=== PATIENT | male | born 1985 | race American Indian/Alaskan Native ===

== ENCOUNTER 2021-11-13 18:00 | Outpatient (RCR) | payer OTHER, SELFPAY ==
--- NOTE | 2021-09-26 08:31 | HP.PTEVAL ---
Patient's Visit Information JOSE ALEJANDRO RAO is a 36 year old M referred to Physical Therapy by Dr. 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 Date of Evaluation: 09/26/21 Physical Therapist: Brennan Crook PT, Cert MDT, OCS - Visit Plan Frequency: 2x /Week Duration: 4 Weeks Plan: PT INTERVETIONS DAJUAN EX'S DLS ,POSTURAL EX'S,,MANUAL THERAPY AND MMODLTIES - Subjective This 36 y/o female presents to physical therapy low back pain with radicular symptoms left leg. Patient has had Lumbar pain with radicular symptoms ~ 5 months with insidious onset of pain. Patient seen DR chuyita PT . Patient was provided naproxen. Patient pain pain low back right thigh to knee. Aggravating sitting extended ,bending ,AM ,standing extended . Alleviating factors walking, as day goes on. Denies paresthesia/tingling. Bowel/bladder -. Coughing/sneezing -.Patient pain affects sleeping. No abnormal hip pain. Symptoms affects QOL and function. No prior back pain although right hip OA ,infection. SOCIAL: single. 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 GAIT: reciprocal pattern. SYMMTRIES: align. NEURO: denies paresthesia/tingling ,reflexes L3-4,L4-5,L5-S1. + ANR. LUMBAR ROM: flexion mod loss pain ,extension min loss, side glides min loss,. FLEXABLITY: hamstrings mod/severe loss with + ANR - Special Tests L/S Slump test left side: Positive L/S Slump test right side: Negative L/S Left Straight Leg Raise: Positive L/S Right Straight Leg Raise: Negative Lumbar Standing: Flexion - Mechanical Response: No effect Lumbar Standing: Flexion - Symptoms During Testing: Increases Lumbar Standing: Flexion - Symptoms After Testing: Worse Lumbar Standing: Extension - Mechanical Response: No effect Lumbar Standing: Extension - Symptoms During Testing: Decreases Lumbar Standing: Extension - Symptoms After Testing: Better Lumbar Standing: Right Side Glides - Mechanical Response: No effect Lumbar Standing: Right Side [employer] - Symptoms During Testing: No effect Lumbar Standing: Left Side [employer] - Mechanical Response: No effect Lumbar Standing: Left Side [employer] - Symptoms During Testing: No effect Lumbar Standing: Left Side [employer] - Symptoms After Testing: No effect Lumbar Lying: Flexion - Mechanical Response: No effect Lumbar Lying: Flexion - Symptoms During Testing: Increases Lumbar Lying: Flexion - Symptoms After Testing: Worse Lumbar Lying: Extension - Mechanical Response: No effect Lumbar Lying: Extension - Symptoms During Testing: Centralizing Lumbar Lying: Extension - Symptoms After Testing: Better - Balance/Special Test Scores Oswestry Low Back Score: 23 - Goals Goal 1:: I with HEP for back pain Goal Time Frame: 4-6 Weeks Goal 2:: Patient to improve sitting posture and body mechanics Goal Time Frame: 4-6 Weeks Goal 3:: Patient to demonstrate 50% improvement with decrease back pain and radicular symptoms Goal Time Frame: 4-6 Weeks Goal 4:: Patient improve lumbar ROM for function of recovery Goal Time Frame: 4-6 Weeks Goal 5:: Patient to improve back owestry score by 5 points to improve function Goal Time Frame: 4-6 Weeks - Rehabilitation Potential Physical Therapy Diagnosis: This patient possible displays with derangement above knee with pain with test movements ,position ,+ ANR,SLR ,better with extension and correction of posture thus benefit from skilled PT Rehabilitation Potential: Good - Anticipated Interventions Patient/Client Instruction: Educate patient on: Condition, Plan of Care For the Purpose of:: To decrease pain, To increase ROM, To increase oxygenation perfusion, To improve ability to perform ADL's, To increase tolerance to activity/condition/position, To improve ability of physical actions for home/community/work/leisure, To improve health of tissue, To decrease soft tissue restriction, To increase flexibility/ROM Therapeutic Exercise to Include: Strength training, Body mechanics, Postural training, Flexibilty training, Active ROM, Dynamic Lumbar Stabilization, Dajuan Exercises For the Purpose of:: To decrease pain, To increase ROM, To improve muscle performance and motor function, To improve ability to perform ADL's, To increase tolerance to activity/condition/position, To improve ability of physical actions for home/community/work/leisure, To improve health of tissue, To decrease soft tissue restriction, To increase flexibility/ROM, To prevent re-injury Manual Therapy Techniques to Include: Mobilization Comment: LUMBAR For the Purpose of:: To decrease pain, To improve muscle performance and motor function, To improve ability to perform ADL's, To increase tolerance to activity/condition/position, To improve ability of physical actions for home/community/work/leisure, To improve health of tissue, To decrease soft tissue restriction, To increase flexibility/ROM TENS: Yes IF ES: Yes Cryotherapy (ice pack, ice massage): Yes Thermo therapy (hot pack): Yes Ultrasound (thermal/non thermal): Yes For the Purpose of:: To decrease pain, To increase ROM, To improve nutrient delivery to tissue, To increase oxygenation perfusion, To improve health of tissue, To decrease soft tissue restriction Thank you for the opportunity to evaluate your patient. For Medicare and Medicare HMO plans, please review the plan of care and approve it. It will need to be FAXED BACK to us at [phone] for Medicare purposes. For Medicare only, by signing this I certify the plan of care. Please let me know if there are questions or concerns regarding this plan of care. Physician Signature: Date:
--- NOTE | 2022-01-23 10:16 | HP.PT.NRP ---
JOSE ALEJANDRO RAO was seen in my office for initial evaluation on 09/26/21. The following Plan of Care was established for this patient: Initial Frequency: 2x /Week Initial Duration: 4 Weeks Patient/Client Instruction: Educate patient on: Condition, Plan of Care For the Purpose of:: To decrease pain, To increase ROM, To increase oxygenation perfusion, To improve ability to perform ADL's, To increase tolerance to activity/condition/position, To improve ability of physical actions for home/community/work/leisure, To improve health of tissue, To decrease soft tissue restriction, To increase flexibility/ROM Therapeutic Exercise to Include: Strength training, Body mechanics, Postural training, Flexibilty training, Active ROM, Dynamic Lumbar Stabilization, Vic Exercises For the Purpose of:: To decrease pain, To increase ROM, To improve muscle performance and motor function, To improve ability to perform ADL's, To increase tolerance to activity/condition/position, To improve ability of physical actions for home/community/work/leisure, To improve health of tissue, To decrease soft tissue restriction, To increase flexibility/ROM, To prevent re-injury Manual Therapy Techniques to Include: Mobilization Comment: LUMBAR For the Purpose of:: To decrease pain, To improve muscle performance and motor function, To improve ability to perform ADL's, To increase tolerance to activity/condition/position, To improve ability of physical actions for home/community/work/leisure, To improve health of tissue, To decrease soft tissue restriction, To increase flexibility/ROM TENS: Yes IF ES: Yes Cryotherapy (ice pack, ice massage): Yes Thermo therapy (hot pack): Yes Ultrasound (thermal/non thermal): Yes For the Purpose of:: To decrease pain, To increase ROM, To improve nutrient delivery to tissue, To increase oxygenation perfusion, To improve health of tissue, To decrease soft tissue restriction This patient was last seen in our office . Pertinent comments regarding their Physical therapy will appear below: This patient was seen for PT FOR CHRONIC BACK PAIN for 10 visits for Vic ex's ,DLS ,postural ex's flexibility and recommended heel lift with chronic hip pain ,progressing to I gym program At this point I will be discontinuing this patient from physical therapy. I would be happy to see this patient again in the future if found appropriate by the physician. Thank you! Brennan Crook, PT, Cert MDT, OCS Balance/Gait/Functional tests - Balance/Special Test Scores Oswestry Low Back Score: 5
== END 2021-11-13 19:00 | disposition home or self-care (01) ==
LOC: PT 18:00
PROVIDERS: PCP Family Medicine; Referring Provider Family Medicine; Visit Provider Family Medicine
DX: M54.41 Lumbago with sciatica, right side (principal); M54.42 Lumbago with sciatica, left side; G89.29 Other chronic pain
CPT/HCPCS: 97014; 97035; 97110; 97162; G0283

== ENCOUNTER 2023-03-21 07:29 | Outpatient (RCR) | payer OTHER, SELFPAY | END 2023-04-19 23:59 | LOC: NS 07:29 | PROVIDERS: PCP Family Medicine; Referring Provider Family Medicine; Visit Provider Family Medicine | DX: Z71.3 Dietary counseling and surveillance (principal); E66.01 Morbid (severe) obesity due to excess calories; Z68.41 Body mass index [BMI] 40.0-44.9, adult | CPT/HCPCS: 97802 ==

== ENCOUNTER 2024-12-08 22:26 | Emergency (ER) | payer OTHER, SELFPAY ==
[2024-12-08 22:27] VITALS: BP 137/103; PULSE 78; RESP 17; TEMP 36.6; O2SAT 100; BMI 42.6
== END 2024-12-08 22:40 | disposition left against medical advice (07) ==
LOC: ED 22:44
PROVIDERS: PCP Family Medicine
DX: Z53.21 Procedure and treatment not carried out due to patient leaving prior to being seen by health care provider (principal)

== ENCOUNTER 2025-05-25 15:54 | Emergency (ER) | payer OTHER, SELFPAY ==
[2025-05-25 15:56] VITALS: BP 153/93; PULSE 70; RESP 17; TEMP 36.7; O2SAT 100; BMI 40.7
--- NOTE | 2025-05-25 16:38 | CT_ITS ---
PROCEDURE: ABDOMEN/PELVIS W IV CONT ONLY 05/25/2025 REASON FOR EXAM: LEFT LOWER QUADRANT PAIN TECHNIQUE: ABDOMEN/PELVIS W IV CONT ONLY Coronal and Sagittal reconstruction series were provided. CONTRAST: Isovue-300 VOLUME: 100 mL One or more dose reduction techniques were used (e.g., Automated exposure control, adjustment of the mA and/or kV according to patient size, use of iterative reconstruction technique. RADIATION DOSE SUMMARY: CTDlvol: 6.65, 24.14 mGy DLP: 1438.7 mGycm COMPARISON: None. FINDINGS: LUNG BASES: No basilar airspace consolidation or pleural effusion. LIVER: Unremarkable. GALLBLADDER: Unremarkable. No calcified stone. BILE DUCTS: No ductal dilation. PANCREAS: Unremarkable. SPLEEN: Unremarkable. ADRENAL GLANDS: Unremarkable. KIDNEYS: The kidneys enhance symmetrically. Hypodense 1.3 mm superior left renal lesion, likely a cyst. No hydronephrosis or hydroureter. STOMACH AND BOWEL: No obstruction or perforation. No wall thickening. No CT evidence of colitis or acute diverticulitis. APPENDIX: Normal-appearing appendix. No CT evidence for appendicitis. RETRO/PERITONEUM: No free fluid. No free air. LYMPH NODES: No lymphadenopathy. PELVIC ORGANS: Unremarkable as visualized. VASCULATURE: No aortic aneurysm. ABDOMINAL WALL AND SOFT TISSUES: Tiny fat containing umbilical hernia. BONES: No fracture or suspicious osseous abnormality. Mild arthritic changes of both hips, greater on the right. CT/Abdomen/Pelvis W IV Cont ONLY IMPRESSION: NO ACUTE FINDINGS IN THE ABDOMEN OR PELVIS. Reading Location: [id number]
[2025-05-25] MEDS: Ketorolac 30 MG/ML Syringe IV (16:44)
[2025-05-25] MEDS: 0.9% Normal Saline (1000mL) 1,000 ML 999 ML IV (16:44)
[2025-05-25 16:55] VITALS: BP 151/77; PULSE 74; RESP 18; O2SAT 96
--- NOTE | 2025-05-25 16:58 | EX.ED.GUMALE ---
HPI History of Present Illness Chief Complaint: Flank Pain Narrative Narrative: Chief complaint and HPI: Abdominal pain. 40-year-old male with no significant past medical history presents for evaluation of left lower quadrant/flank pain. Onset of symptoms this morning. Pain is not improved which is why presents. Associated symptom is some mild nausea. He denies any fever, chills, shortness of breath, chest pain, vomiting, dysuria, hematuria, diarrhea, constipation. States it radiates into the left groin but not into the testicles. Denies any penile or testicular swelling, pain, discharge. No history of urolithiasis or diverticulitis. Review of systems: See HPI Medications: As listed on the chart Allergies: As listed on the chart PFSH: Per chart Vital signs: As listed on the chart. Reviewed. Physical exam: Gen: A&O x3, NAD Head: Normocephalic, atraumatic Eyes: No sclera icterus, conjunctiva clear ENT: Moist mucous membranes Neck: Trachea midline, No JVD CV: RRR, no murmurs, no peripheral edema Resp: Lungs CTA BL, no w/r/c GI: Abd soft, non-distended, mildly tender to palpation left lower quadrant/flank, no r/r/g : No CVA tenderness : Uncircumcised penis. No penile tenderness or discharge. No penile or testicular swelling. Normal lie and position of the testicles. No testicular tenderness, masses, or skin changes. Cremasteric reflexes intact and equal bilaterally. No rashes. No palpable hernias. Musc: Full ROM, no deformity Skin: Warm, dry Neuro: Alert, oriented, grossly intact, sensation intact Psych: Cooperative, appropriate mood and affect [facility] Medical History (Updated 05/25/25 @ 19:[address] Lloyd Gao, DO) GERD (gastroesophageal reflux disease) Home Medications ?Medication ?Instructions ?Recorded ?Last Taken ?Type omeprazole 40 mg capsule,delayed 40 mg PO DAILY 05/25/25 Unknown History release Allergy/AdvReac Type Severity Reaction Status Date / Time Sulfa (Sulfonamide Allergy Mild Hives Verified 05/25/25 16:00 Antibiotics) Social History Smoking Status: Never smoker EXAM Physical Exam Const Vital Signs: 05/25/25 15:56 05/25/25 16:55 05/25/25 17:14 Temperature 98.1 F Temperature Source Oral Pulse Rate 70 74 Respiratory Rate 17 18 Blood Pressure 153/93 H 151/77 H Blood Pressure Mean 113 101 Pulse Ox 100 96 100 Oxygen Delivery Method Room Air Room Air 05/25/25 18:00 05/25/25 19:00 Temperature Temperature Source Pulse Rate 71 Respiratory Rate Blood Pressure 142/63 H 146/81 H Blood Pressure Mean 85 102 Pulse Ox 99 100 Oxygen Delivery Method MDM MDM MDM Narrative Medical decision making narrative: 40-year-old male with no significant past medical history presents for evaluation of left lower quadrant/flank pain. Differential diagnosis includes but is not limited to diverticulitis, urolithiasis, UTI, electrolyte abnormality, suspect less likely pancreatitis or biliary pathology. NS bolus, Zofran, Toradol ordered. Abdominal pain workup with CT abdomen and pelvis. CBC with mild leukocytosis of 12.2. No anemia. CMP unremarkable. Lipase unremarkable. UA negative for UTI. CT abdomen pelvis shows no acute intra-abdominal pathology. At this point in time, no clear etiology to explain patient's left lower quadrant/flank pain. On reevaluation, patient has improved. Patient and family updated of all the results and the plan for discharge home. Follow-up with primary care physician. Return precautions explained. They confirmed understand of the plan. Patient stable to discharge home. Impression: 1. Left lower abdominal/flank pain Lab Data Labs: Laboratory Results - last 24 hr 05/25/25 05/25/25 16:14 17:15 WBC 12.2 H RBC 5.50 Hgb 15.4 Hct 45.8 MCV 83.3 MCH 28.0 MCHC 33.6 RDW Std Deviation 38.7 RDW Coeff of Ajay 12.9 Plt Count 280 MPV 9.6 Immature Gran % (Auto) 0.300 Neut % (Auto) 80.7 H Lymph % (Auto) 14.7 L [place] % (Auto) 3.9 Eos % (Auto) 0.1 Baso % (Auto) 0.3 Absolute Neuts (auto) 9.8 H Absolute Lymphs (auto) 1.79 Nucleated RBC % 0 Sodium 137 Potassium 3.9 Chloride 102 Carbon Dioxide 21.3 Anion Gap 13 BUN 10 Creatinine 0.85 Estim Creat Clear Calc 158.79 Est GFR (MDRD) Non-Af 112 BUN/Creatinine Ratio 11.6 Glucose 95 Calcium 9.2 Total Bilirubin 0.48 AST 26 ALT 23 Alkaline Phosphatase 88 Total Protein 7.6 Albumin 4.3 Globulin 3.4 Albumin/Globulin Ratio 1.3 Lipase 32 Urine Color Yellow Urine Clarity Clear Urine pH 7.0 Ur Specific Welch 1.005 Urine Protein Negative Urine Glucose (UA) Normal Urine Ketones Negative Urine Occult Blood Negative Urine Nitrite Negative Urine Bilirubin Negative Urine Urobilinogen Normal Ur Leukocyte Esterase Negative Radiography Diagnostic Testing: Clinical Impression(s) from Imaging Studies Abdomen/Pelvis CT 05/25/25 16:38 IMPRESSION: NO ACUTE FINDINGS IN THE ABDOMEN OR PELVIS. Reading Location: [facility] Discharge Plan Triage Chief Complaint: Flank Pain ED Provider: Lloyd Gao Dx/Rx/DC Orders Clinical Impression: Abdominal pain Instructions: Abdominal Pain Prescriptions: No Action omeprazole 40 mg capsule,delayed release(DR/EC) 40 mg PO DAILY Primary Care Provider: Jose Alejandro Bean Referrals: Jose Alejandro Bean MD [Primary Care Provider] - 3-5 Days Activity Restrictions/Additional Instructions: Follow-up with primary care physician return back to ED if symptoms change or worsen Print Language: [place] Disposition Disposition: Home, Self Care
[2025-05-25 17:06] LABS: Hematocrit 45.8 % (40-54); Hemoglobin 15.4 g/dL (13.0-16.5); Immature Granulocytes Count 0.040 X10^3/uL (0.0-0.0); Mean Corp Hgb Conc 33.6 g/dL (32-36); Mean Corpuscular Volume 83.3 fL (80-94); Mean Platelet Vol. 9.6 fl (6.2-12.0); NRBC Flagged by Analyzer 0 % (0-5); Platelet Count 280 K/mm3 (150-450); RBC Distribution Width CV 12.9 % (11.6-14.6); RBC Distribution Width SD 38.7 fl (35.1-43.9); Red Blood Count 5.50 M/mm3 (4.6-6.2); White Blood Count 12.2 K/mm3 (4.4-11.0)
[2025-05-25 17:14] VITALS: O2SAT 100
[2025-05-25 17:19] LABS: Mucous, Urine 0 SEEN /hpf (<or=2+)
[2025-05-25 17:22] LABS: AST(SGOT) 26 U/L (<=37); Alanine Aminotransfer ALT/SGPT 23 U/L (<=46); Albumin, Serum 4.3 g/dL (3.5-5.0); Alkaline Phosphatase 88 U/L (40-129); Anion Gap 13 (5-15); BUN 10 mg/dL (4-19); BUN/Creat Ratio 11.6 RATIO (10-20); Calcium,Total 9.2 mg/dL (7.6-11.0); Carbon Dioxide 21.3 mmol/L (21.0-32.0); Chloride 102 mmol/L (98-108); Estimated Creatinine Clearance 158.79 ml/min (50-250); Globulin 3.4 g/dL (2.2-4.2); Glucose 95 mg/dL (70-99); Lipase 32 U/L (13-75); Potassium 3.9 mmol/L (3.3-5.1)
[2025-05-25 17:33] LABS: Glucose, Dipstick Normal (Normal); Ketone-Dipstick Negative (Negative); Leukocyte Esterase-Dipstick Negative /ul (Negative); Nitrite-Dipstick Negative (Negative); Occult Blood-Urine Negative /ul (Negative); Protein-Dipstick Negative (Negative); Specific Gravity, Urine 1.005 (1.002-1.030); Urine Bilirubin Dipstick Negative (Negative)
[2025-05-25 17:42] LABS: Color, Urine Yellow (Yellow)
[2025-05-25 18:00] VITALS: BP 142/63; O2SAT 99
[2025-05-25 19:00] VITALS: BP 146/81; PULSE 71; O2SAT 100
[2025-05-25 19:20] VITALS: BP 146/81; PULSE 71; RESP 80; TEMP 37; O2SAT 100
[2025-05-25 19:38] LABS: Red Blood Cells-Urine 0-5 SEEN /hpf (0-5); Squamous Epithelial Cells - UA 0-5 SEEN /hpf (0-5)
--- OUTSIDE RECORDS SUMMARY | 2025-05-25 19:41 | XMS RPT_ITS | CCD ---
Author Organization [facility] Care Team Providers Care Direct Marketing Executive Name Role Phone Rubina Love Attending Unavailable Rubina Love Admitting Unavailable [facility] Primary Care Unavailable [facility] Consulting Unavailable Manny Bean MD Primary Care Provider Manny Bean MD Primary Care Provider Podlogar SALES DEVELOPMENT MANAGER.Ary LUDWIG Unavailable Jose Alejandro Bean Primary Care Unavailable Provider, Ed Physician Attending Unavailab trudy Jeff SALES DEVELOPMENT MANAGER.Mary LUDWIG Unavailable MANNY BEAN Primary Care Unavailab MANNY Jean Referring Unavailab MANNY Jean Primary Care Unavailab MANNY Jean Referring Unavailab MANNY Jean Primary Care Unavailab MANNY Jean Primary Care Unavailab MANNY Jean Attending Unavailab DONNA Bonner Attending Unavailable MANNY BEAN Primary Care Unavailab MANNY Jean Referring Unavailab KARIME Flores Attending Unavailable MANNY BEAN Primary Care Unavailab MANNY Jean Attending Unavailab MANNY Jean Primary Care Unavailab MANNY Jean Primary Care Unavailab MANNY Jean Referring Unavailab MANNY Jean Primary Care Unavailab MANNY Jean Referring Unavailab DONNA Bonner Attending Unavailable MANNY BEAN Primary Care Unavailab le SELF Referring Unavailable MANNY BEAN Primary Care Unavailab MANNY Jean Attending Unavailab Dr. Jose Alejandro Jean MD Primary Care Provider Dr. Lloyd Gao DO Emergency Provider Allergies Allergy Classification Reported Allergen(s) Allergy Type Date of Onset Reaction(s) Facility (16 sources) Sulfonamides (Antibiotic); Translations: [SULFA (SULFONAMIDE ANTIBIOTICS)] Propensity to adverse reactions to drug 0 Rash [facility] (8 sources) Amoxicillin; Translations: [AMOXICILLIN] Drug Allergy 5 [facility] (6 sources) Clindamycin; Translations: [CLINDAMYCIN] Drug Allergy 5 [facility] (1 source) Sulfonamides (Antibiotic) Drug allergy (disorder) 5 [facility] (6 sources) Ibuprofen; Translations: [IBUPROFEN] Drug Allergy 5 [facility] (1 source) Sulfonamides (Antibiotic) Allergy to substance [address] [facility] Medications Current Medications Medication Drug Class(es) Dates Sig (Normalized) Sig (Original) amoxicillin 50 mg/ml oral suspension (1 source) Penicillin-class Antibacterial Start: 03-25-2025 End: 04-24-2025 amoxicillin 250 mg oral liquid (AMOXIL) celecoxib 200 mg oral capsule (13 sources) Nonsteroidal Anti-inflammatory Drug Start: 09-08-2021 End: 03-05-2025 take 1 capsule by mouth once daily as needed for pain celecoxib (CELEBREX) 200 mg capsule Indications: Chronic right hip pain Take 1 capsule by mouth once daily as needed for pain. 30 capsule 08/07/2023 03/05/2025 Discontinued (Course of therapy completed) Comment on above: Take 1 capsule by [facility] once daily as needed for pain. cholecalciferol 1.25 mg oral capsule (10 sources) Vitamin D Start: 09-30-2023 End: 03-05-2025 take 1 capsule by mouth every week cholecalciferol, Vitamin D3, (VITAMIN D3) 1,250 mcg (50,000 unit) cap capsule Indications: Vitamin D deficiency Take 1 capsule by mouth one time a week. 12 capsule 09/30/2023 03/05/2025 Discontinued (Course of therapy completed) Start: 09-12-2021 End: 02-05-2023 take 1 capsule by mouth every week cholecalciferol, Vitamin D3, (VITAMIN D3) 1,250 mcg (50,000 unit) cap capsule Indications: Vitamin D deficiency Take 1 capsule by mouth one time a week. 12 capsule 0 09/12/2021 02/05/2023 Discontinued Comment on above: Take 1 capsule by mo [facility] one time a week. clindamycin 150 mg oral capsule (3 sources) Lincosamide Antibacterial Start: 12-08-19 25 End: 12-13-19 25 take 3 capsules by mouth three times daily clindamycin (CLEOCIN) 150 mg capsule Indications: Dental infection Take 3 capsules by mouth three times a day for 5 days. 45 capsule 12/08/2024 12/09/2024 Discontinued (Allergic response) CPAP (15 sources) Start: 07-26-20 CPAP Initiate Auto PAP @ 9-18 cm of water with humidification. Mask (per patient preference) optional chin strap (if indicated) , filters, tubing, humidifier and lifetime supplies. 1 Each 07/26/2022 Active Start: 07-26-2022 CPAP Initiate Auto PAP @ 9-18 cm of water with humidification. Mask (per patient preference) optional chin strap (if indicated) , filters, tubing, humidifier and lifetime supplies. 1 Each 0 07/26/2022 Active Comment on above: Initiate Auto PAP @ 9-18 cm of water with humidification. Mask (per patient preference) optional chin strap (if indicated) , filters, tubing, humidifier and lifetime supplies. docusate sodium 100 mg oral capsule (9 sources) Start: 024 End: take 1 capsule by mouth every twelve hours as needed docusate sodium (COLACE) 100 mg capsule Take 1 capsule by mouth two times a day as needed for constipation. 60 capsule 05/26/2024 03/05/2025 Discontinued (Course of therapy completed) doxycycline hyclate 100 mg oral capsule (1 source) Tetracycline-class Drug Start: 025 End: take 1 capsule by mouth twice daily doxycycline hyclate (VIBRAMYCIN) 100 mg capsule Indications: Hives Take 1 capsule by mouth two times a day for 7 days. 14 capsule 12/09/2024 12/16/2024 Active [id number] 0.3 ml EPINEPHrine 1 mg/ml auto-injector (6 sources) alpha-Adrenergic Agonist, beta-Adrenergic Agonist, Catecholamine Start: EPINEPHrine (EPIPEN 2-PATTIE) 0.3 mg/0.3 mL auto-injector Indications: Allergy to penicillin , Allergic reaction, subsequent encounter Inject 0.3 mL intramuscularly as needed. 2 Each 1 12/09/2024 Active ofloxacin 3 mg/ml otic solution (1 source) Quinolone Antimicrobial Start: End: ofloxacin (FLOXIN) 0.3 % otic solution Indications: Acute otitis externa of left ear, unspecified type , Abrasion of left ear canal, initial encounter Use 10 drops in the right ear once daily for 7 days. 5 mL 02/07/2025 02/14/2025 Active omeprazole 40 mg delayed release oral capsule (17 sources) Proton Pump Inhibitor Start: 024 End: take 1 capsule by mouth once daily Omeprazole 40 mg capsule,delayed release(DR/EC) Active 40 mg PO DAILY May 25, 2025 12:00am Start: 01-10-2021 End: 05-26-2024 take 1 capsule by mouth once daily before breakfast omeprazole (PRILOSEC) 20 mg capsule Indications: Gastroesophageal reflux disease without esophagitis Take 1 capsule by mouth daily before breakfast. 1/2 hr before meal. 30 capsule 2 01/10/2021 05/26/2024 Discontinued Comment on above: Take 1 capsule by [facility] daily before breakfast. 1/2 hr before meal. predniSONE 20 mg oral tablet (3 sources) Start: 5 End: 5 take 2 tablets by mouth once daily predniSONE (DELTASONE) 20 mg tablet Indications: Rash , Facial swelling Take 2 tablets by mouth once daily for 5 days. 10 tablet 12/08/2024 12/13/2024 Active tiZANidine 4 mg oral tablet (13 sources) Central alpha-2 Adrenergic Agonist Start: End: 5 take 1 tablet by mouth every eight hours as needed tiZANidine (ZANAFLEX) 4 mg tablet Indications: Chronic right hip pain Take 1 tablet by mouth every 8 hours as needed. 30 tablet 08/07/2023 03/05/2025 Discontinued (Course of therapy completed) Comment on above: Take 1 tablet by princess [facility] every 8 hours as needed. Completed/Discontinued Medications Medication Drug Class(es) Dates Sig (Normalized) Sig (Original) penicillin G potassium 2,000 Units injection in NaCl 0.9% 0.2 mL (PFIZERPEN-G) (1 source) Start: 12-22-2024 End: 12-22-2024 penicillin G potassium 2,000 Units injection in NaCl 0.9% 0.2 mL (PFIZERPEN-G) Problems Active Problems Problem Classification Problem Date Documented Date Episodic/Chronic Abdominal pain (4 sources) Left upper quadrant pain; Translations: [Left upper quadrant pain] Onset: 05-26-2024 05-26-2024 Episodic Complications of surgical procedures or medical care (2 sources) Non dose-related adverse reaction to medication; Translations: [Unspecified adverse effect of drug or medicament, initial encounter] 12-22-2024 Episodic Contraceptive and procreative management (1 source) Patient encounter status; Translations: [Encounter for other general counseling and advice on procreation] 08-07-2023 Episodic Disorders of teeth and jaw (1 source) Infection of tooth; Translations: [Periapical abscess without sinus] 12-08-2024 Episodic E Codes: Adverse effects of medical drugs (2 sources) Allergic reaction caused by penicillin; Translations: [Adverse effect of penicillins, subsequent encounter] Onset: 03-05-2025 03-05-2025 Episodic Esophageal disorders (20 sources) Gastroesophageal reflux disease without esophagitis; Translations: [Gastro-esophageal reflux disease without esophagitis] Onset: 01-10-2021 01-10-2021 Chronic Nutritional deficiencies (6 sources) Vitamin D deficiency; Translations: [Vitamin D deficiency, unspecified] Onset: 03-05-2025 08-07-2023 Chronic Other ear and sense organ disorders (1 source) Acute otitis externa of left ear; Translations: [Unspecified acute noninfective otitis externa, left ear] 02-07-2025 Episodic Other ear and sense organ disorders (1 source) Unspecified acute noninfective otitis externa, left ear; Translations: [Acute otitis externa of left ear, unspecified type] Onset: 02-07-2025 Episodic Other injuries and conditions due to external causes (3 sources) Allergic reaction; Translations: [Allergy, unspecified, subsequent encounter] 12-09-2024 Episodic Other injuries and conditions due to external causes (1 source) Angioedema; Translations: [Angioneurotic edema, initial encounter] 12-22-2024 Episodic Other nervous system disorders (1 source) Numbness of toe; Translations: [Anesthesia of skin] 03-05-2025 Episodic Other nervous system disorders (1 source) Anesthesia of skin; Translations: [Numbness of toes] Onset: 03-05-2025 Episodic Other non-traumatic joint disorders (1 source) Pain in right knee; Translations: [Pain in joint, lower leg] 08-08-2022 Episodic Other nutritional; endocrine; and metabolic disorders (17 sources) Morbid obesity; Translations: [Morbid (severe) obesity due to excess calories] 01-10-2021 Chronic Other nutritional; endocrine; and metabolic disorders (13 sources) Body mass index 40+ - severely obese; Translations: [Morbid (severe) obesity due to excess calories] Onset: 08-07-2023 08-07-2023 Chronic Other nutritional; endocrine; and metabolic disorders (1 source) Morbid (severe) obesity due to excess calories; Translations: [Morbid obesity (HCC)] Onset: 01-10-2021 Chronic Other screening for suspected conditions (not mental disorders or infectious disease) (2 sources) Raised TSH level; Translations: [Other specified abnormal findings of blood chemistry] Onset: 03-08-2025 03-08-2025 Episodic Other skin disorders (1 source) Eruption; Translations: [Rash and other nonspecific skin eruption] 12-08-2024 Episodic Other skin disorders (2 sources) Facial swelling ; Translations: [Localized swelling, mass and lump, head] 12-08-2024 Episodic Other upper respiratory disease (18 sources) Seasonal allergy; Translations: [Other seasonal allergic rhinitis] 01-10-2021 Chronic Other upper respiratory disease (1 source) Allergic rhinitis; Translations: [Allergic rhinitis, unspecified] 03-05-2025 Chronic Other upper respiratory disease (1 source) Other seasonal allergic rhinitis; Translations: [Seasonal allergies] Onset: 01-10-2021 Chronic Other upper respiratory disease (1 source) Allergic rhinitis, unspecified; Translations: [Allergic rhinitis, unspecified seasonality, unspecified trigger] Onset: 03-05-2025 Chronic Residual codes; unclassified (18 sources) Obstructive sleep apnea syndrome; Translations: [Obstructive sleep apnea (adult) (pediatric)] 01-10-2021 Chronic Residual codes; unclassified (1 source) Obstructive sleep apnea (adult) (pediatric); Translations: [BLAIR on CPAP] Onset: 01-10-2021 Chronic Residual codes; unclassified (1 source) Procedure and treatment not carried out due to patient leaving prior to being seen by health care provider; Translations: [Procedure and treatment not carried out due to patient leaving prior to being seen by health care provider] Onset: 12-18-2024 Episodic Superficial injury; contusion (2 sources) Abrasion of ear region; Translations: [Abrasion of left ear, initial encounter] Onset: 02-07-2025 02-07-2025 Episodic Past or Other Problems Problem Classification Problem Date Documented Da te Episodic/Chronic Allergic reactions (9 sources) Allergy to penicillin; Translations: [Urticaria] Onset: 12-22-2024 12-09-2024 Episodic Other injuries and conditions due to external causes (1 source) Allergy, unspecified, subsequent encounter; Translations: [Allergic reaction, subsequent encounter] Onset: 12-22-2024 Episodic Other non-traumatic joint disorders (20 sources) Hip pain; Translations: [Pain in right hip] Onset: 02-26-2020 Resolved: 05-19-2021 07-18-2020 Episodic Other nutritional; endocrine; and metabolic disorders (12 sources) Body mass index 30+ - obesity; Translations: [Obesity, unspecified] Resolved: 01-10-2021 01-10-2021 Chronic Spondylosis; intervertebral disc disorders; other back problems (12 sources) Chronic low back pain; Translations: [Chronic midline low back pain without sciatica] Onset: 02-03-2021 Resolved: 05-19-2021 05-19-2021 Episodic Results Test Name Value Interpretation Reference Range Facility Absolute lymphocyte countOrd ered By: Lloyd Gao on 05-25-2025 Lymphocytes Auto (Unsp spec) [#/Vol] 1.79 10*3/uL 0.83-4.51 [facility] Absolute neutrophil countOrd ered By: Lloyd Gao on 05-25-2025 Neutrophils (Bld) [#/Vol] 9.8 10*3/uL High 2.0-7.7 [facility] Anion gap in Serum or Plasma Ordered By: Lloyd Gao on 05-25-2025 Anion gap [Moles/Vol] 13 mmol/L 5-15 [facility] Automated lymphocyte count a s percentage of total leukocytesOrdered By: Lloyd Gao on 05-25-2025 Lymphocytes/100 WBC Auto (Unsp spec) 14.7 % Low 19-41 [facility] BUN/creatinine ratioOrdered By: Lloyd Gao on 05-25-2025 Urea nitrogen/Creatinine [Mass ratio] 11.6 mg/mg 10-20 [facility] Basophil percentageOrdered B y: Lloyd Gao on 05-25-2025 Basophils/100 WBC (Bld) 0.3 % 0-1 [facility] Bilirubin Test strip Ql (U)O rdered By: Lloyd Gao on 05-25-2025 Bilirubin Ql (U) Negative Negative [facility] Bilirubin, totalOrdered By: Lloyd Gao on 05-25-2025 Bilirubin [Mass/Vol] 0.48 mg/dL 0.00-1.30 [facility] Carbon dioxide, total [Moles /volume] in Central venous bloodOrdered By: Lloyd Gao on 05-25-2025 CO2 [Moles/Vol] 21.3 mmol/L 21.0-32.0 [facility] Chloride assayOrdered By: Vivek Gao on 05-25-2025 Chloride [Moles/Vol] 102 mmol/L 98-108 [facility] Eosinophil percentageOrdered By: Lloyd Gao on 05-25-2025 Eosinophils/100 WBC (Bld) 0.1 % 0-5 [facility] Erythrocyte distribution wid th ratioOrdered By: Lloyd Gao on 05-25-2025 Erythrocyte distribution width (RBC) [Ratio] 12.9 % 11.6-14.6 [facility] Erythrocyte distribution wid th standard deviationOrdered By: Lloyd Guillory on 05-25-2025 Erythrocyte distribution width (RBC) [Ratio] 38.7 fl 35.1-43.9 [facility] Glomerular filtration rate ( GFR) estimation/1.73 sq m using serum, plasma, or whole bOrdered By: Lloyd Gao on 05-25-2025 GFR/1.73 sq M.predicted among non-blacks MDRD (S/P/Bld) [Vol rate/Area] 112 mL/min/{1.73_m2} >60 [facility] Comment on above: mL/min/1.73m2 CKD-EP I Creatinine Equation (2020) Hematocrit Auto (Bld) [Volum e fraction]Ordered By: Lloyd Gao on 05-25-2025 Hematocrit (Bld) [Volume fraction] 45.8 % 40-54 [facility] Hemoglobin measurementOrdere d By: Lloyd LagosKahlil on 05-25-2025 Hemoglobin (Bld) [Mass/Vol] 15.4 g/dL 13.0-16.5 [facility] Immature granulocytes/100 WB C Auto (Bld)Ordered By: Lloydmarie Gao on 05-25-2025 Immature granulocytes/100 WBC (Bld) 0.300 % 0.0-0.9 [facility] Comment on above: IG% - Immature Granu locytes (promyelocytes, myelocytes and metamyelocytes) > 1% indicates that a LEFT SHIFT is Present. Ketones Test strip Ql (U)Ord ered By: Lloyd Gao on 05-25-2025 Ketones Ql (U) Negative Negative [facility] Laboratory - Chemistry and C hemistry - challengeOrdered By: Lloydmarie Gao on 05-25-2025 AST [Catalytic activity/Vol] 26 U/L <38 [facility] Lipase measurementOrdered By : [facility] on 05-25-2025 Lipase [Catalytic activity/Vol] 32 U/L 13-75 [facility] Comment on above: Please note:LIPASE r evised reference range effective 23. New Lipase methodology. Expected to produce lower values than the previous assay method. NEW Reference Range: 13 - 75 U/L MCV (mean corpuscular volume ) determinationOrdered By: Lloyd Gao on 05-25-2025 MCV (RBC) [Entitic vol] 83.3 fL 80-94 [facility] Mean corpuscular hemoglobin (MCH) determinationOrdered By: Lloyd Gao on 05-25-2025 MCH (RBC) [Entitic mass] 28.0 pg 27.0-32.0 [facility] Mean corpuscular hemoglobin concentration (MCHC) determinationOrdered By: Lloyd Gao on 05-25-2025 MCHC (RBC) [Mass/Vol] 33.6 g/dL 32-36 [facility] Mean platelet volume determi nationOrdered By: Lloyd Gao on 05-25-2025 Platelet mean volume (Bld) [Entitic vol] 9.6 fL 6.2-12.0 [facility] Monocyte percentageOrdered B y: Lloyd Gao on 05-25-2025 Monocytes/100 WBC (Bld) 3.9 % 0-10 [facility] Neutrophil percentageOrdered By: Llody Gao on 05-25-2025 Neutrophils/100 WBC (Bld) 80.7 % High 47-70 [facility] Nitrite Test strip Ql (U)Ord ered By: Lloyd Gao on 05-25-2025 Nitrite Ql (U) Negative Negative [facility] Nucleated red blood cell per centageOrdered By: Lloyd Gao on 05-25-2025 Nucleated RBC/100 WBC (Bld) [Ratio] 0 % 0-5 [facility] Platelet countOrdered By: Vivek Gao on 05-25-2025 Platelets (Bld) [#/Vol] 280 10*3/uL 150-450 [facility] Potassium measurement (mass/ volume)Ordered By: Lloyd Gao on 05-25-2025 Potassium (Unsp spec) [Mass/Vol] 3.9 mmol/L 3.3-5.1 [facility] Protein Test strip Ql (U)Ord ered By: Lloyd Gao on 05-25-2025 Protein Ql (U) Negative Negative [facility] RBC Auto (Bld) [#/Vol]Ordere d By: Lloyd Gao on 05-25-2025 RBC (Bld) [#/Vol] 5.50 10*6/uL 4.6-6.2 [facility] Serum creatinine measurement (mass/volume)Ordered By: Lloyd Gao on 05-25-2025 Creatinine [Mass/Vol] 0.85 mg/dL 0.70-1.20 [facility] Serum globulin measurementOr dered By: Lloyd Gao on 05-25-2025 Globulin (S) [Mass/Vol] 3.4 g/dL 2.2-4.2 [facility] Serum glucose measurement (m ass/volume)Ordered By: Lloyd Gao on 05-25-2025 Glucose [Mass/Vol] 95 mg/dL 70-99 [facility] Serum or plasma alanine rojas otransferase (ALT) measurementOrdered By: Lloyd Gao on 05-25-2025 ALT [Catalytic activity/Vol] 23 U/L <47 [facility] Serum or plasma albumin pantera urement (mass/volume)Ordered By: Lloyd Guillory on 05-25-2025 Albumin [Mass/Vol] 4.3 g/dL 3.5-5.0 [facility] Serum or plasma albumin/glob ulin mass ratioOrdered By: Lloyd Gao on 05-25-2025 Albumin/Globulin [Mass ratio] 1.3 {ratio} 0.9-2.4 [facility] Serum or plasma alkaline parveen sphatase measurementOrdered By: Lloyd Gao on 05-25-2025 ALP [Catalytic activity/Vol] 88 U/L 40-129 [facility] Serum or plasma calcium pantera urement (mass/volume)Ordered By: Lloyd Guillory on 05-25-2025 Calcium [Mass/Vol] 9.2 mg/dL 7.6-11.0 [facility] Serum or plasma urea nitroge n measurement (mass/volume)Ordered By: Lloyd Gao on 05-25-2025 Urea nitrogen [Mass/Vol] 10 mg/dL 4-19 [facility] Sodium levelOrdered By: Tyler Gao on 05-25-2025 Sodium [Moles/Vol] 137 mmol/L 133-145 [facility] Total proteinOrdered By: Juan Gao on 05-25-2025 Protein [Mass/Vol] 7.6 g/dL 5.9-8.4 [facility] Urine clarityOrdered By: Juan Gao on 05-25-2025 Clarity (U) Clear Clear [facility] Urine color determinationOrd ered By: Lloyd Gao on 05-25-2025 Color (U) Yellow Yellow [facility] Urine glucose detectionOrder ed By: Lloyd Gao on 05-25-2025 Glucose Ql (U) Normal mg/dl Normal [facility] Urine leukocyte esterase det ection by dipstickOrdered By: Lloyd Gao on 05-25-2025 Leukocyte esterase Test strip Ql (U) Negative Negative [facility] Urine pHOrdered By: Lloyd Daigle on 05-25-2025 pH (U) 7.0 [pH] 5.0 - 8.0 [facility] Urine specific gravity measu rementOrdered By: Lloyd Gao on 05-25-2025 Specific gravity (U) [Rel density] 1.005 1.002-1.030 [facility] Urine urobilinogen measureme ntOrdered By: Lloyd Gao on 05-25-2025 Urobilinogen Ql (U) Normal mg/dl Normal [facility] White blood cell (WBC) count Ordered By: Lloyd Gao on 05-25-2025 WBC (Bld) [#/Vol] 12.2 10*3/uL High 4.4-11.0 [facility] ALLERGEN SKIN TEST-PENICILLI Non 03-25-2025 ANTIBIOTIC PERCUTANE OUS AND INTRADERMAL SKIN TESTING/ Mean Wheal & Flare Diameter (mm) Patient has been identified by name and date of : Yes . Skin test applied by : Palak Harrington RN Interpreted By: Donna Dale M.D. * Clinical significant reactions are regarded as a wheal diameter greater than or equal to 3 mm with a flare diameter greater or equal to 6mm. ALLERGENS Negative Control (50% glycerin/50% cocas for prick and HSA for intradermal) P: W = 0 mm F = 0 mm ID:W = 0 mm F = 0 mm PENICILLIN GK 10,000 UNITS/ML P: W = 0 mm F = 0 mm ID: W = 0 mm F = 0 mm PREPEN -(benzylpenicilloyl polylysine) full strength P: W = 0 mm F = 0mm ID: W = 0 mm F = 0 mm HISTAMINE- positive control (Histamine base 6mg/ml)for Prick and 0.1 mg/ml for intradermal P: W = 4 mm F = 15 mm ID:W = 8 mm F = 30 mm [facility] CNOVon 03-25-2025 CNOV Office Visit (ALLMED ) MAIRAGIFTYDAVY ([id number]) 1985 M Date Time Provider Department 03/25/25 2:00 PM DONNA DALE During your visit today, we recorded the following information about you: Pulse Blood pressure Weight 62/minute 120/78 135.3 kg Palak Harrington RN 03/26/2025 3:39 PM Signed Patient returning for amoxicillin testing. Patient has been off antihistamines for 5 days. Donna Dale MD 03/25/2025 4:16 PM Addendum Allergy skin tests completed to penicillin were negative. You took amoxicillin in a graded fashion and tolerated this without adverse reaction. You are at low risk for a severe, immediate allergic or anaphylactic reaction to penicillin, amoxicillin and other penicillin-type antibiotics. Skin tests and oral challenges are unreliable for predicting delayed reactions. Continue to avoid use of aspirin and other NSAID medications including ibuprofen (olivarez-1 inhibitors) You may continue to take regular strength acetaminophen as tolerated Celebrex, a prescription medication which inhibits Olivarez 2, is typically well-tolerated in people who have sensitivity to Olivarez 1 inhibitors. Please contact the allergy nurses directly at [phone] if you and/or your family doctor would like to schedule an aspirin challenge (do not schedule for the call center) Donna Dale MD 03/26/2025 3:39 PM Signed ASSESSMENT/PLAN: -Acute urticaria and angioedema, resolved, likely caused by ibuprofen as evaluation for amoxicillin allergy today was negative Allergy skin tests to penicillin were negative. The patient took amoxicillin in a graded fashion and tolerated this without adverse reaction. The patient is at low risk for a severe, immediate, IgE-mediated reaction to penicillin, amoxicillin and other penicillin-type antibiotics. Skin tests and oral challenges are unreliable for predicting delayed reactions. Recommend that the patient continue to avoid use of aspirin/NSAIDs (Olivarez 1 inhibitors) He may continue to take regular strength acetaminophen as needed Celebrex, a Olivarez 2 inhibitor is typically well-tolerated. Depending on patient and primary care physician's preferences, a return visit for the completion of a graded aspirin challenge may be considered. Even if patient tolerates a graded aspirin challenge, I will recommend that he continue to avoid use of ibuprofen specifically. - Discussed medication dosage, usage, side effects, and goals of treatment in detail. - Follow-up as needed- patient will return sooner should new symptoms or problems arise. Donna Dale MD Allergy AND Immunology Davy Rao is a 39 year old male with a history of acute urticaria associated with concurrent use of ibuprofen and amoxicillin who presents for the completion of allergy skin test to penicillin. He has been doing well since his last visit. Denies recurrence of urticaria. Denies subsequent use of penicillin antibiotic and aspirin/NSAIDs. (From initial visit on 12/22/24 This is a consultation requested by Manny Bean MD for an allergy and immunology evaluation. My final recommendations will be communicated back to the requesting healthcare provider(s) by way of shared medical record or via [place] mail. Davy Rao is a 39 year old male who presents for further evaluation of possible allergic reaction. On December 07, he had a dental implant placed under local anesthesia. Amoxicillin and Peridex mouthwash were prescribed after the procedure. Patient also took ibuprofen as needed for pain. He took the first dose of amoxicillin as well as a dose of ibuprofen that evening. He was asymptomatic upon awakening the following morning. He took amoxicillin and he believes ibuprofen prior to going to work. 3 to 4 hours later, he noted generalized itching of the upper extremities and trunk as well as swelling of the left medial lower eyelid. At 2 PM, he took another dose of amoxicillin. He then presented to a [facility] where rash and eye swelling were noted. Prednisone was prescribed. Clindamycin was prescribed to replace amoxicillin. That evening, he took the first dose of clindamycin and believes he also took ibuprofen at that time. About 30 minutes later, he noted worsening/recurrence of hives and itching occurring on his neck trunk and upper extremities as well as tingling of the tongue. He presented to the emergency room but was not seen. He took Benadryl that evening. He was asymptomatic upon awakening the following morning. He began to take prednisone as prescribed the day prior. When he was evaluated by Dr. Bean, on 12/09, a 7-day course of doxycycline was prescribed which he took without adverse reaction. He also changed from ibuprofen to acetaminophen 1000 mg as needed which he also tolerated without adverse reaction. Denies subsequ (more content not included)... Normal [facility] INGESTION CHALLENGE TESTon 0 03-25-2025 Graded Oral Antibiot ic Challenge 1508: Administered 25 mg of Amoxicillin . Patient asymptomatic after 30 minutes. 1540: Administered 225 of Amoxicillin. Patient asymptomatic after 31 minutes. 1610: Challenge ended. Patient left office asymptomatic. [facility] No Panel Informationon 03-25 [facility] T3 SerPl-mCncon 03-08-2025 T3 [Mass/Vol] 139 ng/dL Normal 79-165 [facility] Comment on above: Order Comment: Speci men Type: BLOOD SPECIMENOrdering Facility: [facility] Address: [address] [place] [address] Performed By: #### 3 3-6, 6-3, 7 ####[facility] LABCLIA [id number] [place] [address] [place] T4 Free SerPl-mCncon 025 Free T4 [Mass/Vol] 1.0 ng/dL Normal 0.9-1.7 [facility] Comment on above: Order Comment: Speci men Type: BLOOD SPECIMENOrdering Facility: [facility] Address: [address] [place] [address] Performed By: #### 3 053-6, 3, 7 ####[facility] LABIA [id number] [address] [place] THYROID PEROXIDASE ANTIBODYo n 03-08-2025 Interpretation and review of laboratory results Normal [facility] TPO Ab Qn NINF [facility] Comment on above: Thyroid Peroxidase A ntibody test is used as an aid in diagnosis of autoimmune thyroid disease. Clinical correlation is required. [facility] TPO Ab Qn [IU]/mL Normal <5.6 [facility] Comment on above: Order Comment: Yolandai antoine Type: BLOOD SPECIMENOrdering Facility: [facility] Address: [address] [place] [address] Result Comment: Thyr oid Peroxidase Antibody test is used as an aid in diagnosis of autoimmune thyroid disease. Clinical correlation is required. Performed By: #### M ICRO ####[facility] LABCLIA [id number] [place] [address] [place] TSH SerPl-aCncon 03-08-2025 TSH Qn 3.820 m[IU]/L Normal 0.270-4.200 [facility] Comment on above: Order Comment: Kitty schultz Type: BLOOD SPECIMENOrdering Facility: [facility] Address: [address] [place] [address] Performed By: #### 3 053-6, 6-3, 7 ####[facility] LABCLIA [id number] [address] STATES OF [facility] 25(OH)D3 [facility] 25-hydroxyvitamin D3 [Mass/Vol] 27.8 ng/mL Low 31.0-80.0 [facility] Comment on above: Order Comment: Speci men Type: BLOOD SPECIMENOrdering Facility: [facility] Address: [address] [place] [address] Result Comment: Clas sification of 25 [place] Vitamin D status: Deficiency/Insufficiency: < or = 30 ng/ml. Sufficiency/Optimal Levels: 31-80 ng/mL Toxicity: > 100 ng/mL. Test performed by chemiluminescent immunoassay. Performed By: #### 1 989-3 ####[facility] LABIA [id number] [place] [address] [place] CBC W Auto Differential pane l (Bld)on 03-05-2025 Basophils (Bld) [#/Vol] 0.03 10*3/uL Normal <0.11 [facility] Comment on above: Order Comment: Speci men Type: BLOOD SPECIMENOrdering Facility: [facility] Address: [address] [place] [address] Performed By: #### 5 7021-8 ####[facility]IA [id number] [address] [place] Basophils/100 WBC (Bld) 0.4 % Normal [facility] Comment on above: Order Comment: Speci men Type: BLOOD SPECIMENOrdering Facility: [facility] Address: [address] [place] [address] Performed By: #### 5 7021-8 ####[facility]IA [id number] [address] STATES OF [facility] Differential cell count method Nom (Bld) Auto Normal [facility] Comment on above: Order Comment: Speci men Type: BLOOD SPECIMENOrdering Facility: [facility] Address: [address] [place] [address] Performed By: #### 5 7021-8 ####[facility] LABCLIA [id number] [facility] [address], [place] [address] [place] Eosinophils (Bld) [#/Vol] 0.11 10*3/uL Normal <0.46 [facility] Comment on above: Order Comment: Speci men Type: BLOOD SPECIMENOrdering Facility: [facility] Address: [address] [place] [address] Performed By: #### 5 7021-8 ####[facility]CLIA [id number] [address], [place] [address] [place] Eosinophils/100 WBC (Bld) 1.6 % Normal [facility] Comment on above: Order Comment: Speci men Type: BLOOD SPECIMENOrdering Facility: [facility] Address: [address] [place] [address] Performed By: #### 5 7021-8 ####[facility] LABCLIA [id number] [address], [place] [address] [place] Erythrocyte distribution width (RBC) [Ratio] 13.1 % Normal 11.5-15.0 [facility] Comment on above: Order Comment: Speci men Type: BLOOD SPECIMENOrdering Facility: [facility] Address: [address] [place] [address] Performed By: #### 5 7021-8 ####[facility]CLIA [id number] [address], [place] [address] [place] Hematocrit (Bld) [Volume fraction] 45.6 % Normal 39.0-51.0 [facility] Comment on above: Order Comment: Speci men Type: BLOOD SPECIMENOrdering Facility: [facility] Address: [address] [place] [address] Performed By: #### 5 7021-8 ####[facility]CLIA [id number] [address], [facility] [place] Hemoglobin (Bld) [Mass/Vol] 15.1 g/dL Normal 13.0-17.0 [facility] Comment on above: Order Comment: Speci men Type: BLOOD SPECIMENOrdering Facility: [facility] Address: [address] [place] [address] Performed By: #### 5 7021-8 ####[facility] LABCLIA [id number] [facility] [address] [place] Immature granulocytes (Bld) [#/Vol] 10*3/uL Normal <0.10 [facility] Comment on above: Order Comment: Speci men Type: BLOOD SPECIMENOrdering Facility: [facility] Address: [address] [place] [address] Performed By: #### 5 7021-8 ####[facility] LABCLIA [id number] [place] [address] [place] Immature granulocytes/100 WBC (Bld) 0.3 % Normal [facility] Comment on above: Order Comment: Speci men Type: BLOOD SPECIMENOrdering Facility: [facility] Address: [address] [place] [address] Performed By: #### 5 7021-8 ####[facility]CLIA [id number] [place] [address] [place] Lymphocytes (Bld) [#/Vol] 2.81 10*3/uL Normal 1.00-4.00 [facility] Comment on above: Order Comment: Speci men Type: BLOOD SPECIMENOrdering Facility: [facility] Address: [address] [place] [address] Performed By: #### 5 7021-8 ####[facility] LABCLIA [id number] [facility] [place] [address] [place] Lymphocytes/100 WBC (Bld) 40.1 % Normal [facility] Comment on above: Order Comment: Speci men Type: BLOOD SPECIMENOrdering Facility: [facility] Address: [address] [place] [address] Performed By: #### 5 7021-8 ####[facility] LABIA [id number] [place] [address] [place] MCH (RBC) [Entitic mass] 28.3 pg Normal 26.0-34.0 [facility] Comment on above: Order Comment: Speci men Type: BLOOD SPECIMENOrdering Facility: [facility] Address: [address] [place] [address] Performed By: #### 5 7021-8 ####[facility] LABIA [id number] [place] [address] [place] MCHC (RBC) [Mass/Vol] 33.1 g/dL Normal 30.5-36.0 [facility] Comment on above: Order Comment: Speci men Type: BLOOD SPECIMENOrdering Facility: [facility] Address: [address] [place] [address] Performed By: #### 5 7021-8 ####[facility] [id number] [place] [address] [place] MCV (RBC) [Entitic vol] 85.4 fL Normal 80.0-100.[address] [facility] Comment on above: Order Comment: Speci men Type: BLOOD SPECIMENOrdering Facility: [facility] Address: [address] [place] [address] Performed By: #### 5 7021-8 ####[facility] LABIA [id number] [place] [address] [place] Monocytes (Bld) [#/Vol] 0.60 10*3/uL Normal <0.87 [facility] Comment on above: Order Comment: Speci men Type: BLOOD SPECIMENOrdering Facility: [facility] Address: [address] [place] [address] Performed By: #### 5 7021-8 ####[facility] [id number] [place] [id number] [place] Monocytes/100 WBC (Bld) 8.6 % Normal [facility] Comment on above: Order Comment: Speci men Type: BLOOD SPECIMENOrdering Facility: [facility] Address: [address] [place] [address] Performed By: #### 5 7021-8 ####[facility] LABCLIA [id number] [place] [address] [place] Neutrophils (Bld) [#/Vol] 3.44 10*3/uL Normal 1.45-7.50 [facility] Comment on above: Order Comment: Speci men Type: BLOOD SPECIMENOrdering Facility: [facility] Address: [address] [place] [address] Performed By: #### 5 7021-8 ####[facility] LABCLIA [id number] [place] [address] [place] Neutrophils/100 WBC (Bld) 49.0 % Normal [facility] Comment on above: Order Comment: Speci men Type: BLOOD SPECIMENOrdering Facility: [facility] Address: [address] [place] [address] Performed By: #### 5 7021-8 ####[facility] LABCLIA [id number] [place] [address] [place] Nucleated RBC (Bld) [#/Vol] 10*3/uL Normal <0.01 [facility] Comment on above: Order Comment: Speci men Type: BLOOD SPECIMENOrdering Facility: [facility] Address: [address] [place] [address] Performed By: #### 5 7021-8 ####[facility] LABCLIA [id number] [place] [address] [place] Nucleated RBC/100 WBC (Bld) [Ratio] 0.0 /100 WBC Normal [facility] Comment on above: Order Comment: Speci men Type: BLOOD SPECIMENOrdering Facility: [facility] Address: [address] [place] [address] Performed By: #### 5 7021-8 ####[facility]CLIA [id number] [place] [address] [place] Platelet mean volume (Bld) [Entitic vol] 9.5 fL Normal 9.0-12.7 [facility] Comment on above: Order Comment: Speci men Type: BLOOD SPECIMENOrdering Facility: [facility] Address: [address] [place] [address] Performed By: #### 5 7021-8 ####[facility] LABCLIA [id number] [place] [address] [place] Platelets (Bld) [#/Vol] 256 10*3/uL Normal 150-400 [facility] Comment on above: Order Comment: Speci men Type: BLOOD SPECIMENOrdering Facility: [facility] Address: [address] [place] [address] Performed By: #### 5 7021-8 ####[facility] LABCLIA [id number] [place] [address] [place] RBC (Bld) [#/Vol] 5.34 10*6/uL Normal 4.20-6.00 [facility] Comment on above: Order Comment: Speci men Type: BLOOD SPECIMENOrdering Facility: [facility] Address: [address] [place] [address] Performed By: #### 5 7021-8 ####[facility] LABCLIA [id number] [address] [address] [place] WBC (Bld) [#/Vol] 7.01 10*3/uL Normal 3.70-11.00 [facility] Comment on above: Order Comment: Speci men Type: BLOOD SPECIMENOrdering Facility: [facility] Address: [address] [place] [address] Performed By: #### 5 7021-8 ####[facility] LABCLIA [id number] [address] [place] [id number] [place] CNOVon 03-05-2025 CNOV Office Visit (FAMPWS ) DAVY RAO ([id number]) 1985 M Date Time Provider Department 03/05/25 7:00 [facility] visit today, we recorded the following information about you: Pulse Respiration Blood pressure Weight 67/minute 16/minute 118/76 134.2 kg Manny Bean MD 03/05/2025 8:25 AM Signed Chief Complaint Patient presents with: Physical Recording using [employer] software for draft documentation of the visit was discussed with the patient/authorized lifeline representatives; all questions welcomed and answered. Patient/authorized lifeline representatives agreed to proceed HPI Davy Rao is a 39 year old male who presents here today for Above Complaints. Annual Wellness Exam: - No recent hospitalizations or ER visits. - Family history of HTN and thyroid issues in mother; father is healthy. - Last tetanus booster within the last five years. - Last COVID-19 vaccine in 2020. - No new updates to family history. BLAIR: - Using CPAP nightly; reports it is life-saving. - Denies daytime fatigue or snoring with CPAP use. - Reports left nasal congestion, feels CPAP air pressure is better on the right nostril. Left-Sided Abdominal Pain: - Reports crampy pain on the left side, comes and goes. - Pain does not interfere with work. - Recently stopped taking omeprazole, plans to restart. Numbness in Second Toe: - Numbness in the second toe, noticed since winter. - Describes sensation as numb and asleep. - No numbness or tingling elsewhere. - No increased thirst, hunger, or polyuria. - No vision changes. - No known trauma or injury to the toe. Increased Appetite: - Reports feeling more hungry in the mornings and craving sweets after dinner. - No significant weight gain or loss. Back Pain: - Reports occasional back pain, not currently taking Celebrex or Xanaflex. Past medical history, appointments, medications, allergies reviewed. 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 Vitamin D deficiency Previous Surgical History PAST SURGICAL HISTORY Procedure Laterality Date PAST SURGICAL HISTORY OF 12/2024 Dental implant Family History FAMILY HISTORY Problem Relation Age of Onset Hypertension Mother Thyroid Mother No Known Problems Father Hypertension Maternal Grandmother Arthritis Maternal Grandmother Thyroid Maternal Grandfather Diabetes Maternal Grandfather Arthritis Paternal Grandmother Hypertension Paternal Grandmother Patient Allergies ALLERGIES Allergen Reactions Amoxicillin Hives Clindamycin Hives hives Ibuprofen Hives, Swelling Tolerates acetaminophen Sulfa (Sulfonamide * Rash Current Medications Current Outpatient Medications on File Prior to Visit Medication Sig EPINEPHrine (EPIPEN 2-PATTIE) 0.3 mg/0.3 mL auto-injector Inject 0.3 mL intramuscularly as needed. omeprazole (PRILOSEC) 40 mg capsule Take 1 capsule by mouth once daily. 1/2 hr before meal. docusate sodium (COLACE) 100 mg capsule Take 1 capsule by mouth two times a day as needed for constipation. cholecalciferol, Vitamin D3, (VITAMIN D3) 1,250 mcg (50,000 unit) cap capsule Take 1 capsule by mouth one time a week. tiZANidine (ZANAFLEX) 4 mg tablet Take 1 tablet by mouth every 8 hours as needed. celecoxib (CELEBREX) 200 mg capsule Take 1 capsule by mouth once daily as needed for pain. CPAP Initiate Auto PAP @ 9-18 cm of water with humidification. Mask (per patient preference) optional chin strap (if indicated) , filters, tubing, humidifier and lifetime supplies. No current facility-administered medications on file prior to visit. Social History Social History Tobacco Use Smoking status: Never Smokeless tobacco: Never Vaping Use Vaping status: Never Used Substance Use Topics Alcohol use: Yes Comment: 2 drink every 2-3 weeks Drug use: Never Review of Symptoms REVIEW OF SYSTEMS GENERAL: No weight loss, malaise or fevers HEENT: Negative for frequent or significant headaches, No changes in hearing or vision, no nose bleeds or other nasal problems NECK: Negative for lumps, goiter, pain and significant neck swelling RESPIRATORY: Negative for cough, hemoptysis, wheezing, COPD, dyspnea or shortness of breath CARDIOVASCULAR: Negative for chest pain, leg swelling, hypertension, CHF or palpitations GI: No nausea, vomiting, or diarrhea : No history of dysuria, frequency or incontinence MUSCULOSKELETAL: Negative for joint pain or swelling, back pain or muscle pain SKIN: Negative for lesions, rash, and itching PSYCH: Negative for sleep disturbance, mood disorder and recent psychosocial stressors HEMATOLOGY/LYMPHOLOGY: Negative for prolonged bleedi (more content not included)... Normal [facility] Comprehensive metabolic 2000 panelon 03-05-2025 Albumin [Mass/Vol] 4.4 g/dL Normal 3.9-4.9 [facility] Comment on above: Order Comment: Speci men Type: BLOOD SPECIMENOrdering Facility: [facility] Address: [address] [place] [address] Performed By: #### 3 016-3, 97298-6, ####[facility] LABCLIA [id number] [place] [address] [place] ALP [Catalytic activity/Vol] 81 U/L Normal 38-113 [facility] Comment on above: Order Comment: Speci men Type: BLOOD SPECIMENOrdering Facility: [facility] Address: [address] [place] [address] Performed By: #### 3 016-3, 88164-9, ####[facility]CLIA [id number] [place] [address] [place] ALT [Catalytic activity/Vol] 31 U/L Normal 10-54 [facility] Comment on above: Order Comment: Speci men Type: BLOOD SPECIMENOrdering Facility: [facility] Address: [address] [place] [address] Performed By: #### 3 016-3, 59623-8, ####[facility]CLIA [id number] [place] [address] [place] Anion gap [Moles/Vol] 8 mmol/L Normal 8-15 [facility] Comment on above: Order Comment: Speci men Type: BLOOD SPECIMENOrdering Facility: [facility] Address: [address] [place] [address] Performed By: #### 3 016-3, 46615-6, ####[facility]CLIA [id number] [facility] [place] [address] [place] AST [Catalytic activity/Vol] 23 U/L Normal 14-40 [facility] Comment on above: Order Comment: Speci men Type: BLOOD SPECIMENOrdering Facility: [facility] Address: [address] [place] [address] Performed By: #### 3 016-3, 76149-0, ####[facility]CLIA [id number] [facility] [place] [address] [place] Bilirubin [Mass/Vol] 0.5 mg/dL Normal 0.2-1.3 [facility] Comment on above: Order Comment: Speci men Type: BLOOD SPECIMENOrdering Facility: [facility] Address: [address] [place] [address] Performed By: #### 3 016-3, 32300-1, ####[facility]CLIA [id number] [facility] [place] [address] [place] Calcium [Mass/Vol] 9.3 mg/dL Normal 8.5-10.2 [facility] Comment on above: Order Comment: Speci men Type: BLOOD SPECIMENOrdering Facility: [facility] Address: [address] [place] [address] Performed By: #### 3 016-3, 79228-6, ####[facility]CL[facility] [id number] [place] [address] [address] [place] Chloride [Moles/Vol] 106 mmol/L Normal 98-107 [facility] Comment on above: Order Comment: Speci men Type: BLOOD SPECIMENOrdering Facility: [facility] Address: [address] [place] [address] Performed By: #### 3 016-3, 53309-7, ####[facility]IA [id number] [place] [id number] [place] CO2 [Moles/Vol] 26 mmol/L Normal 22-30 [facility] Comment on above: Order Comment: Speci men Type: BLOOD SPECIMENOrdering Facility: [facility] Address: [address] [place] [address] Performed By: #### 3 016-3, 00377-5, ####[facility] [id number] [place] [address] [place] Creatinine [Mass/Vol] 0.96 mg/dL Normal 0.73-1.22 [facility] Comment on above: Order Comment: Speci men Type: BLOOD SPECIMENOrdering Facility: [facility] Address: [address] [place] [address] Performed By: #### 3 016-3, 02519-8, ####[facility]IA [id number] [address] STATES OF [facility] Creatinine and Glomerular filtration rate.predicted panel (S/P/Bld) 102 mL/min/1.73m??? Normal >=60 [facility] Comment on above: Order Comment: Speci men Type: BLOOD SPECIMENOrdering Facility: [facility] Address: [address] [place] [address] Result Comment: Michelle mated Glomerular Filtration Rate (eGFR) is calculated using the 2020 CKD-EPI creatinine equation. This equation utilizes serum creatinine, sex, and age as parameters. The creatinine assay has traceable calibration to isotope dilution-mass spectrometry. Refer to KDIGO guidelines for clinical interpretation. In patients with unstable renal function, e.g. those with acute kidney injury, the eGFR may not accurately reflect actual GFR. Performed By: #### 3 016-3, 71557-5, ####[facility] [id number] [address] [address] [place] STEVEN Glucose [Mass/Vol] 97 mg/dL Normal 74-99 [facility] Comment on above: Order Comment: Speci men Type: BLOOD SPECIMENOrdering Facility: [facility] Address: [address] [place] [address] Result Comment: The [place] Diabetes Association (ADA) provides guidance for cutoff values for fasting glucose and random glucose. The ADA defines fasting as no caloric intake for at least 8 hours. Fasting plasma glucose results between 100 to 125 mg/dL indicate increased risk for diabetes (prediabetes). Fasting plasma glucose results greater than or equal to 126 mg/dL meet the criteria for diagnosis of diabetes. In the absence of unequivocal hyperglycemia, results should be confirmed by repeat testing. In a patient with classic symptoms of hyperglycemia or hyperglycemic crisis, random plasma glucose results greater than or equal to 200 mg/dL meet the criteria for diagnosis of diabetes. Reference: Standards of Medical Care in Diabetes 2016, [place] Diabetes Association. Diabetes Care. 2016.39(Suppl 1). Performed By: #### 3 016-3, 59271-0, ####[facility] [id number] [place] [address] [place] Potassium [Moles/Vol] 4.4 mmol/L Normal 3.7-5.1 [facility] Comment on above: Order Comment: Speci men Type: BLOOD SPECIMENOrdering Facility: [facility] Address: [address] [place] [address] Performed By: #### 3 016-3, 74265-4, ####[facility] [id number] [place] [id number] [place] Protein [Mass/Vol] 7.5 g/dL Normal 6.3-8.0 [facility] Comment on above: Order Comment: Speci men Type: BLOOD SPECIMENOrdering Facility: [facility] Address: [address] [place] [address] Performed By: #### 3 016-3, 65012-2, 72768-1 ####[facility] LABCLIA [id number] [address] [address] [place] Sodium [Moles/Vol] 140 mmol/L Normal 136-144 [facility] Comment on above: Order Comment: Speci men Type: BLOOD SPECIMENOrdering Facility: [facility] Address: [address] [place] [address] Performed By: #### 3 016-3, 39151-8, 13597-3 ####[facility] [id number] [place] [address] [place] Urea nitrogen [Mass/Vol] 8 mg/dL Low 9-24 [facility] Comment on above: Order Comment: Speci men Type: BLOOD SPECIMENOrdering Facility: [facility] Address: [address] [place] [address] Performed By: #### 3 016-3, 29600-0, 78776-3 ####[facility] [id number] [place] [address] [place] HbA1c (Bld)on 03-05-2025 Average glucose Estimated from glycated hemoglobin (Bld) [Mass/Vol] 100 mg/dL Normal [facility] Comment on above: Order Comment: Speci men Type: BLOOD SPECIMENOrdering Facility: [facility] Address: [address] [place] [address] Result Comment: eAG: (Estimated average glucose) is a calculated value from HgbA1c and is lifeline representatives of the average blood glucose level in the last 2-3 month period. Performed By: #### 5 5454-3 ####[facility] [id number] [place] [address] [place] HbA1c (Bld) [Mass fraction] 5.1 % Normal 4.3-5.6 [facility] Comment on above: Order Comment: Speci men Type: BLOOD SPECIMENOrdering Facility: [facility] Address: [address] [place] [address] Result Comment: [place] Diabetes Association guidelines indicate that patients with HgbA1c in the range 5.7-6.4% are at increased risk for development of diabetes, and intervention by lifestyle modification may be beneficial. HgbA1c greater or equal to 6.5% is considered diagnostic of diabetes. Performed By: #### 5 5454-3 ####[facility] [id number] [facility] [place] [place] [address] [place] Lipid 1996 panelon 5 Cholesterol [Mass/Vol] 183 mg/dL Normal <200 [facility] Comment on above: Order Comment: Speci men Type: BLOOD SPECIMENOrdering Facility: [facility] Address: [address] [place] [address] Result Comment: <200 mg/dL, Desirable 200-239 mg/dL, Borderline high >239 mg/dL, High Performed By: #### 3 016-3, 23443-5, 31705-0 ####[facility]CL[facility] [id number] [address] [place] [address] [place] Cholesterol in HDL [Mass/Vol] 31 mg/dL Low >39 [facility] Comment on above: Order Comment: Speci men Type: BLOOD SPECIMENOrdering Facility: [facility] Address: [address] [place] [address] Result Comment: 40-5 9 mg/dL, Acceptable >59 mg/dL, High: Negative risk factor for coronary heart disease <40 mg/dL, Low: Positive risk factor for coronary heart disease Performed By: #### 3 016-3, 25529-8, 63466-4 ####[facility] [id number] [place] [id number] [place] Cholesterol in LDL [Mass/Vol] 135 mg/dL High <100 [facility] Comment on above: Order Comment: Speci men Type: BLOOD SPECIMENOrdering Facility: [facility] Address: [address] [place] [address] Result Comment: <100 mg/dL, Optimal 100-129 mg/dL, Near optimal/above optimal 130-159 mg/dL, Borderline high 160-189 mg/dL, High >189 mg/dL, Very high Secondary prevention optimal LDL Cholesterol levels are recommended to be <70 mg/dL LDL cholesterol is calculated using the Coello-NIH equation. Performed By: #### 3 016-3, 71017-9, 54819-6 ####[facility] [id number] [address] [address] [place] Cholesterol in LDL/Cholesterol in HDL [Mass ratio] 4.35 {ratio} High <2.54 [facility] Comment on above: Order Comment: Speci men Type: BLOOD SPECIMENOrdering Facility: [facility] Address: [address] [place] [address] Result Comment: Refe rence: 1. National Cholesterol Education Program ATP III Guideline At-A-Glance Quick Desk Reference: National Heart, Lung, and Blood [place]. National Institutes of Health. 2001: NIH Publication No. 01-3305. 2. An International Atherosclerosis Society position paper: global recommendations for the management of dyslipidemia: executive summary, Atherosclerosis. 2014: 232(2):410-413. Performed By: #### 3 016-3, 58527-3, ####[facility] [id number] [address] [address] [place] Cholesterol in VLDL [Mass/Vol] 16 mg/dL Normal <30 [facility] Comment on above: Order Comment: Speci men Type: BLOOD SPECIMENOrdering Facility: [facility] Address: [address] [place] [address] Performed By: #### 3 016-3, 59998-5, 12052-1 ####[facility] [id number] [address] [address] [place] Cholesterol non HDL [Mass/Vol] 152 mg/dL High <130 [facility] Comment on above: Order Comment: Speci men Type: BLOOD SPECIMENOrdering Facility: [facility] Address: [address] [place] [address] Result Comment: <130 mg/dL, Optimal 130-159 mg/dL, Near optimal/above optimal 160-189 mg/dL, Borderline high 190-219 mg/dL, High >219 mg/dL, Very high Secondary prevention optimal non HDL Cholesterol levels are recommended to be <100 mg/dL Performed By: #### 3 016-3, 81955-7, 67404-6 ####[facility]CL[facility] [id number] [place] [address] [place] Cholesterol.total/Chastity sterol in HDL [Mass ratio] 5.90 {ratio} High <5.10 [facility] Comment on above: Order Comment: Speci men Type: BLOOD SPECIMENOrdering Facility: [facility] Address: [address] [place] [address] Performed By: #### 3 016-3, 75338-1, ####[facility] [id number] [address] [place] FASTING TIME 12 hrs Normal [facility] Comment on above: Order Comment: Speci men Type: BLOOD SPECIMENOrdering Facility: [facility] Address: [address] [place] [address] Performed By: #### 3 016-3, 46061-7, ####[facility] [id number] [facility] [place] [address] [place] Triglyceride [Mass/Vol] 89 mg/dL Normal <[address] [facility] Comment on above: Order Comment: Speci men Type: BLOOD SPECIMENOrdering Facility: [facility] Address: [address] [place] [address] Result Comment: <150 mg/dL, Normal 150-199 mg/dL, Borderline high 200-499 mg/dL, High >499 mg/dL, Very high Performed By: #### 3 016-3, 62788-3, ####[facility] [id number] [address] [place] TSH SerPl-aCncon 03-05-2025 TSH Qn 4.390 m[IU]/L High 0.270-4.200 [facility] Comment on above: Order Comment: Speci men Type: BLOOD SPECIMENOrdering Facility: [facility] Address: [address] [place] [address] Performed By: #### 3 016-3, 43469-9, 34436-6 ####[facility]CL[facility] [id number] [address] OF [facility] CNOVon 02-07-2025 CNOV Office Visit (UCWSTR ) KIRILLGIFTY DANGPI ([id number]) 1985 M Date Time Provider Department 02/07/25 10:00 AM KARIME JOSUE [facility] During your visit today, we recorded the following information about you: Temperature Pulse Respiration Blood pressure 97.3 degrees 69/minute 16/minute 110/76 Weight 135.7 kg Karime Josue APRN.[employer] 02/07/2025 10:26 AM Signed [facility] Subjective HPI HPI Davy Maira is a 39 year old male who presents today for CC of left ear pain , bloody drainage. This started 1 day ago. Has tried nothing for relief. Symptoms are worsened by touching ear. Risk factors uses qtips. Denies uri. nonsmoker. 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 omeprazole (PRILOSEC) 40 mg capsule Take 1 capsule by mouth once daily. 1/2 hr before meal. docusate sodium (COLACE) 100 mg capsule Take 1 capsule by mouth two times a day as needed for constipation. cholecalciferol, Vitamin D3, (VITAMIN D3) 1,250 mcg (50,000 unit) cap capsule Take 1 capsule by mouth one time a week. tiZANidine (ZANAFLEX) 4 mg tablet Take 1 tablet by mouth every 8 hours as needed. celecoxib (CELEBREX) 200 mg capsule Take 1 capsule by mouth once daily as needed for pain. CPAP Initiate Auto PAP @ 9-18 cm of water with humidification. Mask (per patient preference) optional chin strap (if indicated) , filters, tubing, humidifier and lifetime supplies. ofloxacin (FLOXIN) 0.3 % otic solution Use 10 drops in the right ear once daily for 7 days. FAMILY HISTORY Problem Relation Age of Onset Thyroid Mother No Known Problems Father Hypertension Maternal Grandmother Arthritis Maternal Grandmother Thyroid Maternal Grandfather Diabetes Maternal Grandfather Arthritis Paternal Grandmother Hypertension Paternal Grandmother Social History Tobacco Use Smoking status: Never Smokeless tobacco: Never Vaping Use Vaping status: Never Used Substance Use Topics Alcohol use: Yes Comment: 2 drink every 2-3 weeks Drug use: Never Review of Systems Objective BP 110/76 Pulse 69 Temp 36.3 ?C (97.3 ?F) (Tympanic) Resp 16 Wt 135.7 kg (299 lb 2.6 oz) SpO2 98% BMI 43.55 kg/m? Physical Exam Constitutional: General: He is not in acute distress. Appearance: He is not toxic-appearing or diaphoretic. HENT: Head: Normocephalic and atraumatic. Right Ear: Hearing, tympanic membrane, ear canal and external ear normal. Left Ear: Hearing, tympanic membrane and external ear normal. Swelling and tenderness present. No drainage. Ears: Comments: Dried blood noted at 1 oclock on ear canal. Pulmonary: Effort: Pulmonary effort is normal. No accessory muscle usage or respiratory distress. Neurological: Mental Status: He is alert and oriented to person, place, and time. {ASSESSMENT/PLAN: 1. Acute otitis externa of left ear, unspecified type - ICD9: 380.10, ICD10: H60.502 (primary diagnosis) -education material provided -use medication as prescribed -f/u if no better in 3-5 days -discussed proper ear hygiene -discussed prevention - OFLOXACIN 0.3 % EAR DROPS 2. Abrasion of left ear canal, initial encounter - ICD9: 910.0, ICD10: S00.412A As above. - OFLOXACIN 0.3 % EAR DROPS Karime Josue APRN.[employer] History and Record Review External record(s) reviewed: prior outpatient record. Findings from review of outpatient records: atb allergies/multiple recently Disposition The patient was discharged. Procedures Allergies As of Date: 02/07/2025 Noted Allergy Reaction AMOXICILLIN 12/08/2024 4 - Hives CLINDAMYCIN 12/09/2024 4 - Hives Comments: hives IBUPROFEN 12/22/2024 4 - Hives 7 - Swelling Comments: Tolerates acetaminophen SULFA (SULFONAMIDE ANTIBIOTICS) 01/04/2020 2 - Rash Date Reviewed: 02/07/2025 Reviewed by: Roz Ruiz LPN - Fully Assessed Reason for Visit: Ear Pain [817] Cmt: Left ear pain with s ome bleeding x 1 day Primary Visit Diagnosis:Acute otitis externa of left ear, unspecified type [H60.502] Other Visit Diagnosis:Abrasion of left ear canal, initial encounter [S00.412A] Order(s):ofloxacin (FLOXIN) 0.3 % otic solutionUse 10 drops in the right ear once daily for 7 days.Disp: 5 mLRfl: 0 Prescriptions as of 02/07/2025 - ofloxacin (FLOXIN) 0.3 % otic solution Use 10 drops in the right ear once daily for 7 days. - EPINEPHrine (EPIPEN 2-PATTIE) 0.3 mg/0.3 m (more content not included)... Normal [facility] CNOVon 12-22-2024 CNOV Office Visit (ALLMED ) DAVY RAO ([id number]) 1985 M Date Time Provider Department 12/22/24 1:15 PM DONNA DALE During your visit today, we recorded the following information about you: Pulse Blood pressure Weight 64/minute 116/79 133.1 kg Donna Dale MD 12/23/2024 10:16 PM Signed ASSESSMENT/PLAN: -Acute urticaria and angioedema, resolved, likely caused by amoxicillin or ibuprofen Patient will return as scheduled for the completion of allergy skin tests to penicillin. If skin tests are negative, will proceed with a graded amoxicillin challenge at that visit. Recommend that patient avoid use of Olivarez 1 inhibitors (aspirin/NSAIDs) until further evaluation is complete. He may continue to take acetaminophen as needed. Celebrex, a Olivarez 2 inhibitor is typically well-tolerated. If testing for IgE-mediated allergy to penicillin and amoxicillin is negative,will presume that urticaria and angioedema was caused by ibuprofen and recommend continued avoidance of aspirin/NSAID medications. (A graded in-office challenge to clindamycin may also be considered at a future visit.) - Discussed medication dosage, usage, side effects, and goals of treatment in detail. - Follow-up as scheduled for allergy testing to penicillin- patient will return sooner should new symptoms or problems arise. Donna Dale MD Allergy AND Immunology I spent a total of 70 minutes on the date of the service which included preparing to see the patient, [id number] patient care, completing clinical documentation, obtaining and/or reviewing separately obtained history, performing a medically appropriate examination, and counseling and educating the patient/family/caregive r. This is a consultation requested by Manny Bean MD for an allergy and immunology evaluation. My final recommendations will be communicated back to the requesting healthcare provider(s) by way of shared medical record or via [place] mail. Davy Rao is a 39 year old male who presents for further evaluation of possible allergic reaction. On December 07, he had a dental implant placed under local anesthesia. Amoxicillin and Peridex mouthwash were prescribed after the procedure. Patient also took ibuprofen as needed for pain. He took the first dose of amoxicillin as well as a dose of ibuprofen that evening. He was asymptomatic upon awakening the following morning. He took amoxicillin and he believes ibuprofen prior to going to work. 3 to 4 hours later, he noted generalized itching of the upper extremities and trunk as well as swelling of the left medial lower eyelid. At 2 PM, he took another dose of amoxicillin. He then presented to a [facility] where rash and eye swelling were noted. Prednisone was prescribed. Clindamycin was prescribed to replace amoxicillin. That evening, he took the first dose of clindamycin and believes he also took ibuprofen at that time. About 30 minutes later, he noted worsening/recurrence of hives and itching occurring on his neck trunk and upper extremities as well as tingling of the tongue. He presented to the emergency room but was not seen. He took Benadryl that evening. He was asymptomatic upon awakening the following morning. He began to take prednisone as prescribed the day prior. When he was evaluated by Dr. Bean, on 12/09, a 7-day course of doxycycline was prescribed which he took without adverse reaction. He also changed from ibuprofen to acetaminophen 1000 mg as needed which he also tolerated without adverse reaction. Denies subsequent use of aspirin/NSAIDs. He denies a history of adverse reaction to latex. About 1 month prior to the onset of symptoms, he began adding a new scented freshener to his laundry History of reaction to a sulfa antimicrobial as a child. Details unknown, possible rash. Occasional mild nasal and ocular symptoms On CPAP for obstructive sleep apnea REVIEW OF SYSTEMS: All other review of systems negative except for those listed above. 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 1/2 hr before meal.Disp: 30 capsuleRfl: 0 docusate sodium (COLACE) 100 mg capsuleTake 1 capsule by mouth two times a day as needed for constipation.Disp: 60 capsuleRfl: 0 cholecalciferol, Vitamin D3, (VITAMIN D3) 1,250 mcg (50,000 unit) cap capsuleTake 1 capsule by mouth one time a week.Disp: 12 capsuleRfl: 0 tiZANidine (ZANAFLEX) 4 mg tabletTake 1 tablet by mouth ev (more content not included)... Normal [facility] CNOVon 12-09-2024 CNOV Office Visit (FAMPWS ) DAVY RAO ([id number]) 1985 M Date Time Provider Department 12/09/24 7:20 AM [facility] During your visit today, we recorded the following information about you: Pulse Respiration Blood pressure Weight 75/minute 16/minute 118/76 136.7 kg Manny Bean MD 12/09/2024 8:51 AM Signed Chief Complaint Patient presents with: Follow Up: [facility] - allergic reaction despite ATB changes continue HPI Davy Rao is a 39 year old male who presents here today for Above Complaints.. Patient had dental implant 2 days ago and they gave him amoxicillin and Peridex for home. Yesterday, after taking amoxicillin he had itching on his abdomen and neck. Developed swelling around his left eye yesterday and was evaluated in [facility] where he was switched to Clindamycin and given rx for 40 mg prednisone x 5 days. Patient states that he has been on amoxicillin in the past without reaction. He did take the Clindamycin yesterday and about 30 minutes later he had recurrent itching of his abdomen with hives and tingling on his tongue. Did call nurse triage and he was directed to the ER. Took Prednisone and benadryl prior to going to ER. Went to ER, but did not stay for evaluation. Today, he does not have any itching, swelling or rash. Denies tongue/lip swelling, trouble swallowing, trouble breathing, change in voice. He has been taking ibuprofen Tj and yesterday. Admits to using new detergents in his laundry about 1 month ago. Did eat new type of slovenian vanilla/honeycomb ice cream which he ate on Saturday. Denies recent travel. No sick contacts with similar reaction. Past medical history, appointments, medications, allergies reviewed. 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 Vitamin D deficiency Previous Surgical History PAST SURGICAL HISTORY Procedure Laterality Date NONE Family History FAMILY HISTORY Problem Relation Age of Onset Thyroid Mother No Known Problems Father Hypertension Maternal Grandmother Arthritis Maternal Grandmother Thyroid Maternal Grandfather Diabetes Maternal Grandfather Arthritis Paternal Grandmother Hypertension Paternal Grandmother Patient Allergies ALLERGIES Allergen Reactions Amoxicillin Hives Sulfa (Sulfonamide * Rash Current Medications Current Outpatient Medications on File Prior to Visit Medication Sig predniSONE (DELTASONE) 20 mg tablet Take 2 tablets by mouth once daily for 5 days. clindamycin (CLEOCIN) 150 mg capsule Take 3 capsules by mouth three times a day for 5 days. omeprazole (PRILOSEC) 40 mg capsule Take 1 capsule by mouth once daily. 1/2 hr before meal. docusate sodium (COLACE) 100 mg capsule Take 1 capsule by mouth two times a day as needed for constipation. cholecalciferol, Vitamin D3, (VITAMIN D3) 1,250 mcg (50,000 unit) cap capsule Take 1 capsule by mouth one time a week. tiZANidine (ZANAFLEX) 4 mg tablet Take 1 tablet by mouth every 8 hours as needed. celecoxib (CELEBREX) 200 mg capsule Take 1 capsule by mouth once daily as needed for pain. CPAP Initiate Auto PAP @ 9-18 cm of water with humidification. Mask (per patient preference) optional chin strap (if indicated) , filters, tubing, humidifier and lifetime supplies. No current facility-administered medications on file prior to visit. Social History Social History Tobacco Use Smoking status: Never Smokeless tobacco: Never Vaping Use Vaping status: Never Used Substance Use Topics Alcohol use: Yes Comment: 2 drink every 2-3 weeks Drug use: Never Review of Symptoms REVIEW OF SYSTEMS GENERAL: No weight loss, malaise or fevers HEENT: Negative for frequent or significant headaches, No changes in hearing or vision, no nose bleeds or other nasal problems NECK: Negative for lumps, goiter, pain and significant neck swelling RESPIRATORY: Negative for cough, hemoptysis, wheezing, COPD, dyspnea or shortness of breath CARDIOVASCULAR: Negative for chest pain, leg swelling, hypertension, CHF or palpitations SKIN: Negative for lesions, rash, and itching EXAM: BP 118/76 Pulse 75 Resp 16 Wt (!) 136.7 kg (301 lb 6.4 oz) SpO2 99% BMI 43.87 kg/m? General Appearance: Well appearing, alert, in no acute distress, well-hydrated, well nourished.. Skin: Skin color, texture, turgor normal, no suspicious rashes or lesions. Oropharynx: Lips, mucosa, and tongue normal, teeth and gums normal, oropharynx normal. Neck: Supple, no adenopathy; thyroid symmetric, normal size, no bruits. Health Maintenance List Depression Screening Never done Anxiety Screening Never done DTaP,Tdap,Td Vaccine(1 - Tdap) Never done Hepatitis B Vaccine(1 of (more content not included)... Normal [facility] CNOVon 12-08-2024 CNOV Office Visit (UCTR ) GIFTY RAOPI ([id number]) 1985 M Date Time Provider Department 12/08/24 5:00 PM KARIME JOSUE [facility] During your visit today, we recorded the following information about you: Temperature Pulse Respiration Blood pressure 98.2 degrees 76/minute 16/minute 122/74 Weight 138.3 kg Karime Josue APRN.CNP 12/08/2024 6:49 PM Signed Subjective HPI HPI Davy Rao is a 39 year old male who presents today for CC of itchy rash on chest, facial swelling. This started today. Has tried nothing for relief. Symptoms are worsened by nothing. Risk factors started on amox 1 day ago for dental implant. Had new icecream last night, and also has new laundry detergent. Denies cp/sob, trouble breathing. 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 1/2 hr before meal. docusate sodium (COLACE) 100 mg capsule Take 1 capsule by mouth two times a day as needed for constipation. cholecalciferol, Vitamin D3, (VITAMIN D3) 1,250 mcg (50,000 unit) cap capsule Take 1 capsule by mouth one time a week. tiZANidine (ZANAFLEX) 4 mg tablet Take 1 tablet by mouth every 8 hours as needed. celecoxib (CELEBREX) 200 mg capsule Take 1 capsule by mouth once daily as needed for pain. CPAP Initiate Auto PAP @ 9-18 cm of water with humidification. Mask (per patient preference) optional chin strap (if indicated) , filters, tubing, humidifier and lifetime supplies. predniSONE (DELTASONE) 20 mg tablet Take 2 tablets by mouth once daily for 5 days. clindamycin (CLEOCIN) 150 mg capsule Take 3 capsules by mouth three times a day for 5 days. FAMILY HISTORY Problem Relation Age of Onset Thyroid Mother No Known Problems Father Hypertension Maternal Grandmother Arthritis Maternal Grandmother Thyroid Maternal Grandfather Diabetes Maternal Grandfather Arthritis Paternal Grandmother Hypertension Paternal Grandmother Social History Tobacco Use Smoking status: Never Smokeless tobacco: Never Vaping Use Vaping status: Never Used Substance Use Topics Alcohol use: Yes Comment: 2 drink every 2-3 weeks Drug use: Never Review of Systems Constitutional: Negative for fever. Respiratory: Negative for cough, shortness of breath and wheezing. Cardiovascular: Negative for chest pain. Skin: Positive for itching and rash. Objective Blood pressure 122/74, pulse 76, temperature 36.8 ?C (98.2 ?F), resp. rate 16, weight (!) 138.3 kg (304 lb 14.3 oz), SpO2 97%. Physical Exam Constitutional: General: He is not in acute distress. Appearance: He is not toxic-appearing or diaphoretic. HENT: Head: Normocephalic and atraumatic. Mouth/Throat: Mouth: Mucous membranes are moist. Comments: No oral swelling noted. Cardiovascular: Rate and Rhythm: Normal rate and regular rhythm. Heart sounds: Normal heart sounds, S1 normal and S2 normal. Pulmonary: Effort: Pulmonary effort is normal. Breath sounds: Normal breath sounds. Skin: Neurological: Mental Status: He is alert and oriented to person, place, and time. Gait: Gait is intact. ASSESSMENT/PLAN: 1. Rash - ICD9: 782.1, ICD10: R21 (primary diagnosis) -use medication as prescribed -follow up if symptoms persist, worsen, change Trouble breathing or swallowing go to ER Notify dentist of medication change. - PREDNISONE 20 MG TABLET 2. Dental infection - ICD9: 522.4, ICD10: K04.7 Stop amox - CLINDAMYCIN HCL 150 MG CAPSULE 3. Facial swelling - ICD9: 784.2, ICD10: R22.0 -use medication as prescribed -follow up if symptoms persist, worsen, change - PREDNISONE 20 MG TABLET Karime Josue APRN.[employer] Allergies As of Date: 12/08/2024 Noted Allergy Reaction AMOXICILLIN 12/08/2024 4 - Hives SULFA (SULFONAMIDE ANTIBIOTICS) 01/04/2020 2 - Rash Date Reviewed: 12/08/2024 Reviewed by: Svetlana Goldman MA - Fully Assessed Reason for Visit: Rash [1087] Cmt: chest and left eye x 1 day, on amoxicillin x yesterday, itching Primary Visit Diagnosis:Rash [R21] Other Visit Diagnoses:Dental infection [K04.7] Facial swelling [R22.0] Order(s):predniSONE (DELTASONE) 20 mg tabletTake 2 tablets by mouth once daily for 5 days.Disp: 10 tabletRfl: 0 clindamycin (CLEOCIN) 150 mg capsuleTake 3 capsules by mouth three times a day for 5 days.Disp: 45 capsuleRfl: 0 Prescriptions as of 12/08/2024 - predniSONE (DELTASONE) 20 mg tablet Take 2 tablets by mouth once daily for 5 days. - clindamycin (CLEOCIN) (more content not included)... Normal [facility] DAVY RAO ([id number]) 1985 M Date Time Provider Department 05/27/24 MANNY BEAN During your visit today, we recorded the following information about you: Brandon Mann RN 05/27/2024 12:20 PM Signed ----- Message from Manny Bean MD sent at 05/27/2024 12:00 PM EDT ----- Normal labs to workup abdominal pain. Awaiting abdominal xray. Continue treatment as discussed in office. Brandon Mann RN 05/27/2024 12:31 PM Signed Called and left a detailed voicemail notifying patient of providers message. Clinic phone number was left in case patient has any questions. Allergies As of Date: 05/27/2024 Noted Allergy Reaction SULFA (SULFONAMIDE ANTIBIOTICS) 01/04/2020 2 - Rash Date Reviewed: 05/26/2024 Reviewed by: Megan Gay LPN - Fully Assessed Reason for Visit: Results [95] Prescriptions as of 05/27/2024 - omeprazole (PRILOSEC) 40 mg capsule Take 1 capsule by mouth once daily. 1/2 hr before meal. - docusate sodium (COLACE) 100 mg capsule Take 1 capsule by mouth two times a day as needed for constipation. - cholecalciferol, Vitamin D3, (VITAMIN D3) 1,250 mcg (50,000 unit) cap capsule Take 1 capsule by mouth one time a week. - tiZANidine (ZANAFLEX) 4 mg tablet Take 1 tablet by mouth every 8 hours as needed. - celecoxib (CELEBREX) 200 mg capsule Take 1 capsule by mouth once daily as needed for pain. - CPAP Initiate Auto PAP @ 9-18 cm of water with humidification. Mask (per patient preference) optional chin strap (if indicated) , filters, tubing, humidifier and lifetime supplies. Problem List As Of Date 05/27/2024 Noted Resolved Obesity (BMI 30-39.9) [E66.9] 01/10/2021 Chronic right hip pain [M25.551, G89.29] 02/26/2020 BLAIR on CPAP [G47.33] Seasonal allergies [J30.2] Morbid obesity (HCC) [E66.01] Gastroesophageal reflux disease without esophag* Chronic midline low back pain without sciatica *02/03/2021 05/19/2021 Chronic pain of both hips [M25.551, M25.552, G8*02/03/2021 05/19/2021 Obesity, Class III, BMI >= 40 [E66.01] 08/07/2023 Encounter Status:Closed by BRANDON MANN on 05/27/24 Normal [facility] XR Abdomen Supine and Uprigh ton 05-27-2024 IMPRESSION: Nonobstructive bowel gas pattern. Benefits Consulting Analyst: CAITLYN Transcribe Date/Time: May 27 2024 2:31P Dictated by : ASIF SORIANO MD This examination was interpreted and the report reviewed and electronically signed by: ASIF SORIANO MD on May 27 2024 2:33PM [facility] DIVISION OF RADIOLOGY * * *Final Report* * * DATE OF EXAM: May 26 2024 1:57PM WOX [id number] - XR ABDOMEN 1V SUPINE / PROCEDURE REASON: LUQ pain * * * * Physician Interpretation * * * * EXAM TITLE: XR ABDOMEN 1V SUPINE EXAM DATE/TIME: 05/26/2024 1:57 PM COMPARISON: None. CLINICAL INDICATION/HISTORY: Left upper quadrant abdominal pain. TECHNIQUE: AP views of the abdomen are presented. FINDINGS: No abnormally dilated bowel loops identified. Small amount of stool and gas noted in the large bowel loops. There are no abnormal calcifications. The bony structures appear intact. There are degenerative changes in the hips. DIVISION OF RADIOLOGY Provider, [facility] - 05/27/2024 * * *Final Report* * * DATE OF EXAM: May 26 2024 1:57PM WOX [id number] - XR ABDOMEN 1V SUPINE / PROCEDURE REASON: LUQ pain * * * * Physician Interpretation * * * * EXAM TITLE: XR ABDOMEN 1V SUPINE EXAM DATE/TIME: 05/26/2024 1:57 PM COMPARISON: None. CLINICAL INDICATION/HISTORY: Left upper quadrant abdominal pain. TECHNIQUE: AP views of the abdomen are presented. FINDINGS: No abnormally dilated bowel loops identified. Small amount of stool and gas noted in the large bowel loops. There are no abnormal calcifications. The bony structures appear intact. There are degenerative changes in the hips. IMPRESSION IMPRESSION: Nonobstructive bowel gas pattern. Benefits Consulting Analyst: CAITLYN Transcribe Date/Time: May 27 2024 2:31P Dictated by : ASIF SORIANO MD This examination was interpreted and the report reviewed and electronically signed by: ASIF SORIANO MD on May 27 2024 2:33PM EST [facility] XR Abdomen Supine and Uprigh tOrdered By: [facility] Provider on 05-27-2024 [facility] CBC W Auto Differential pane l (Bld)on 05-26-2024 Basophils (Bld) [#/Vol] [facility] C [facility] Basophils/100 WBC (Bld) 0.3 % [facility] Differential cell count method Nom (Bld) Auto [facility] Eosinophils (Bld) [#/Vol] 0.10 10*3/uL [facility] Eosinophils/100 WBC (Bld) 1.3 % [facility] Erythrocyte distribution width (RBC) [Ratio] 13.2 % 11.5 - 15.0 % [facility] Hematocrit (Bld) [Volume fraction] 46.9 % 39.0 - 51.0 % [facility] Hemoglobin (Bld) [Mass/Vol] 15.6 g/dL 13.0 - 17.0 g/dL [facility] Immature granulocytes (Bld) [#/Vol] 0.03 10*3/uL [facility] Immature granulocytes/100 WBC (Bld) 0.4 % [facility] Lymphocytes (Bld) [#/Vol] 2.79 10*3/uL [facility] Lymphocytes/100 WBC (Bld) 36.1 % [facility] MCH (RBC) [Entitic mass] 28.3 pg 26.0 - 34.0 pg [facility] MCHC (RBC) [Mass/Vol] 33.3 g/dL 30.5 - 36.0 g/dL [facility] MCV (RBC) [Entitic vol] 85.1 fL 80.0 - 100.0 fL [facility] Monocytes (Bld) [#/Vol] 0.60 10*3/uL [facility] Monocytes/100 WBC (Bld) 7.8 % C [facility] Neutrophils (Bld) [#/Vol] 4.18 10*3/uL [facility] Neutrophils/100 WBC (Bld) 54.1 % [facility] Nucleated RBC (Bld) [#/Vol] NINF [facility] Nucleated RBC/100 WBC (Bld) [Ratio] 0.0 % /100 WBC [facility] Platelet mean volume (Bld) [Entitic vol] 9.6 fL 9.0 - 12.7 fL [facility] Platelets (Bld) [#/Vol] 266 10*3/uL [facility] RBC (Bld) [#/Vol] 5.51 10*6/uL 4.20 - 6.0 0 m/uL [facility] WBC (Bld) [#/Vol] 7.72 10*3/uL [facility] Basophils (Bld) [#/Vol] 10*3/uL Normal <0.[address] [facility] Comment on above: Order Comment: Speci men Type: BLOOD SPECIMENOrdering Facility: [facility] Address: [address] [place] [address] Performed By: #### 5 7021-8 ####[facility] LABIA [id number] [place] [address] [place] Basophils/100 WBC (Bld) 0.3 % Normal C [facility] Comment on above: Order Comment: Speci men Type: BLOOD SPECIMENOrdering Facility: [facility] Address: [address] [place] [address] Performed By: #### 5 7021-8 ####[facility] LABCLIA [id number] [place] [address] [place] Differential cell count method Nom (Bld) Auto Normal [facility] Comment on above: Order Comment: Speci men Type: BLOOD SPECIMENOrdering Facility: [facility] Address: [address] [place] [address] Performed By: #### 5 7021-8 ####[facility]IA [id number] [place] [address] [place] Eosinophils (Bld) [#/Vol] 0.10 10*3/uL Normal <0.46 [facility] Comment on above: Order Comment: Speci men Type: BLOOD SPECIMENOrdering Facility: [facility] Address: [address] [place] [address] Performed By: #### 5 7021-8 ####[facility] LABCLIA [id number] [place] [address] [place] Eosinophils/100 WBC (Bld) 1.3 % Normal [facility] Comment on above: Order Comment: Speci men Type: BLOOD SPECIMENOrdering Facility: [facility] Address: [address] [place] [address] Performed By: #### 5 7021-8 ####[facility] LABCLIA [id number] [place] [address] [place] Erythrocyte distribution width (RBC) [Ratio] 13.2 % Normal 11.5-15.0 [facility] Comment on above: Order Comment: Speci men Type: BLOOD SPECIMENOrdering Facility: [facility] Address: [address] [place] [address] Performed By: #### 5 7021-8 ####[facility]CLIA [id number] [place] [address] [place] Hematocrit (Bld) [Volume fraction] 46.9 % Normal 39.0-51.0 [facility] Comment on above: Order Comment: Speci men Type: BLOOD SPECIMENOrdering Facility: [facility] Address: [address] [place] [address] Performed By: #### 5 7021-8 ####[facility]CLIA [id number] [place] [address] [place] Hemoglobin (Bld) [Mass/Vol] 15.6 g/dL Normal 13.0-17.0 [facility] Comment on above: Order Comment: Speci men Type: BLOOD SPECIMENOrdering Facility: [facility] Address: [address] [place] [address] Performed By: #### 5 7021-8 ####[facility]CLIA [id number] [place] [address] [place] Immature granulocytes (Bld) [#/Vol] 0.03 10*3/uL Normal <0.10 [facility] Comment on above: Order Comment: Speci men Type: BLOOD SPECIMENOrdering Facility: [facility] Address: [address] [place] [address] Performed By: #### 5 7021-8 ####[facility]CLIA [id number] [place] [address] [place] Immature granulocytes/100 WBC (Bld) 0.4 % Normal [facility] Comment on above: Order Comment: Speci men Type: BLOOD SPECIMENOrdering Facility: [facility] Address: [address] [place] [address] Performed By: #### 5 7021-8 ####[facility]CLIA [id number] [place] [address] [place] Lymphocytes (Bld) [#/Vol] 2.79 10*3/uL Normal 1.00-4.00 [facility] Comment on above: Order Comment: Speci men Type: BLOOD SPECIMENOrdering Facility: [facility] Address: [address] [place] [address] Performed By: #### 5 7021-8 ####[facility] LABCLIA [id number] [place] [address] [place] Lymphocytes/100 WBC (Bld) 36.1 % Normal [facility] Comment on above: Order Comment: Speci men Type: BLOOD SPECIMENOrdering Facility: [facility] Address: [address] [place] [address] Performed By: #### 5 7021-8 ####[facility]CLIA [id number] [place] [address] [place] MCH (RBC) [Entitic mass] 28.3 pg Normal 26.0-34.0 [facility] Comment on above: Order Comment: Speci men Type: BLOOD SPECIMENOrdering Facility: [facility] Address: [address] [place] [address] Performed By: #### 5 7021-8 ####[facility]CLIA [id number] [place] [address] [place] MCHC (RBC) [Mass/Vol] 33.3 g/dL Normal 30.5-36.0 [facility] Comment on above: Order Comment: Speci men Type: BLOOD SPECIMENOrdering Facility: [facility] Address: [address] [place] [address] Performed By: #### 5 7021-8 ####[facility]CLIA [id number] [place] [address] [place] MCV (RBC) [Entitic vol] 85.1 fL Normal 80.0-100.[address] [facility] Comment on above: Order Comment: Speci men Type: BLOOD SPECIMENOrdering Facility: [facility] Address: [address] [place] [address] Performed By: #### 5 7021-8 ####[facility]CLIA [id number] [place] [address] [place] Monocytes (Bld) [#/Vol] 0.60 10*3/uL Normal <0.87 [facility] Comment on above: Order Comment: Speci men Type: BLOOD SPECIMENOrdering Facility: [facility] Address: [address] [place] [address] Performed By: #### 5 7021-8 ####[facility]CLIA [id number] [place] [address] [place] Monocytes/100 WBC (Bld) 7.8 % Normal C [facility] Comment on above: Order Comment: Speci men Type: BLOOD SPECIMENOrdering Facility: [facility] Address: [address] [place] [address] Performed By: #### 5 7021-8 ####[facility]CLIA [id number] [place] [address] [place] Neutrophils (Bld) [#/Vol] 4.18 10*3/uL Normal 1.45-7.50 [facility] Comment on above: Order Comment: Speci men Type: BLOOD SPECIMENOrdering Facility: [facility] Address: [address] [place] [address] Performed By: #### 5 7021-8 ####[facility]CLIA [id number] [place] [address] [place] Neutrophils/100 WBC (Bld) 54.1 % Normal [facility] Comment on above: Order Comment: Speci men Type: BLOOD SPECIMENOrdering Facility: [facility] Address: [address] [place] [address] Performed By: #### 5 7021-8 ####[facility]CLIA [id number] [place] [address] [place] Nucleated RBC (Bld) [#/Vol] 10*3/uL Normal <0.01 [facility] Comment on above: Order Comment: Speci men Type: BLOOD SPECIMENOrdering Facility: [facility] Address: [address] [place] [address] Performed By: #### 5 7021-8 ####[facility]CLIA [id number] [place] [address] [place] Nucleated RBC/100 WBC (Bld) [Ratio] 0.0 /100 WBC Normal [facility] Comment on above: Order Comment: Speci men Type: BLOOD SPECIMENOrdering Facility: [facility] Address: [address] [place] [address] Performed By: #### 5 7021-8 ####[facility]CLIA [id number] [place] [address] [place] Platelet mean volume (Bld) [Entitic vol] 9.6 fL Normal 9.0-12.7 [facility] Comment on above: Order Comment: Speci men Type: BLOOD SPECIMENOrdering Facility: [facility] Address: [address] [place] [address] Performed By: #### 5 7021-8 ####[facility] [id number] [place] [address] [place] Platelets (Bld) [#/Vol] 266 10*3/uL Normal 150-400 [facility] Comment on above: Order Comment: Speci men Type: BLOOD SPECIMENOrdering Facility: [facility] Address: [address] [place] [address] Performed By: #### 5 7021-8 ####[facility] [id number] [place] [address] [place] RBC (Bld) [#/Vol] 5.51 10*6/uL Normal 4.20-6.00 [facility] Comment on above: Order Comment: Speci men Type: BLOOD SPECIMENOrdering Facility: [facility] Address: [address] [place] [address] Performed By: #### 5 7021-8 ####[facility] [id number] [place] [address] [place] WBC (Bld) [#/Vol] 7.72 10*3/uL Normal 3.70-11.00 [facility] Comment on above: Order Comment: Speci men Type: BLOOD SPECIMENOrdering Facility: [facility] Address: [address] [place] [address] Performed By: #### 5 7021-8 ####[facility] [id number] [place] [address] [place] CNOVon 05-26-2024 CNOV Office Visit (FAMPWS ) DAVY RAO ([id number]) 1985 M Date Time Provider Department 05/26/24 1:00 PM MANNY BEAN FAMPWS During your visit today, we recorded the following information about you: Temperature Pulse Respiration Blood pressure 97.8 degrees 68/minute 16/minute 120/82 Weight 135.2 kg Manny Bean MD 05/26/2024 1:41 PM Signed Chief Complaint Patient presents with: Abdominal Pain: Spasms to left side with 3/10 pain scale - appetite change/ has changed to brown rice. CPAP: One nare not fitting equal tubing HPI Davy Rao is a 39 year old male who presents here today for Above Complaints. Patient complaining of intermittent left upper quadrant pain which started about 3-4 weeks ago. Occurs about 2-3 times every day and lasts for a few seconds. Described as pins and needle sensation and dullness, up to 2/10, without radiation. No identified triggers. Not treating with anything OTC. States that he has noticed change in BM in that he is having BM later in the day on a daily basis. Denies constipation, hematochezia, melena, fever/chills, nausea, vomiting, diarrhea, loss of appetite, weight loss, night sweats, heartburn, regurgitation. Feels like left nostril gets clogged at night and CPAP does not deliver air like it should. Has not tried nasal steroid prior to bed. Concerned about deviated septum. Past medical history, appointments, medications, allergies reviewed. 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, hip Comment: right No date: Vitamin D deficiency Previous Surgical History PAST SURGICAL HISTORY No date: NONE Family History FAMILY HISTORY Problem Relation Age of Onset Thyroid Mother No Known Problems Father Hypertension Maternal Grandmother Arthritis Maternal Grandmother Thyroid Maternal Grandfather Diabetes Maternal Grandfather Arthritis Paternal Grandmother Hypertension Paternal Grandmother Patient Allergies ALLERGIES Allergen Reactions Sulfa (Sulfonamide * Rash Current Medications Current Outpatient Medications on File Prior to Visit Medication Sig cholecalciferol, Vitamin D3, (VITAMIN D3) 1,250 mcg (50,000 unit) cap capsule Take 1 capsule by mouth one time a week. tiZANidine (ZANAFLEX) 4 mg tablet Take 1 tablet by mouth every 8 hours as needed. celecoxib (CELEBREX) 200 mg capsule Take 1 capsule by mouth once daily as needed for pain. CPAP Initiate Auto PAP @ 9-18 cm of water with humidification. Mask (per patient preference) optional chin strap (if indicated) , filters, tubing, humidifier and lifetime supplies. omeprazole (PRILOSEC) 20 mg capsule Take 1 capsule by mouth daily before breakfast. 1/2 hr before meal. (Patient not taking: Reported on 08/07/2023) No current facility-administered medications on file prior to visit. Social History Social History Tobacco Use Smoking status: Never Smokeless tobacco: Never Vaping Use Vaping Use: Never used Substance Use Topics Alcohol use: Yes Comment: 2 drink every 2-3 weeks Drug use: Never Review of Symptoms REVIEW OF SYSTEMS See HPI EXAM: BP 120/82 Pulse 68 Temp 36.6 ?C (97.8 ?F) Resp 16 Wt 135.2 kg (298 lb 1 oz) SpO2 97% BMI 43.38 kg/m? General Appearance: Well appearing, alert, in no acute distress, well-hydrated, well nourished.. Skin: Skin color, texture, turgor normal, no suspicious rashes or lesions. Nose: turbinates normal. No deviated septum. Lungs: Lungs clear to auscultation. No wheezing, rhonchi, rales.. Heart: RRR without murmur, gallop, or rubs. No ectopy. Abdomen: Abdomen soft Bowel sounds normal. No masses, organomegaly, Negative CVA tenderness, Positive findings: tenderness mild LUQ. Health Maintenance List Depression Screening Never done Anxiety Screening Never done DTaP,Tdap,Td Vaccine(1 - Tdap) Never done Hepatitis B Vaccine(1 of 3 - 19+ 3-dose series) Never done Covid-19 Vaccine(2022- season) due on 06/21/2023 Influenza Vaccine(1) due on 06/21/2024 Lipid Screening due on 02/08/2028 HIV Screening Completed HPV Vaccine Aged Out Hepatitis C Screening Discontinued ASSESSMENT/PLAN: 1. LUQ pain - ICD9: 789.02, ICD10: R10.12 (primary diagnosis) Obtain labs and imaging for further evaluation. Will start colace for some mild constipation symptoms and discussed pushing PO fliuds, increased fiber, and may use Miralax PRN. Start PPI for possible gastritis. Keep food diary and avoid triggers. Red flags for re-assessment reviewed with patient in detail. - XR ABDOMEN 1V SUPINE - COMPLETE BLOOD COUNT AND DIFFERENTIAL - COMPREHENSIVE METABOLIC PANEL - LIPASE 2. Gastroesophageal reflux disease without (more content not included)... Normal [facility] Comprehensive metabolic 2000 panelon 05-26-2024 Albumin [Mass/Vol] 4.4 g/dL Normal 3.9-4.9 [facility] Comment on above: Order Comment: Speci men Type: BLOOD SPECIMENOrdering Facility: [facility] Address: [address] [place] [address] Performed By: #### 2 4323-8, 3039-3 ####[facility] [id number] [place] [address] [place] ALP [Catalytic activity/Vol] 74 U/L Normal 38-113 [facility] Comment on above: Order Comment: Speci men Type: BLOOD SPECIMENOrdering Facility: [facility] Address: [address] [place] [address] Performed By: #### 2 4323-8, 3039-3 ####[facility] [id number] [place] [address] [place] ALT [Catalytic activity/Vol] 40 U/L Normal 10-54 [facility] Comment on above: Order Comment: Speci men Type: BLOOD SPECIMENOrdering Facility: [facility] Address: [address] [place] [address] Performed By: #### 2 4323-8, 0-3 ####[facility] LABCLIA [id number] [place] [id number] [place] Anion gap [Moles/Vol] 12 mmol/L Normal 8-15 [facility] Comment on above: Order Comment: Speci men Type: BLOOD SPECIMENOrdering Facility: [facility] Address: [address] [place] [address] Performed By: #### 2 4323-8, 3039-3 ####[facility] LABCLIA [id number] [place] [address] [place] AST [Catalytic activity/Vol] 33 U/L Normal 14-40 [facility] Comment on above: Order Comment: Speci men Type: BLOOD SPECIMENOrdering Facility: [facility] Address: [address] [place] [address] Performed By: #### 2 4323-8, 3039-3 ####[facility] LABCLIA [id number] [place] [address] [place] Bilirubin [Mass/Vol] 0.7 mg/dL Normal 0.2-1.3 [facility] Comment on above: Order Comment: Speci men Type: BLOOD SPECIMENOrdering Facility: [facility] Address: [address] [place] [address] Performed By: #### 2 4323-8, 3039-3 ####[facility]CLIA [id number] [place] [address] [place] Calcium [Mass/Vol] 9.6 mg/dL Normal 8.5-10.2 [facility] Comment on above: Order Comment: Speci men Type: BLOOD SPECIMENOrdering Facility: [facility] Address: [address] [place] [address] Performed By: #### 2 4323-8, 0-3 ####[facility]CLIA [id number] [place] [address] [place] Chloride [Moles/Vol] 103 mmol/L Normal 98-107 [facility] Comment on above: Order Comment: Speci men Type: BLOOD SPECIMENOrdering Facility: [facility] Address: [address] [place] [address] Performed By: #### 2 4323-8, 0-3 ####[facility]CL[facility] [id number] [place] [address] [place] CO2 [Moles/Vol] 23 mmol/L Normal 22-30 [facility] Comment on above: Order Comment: Speci men Type: BLOOD SPECIMENOrdering Facility: [facility] Address: [address] [place] [address] Performed By: #### 2 4323-8, 3039-3 ####[facility]CLIA [id number] [place] [address] [place] Creatinine [Mass/Vol] 0.89 mg/dL Normal 0.73-1.22 [facility] Comment on above: Order Comment: Speci men Type: BLOOD SPECIMENOrdering Facility: [facility] Address: [address] [place] [address] Performed By: #### 2 4323-8, 3039-3 ####[facility] [id number] [place] [address] [place] Creatinine and Glomerular filtration rate.predicted panel (S/P/Bld) 111 mL/min/1.73m??? Normal >=60 [facility] Comment on above: Order Comment: Speci men Type: BLOOD SPECIMENOrdering Facility: [facility] Address: [address] [place] [address] Result Comment: Michelle mated Glomerular Filtration Rate (eGFR) is calculated using the 2020 CKD-EPI creatinine equation. This equation utilizes serum creatinine, sex, and age as parameters. The creatinine assay has traceable calibration to isotope dilution-mass spectrometry. Refer to KDIGO guidelines for clinical interpretation. In patients with unstable renal function, e.g. those with acute kidney injury, the eGFR may not accurately reflect actual GFR. Performed By: #### 2 4323-8, 0-3 ####[facility]CLIA [id number] [place] [id number] [place] Glucose [Mass/Vol] 76 mg/dL Normal 74-99 [facility] Comment on above: Order Comment: Speci men Type: BLOOD SPECIMENOrdering Facility: [facility] Address: [address] [place] [address] Result Comment: The [place] [employer] (ADA) provides guidance for cutoff values for fasting glucose and random glucose. The ADA defines fasting as no caloric intake for at least 8 hours. Fasting plasma glucose results between 100 to 125 mg/dL indicate increased risk for diabetes (prediabetes). Fasting plasma glucose results greater than or equal to 126 mg/dL meet the criteria for diagnosis of diabetes. In the absence of unequivocal hyperglycemia, results should be confirmed by repeat testing. In a patient with classic symptoms of hyperglycemia or hyperglycemic crisis, random plasma glucose results greater than or equal to 200 mg/dL meet the criteria for diagnosis of diabetes. Reference: Standards of Medical Care in Diabetes 2016, [place] [employer]. Diabetes Care. 2016.39(Suppl 1). Performed By: #### 2 4323-8, 3039-3 ####[facility] [id number] [place] [address] [place] Potassium [Moles/Vol] 4.3 mmol/L Normal 3.7-5.1 [facility] Comment on above: Order Comment: Speci men Type: BLOOD SPECIMENOrdering Facility: [facility] Address: [address] [place] [address] Performed By: #### 2 4323-8, 3039-3 ####[facility] [id number] [place] [address] [place] Protein [Mass/Vol] 7.7 g/dL Normal 6.3-8.0 [facility] Comment on above: Order Comment: Speci men Type: BLOOD SPECIMENOrdering Facility: [facility] Address: [address] [place] [id number] Performed By: #### 2 4323-8, 3040-3 ####[facility]CLIA [id number] [address] [address] [place] Sodium [Moles/Vol] 138 mmol/L Normal 136-144 [facility] Comment on above: Order Comment: Speci men Type: BLOOD SPECIMENOrdering Facility: [facility] Address: [address] [place], [place] [address] Performed By: #### 2 4323-8, 3040-3 ####[facility]CLIA [id number] [place] [address] [place] Urea nitrogen [Mass/Vol] 7 mg/dL Low 9-24 [facility] Comment on above: Order Comment: Speci men Type: BLOOD SPECIMENOrdering Facility: [facility] Address: [address] [place] [address] Performed By: #### 2 4323-8, 3040-3 ####[facility]CLIA [id number] [place] [address] [place] Lipase SerPl-cCncon 05-26-20 24 Lipase [Catalytic activity/Vol] 30 U/L Normal 16-61 [facility] Comment on above: Order Comment: Speci men Type: BLOOD SPECIMENOrdering Facility: [facility] Address: [address] [place] [address] Performed By: #### 2 4323-8, 3040-3 ####[facility]CLIA [id number] [address] [address] [place] XR ABDOMEN 1V SUPINEon 05-26 XR ABDOMEN 1V SUPINE * * *Final Report* * * DATE OF EXAM: May 26 2024 1:57PM WOX 5289 - XR ABDOMEN 1V SUPINE / PROCEDURE REASON: LUQ pain * * * * Physician Interpretation * * * * EXAM TITLE: XR ABDOMEN 1V SUPINE EXAM DATE/TIME: 05/26/2024 1:57 PM COMPARISON: None. CLINICAL INDICATION/HISTORY: Left upper quadrant abdominal pain. TECHNIQUE: AP views of the abdomen are presented. FINDINGS: No abnormally dilated bowel loops identified. Small amount of stool and gas noted in the large bowel loops. There are no abnormal calcifications. The bony structures appear intact. There are degenerative changes in the hips. IMPRESSION: Nonobstructive bowel gas pattern. Benefits Consulting Analyst: CAITLYN Transcribe Date/Time: May 27 2024 2:31P Dictated by : ASIF SORIANO MD This examination was interpreted and the report reviewed and electronically signed by: ASIF SORIANO MD on May 27 2024 2:33PM EST [id number] Normal [facility] XR Abdomen Supine and Uprigh ton 05-26-2024 Radiology Study observation (narrative) [facility] CBC W Auto Differential pane l (Bld)on 02-07-2023 Basophils (Bld) [#/Vol] 0.03 10*3/uL <0.11 k/uL [facility] Basophils/100 WBC (Bld) 0.5 % [facility] Differential cell count method Nom (Bld) Auto [facility] Eosinophils (Bld) [#/Vol] 0.11 10*3/uL <0.46 k/uL [facility] Eosinophils/100 WBC (Bld) 1.8 % [facility] Erythrocyte distribution width (RBC) [Ratio] 13.0 % 11.5 - 15.0 % [facility] Hematocrit (Bld) [Volume fraction] 42.6 % 39.0 - 51.0 % [facility] Hemoglobin (Bld) [Mass/Vol] 14.5 g/dL 13.0 - 17.0 g/dL [facility] Immature granulocytes (Bld) [#/Vol] <0.10 k/uL [facility] Immature granulocytes/100 WBC (Bld) 0.2 % [facility] Lymphocytes (Bld) [#/Vol] 2.29 10*3/uL 1.00 - 4.00 k/uL [facility] Lymphocytes/100 WBC (Bld) 38.0 % [facility] MCH (RBC) [Entitic mass] 28.9 pg 26.0 - 34.0 pg [facility] MCHC (RBC) [Mass/Vol] 34.0 g/dL 30.5 - 36.0 g/dL [facility] MCV (RBC) [Entitic vol] 85.0 fL 80.0 - 100.0 fL [facility] Monocytes (Bld) [#/Vol] 0.65 10*3/uL <0.87 k/uL [facility] Monocytes/100 WBC (Bld) 10.8 % [facility] Neutrophils (Bld) [#/Vol] 2.93 10*3/uL 1.45 - 7.50 k/uL [facility] Neutrophils/100 WBC (Bld) 48.7 % [facility] Nucleated RBC (Bld) [#/Vol] <0.01 k/uL [facility] Nucleated RBC/100 WBC (Bld) [Ratio] 0.0 /100 WBC [facility] Platelet mean volume (Bld) [Entitic vol] 8.7 fL Low 9.0 - 12.7 fL [facility] Platelets (Bld) [#/Vol] 227 10*3/uL 150 - 400 k/uL [facility] RBC (Bld) [#/Vol] 5.01 10*6/uL 4.20 - 6.0 0 m/uL [facility] WBC (Bld) [#/Vol] 6.02 10*3/uL 3.70 - 11. 00 k/uL [facility] Comprehensive metabolic 2000 panelon 02-07-2023 Albumin [Mass/Vol] 4.1 g/dL 3.9 - 4.9 g/dL [facility] ALP [Catalytic activity/Vol] 80 U/L 38 - 113 U/L [facility] ALT [Catalytic activity/Vol] 30 U/L 10 - 54 U/L [facility] Anion gap [Moles/Vol] 8 mmol/L Low 9 - 18 mmol/L [facility] AST [Catalytic activity/Vol] 20 U/L 14 - 40 U/L [facility] Bilirubin [Mass/Vol] 0.3 mg/dL 0.2 - 1 .3 mg/dL [facility] Calcium [Mass/Vol] 8.9 mg/dL 8.5 - 10. 2 mg/dL [facility] Chloride [Moles/Vol] 103 mmol/L 97 - 10 5 mmol/L [facility] CO2 [Moles/Vol] 27 mmol/L 22 - 30 mmol/L [facility] Creatinine [Mass/Vol] 1.00 mg/dL 0.73 - 1.22 mg/dL [facility] Estimated Glomerular Filtration Rate 99 mL/min/1.73m >=60 mL/min/1.73m [facility] Glucose [Mass/Vol] 113 mg/dL High 74 - 99 mg/dL [facility] Potassium [Moles/Vol] 4.1 mmol/L 3.7 - 5.1 mmol/L [facility] Protein [Mass/Vol] 7.1 g/dL 6.3 - 8.0 g/dL [facility] Sodium [Moles/Vol] 138 mmol/L 136 - 144 mmol/L [facility] Urea nitrogen [Mass/Vol] 8 mg/dL Low 9 - 24 mg/dL [facility] LIPID PANEL, NONFASTINGon Cholesterol [Mass/Vol] 185 mg/dL <200 mg/dL [facility] HDL Cholesterol, Nonfasting 29 mg/dL Low >39 mg/dL [facility] LDL Cholesterol, Nonfasting 134 mg/dL High <100 mg/dL [facility] LDL/HDL Ratio, Nonfasting 4.62 mg/dL High <2.54 mg/dL [facility] Non HDL Cholesterol, Nonfasting 156 mg/dL High <130 mg/dL [facility] Total Chol/HDL Ratio, Nonfasting 6.38 mg/dL High <5.10 mg/dL [facility] Triglycerides, Nonfasting 108 mg/dL <150 mg/dL [facility] VLDL Cholesterol, Nonfasting 22 mg/dL <30 mg/dL [facility] TSH BLDon 02-07-2023 TSH Qn 3.710 m[IU]/L 0.270 - 4.200 mIU/L [facility] VITAMIN D 25 HYDROXYon 02-07 25-hydroxyvitamin D3 [Mass/Vol] 18.5 ng/mL Low 31.0 - 80.0 ng/mL [facility] XR Knee - right 4 Viewson IMPRESSION: Negative 4 views of the right knee. Benefits Consulting Analyst: PSCB Transcribe Date/Time: Aug 08 2022 5:02P Dictated by : ASIF SORIANO MD This examination was interpreted and the report reviewed and electronically signed by: ASIF SORIANO MD on Aug 08 2022 5:03PM [facility] DIVISION OF RADIOLOGY * * *Final Report* * * DATE OF EXAM: Aug 08 2022 4:37PM WOX 5203 - XR KNEE 4V AP/PA BOTH+LAT/DOUGLAS RT / PROCEDURE REASON: Acute pain of right knee * * * * Physician Interpretation * * * * EXAM TITLE: XR KNEE 4V AP/PA BOTH+LAT/DOUGLAS RT EXAM DATE/TIME: 08/08/2022 4:37 PM COMPARISON: None. CLINICAL INDICATION/HISTORY: Right knee pain. TECHNIQUE: AP/PA, lateral and sunrise views of the right knee are presented. FINDINGS: No fractures or subluxations are noted. No obvious osteophyte formation. The joint spaces are well preserved. There is no evidence of joint effusion. The mineralization of the bones is normal. There is no significant soft tissue swelling. DIVISION OF RADIOLOGY Provider, Homer Akins [facility] - 08/08/2022 * * *Final Report* * * DATE OF EXAM: Aug 08 2022 4:37PM WOX 5203 - XR KNEE 4V AP/PA BOTH+LAT/DOUGLAS RT / PROCEDURE REASON: Acute pain of right knee * * * * Physician Interpretation * * * * EXAM TITLE: XR KNEE 4V AP/PA BOTH+LAT/DOUGLAS RT EXAM DATE/TIME: 08/08/2022 4:37 PM COMPARISON: None. CLINICAL INDICATION/HISTORY: Right knee pain. TECHNIQUE: AP/PA, lateral and sunrise views of the right knee are presented. FINDINGS: No fractures or subluxations are noted. No obvious osteophyte formation. The joint spaces are well preserved. There is no evidence of joint effusion. The mineralization of the bones is normal. There is no significant soft tissue swelling. IMPRESSION IMPRESSION: Negative 4 views of the right knee. Benefits Consulting Analyst: PSCB Transcribe Date/Time: Aug 08 2022 5:02P Dictated by : ASIF SORIANO MD This examination was interpreted and the report reviewed and electronically signed by: ASIF SORIANO MD on Aug 08 2022 5:03PM EST [facility] Radiology Study observation (narrative) [facility] XR Knee - right 4 ViewsOrder ed By: [facility]cf Provider on 08-08-2022 [facility] BASIC SEMEN ANALYSISon 12-21 Collection time (Aster) [Date/time] 1145 Normal [facility] Comment on above: Order Comment: Speci men Type: SEMINAL FLUID SPECIMEN [facility] Address: [address] Result Comment: 1145 Performed By: #### B ASA #### [facility] CLIA [id number] [address] [place] [address] Color (Aster) Mcqueen Opalescent Normal [facility] Comment on above: Order Comment: Speci men Type: SEMINAL FLUID SPECIMEN [facility] Address: [address] [place] [address] Performed By: #### B ASA #### [facility] CLIA [id number] [address] [place] [address] DATE OF ANALYSIS 12/21/21 [facility] Comment on above: Order Comment: Speci men Type: SEMINAL FLUID SPECIMEN [facility] Address: [address] [place] [address] Performed By: #### B ASA #### [facility] CLIA [id number] [address] [place] [address] FORWARD PROGRESSION 2 = Poor to moderate , erratic Normal [facility] Comment on above: Order Comment: Speci men Type: SEMINAL FLUID SPECIMEN [facility] Address: [address] [place] [address] Performed By: #### B ASA #### [facility] CLIA [id number] [address] [place] [address] PARTNER INFORMATION partner=Isa Melissa Normal [facility] Comment on above: Order Comment: Speci men Type: SEMINAL FLUID SPECIMEN [facility] Address: [address] [place] [address] Performed By: #### B ASA #### [facility] CLIA [id number] [address] [place] [address] pH (Aster) 6.8 Low >=7.2 [facility] Comment on above: Order Comment: Speci men Type: SEMINAL FLUID SPECIMEN [facility] Address: [address] Performed By: #### B ASA #### [facility] CLIA [id number] [address] [place] [address] Round cells (Aster) [#/Vol] 0.50 M/mL Normal <1.00 [facility] Comment on above: Order Comment: Speci men Type: SEMINAL FLUID SPECIMEN [facility] Address: [address] [place] [address] Performed By: #### B ASA #### [facility] CLIA [id number] [address] [place] [address] SEMEN COMMENT 2 Routine semen analysis Normal [facility] Comment on above: Order Comment: Speci men Type: SEMINAL FLUID SPECIMEN [facility] Address: [address] [place] [address] Performed By: #### B ASA #### [facility] [place] [id number] [facility] [place] [address] Sexual abstinence duration [Time] 2.5 Days Normal [facility] Comment on above: Order Comment: Speci men Type: SEMINAL FLUID SPECIMEN [facility] Address: [address] [place] [address] Performed By: #### B ASA #### [facility] [place] [id number] [address] [place] [address] Specimen volume (Aster) 2.5 mL Normal >=1.5 [facility] Comment on above: Order Comment: Speci men Type: SEMINAL FLUID SPECIMEN [facility] Address: [address] [place] [address] Performed By: #### B ASA #### [facility] CLIA [id number] [address] [place] [address] Spermatozoa (Aster) [#/Vol] 78.00 M/mL Normal >=15.00 [facility] Comment on above: Order Comment: Speci men Type: SEMINAL FLUID SPECIMEN [facility] Address: [address] [place] [address] Result Comment: 195. 00 Performed By: #### B ASA #### [facility] CLIA [id number] [address] [place] [address] Spermatozoa Motile/100 spermatozoa (Aster) 44 % Normal >=40 [facility] Comment on above: Order Comment: Speci men Type: SEMINAL FLUID SPECIMEN [facility] Address: [address] [place] [address] Performed By: #### B ASA #### [facility] CLIA [id number] [address] [place] [address] Spermatozoa Normal/100 spermatozoa (Aster) 2 % Low >=4 [facility] Comment on above: Order Comment: Speci men Type: SEMINAL FLUID SPECIMEN [facility] Address: [address] [place] [address] Performed By: #### B ASA #### [facility] CLIA [id number] [address] [place] [address] TIME TO ANALYSIS 20 Minutes Normal 0-60 [facility] Comment on above: Order Comment: Speci men Type: SEMINAL FLUID SPECIMEN [facility] Address: [address] [place] [address] Performed By: #### B ASA #### [facility] [place] [id number] [address] [place] [address] TOTAL MOTILE SPERM 85.80 M Normal [facility] Comment on above: Order Comment: Speci men Type: SEMINAL FLUID SPECIMEN [facility] Address: [address] [place] [address] Performed By: #### B ASA #### [facility] CLIA [id number] [address] [place] [address] Viscosity Ql (Aster) Normal Normal [facility] Comment on above: Order Comment: Speci men Type: SEMINAL FLUID SPECIMEN [facility] Address: [address] [place] [address] Performed By: #### B ASA #### [facility] CLIA [id number] [address] [place] [address] CNOVon 12-21-2021 CNOV Office Visit (ANDRBA ) MAIRADAVY ([id number]) 1985 M Date Time Provider Department 12/21/21 11:15 AM ANDROLOGY PATIENT REPRESENTATIVE [facility] During your visit today, we recorded the following information about you: Nancy Moody 12/21/2021 12:29 PM Signed Routine Semen Analysis Nancy Moody Referring Provider: SELF [200] Allergies As of Date: 12/21/2021 Noted Allergy Reaction SULFA (SULFONAMIDE ANTIBIOTICS) 01/04/2020 2 - Rash Date Reviewed: 09/08/2021 Reviewed by: Regan Cantu - Fully Assessed Primary Visit Diagnosis:Fertility testing [Z31.41] Other Visit Diagnosis:Encounter for fertility testing [Z31.41] Order(s):BASIC SEMEN ANALYSIS [SQBASA] Order #: [id number]. #:[id number]: 1 Prescriptions as of 12/21/2021 - cholecalciferol, Vitamin D3, (VITAMIN D3) 1,250 mcg (50,000 unit) cap capsule Take 1 capsule by mouth one time a week. - tiZANidine (ZANAFLEX) 4 mg tablet Take 1 tablet by mouth every 8 hours as needed. - celecoxib (CELEBREX) 200 mg capsule Take 1 capsule by mouth once daily as needed for pain. - omeprazole (PRILOSEC) 20 mg capsule Take 1 capsule by mouth daily before breakfast. 1/2 hr before meal. - CPAP Initiate Auto PAP @ 9-18 cm of water with humidification. Mask (per patient preference) optional chin strap (if indicated) , filters, tubing, humidifier and lifetime supplies. Problem List As Of Date 12/21/2021 Noted Resolved Obesity (BMI 30-39.9) [E66.9] 01/10/2021 Chronic right hip pain [M25.551, G89.29] 02/26/2020 BLAIR on CPAP [G47.33, Z99.89] Seasonal allergies [J30.2] Morbid obesity (HCC) [E66.01] Gastroesophageal reflux disease without esophag* Chronic midline low back pain without sciatica *02/03/2021 05/19/2021 Chronic pain of both hips [M25.551, M25.552, G8*02/03/2021 05/19/2021 Encounter Status:Closed by NANCY MOODY on 12/21/21 Normal [facility] Lab Miscellaneouson 12-26-19 19 Status See Ref Lab Report [facility] Comment on above: Performed By: #### 1 [id number] #### KEMAL Send Outs Subsection [facility] [place] [address] Lab Miscellaneouson 12-23-19 19 Test Name TB QUANTERFERON [facility] Comment on above: Performed By: #### 1 [id number] #### KEMAL Send Outs [facility]section [facility] [place] [id number] Vital Signs Date Time Vital Sign Value Performing Clinician Faci lity 05-25-2025 19:20-0400 Body temperature 98.6 [degF] Dr. Jose Alejandro Bean MD Work Phone: [facility] 05-25-2025 19:20-0400 Diastolic blood pressure 81 mm[Hg] Dr. Jose Alejandro Bean MD Work Phone: [facility] 05-25-2025 19:20-0400 Heart rate 71 /min Dr. Jose Alejandro Bean MD Work Phone: [facility] 05-25-2025 19:20-0400 Respiratory rate 80 /min Dr. Jose Alejandro Bean MD Work Phone: [facility] 05-25-2025 19:20-0400 SaO2% (BldA) [Mass fraction] 100 % Dr. Jose Alejandro Bean MD Work Phone: [facility] 05-25-2025 19:20-0400 Systolic blood pressure 146 mm[Hg] Dr. Jose Alejandro Bean MD Work Phone: [facility] 05-25-2025 15:56-0400 Body height 180.[address] Jose Alejandro Bean MD Work Phone: [facility] 05-25-2025 15:56-0400 Body mass index (BMI) [Ratio] 40.7 kg/m2 Dr. Jose Alejandro Bean MD Work Phone: [facility] 05-25-2025 15:56-0400 Body weight 132.[address] Jose Alejandro Bean MD Work Phone: [facility] 03-25-2025 16:15-0400 Diastolic blood pressure 78 mm[Hg] Donna Dale MD Work Phone: [facility] 03-25-2025 16:15-0400 Heart rate 62 /min Donna Dale MD Work Phone: [facility] 03-25-2025 16:15-0400 SaO2% (BldA) [Mass fraction] 99 % Donna Dale MD Work Phone: [facility] 03-25-2025 16:15-0400 Systolic blood pressure 120 mm[Hg] Donna Dale MD Work Phone: [facility] 03-25-2025 14:28-0400 Body mass index (BMI) [Ratio] 43.42 kg/m2 Donna Dale MD Work Phone: [facility] 03-25-2025 14:28-0400 Body weight 135.3 kg Donna Dale MD Work Phone: [facility] 03-05-2025 07:00-0400 Body mass index (BMI) [Ratio] 43.06 kg/m2 Manny Bean MD Work Phone: [facility] 03-05-2025 07:00-0400 Body weight 134.17 kg Manny Bean MD Work Phone: [facility] 03-05-2025 07:00-0400 Diastolic blood pressure 76 mm[Hg] Manny Bean MD Work Phone: [facility] 03-05-2025 07:00-0400 Heart rate 67 /min Manny Bean MD Work Phone: [facility] 03-05-2025 07:00-0400 Respiratory rate 16 /min Manny Bean MD Work Phone: [facility] 03-05-2025 07:00-0400 SaO2% (BldA) [Mass fraction] 98 % Manny Bean MD Work Phone: [facility] 03-05-2025 07:00-0400 Systolic blood pressure 118 mm[Hg] Manny Bean MD Work Phone: [facility] 02-07-2025 10:02-0400 Body mass index (BMI) [Ratio] 43.55 kg/m2 Karime Josue SALES DEVELOPMENT MANAGER.BOILER FIREMAN Work Phone: [facility] 02-07-2025 10:02-0400 Body temperature 97.3 [degF] Karime Josue SALES DEVELOPMENT MANAGER.BOILER FIREMAN Work Phone: [facility] 02-07-2025 10:02-0400 Body weight 135.7 kg Karime Josue SALES DEVELOPMENT MANAGER.BOILER FIREMAN Work Phone: [facility] 02-07-2025 10:02-0400 Diastolic blood pressure 76 mm[Hg] Karime Josue SALES DEVELOPMENT MANAGER.BOILER FIREMAN Work Phone: [facility] 02-07-2025 10:02-0400 Heart rate 69 /min Karime Josue SALES DEVELOPMENT MANAGER.BOILER FIREMAN Work Phone: [facility] 02-07-2025 10:02-0400 Respiratory rate 16 /min Karime Josue SALES DEVELOPMENT MANAGER.BOILER FIREMAN Work Phone: [facility] 02-07-2025 10:02-0400 SaO2% (BldA) [Mass fraction] 98 % Karime Josue SALES DEVELOPMENT MANAGER.BOILER FIREMAN Work Phone: [facility] 02-07-2025 10:02-0400 Systolic blood pressure 110 mm[Hg] Karime Josue APRN.CNP Work Phone: [facility] 12-22-2024 13:28-0500 Body mass index (BMI) [Ratio] 42.71 kg/m2 Donna Dale MD Work Phone: [facility] 12-22-2024 13:28-0500 Body weight 133.1 kg Donna Dale MD Work Phone: [facility] 12-22-2024 13:28-0500 Diastolic blood pressure 79 mm[Hg] Donna Dale MD Work Phone: [facility] 12-22-2024 13:28-0500 Heart rate 64 /min Donna Dale MD Work Phone: [facility] 12-22-2024 13:28-0500 SaO2% (BldA) [Mass fraction] 97 % Donna Dlae MD Work Phone: [facility] 12-22-2024 13:28-0500 Systolic blood pressure 116 mm[Hg] Donna Dale MD Work Phone: [facility] 12-09-2024 07:35-0500 Body mass index (BMI) [Ratio] 43.87 kg/m2 Manny Bean MD Work Phone: [facility] 12-09-2024 07:35-0500 Body weight 136.71 kg Manny Bean MD Work Phone: [facility] 12-09-2024 07:35-0500 Diastolic blood pressure 76 mm[Hg] Manny Bean MD Work Phone: [facility] 12-09-2024 07:35-0500 Heart rate 75 /min Manny Bean MD Work Phone: [facility] 12-09-2024 07:35-0500 Respiratory rate 16 /min Manny Bean MD Work Phone: [facility] 12-09-2024 07:35-0500 SaO2% (BldA) [Mass fraction] 99 % Manny Bean MD Work Phone: [facility] 12-09-2024 07:35-0500 Systolic blood pressure 118 mm[Hg] Manny Bean MD Work Phone: [facility] 12-08-2024 16:25-0500 Body mass index (BMI) [Ratio] 44.38 kg/m2 Karime Josue SALES DEVELOPMENT MANAGER.BOILER FIREMAN Work Phone: [facility] 12-08-2024 16:25-0500 Body temperature 98.2 [degF] Karime Josue SALES DEVELOPMENT MANAGER.BOILER FIREMAN Work Phone: [facility] 12-08-2024 16:25-0500 Body weight 138.3 kg Karime Josue SALES DEVELOPMENT MANAGER.BOILER FIREMAN Work Phone: [facility] 12-08-2024 16:25-0500 Diastolic blood pressure 74 mm[Hg] Karime Josue SALES DEVELOPMENT MANAGER.BOILER FIREMAN Work Phone: [facility] 12-08-2024 16:25-0500 Heart rate 76 /min Karime Josue SALES DEVELOPMENT MANAGER.BOILER FIREMAN Work Phone: [facility] 12-08-2024 16:25-0500 Respiratory rate 16 /min Karime Josue SALES DEVELOPMENT MANAGER.BOILER FIREMAN Work Phone: [facility] 12-08-2024 16:25-0500 SaO2% (BldA) [Mass fraction] 97 % Karime Josue SALES DEVELOPMENT MANAGER.BOILER FIREMAN Work Phone: [facility] 12-08-2024 16:25-0500 Systolic blood pressure 122 mm[Hg] Karime Josue SALES DEVELOPMENT MANAGER.BOILER FIREMAN Work Phone: [facility] 05-26-2024 12:52-0400 Body mass index (BMI) [Ratio] 43.38 kg/m2 Manny Bean MD Work Phone: [facility] 05-26-2024 12:52-0400 Body temperature 97.81 [degF] Manny Bean MD Work Phone: [facility] 05-26-2024 12:52-0400 Body weight 135.2 kg Manny Bean MD Work Phone: [facility] 05-26-2024 12:52-0400 Diastolic blood pressure 82 mm[Hg] Manny Bean MD Work Phone: [facility] 05-26-2024 12:52-0400 Heart rate 68 /min Manny Bean MD Work Phone: [facility] 05-26-2024 12:52-0400 Respiratory rate 16 /min Manny Bean MD Work Phone: [facility] 05-26-2024 12:52-0400 SaO2% (BldA) [Mass fraction] 97 % Manny Bean MD Work Phone: [facility] 05-26-2024 12:52-0400 Systolic blood pressure 120 mm[Hg] Manny Bean MD Work Phone: [facility] 08-07-2023 17:52-0400 Body weight 131.72 kg Ary Podlogar SALES DEVELOPMENT MANAGER.BOILER FIREMAN Work Phone: [facility] 08-07-2023 17:52-0400 Diastolic blood pressure 84 mm[Hg] Ary Podlogar SALES DEVELOPMENT MANAGER.BOILER FIREMAN Work Phone: [facility] 08-07-2023 17:52-0400 Heart rate 84 /min Ary Podlogar SALES DEVELOPMENT MANAGER.BOILER FIREMAN Work Phone: [facility] 08-07-2023 17:52-0400 Respiratory rate 18 /min Ary Podlogar SALES DEVELOPMENT MANAGER.BOILER FIREMAN Work Phone: [facility] 08-07-2023 17:52-0400 SaO2% (BldA) [Mass fraction] 97 % Ary Podlogar SALES DEVELOPMENT MANAGER.BOILER FIREMAN Work Phone: [facility] 08-07-2023 17:52-0400 Systolic blood pressure 126 mm[Hg] Ary Podlogar SALES DEVELOPMENT MANAGER.BOILER FIREMAN Work Phone: [facility] 02-05-2023 17:52-0400 Body weight 134.99 kg Manny Bean MD Work Phone: [facility] 02-05-2023 17:52-0400 Diastolic blood pressure 84 mm[Hg] Manny Bean MD Work Phone: [facility] 02-05-2023 17:52-0400 Heart rate 66 /min Manny Bean MD Work Phone: [facility] 02-05-2023 17:52-0400 Respiratory rate 16 /min Manny Bean MD Work Phone: [facility] 02-05-2023 17:52-0400 SaO2% (BldA) [Mass fraction] 98 % Manny Bean MD Work Phone: [facility] 02-05-2023 17:52-0400 Systolic blood pressure 118 mm[Hg] Manny Bean MD Work Phone: [facility] Encounters Encounter Date Encounter Type Care Provider Facility Start: 05-25-2025 End: 05-25-2025 Emergency department patient visit Dr. Jose Alejandro Bean MD Work Phone: -Emergency Department Work Phone: Start: 03-25-2025 End: 03-25-2025 ambulatory DONNA DALE Facility:[facility] Start: 03-25-2025 End: 03-25-2025 Patient encounter procedure Donna Dale MD Work Phone: Allergy Comment on above: Wim-ozrd-hshqzeh adv erse effect of medication, subsequent encounter (Primary Dx); Urticaria Start: 03-08-2025 End: 03-08-2025 Follow-up encounter Manny Bean MD Work Phone: [facility] [place] Comment on above: Results Start: 03-08-2025 End: 03-08-2025 ambulatory MANNY BEAN Facility:[facility] Start: 03-05-2025 End: 03-05-2025 ambulatory MANNY BEAN Facility:[facility] Start: 03-05-2025 End: 03-05-2025 ambulatory MANNY BEAN Facility:[facility] Start: 03-05-2025 End: 03-05-2025 Patient encounter procedure Manny Bean MD Work Phone: [facility] Comment on above: Annual physical exam (Primary Dx); Numbness of toes; Gastroesophageal reflux disease without esophagitis; BLAIR on CPAP; Morbid obesity (HCC); Seasonal allergies; Vitamin D deficiency; Allergic reaction to penicillin, subsequent encounter; Allergic rhinitis, unspecified seasonality, unspecified trigger Start: 02-07-2025 End: 02-07-2025 Patient encounter procedure Karime Josue APRN.BOILER FIREMAN Work Phone: [facility] Comment on above: Acute otitis externa of left ear, unspecified type (Primary Dx); Abrasion of left ear canal, initial encounter Start: 02-07-2025 End: 02-07-2025 ambulatory KARIME JOSUE Facility:[facility] Start: 12-22-2024 End: 12-22-2024 ambulatory DONNA DALE Facility:[facility] Start: 12-22-2024 End: 12-22-2024 Patient encounter procedure Donna Dale MD Work Phone: Allergy Comment on above: Pov-heui-amrsgkg adv erse effect of medication, initial encounter (Primary Dx); Allergy to penicillin; Allergic reaction, subsequent encounter; Hives; Angioedema, initial encounter Start: 12-09-2024 End: 12-09-2024 ambulatory MANNY BEAN Facility:[facility] Start: 12-09-2024 End: 12-09-2024 Patient encounter procedure Manny Bean MD Work Phone: [facility] Comment on above: Allergic reaction, s ubsequent encounter (Primary Dx); Hives; Facial swelling; Allergy to penicillin Start: 12-08-2024 End: 12-08-2024 Emergency department patient visit Jose Alejandro Bean Facility:[facility] Start: 12-08-2024 End: 12-08-2024 Patient encounter procedure Karime Josue APRN.BOILER FIREMAN Work Phone: [facility] Comment on above: Rash (Primary Dx); Dental infection; Facial swelling Start: 12-08-2024 End: 12-08-2024 ambulatory Fabby Treviño RN NURSE COATING INSPECTOR Comment on above: Rash Start: 05-27-2024 Telephone encounter Jose Alejandro Bean MD Work Phone: [facility] [place] Comment on above: Results Start: 05-26-2024 End: 05-26-2024 ambulatory MANNY BEAN Facility:[facility] Start: 05-26-2024 End: 05-26-2024 Subsequent hospital visit by physician Xr [facility] [place] Work Phone: Radiology Comment on above: LUQ pain [R10.12] Start: 05-26-2024 End: 05-26-2024 Patient encounter procedure Manny Bean MD Work Phone: [facility] [place] Comment on above: LUQ pain (Primary Dx ); Gastroesophageal reflux disease without esophagitis; Seasonal allergies Start: 05-26-2024 End: 05-26-2024 ambulatory SELF Facility:[facility] Start: 08-07-2023 End: 08-07-2023 Patient encounter procedure Ary Hernandez APRN.CNP Work Phone: [facility] [place] Comment on above: Vitamin D deficiency (Primary Dx); Infertility counseling; Obesity, Class III, BMI >= 40; Chronic right hip pain; BLAIR on CPAP; Gastroesophageal reflux disease without esophagitis Start: 02-05-2023 End: 02-05-2023 Patient encounter procedure Manny Bean MD Work Phone: [facility] [place] Comment on above: Annual physical exam (Primary Dx); Morbid obesity (HCC); BLAIR on CPAP; Chronic right hip pain; Gastroesophageal reflux disease without esophagitis; Seasonal allergies Start: 01-20-2023 ambulatory Manny Bean MD Work Phone: [facility] Start: 01-20-2023 Patient encounter procedure Manny Bean MD Work Phone: [facility] [place] Comment on above: Nutrition Program Re ferral request Start: 08-08-2022 End: 08-08-2022 Subsequent hospital visit by physician Nishi [facility] [place] Work Phone: Radiology Comment on above: Acute pain of right knee [M25.561] Start: 11-13-2021 End: 11-13-2021 Discharged Recurring [facility] Start: 12-22-2018 End: 12-23-2018 Patient encounter procedure Rubina Love Facility:[facility] Procedures Date Procedure Procedure Detail Performing Clinician Start: 05-25-2025 Urnls dip stick/tabl et reagent auto microscopy Dr. Jose Alejandro Bean MD Work Phone: Start: 05-25-2025 Computed tomography of abdomen and pelvis with intravenous contrast Dr. Jose Alejandro Bean MD Work Phone: Start: 05-25-[address] Jose Alejandro Bean MD Work Phone: Start: 03-25-2025 Follow-up visit Follow Up DONNA DALE Start: 03-25-2025 ALLERGEN SKIN TEST-PENICILLIN Donna Dale MD Work Phone: Start: 03-25-2025 Ingestion challenge test initial 120 minutes Donna aDle MD Work Phone: Start: 03-05-2025 Lipid 1996 panel - S tika or Plasma Manny Bean MD Work Phone: Start: 05-26-2024 Radiologic exam abdo men 1 view Manny Bean MD Work Phone: Start: 02-07-2023 Lipid 1996 panel - S tika or Plasma Ary Hernandez SALES DEVELOPMENT MANAGER.BOILER FIREMAN Work Phone: Start: 08-08-2022 Radiologic exam knee complete 4/more views Franck Velez MD Work Phone: Plan of Treatment Date Care Activity Detail Author Start: 03-05-2030 Lipid panel Lipid Screening [facility] Start: 02-08-2028 Lipid 1996 panel - S tika or Plasma Lipid Screening [facility] Start: 02-08-2028 Lipid panel Lipid Screening [facility] Start: 02-08-2028 LIPID SCREEN LIPID SCREEN [facility] Start: 03-05-2026 Covid-19 Vaccine ( season) Covid-19 Vaccine ( season) [facility] Comment on above: Postponed from 06/21 (Declined at this time) Start: 03-05-2026 Hepatitis B Vaccine (1 of 3 - 19+ 3-dose series) Hepatitis B Vaccine (1 of 3 - 19+ 3-dose series) [facility] Comment on above: Postponed from 04/19 (Declined at this time) Start: 03-05-2026 Urine microalbumin profile DTa P,Tdap,Td Vaccine (1 - Tdap) [facility] Comment on above: Postponed from 04/19 (Declined at this time) Start: 01-13-2026 LIPID SCREEN LIPID SCREEN [facility] Start: 09-07-2025 End: 09-07-2025 Patient encounter procedure 09/07/2025 7:20 AM EST Office Visit [facility] [place] [address] [place] [address] Manny Bean MD [address] [place], [place] [phone] 6 month follow up [facility] Comment on above: 6 month follow up Start: 06-21-2025 Influenza vaccination Influenz a Vaccine (Season Ended) [facility] Start: 05-25-2025 [facility] Start: 03-25-2025 End: 03-25-2025 Patient encounter procedure 03/25/2025 2:00 PM EDT Office Visit Allergy [address] [id number] Donna Dale MD [address] [place] [address] PCN testing Allergy Comment on above: PCN testing Start: 03-08-2025 End: 06-07-2025 Thyrotropin [Units/volume] in Serum or Plasma [facility] Work Phone: Comment on above: Expected: 03/08/2025 , Expires: 06/07/2025 Start: 03-08-2025 End: 06-07-2025 Thyroxine (T4) free [Mass/volume] in Serum or Plasma [facility] Comment on above: Expected: 03/08/2025 , Expires: 06/07/2025 Start: 03-08-2025 End: 06-07-2025 Triiodothyronine (T3) [Mass/volume] in Serum or Plasma [facility] Comment on above: Expected: 03/08/2025 , Expires: 06/07/2025 Start: 03-05-2025 End: 06-04-2025 25-hydroxyvitamin D3 [Mass/volume] in Serum or Plasma [facility] Comment on above: Expected: 03/05/2025 , Expires: 06/04/2025 Start: 03-05-2025 End: 06-04-2025 CBC W Auto Differential panel - Blood [facility] Work Phone: Comment on above: Expected: 03/05/2025 , Expires: 06/04/2025 Start: 03-05-2025 End: 06-04-2025 Comprehensive metabolic 2000 panel - Serum or Plasma [facility] Comment on above: Expected: 03/05/2025 , Expires: 06/04/2025 Start: 03-05-2025 End: 06-04-2025 Hemoglobin A1c in Blood [facility] Comment on above: Expected: 03/05/2025 , Expires: 06/04/2025 Start: 03-05-2025 End: 06-04-2025 Lipid 1996 panel - Serum or Plasma [facility] Comment on above: Expected: 03/05/2025 , Expires: 06/04/2025 Start: 03-05-2025 End: 06-04-2025 Thyrotropin [Units/volume] in Serum or Plasma [facility] Comment on above: Expected: 03/05/2025 , Expires: 06/04/2025 Start: 03-05-2025 End: 03-05-2025 Patient encounter procedure 03/05/2025 7:00 AM EDT Office Visit [facility] [place] [address] [place] [address] Manny Bean MD [address] [place] [address] annual physical [facility] [place] Comment on above: annual physical Start: 12-22-2024 End: 12-22-2024 Patient encounter procedure 12/22/2024 1:15 PM EST Office Visit Allergy [address] [phone] Donna Dale MD [address], [place] [phone] Allergy to penicillin [Z88.0] Allergy Comment on above: Allergy to penicilli n [Z88.0] Start: 12-09-2024 End: 12-09-2024 Patient encounter procedure 12/09/2024 7:20 AM EST Office Visit [facility] [address] [place], [place] [phone] Manny Bean MD [address] [place], [place] [phone] Express care follow up 12/08/24 [facility] Comment on above: Express care follow up 12/08/24 Start: 06-21-2024 Covid-19 Vaccine ( season) Covid-19 Vaccine () [facility] Start: 06-21-2024 Covid-19 Vaccine () Covid-19 Vaccine () [facility] Start: 06-21-2024 Influenza vaccination Influenz a Vaccine (#1) [facility] Start: 05-26-2024 End: 08-25-2024 Comprehensive metabolic 2000 panel - Serum or Plasma [facility] Comment on above: Expected: 05/26/2024 , Expires: 08/25/2024 Start: 05-26-2024 End: 08-25-2024 Lipase [Enzymatic activity/volume] in Serum or Plasma [facility] Comment on above: Expected: 05/26/2024 , Expires: 08/25/2024 Start: 02-06-2024 COVID-19 VACCINE (4 - Booster) COVID-19 VACCINE (4 - Booster) [facility] Comment on above: Postponed from 11/30 (Declined at this time) Start: 02-06-2024 HEPATITIS B (1 of 3 - 3-dose series) HEPATITIS B (1 of 3 - 3-dose series) [facility] Comment on above: Postponed from 04/19 (Declined at this time) Start: 02-06-2024 Hepatitis B Vaccine (1 of 3 - 3-dose series) Hepatitis B Vaccine (1 of 3 - 3-dose series) [facility] Comment on above: Postponed from 04/19 (Declined at this time) Start: 02-06-2024 Urine microalbumin profile [facility] Comment on above: Postponed from 04/19 (Declined at this time) Start: 08-07-2023 End: 11-06-2023 25-hydroxyvitamin D3 [Mass/volume] in Serum or Plasma VITAMIN D 25 HYDROXY Lab Routine Vitamin D deficiency Expected: 08/07/2023, Expires: 11/06/2023 [facility] Work Phone: Comment on above: Expected: 08/07/2023 , Expires: 11/06/2023 Start: 06-21-2023 Covid-19 Vaccine ( season) Covid-19 Vaccine (2022- season) [facility] Start: 06-21-2023 Influenza vaccination [facility] Start: 02-05-2023 End: 04-07-2023 Hemoglobin A1c in Blood HGB A1C Lab Routine Annual physical exam Expected: 02/05/2023, Expires: 04/07/2023 [facility] Work Phone: Comment on above: Expected: 02/05/2023 , Expires: 04/07/2023 Start: 10-21-2022 DEPRESSION ASSESSMENT DEPRESSION ASS ESSMENT [facility] Start: 11-30-2021 COVID-19 VACCINE (4 - Booster) COVID-19 VACCINE (4 - Booster) [facility] Start: 2003 Hepatitis B Vaccine (1 of 3 - 19+ 3-dose series) Hepatitis B Vaccine (1 of 3 - 19+ 3-dose series) [facility] Start: 2003 Urine microalbumin profile [facility] Start: 2002 Anxiety Screening Anxiety Screening [facility] Start: 2002 Depression Screening Depression Scre ening [facility] Start: 1984 HEPATITIS B (1 of 3 - 3-dose series) HEPATITIS B (1 of 3 - 3-dose series) [facility] Hemoglobin A1c in Blood HGB A1C Lab Routine Annual physical exam 02/07/2023 7:25 AM EDT [facility] Work Phone: Microscopic urinalysis [facility] Organism count, microscopic method [facility] Patient Education Abdominal Pain [facility] Work Phone: Urine microscopy: epithelial cells [facility] Urine microscopy: re d cells [facility] White blood cell count [facility] End: 06-25-2025 XR Abdomen Supine and Upright XR ABDOMEN 1V SUPINE Radiology Routine LUQ pain 1 Occurrences starting 05/26/2024 until 06/25/2025 [facility] Work Phone: Comment on above: 1 Occurrences starti ng 05/26/2024 until 06/25/2025 XR Abdomen Supine an d Upright XR ABDOMEN 1V SUPINE Radiology Routine LUQ pain 05/26/2024 1:57 PM EDT [facility] [place] [facility] Immunizations Immunization Date Immunization Notes Care Provider [facility] 07-31-2021 influenza, injectabl e, quadrivalent, contains preservative Manny Bean MD Work Phone: [facility] 07-31-2021 influenza virus vaccine, unspecified formulation Ary Hernandez APRN.BOILER FIREMAN Work Phone: [facility] 02-15-2021 COVID-19 original vaccine, full dose, monovalent (MODERNA) Manny Bean MD Work Phone: [facility] 01-18-2021 COVID-19 original vaccine, age 12+ yr, monovalent (PFIZER-BIONTShopIt - PURPLE TOP) Manny Bean MD Work Phone: [facility] 01-18-2021 COVID-19 original vaccine, full dose, monovalent (MODERNA) Manny Bean MD Work Phone: [facility] Work Phone: 07-12-2020 influenza, injectabl e, quadrivalent, contains preservative Manny Bean MD Work Phone: [facility] 01-04-2020 influenza, injectabl e, quadrivalent, contains preservative Manny Bean MD Work Phone: [facility] Payers Date Payer Category Payer Self-pay [id number] 2020 Private Health Insurance [id number] 2020 Private Health Insurance [id number] 2018 Unknown 1984 Unknown [id number] Unknown [id number] Social History Date Type Detail Facility Tobacco smoking stat us [facility] Unknown if ever smoked [facility] Work Phone: Start: 1985 Sex Assigned At Male [facility] Start: 08-08-2022 End: 05-25-2025 Tobacco smoking status SCIS Never smoked tobacco [facility] Start: 08-08-2022 Tobacco use and exposure Smoke less tobacco non-user [facility] Start: 08-08-2022 End: 03-25-2025 Alcohol intake Current drinker of alcohol (finding) [facility] Start: 01-28-2021 History SDOH Alcohol Frequency 3 [facility] Start: 01-28-2021 History SDOH Alcohol Std Drinks 1 [facility] Start: 01-28-2021 History SDOH Social Connections Phone 5 [facility] Start: 01-28-2021 History SDOH Social Connections Get Together 98 [facility] Start: 01-28-2021 End: 08-26-2021 History SDOH Social Connections Membership 2 [facility] Start: 01-28-2021 History SDOH Financial 4 [facility] Start: 01-28-2021 Education 20 [facility] Start: 01-10-2021 Alcohol Comment 2 drink every 2-3 weeks [facility] Start: 1985 Sex Assigned At Not on file C [facility] Start: 01-28-2021 End: 08-07-2023 History of Social function [facility] Start: 01-28-2021 End: 08-07-2023 Social connection and isolation panel [facility] How often do you get together with friends or relatives? Patient refused [facility] Do you belong to any clubs or organizations such as amish groups, unions, fraternal or athletic groups, or school groups? No [facility] Are you now , , , , never or living with a partner? [facility] How often to you hav e a drink containing alcohol? 2-4 times a month [facility] How many standard dr inks containing alcohol do you have on a typical day? 1 or 2 [facility] How often do you hav e 6 or more drinks on 1 occasion? Never [facility] How hard is it for y ou to pay for the very basics like food, housing, medical care, and heating Not very hard [facility] Do you feel stress - tense, restless, nervous, or anxious, or unable to sleep at night because your mind is troubled all the time - these days [OSQ] Only a little [facility] (I/We) worried keanu er (my/our) food would run out before (I/we) got money to buy more. Never true [facility] How often to you hav e a drink containing alcohol? Monthly or less [facility] Do you feel stress - tense, restless, nervous, or anxious, or unable to sleep at night because your mind is troubled all the time - these days [OSQ] To some extent [facility] Functional Status Date Assessment Result Facility 03-05-2025 Total score [AUDIT-C] 1 03/05/20 5:23 AM EDT UserTricia [facility] 03-05-2025 Within the last year , have you been humiliated or emotionally abused in other ways by your partner or ex-partner? No 03/05/2025 5:23 AM EDT UserTricia [facility] 03-05-2025 Within the last year , have you been afraid of your partner or ex-partner? No 03/05/2025 5:23 AM EDT User, Jimenahart No [facility] 03-05-2025 Within the last year , have you been raped or forced to have any kind of sexual activity by your partner or ex-partner? No 03/05/2025 5:23 AM EDT User, [place] No [facility] 03-05-2025 Within the last year , have you been kicked, hit, slapped, or otherwise physically hurt by your partner or ex-partner? No 03/05/2025 5:23 AM EDT User, Mychart No [facility] 03-05-2025 How often to you hav e a drink containing alcohol? Monthly or less 03/05/2025 5:23 AM EDT User, Mychart Monthly or less [facility] 03-05-[address] inks containing alcohol do you have on a typical day? 1 or 2 03/05/2025 5:23 AM EDT User, Mychart 1 or 2 [facility] 03-05-2025 How often do you hav e 6 or more drinks on 1 occasion? Never 03/05/2025 5:23 AM EDT User, Mychart Never [facility] Clinical Notes 02-03-2021 to 05-25-2025 Note Date & Type Note Facility 05-25-2025 Discharge summary [facility] 05-25-2025 Radiology Diagnostic study note [facility] Imaging Services [address] [place], [place] [id number] Abdomen/Pelvis W IV Cont ONLY MR#: [id number] Acct: [id number] Name: DAVY RAO Rep #: [id number] : 1985 M 40 From: Marvel Cat MD PCP: Dr. Jose Alejandro Bean MD Status: REG ER Study:Abdomen/Pelvis W IV Cont ONLY Date of E xam: 05/25/25 Exam# [id number] Ordering Dr: Lloyd Pardo DO PROCEDURE: ABDOMEN/PELVIS W IV CONT ONLY 05/25/2025 REASON FOR EXAM: LEFT LOWER QUADRANT PAIN TECHNIQUE: ABDOMEN/PELVIS W IV CONT ONLY Coronal and Sagittal reconstruction series were provided. CONTRAST: Isovue-300 VOLUME: 100 mL One or more dose reduction techniques were used (e.g., Automated exposure control, adjustment of the mA and/or kV according to patient size, use of iterative reconstruction technique. RADIATION DOSE SUMMARY: CTDlvol: 6.65, 24.14 mGy DLP: 1438.7 mGycm COMPARISON: None. FINDINGS: LUNG BASES: No basilar airspace consolidation or pleural effusion. LIVER: Unremarkable. GALLBLADDER: Unremarkable. No calcified stone. BILE DUCTS: No ductal dilation. PANCREAS: Unremarkable. SPLEEN: Unremarkable. ADRENAL GLANDS: Unremarkable. KIDNEYS: The kidneys enhance symmetrically. Hypodense 1.3 mm superior left renal lesion,likely a cyst. No hydronephrosis or hydroureter. STOMACH AND BOWEL: No obstruction or perforation. No wall thickening. No CT evidence of colitis or acute diverticulitis. APPENDIX: Normal-appearing appendix. No CT evidence for appendicitis. RETRO/PERITONEUM: No free fluid. No free air. LYMPH NODES: No lymphadenopathy. PELVIC ORGANS: Unremarkable as visualized. VASCULATURE: No aortic aneurysm. ABDOMINAL WALL AND SOFT TISSUES: Tiny fat containing umbilical hernia. BONES: No fracture or suspicious osseous abnormality. Mild arthritic changes of both hips, greater on the right. CT/Abdomen/Pelvis W IV Cont ONLY IMPRESSION: NO ACUTE FINDINGS IN THE ABDOMEN OR PELVIS. Reading Location: [id number] CC: Dr. Lloyd Gao DO; Dr. Jose Alejandro Bean MD ~ Benefits Consulting Analyst: Signed [facility] 05-25-2025 Discharge summary Note Date/Time May 25, 2025 7:2 3pm [facility] Medical Records Department [address] [place] [address] Emergency Department Summary 05/25/25 MR#: [id number] Acct: [id number] Name: DAVY RAO Rep #:[id number] : 1985 40 From: Lloyd gomez DO PCP: Dr. Jose Alejandro Bean MD Status :REG ER Location: ED HPI History of Present Illness Chief Complaint: Flank Pain Narrative Narrative: Chief complaint and HPI: Abdominal pain. 40-year-old male with no significant past medical history presents for evaluation of left lower quadrant/flank pain. Onset of symptoms this morning. Pain is not improved which is why presents. Associated symptom is some mild nausea. He denies any fever, chills, shortness of breath, chest pain, vomiting, dysuria, hematuria, diarrhea, constipation. States it radiates into the left groin but not into the testicles. Denies any penile or testicular swelling, pain, discharge. No history of urolithiasis or diverticulitis. Review of systems: See HPI Medications: As listed on the chart Allergies: As listed on the chart PFSH: Per chart Vital signs: As listed on the chart. Reviewed. Physical exam: Gen: A&O x3, NAD Head: Normocephalic, atraumatic Eyes: No sclera icterus, conjunctiva clear ENT: Moist mucous membranes Neck: Trachea midline, No JVD CV: RRR, no murmurs, no peripheral edema Resp: Lungs CTA BL, no w/r/c GI: Abd soft, non-distended, mildly tender to palpation left lower quadrant/flank, no r/r/g : No CVA tenderness : Uncircumcised penis. No penile tenderness or discharge. No penile or testicular swelling. Normal lie and position of the testicles. No testicular tenderness, masses, or skin changes. Cremasteric reflexes intact and equal bilaterally. No rashes. No palpable hernias. Musc: Full ROM, no deformity Skin: Warm, dry Neuro: Alert, oriented, grossly intact, sensation intact Psych: Cooperative, appropriate mood and affect [facility] Medical History (Updated 05/25/25 @ 19:[address] Lloyd Gao DO) GERD (gastroesophageal reflux disease) Home Medications ?Medication ?Instructions ?Recorded ?Last Taken ?Type omeprazole 40 mg capsule,delayed 40 mg PO DAILY Unknown History release Allergy/AdvReac Type Severity Reaction Status Date / Time Sulfa (Sulfonamide Allergy Mild Hives Verified 05/25/25 16:00 Antibiotics) Social History Smoking Status: Never smoker EXAM Physical Exam Const Vital Signs: 05/25/25 15:56 05/25/25 16:55 05/25/25 17:14 Temperature 98.1 F Temperature Source Oral Pulse Rate 70 74 Respiratory Rate 17 18 Blood Pressure 153/93 H 151/77 H Blood Pressure Mean 113 101 Pulse Ox 100 96 100 Oxygen Delivery Method Room Air Room Air 05/25/25 18:00 05/25/25 19:00 Temperature Temperature Source Pulse Rate 71 Respiratory Rate Blood Pressure 142/63 H 146/81 H Blood Pressure Mean 85 102 Pulse Ox 99 100 Oxygen Delivery Method MDM MDM MDM Narrative Medical decision making narrative: 40-year-old male with no significant past medical history presents for evaluation of left lower quadrant/flank pain. Differential diagnosis includes but is not limited to diverticulitis, urolithiasis, UTI, electrolyte abnormality, suspect less likely pancreatitis or biliary pathology. NS bolus, Zofran, Toradol ordered. Abdominal pain workup with CT abdomen and pelvis. CBCwith mild leukocytosis of 12.2. No anemia. CMP unremarkable. Lipase unremarkable. UA negative for UTI. CT abdomen pelvis shows no acute intra-abdominal pathology. At this point in time, no clear etiology to explain patient's left lower quadrant/flank pain. On reevaluation, patient has improved. Patient and family updated of all the results and the plan for discharge home. Follow-up with primary care physician. Return precautions explained. They confirmed understand of the plan. Patient stable to discharge home. Impression: 1. Left lower abdominal/flank pain Lab Data Labs: Laboratory Results - last 24 hr 05/25/25 05/25/25 16:14 17:15 WBC 12.2 H RBC 5.50 Hgb 15.4 Hct 45.8 MCV 83.3 MCH 28.0 MCHC 33.6 RDW Std Deviation 38.7 RDW Coeff of Ajay 12.9 Plt Count 280 MPV 9.6 Immature Gran % (Auto) 0.300 Neut % (Auto) 80.7 H Lymph % (Auto) 14.7 L Mcdonough % (Auto) 3.9 Eos % (Auto) 0.1 Baso % (Auto) 0.3 Absolute Neuts (auto) 9.8 H Absolute Lymphs (auto) 1.79 Nucleated RBC % 0 Sodium 137 Potassium 3.9 Chloride 102 Carbon Dioxide 21.3 Anion Gap 13 BUN 10 Creatinine 0.85 Estim Creat Clear Calc 158.79 Est GFR (MDRD) Non-Af 112 BUN/Creatinine Ratio 11.6 Glucose 95 Calcium 9.2 Total Bilirubin 0.48 AST 26 ALT 23 Alkaline Phosphatase 88 Total Protein 7.6 Albumin 4.3 Globulin 3.4 Albumin/Globulin Ratio 1.3 Lipase 32 Urine Color Yellow Urine Clarity Clear Urine pH 7.0 Ur Specific Riparius 1.005 Urine Protein Negative Urine Glucose (UA) Normal Urine Ketones Negative Urine Occult Blood Negative Urine Nitrite Negative Urine Bilirubin Negative Urine Urobilinogen Normal Ur Leukocyte Esterase Negative Radiography Diagnostic Testing: Clinical Impression(s) from Imaging Studies Abdomen/Pelvis CT 05/25/25 16:38 IMPRESSION: NO ACUTE FINDINGS IN THE ABDOMEN OR PELVIS. Reading Location: [facility] Discharge Plan Triage Chief Complaint: Flank Pain ED Provider: Lloyd Gao Dx/Rx/DC Orders Clinical Impression: Abdominal pain Instructions: Abdominal Pain Prescriptions: No Action omeprazole 40 mg capsule,delayed release(DR/EC) 40 mg PO DAILY Primary Care Provider: Jose Alejandro Bean Referrals: Jose Alejandro Bean MD [Primary Care Provider] - 3-5 Days Activity Restrictions/Additional Instructions: Follow-up with primary care physician return back to ED if symptoms change or worsen Print Language: Malaysian Disposition Disposition: Home, Self Care What to do if you have Problems For any increased pain, shortness of breath, bleeding, nausea or vomiting, chestpain, or any unexpected problems, contact your Primary Care Provider. Call [facility] ([phone]) or report to the closest Emergency Room. Call 911 if necessary. 05/25/251922 <Electronically signed by Lloyd Gao DO> Cosigner Signature (if applicable): CC: Dr. Jose Alejandro Bean MD ~ Signed [facility] Work Phone: 1(769) 506-637906-05-2025 NoteHNO ID: [id number] Author: DONNA DALE MD Service: ? Author Type: Physician Type: Progress Notes Filed: 03/26/2025 15:39 Note Text: ASSESSMENT/PLAN: -Acute urticaria and angioedema, resolved, likely caused by ibuprofen as evaluation for amoxicillin allergy today was negative Allergy skin tests to penicillin were negative. The patient took amoxicillin in a graded fashion and tolerated this without adverse reaction. The patient is at low risk for a severe, immediate, IgE-mediated reaction to penicillin, amoxicillin and other penicillin-type antibiotics. Skin tests and oral challenges are unreliable for predicting delayed reactions. Recommend that the patient continue to avoid use of aspirin/NSAIDs (Olivarez 1 inhibitors) He may continue to take regular strength acetaminophen as needed Celebrex, a Olivarez 2 inhibitor is typically well-tolerated. Depending on patient and primary care physician's preferences, a return visit for the completion of a graded aspirin challenge may be considered. Even if patient tolerates a graded aspirin challenge, I will recommend that he continue to avoid use of ibuprofen specifically. - Discussed medication dosage, usage, side effects, and goals of treatment in detail. - Follow-up as needed- patient will return sooner should new symptoms or problems arise. Donna Dale MD Allergy AND Immunology Davy Rao is a 39 year old male with a history of acute urticaria associated with concurrent use of ibuprofen and amoxicillin who presents for the completion of allergy skin test to penicillin. He has been doing well since his last visit. Denies recurrence of urticaria. Denies subsequent use of penicillin antibiotic and aspirin/NSAIDs. (From initial visit on 12/22/24 This is a consultation requested by Manny Bean MD for an allergy and immunology evaluation. My final recommendations will be communicated back to the requesting healthcare provider(s) by way of shared medical record or via [place]. mail. Davy Rao is a 39 year old male who presents for further evaluation of possible allergic reaction. On December 07, he had a dental implant placed under local anesthesia. Amoxicillin and Peridex mouthwash were prescribed after the procedure. Patient also took ibuprofen as needed for pain. He took the first dose of amoxicillin as well as a dose of ibuprofen that evening. He was asymptomatic upon awakening the following morning. He took amoxicillin and he believes ibuprofen prior to going to work. 3 to 4 hours later, he noted generalized itching of the upper extremities and trunk as well as swelling of the left medial lower eyelid. At 2 PM, he took another dose of amoxicillin. He then presented to a minute clinic where rash and eye swelling were noted. Prednisone was prescribed. Clindamycin was prescribed to replace amoxicillin. That evening, he took the first dose of clindamycin and believes he also took ibuprofen at that time. About 30 minutes later, he noted worsening/recurrence of hives and itching occurring on his neck trunk and upper extremities as well as tingling of the tongue. He presented to the emergency room but was not seen. He took Benadryl that evening. He was asymptomatic upon awakening the following morning. He began to take prednisone as prescribed the day prior. When he was evaluated by Dr. Bean, on 12/09, a 7-day course of doxycycline was prescribed which he took without adverse reaction. He also changed from ibuprofen to acetaminophen 1000 mg as needed which he also tolerated without adverse reaction. Denies subsequent use of aspirin/NSAIDs. He denies a history of adverse reaction to latex. About 1 month prior to the onset of symptoms, he began adding a new scented freshener to his laundry History of reaction to a sulfa antimicrobial as a child. Details unknown, possible rash. Occasional mild nasal and ocular symptoms On CPAP for obstructive sleep apnea REVIEW OF SYSTEMS: All other review of systems negative except for those listed above. 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 1/2 hr before meal. EPINEPHrine (EPIPEN 2-PATTIE) 0.3 mg/0.3 mL auto-injector Inject 0.3 mL intramuscularly as needed. CPAP Initiate Auto PAP @ 9-18 cm of water with humidification. Mask (per patient preference) optional chin strap (if indicated) , filters, tubing, humidifier and lifetime supplies. ALLERGIES: Allergies As of Date: 03/25/2025 Allergen Noted Reaction AMOXICILLIN 12/08/2024 Hives IBUPROFEN 12/22/2024 Hives and Swelling SULFA (SULFONAMIDE ANTIBIOTICS) 01/04/2020 Rash Fully Assessed 03/25/2025 PAST (more content not included)...[facility]06-05-2025 History of Present illness Narrative* Donna Dale MD - 03/25/2025 4:34 PM EDT ASSESSMENT/PLAN: -Acute urticaria and angioedema, resolved, likely caused by ibuprofen as evaluation for amoxicillinallergy today was negative Allergy skin tests to penicillin were negative. The patient took amoxicillin in a graded fashion and tolerated this without adverse reaction. The patient is at low risk for a severe, immediate, IgE-mediated reaction to penicillin, amoxicillin and other penicillin-type antibiotics. Skin tests and oral challenges are unreliable for predicting delayed reactions. Recommend that the patient continue to avoid use of aspirin/NSAIDs (Olivarez 1 inhibitors) He may continue to take regular strength acetaminophen as needed Celebrex, a Olivarez 2 inhibitor is typically well-tolerated. Depending on patient and primary care physician's preferences, a return visit for the completion ofa graded aspirin challenge may be considered. Even if patient tolerates a graded aspirin challenge,I will recommend that he continue to avoid use of ibuprofen specifically. - Discussed medication dosage, usage, side effects, and goals of treatment in detail. - Follow-up as needed- patient will return sooner should new symptoms or problems arise. Donna Dale MD Allergy & Immunology Davy Rao is a 39 year old male with a history of acute urticaria associated with concurrent use of ibuprofen and amoxicillin who presents for the completion of allergy skin test to penicillin. He has been doing well since his last visit. Denies recurrence of urticaria. Denies subsequent use of penicillin antibiotic and aspirin/NSAIDs. (From initial visit on 12/22/24 This is a consultation requested by Manny Bean MD for an allergy and immunology evaluation. My final recommendations will be communicated back to the requesting healthcare provider(s) by way of shared medical record or via U.S. mail. Davy Rao is a 39 year old male who presents for further evaluation of possible allergic reaction. On December 07, he had a dental implant placed under local anesthesia. Amoxicillin and Peridex mouthwash were prescribed after the procedure. Patient also took ibuprofen as needed for pain. He took the first dose of amoxicillin as well as a dose of ibuprofen that evening. He was asymptomatic upon awakening the following morning. He took amoxicillin and he believes ibuprofen prior to going to work. 3 to 4 hours later, he noted generalized itching of the upper extremities and trunk as well as swelling of the left medial lower eyelid. At 2 PM, he took another dose of amoxicillin. He then presented to a minute clinic where rash and eye swelling were noted. Prednisone was prescribed. Clindamycin was prescribed to replace amoxicillin. That evening, he took the first dose of clindamycin and believes he also took ibuprofen at that time. About 30 minutes later, he noted worsening/recurrence of hives and itching occurring on his neck trunk and upper extremities as well as tingling of the tongue. He presented to the emergency room but was not seen. He took Benadryl that evening. He was asymptomatic upon awakening the following morning. He began to take prednisone as prescribedthe day prior. When he was evaluated by Dr. Bean, on 12/09, a 7-day course of doxycycline was prescribed which he took without adverse reaction. He also changed from ibuprofen to acetaminophen 1000mg as needed which he also tolerated without adverse reaction. Denies subsequent use of aspirin/NSAIDs. He denies a history of adverse reaction to latex. About 1 month prior to the onset of symptoms, he began adding a new scented freshener to his laundry History of reaction to a sulfa antimicrobial as a child. Details unknown, possible rash. Occasional mild nasal and ocular symptoms On CPAP for obstructive sleep apnea REVIEW OF SYSTEMS: All other review of systems negative except for those listed above. 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 1/2 hr before meal. EPINEPHrine (EPIPEN 2-PATTIE) 0.3 mg/0.3 mL auto-injector Inject 0.3 mL intramuscularly as needed. CPAP Initiate Auto PAP @ 9-18 cm of water with humidification. Mask (per patient preference) optional chin strap (if indicated) , filters, tubing, humidifier and lifetime supplies. ALLERGIES: Allergies As of Date: 03/25/2025 Allergen Noted Reaction AMOXICILLIN 12/08/2024 Hives IBUPROFEN 12/22/2024 Hives and Swelling SULFA (SULFONAMIDE ANTIBIOTICS) 01/04/2020 Rash Fully Assessed 03/25/2025 PAST SURGICAL HISTORY Procedure Laterality Date PAST SURGICAL HISTORY OF 12/2024 Dental implant FAMILY HISTORY: Allergic rhinitis:no. Asthma: no. Eczema: no. Cystic fibrosis: no. Immunodeficiency: no. 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 Pets in the home: There are no pets in the home Outdoor animals: There are no outdoor animals Tobacco smoke: No exposure in the home. Physical Exam: GENERAL APPEARANCE:Well appearing, alert, in no acute distress, well-hydrated, well nourished.Obese HEENT: NCAT. EXTREMITIES:Extremities normal, No deformities, No skin discoloration, and No edema SKIN: Skin color, texture, turgor normal. No rashes or lesions. Allergy skin tests on March 25, 2025: Negative to penicillin and Pre-Pen on both prick and intradermal tests. Graded in office challenge to amoxicillin: The risks, including risk of anaphylaxis, benefits, alternatives and personnel for a graded in-office challenge to amoxicillin were discussed. Written consent was obtained. Patient took amoxicillin 25 mg by mouth and was monitored for 30 minutes. Then, the patient took amoxicillin 225 mg by mouth and was monitored for 31 minutes afterwards. The patient tolerated the amoxicillin without adverse reaction. * Plaak Harrington RN - 03/25/2025 2:06 PM EDT Patient returning for amoxicillin testing. Patient has been off antihistamines for 5 days. [facility] Instructions* Patient Instructions* Donna Dale MD - 03/25/2025 3:19 PM EDT Allergy skin tests completed to penicillin were negative. You took amoxicillin in a graded fashion and tolerated this without adverse reaction. You are at low risk for a severe, immediate allergic oranaphylactic reaction to penicillin, amoxicillin and other penicillin-type antibiotics. Skin tests and oral challenges are unreliable for predicting delayed reactions. Continue to avoid use of aspirin and other NSAID medications including ibuprofen (olivarez-1 inhibitors) You may continue to take regular strength acetaminophen as tolerated Celebrex, a prescription medication which inhibits Loivarez 2, is typically well- tolerated in people whohave sensitivity to Olivarez 1 inhibitors. Please contact the allergy nurses directly at [phone] if you and/or your family doctor would like to schedule an aspirin challenge (do not schedule for the call center) [facility] in [facility]Gen[facility] NoteHNO ID: [id number] Author: PALAK HARRINGTON RN Service: ? Author Type: Registered Nurse Type: Progress Notes Filed: 03/26/2025 15:39 Note Text: Patient returning for amoxicillin testing. Patient has been off antihistamines for 5 days.[facility]05-19-2025 Telephone encounter Note* Telephone Encounter - Luciana Rivera MA - 03/08/2025 10:35 AM EDT Pt notified of results via [employer]. Luciana Rivera Ma [facility]05-19-2025 Miscellaneous Notes* Telephone Encounter - Luciana Rivera MA - 03/08/2025 10:35 AM EDT Pt notified of results via [employer]. Luciana Rivera Ma * Telephone Encounter - Luciana Rivera MA - 03/08/2025 10:34 AM EDT ----- Message from Manny Bean MD sent at 03/08/2025 7:45 AM EDT ----- Vitamin D level improved, but still slightly low. Recommend taking 2,000 units of vitamin D daily OTC. Recheck at future OV. TSH borderline high. Recommend repeat labs in 2-3 weeks to evaluate for underactive thyroid. Other labs in good range. The 10-year ASCVD risk score (Vikki ORDONEZ, et al., 2019) is: 1.6% Values used to calculate the score: Age: 39 years Sex: Male Is Non- : No Diabetic: No Tobacco smoker: No Systolic Blood Pressure: 118 mmHg Is BP treated: No HDL Cholesterol: 31 mg/dL Total Cholesterol: 183 mg/dL documented in [facility] encounterGen[facility] Telephone encounter Note * Telephone Encounter - Luciana Rivera MA - 03/08/2025 10:34 AM EDT ----- Message from Manny Bean MD sent at 03/08/2025 7:45 AM EDT ----- Vitamin D level improved, but still slightly low. Recommend taking 2,000 units of vitamin D daily OTC. Recheck at future OV. TSH borderline high. Recommend repeat labs in 2-3 weeks to evaluate for underactive thyroid. Other labs in good range. The 10-year ASCVD risk score (Vikki ORDONEZ, et al., 2019) is: 1.6% Values used to calculate the score: Age: 39 years Sex: Male Is Non- : No Diabetic: No Tobacco smoker: No Systolic Blood Pressure: 118 mmHg Is BP treated: No HDL Cholesterol: 31 mg/dL Total Cholesterol: 183 mg/dL [facility]05-16-20[facility] Instructions* Patient Instructions* Manny Bean MD - 03/05/2025 7:46 AM EDT Continue using your CPAP nightly. To help with nasal stuffiness, use the humidifier in your CPAP and consider an [id number]-[id number] antihistamine (such as Brittney, Claritin, or Zyrtec) or a nasal steroid like Flonase daily. Start taking the refill for omeprazole (Prilosec) once daily for your heartburn and left-sided crampy pain. A 90-day prescription has been sent to your pharmacy. Follow a healthy low-carb diet with lean proteins and vegetables and aim for about 30 minutes of brisk walking 4-5 times per week. For your chronic mild numbness in your second toe, try wearing shoes with a wider toe box and monitor the symptom. If the numbness worsens or spreads, please call our office. Your blood work is being checked today to review your A1c, vitamin D level, blood counts, kidney/liver function, and cholesterol. We will contact you with the results. You have an upcoming overnight associate appointment this summer to further evaluate your penicillin allergy. For any recurring wrist discomfort from past injury, use ice and [id number] anti-inflammatories as needed. If pain persists, please let us know. [facility]25 NoteHNO ID: [id number] Author: MANNY BEAN MD Service: ? Author Type: Physician Type: Progress Notes Filed: 03/05/2025 08:25 Note Text: Chief Complaint Patient presents with: Physical Recording using [employer] software for draft documentation of the visit was discussed with the patient/authorized lifeline representatives; all questions welcomed and answered. Patient/authorized lifeline representatives agreed to proceed HPI Davy Rao is a 39 year old male who presents here today for Above Complaints. Annual Wellness Exam: - No recent hospitalizations or ER visits. - Family history of HTN and thyroid issues in mother; father is healthy. - Last tetanus booster within the last five years. - Last COVID-19 vaccine in 2020. - No new updates to family history. BLAIR: - Using CPAP nightly; reports it is life-saving. - Denies daytime fatigue or snoring with CPAP use. - Reports left nasal congestion, feels CPAP air pressure is better on the right nostril. Left-Sided Abdominal Pain: - Reports crampy pain on the left side, comes and goes. - Pain does not interfere with work. - Recently stopped taking omeprazole, plans to restart. Numbness in Second Toe: - Numbness in the second toe, noticed since winter. - Describes sensation as numb and asleep. - No numbness or tingling elsewhere. - No increased thirst, hunger, or polyuria. - No vision changes. - No known trauma or injury to the toe. Increased Appetite: - Reports feeling more hungry in the mornings and craving sweets after dinner. - No significant weight gain or loss. Back Pain: - Reports occasional back pain, not currently taking Celebrex or Xanaflex. Past medical history, appointments, medications, allergies reviewed. 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 Vitamin D deficiency Previous Surgical History PAST SURGICAL HISTORY Procedure Laterality Date PAST SURGICAL HISTORY OF 12/2024 Dental implant Family History FAMILY HISTORY Problem Relation Age of Onset Hypertension Mother Thyroid Mother No Known Problems Father Hypertension Maternal Grandmother Arthritis Maternal Grandmother Thyroid Maternal Grandfather Diabetes Maternal Grandfather Arthritis Paternal Grandmother Hypertension Paternal Grandmother Patient Allergies ALLERGIES Allergen Reactions Amoxicillin Hives Clindamycin Hives hives Ibuprofen Hives, Swelling Tolerates acetaminophen Sulfa (Sulfonamide * Rash Current Medications Current Outpatient Medications on File Prior to Visit Medication Sig EPINEPHrine (EPIPEN 2-PATTIE) 0.3 mg/0.3 mL auto-injector Inject 0.3 mL intramuscularly as needed. omeprazole (PRILOSEC) 40 mg capsule Take 1 capsule by mouth once daily. 1/2 hr before meal. docusate sodium (COLACE) 100 mg capsule Take 1 capsule by mouth two times a day as needed for constipation. cholecalciferol, Vitamin D3, (VITAMIN D3) 1,250 mcg (50,000 unit) cap capsule Take 1 capsule by mouth one time a week. tiZANidine (ZANAFLEX) 4 mg tablet Take 1 tablet by mouth every 8 hours as needed. celecoxib (CELEBREX) 200 mg capsule Take 1 capsule by mouth once daily as needed for pain. CPAP Initiate Auto PAP @ 9-18 cm of water with humidification. Mask (per patient preference) optional chin strap (if indicated) , filters, tubing, humidifier and lifetime supplies. No current facility-administered medications on file prior to visit. Social History Social History Tobacco Use Smoking status: Never Smokeless tobacco: Never Vaping Use Vaping status: Never Used Substance Use Topics Alcohol use: Yes Comment: 2 drink every 2-3 weeks Drug use: Never Review of Symptoms REVIEW OF SYSTEMS GENERAL: No weight loss, malaise or fevers HEENT: Negative for frequent or significant headaches, No changes in hearing or vision, no nose bleeds or other nasal problems NECK: Negative for lumps, goiter, pain and significant neck swelling RESPIRATORY: Negative for cough, hemoptysis, wheezing, COPD, dyspnea or shortness of breath CARDIOVASCULAR: Negative for chest pain, leg swelling, hypertension, CHF or palpitations GI: No nausea, vomiting, or diarrhea : No history of dysuria, frequency or incontinence MUSCULOSKELETAL: Negative for joint pain or swelling, back pain or muscle pain SKIN: Negative for lesions, rash, and itching PSYCH: Negative for sleep disturbance, mood disorder and recent psychosocial stressors HEMATOLOGY/LYMPHOLOGY: Negative for prolonged bleeding, bruising easily or swollen nodes ENDOCRINE: Negative for cold or heat intolerance, polyuria, polydipsia and goiter NEURO: No history of headaches, syncope, paralysis, seizures or tremors EXAM: BP 118/76 Pulse 67 Resp 16 Wt 134.2 kg (295 lb 12.8 oz) SpO2 98 (more content not included)...[facility]05-16-[facility] History of Present illness Narrative* Manny Bean MD - 03/05/2025 7:15 AM EDT Chief Complaint Patient presents with: Physical Recording using [employer] software for draft documentation of the visit was discussed with the patient/authorized lifeline representatives; all questions welcomed and answered. Patient/authorized lifeline representatives agreed to proceed HPI Davy Rao is a 39 year old male who presents here today for Above Complaints. Annual Wellness Exam: - No recent hospitalizations or ER visits. - Family history of HTN and thyroid issues in mother; father is healthy. - Last tetanus booster within the last five years. - Last COVID-19 vaccine in 2020. - No new updates to family history. BLAIR: - Using CPAP nightly; reports it is life-saving. - Denies daytime fatigue or snoring with CPAP use. - Reports left nasal congestion, feels CPAP air pressure is better on the right nostril. Left-Sided Abdominal Pain: - Reports crampy pain on the left side, comes and goes. - Pain does not interfere with work. - Recently stopped taking omeprazole, plans to restart. Numbness in Second Toe: - Numbness in the second toe, noticed since winter. - Describes sensation as numb and asleep. - No numbness or tingling elsewhere. - No increased thirst, hunger, or polyuria. - No vision changes. - No known trauma or injury to the toe. Increased Appetite: - Reports feeling more hungry in the mornings and craving sweets after dinner. - No significant weight gain or loss. Back Pain: - Reports occasional back pain, not currently taking Celebrex or Xanaflex. Past medical history, appointments, medications, allergies reviewed. 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 Vitamin D deficiency Previous Surgical History PAST SURGICAL HISTORY Procedure Laterality Date PAST SURGICAL HISTORY OF 12/2024 Dental implant Family History FAMILY HISTORY Problem Relation Age of Onset Hypertension Mother Thyroid Mother No Known Problems Father Hypertension Maternal Grandmother Arthritis Maternal Grandmother Thyroid Maternal Grandfather Diabetes Maternal Grandfather Arthritis Paternal Grandmother Hypertension Paternal Grandmother Patient Allergies ALLERGIES Allergen Reactions Amoxicillin Hives Clindamycin Hives hives Ibuprofen Hives, Swelling Tolerates acetaminophen Sulfa (Sulfonamide * Rash Current Medications Current Outpatient Medications on File Prior to Visit Medication Sig EPINEPHrine (EPIPEN 2-PATTIE) 0.3 mg/0.3 mL auto-injector Inject 0.3 mL intramuscularly as needed. omeprazole (PRILOSEC) 40 mg capsule Take 1 capsule by mouth once daily. 1/2 hr before meal. docusate sodium (COLACE) 100 mg capsule Take 1 capsule by mouth two times a day as needed for constipation. cholecalciferol, Vitamin D3, (VITAMIN D3) 1,250 mcg (50,000 unit) cap capsule Take 1 capsule by mouth one time a week. tiZANidine (ZANAFLEX) 4 mg tablet Take 1 tablet by mouth every 8 hours as needed. celecoxib (CELEBREX) 200 mg capsule Take 1 capsule by mouth once daily as needed for pain. CPAP Initiate Auto PAP @ 9-18 cm of water with humidification. Mask (per patient preference) optional chin strap (if indicated) , filters, tubing, humidifier and lifetime supplies. No current facility-administered medications on file prior to visit. Social History Social History Tobacco Use Smoking status: Never Smokeless tobacco: Never Vaping Use Vaping status: Never Used Substance Use Topics Alcohol use: Yes Comment: 2 drink every 2-3 weeks Drug use: Never Review of Symptoms REVIEW OF SYSTEMS GENERAL: No weight loss, malaise or fevers HEENT: Negative for frequent or significant headaches, No changes in hearing or vision, no nose bleeds or other nasal problems NECK: Negative for lumps, goiter, pain and significant neck swelling RESPIRATORY: Negative for cough, hemoptysis, wheezing, COPD, dyspnea or shortness of breath CARDIOVASCULAR: Negative for chest pain, leg swelling, hypertension, CHF or palpitations GI: No nausea, vomiting, or diarrhea : No history of dysuria, frequency or incontinence MUSCULOSKELETAL: Negative for joint pain or swelling, back pain or muscle pain SKIN: Negative for lesions, rash, and itching PSYCH: Negative for sleep disturbance, mood disorder and recent psychosocial stressors HEMATOLOGY/LYMPHOLOGY: Negative for prolonged bleeding, bruising easily or swollen nodes ENDOCRINE: Negative for cold or heat intolerance, polyuria, polydipsia and goiter NEURO: No history of headaches, syncope, paralysis, seizures or tremors EXAM: BP 118/76 Pulse 67 Resp 16 Wt 134.2 kg (295 lb 12.8 oz) SpO2 98% BMI 43.06 kg/m General Appearance: Well appearing, alert, in no acute distress, well-hydrated, well nourished.. Skin: Skin color, texture, turgor normal, no suspicious rashes or lesions. Head: Normocephalic, no masses, lesions, tenderness or abnormalities. Eyes: Anicteric sclera. Pupils are equally round and reactive to light. Extraocular movements are intact. . Ears: External ears normal, canals clear. Nose/Sinuses: Positive findings: mucosa erythematous and swollen. Oropharynx: Lips, mucosa, and tongue normal, teeth and gums normal, oropharynx normal. Neck: Supple, no adenopathy; thyroid symmetric, normal size, no bruits. Lungs: Lungs clear to auscultation. No wheezing, rhonchi, rales.. Heart: RRR without murmur, gallop, or rubs. No ectopy. Abdomen: Normal abdominal exam, Abdomen soft, non-tender. Bowel sounds normal. No masses, organomegaly. Extremities: No deformities, edema, skin discoloration, clubbing or cyanosis. Good capillary refill. . Peripheral Pulses: Normal. Neurologic: CN II-XII grossly intact Lymph Nodes: No cervical lymphadenopathy and No supraclavicular lymphadenopathy. Feet: Shoes and socks removed, No deformities, ulcers, calluses, normal distal pulses, and sensitive to 10 gm monofilament Health Maintenance List Depression Screening Never done Anxiety Screening Never done DTaP,Tdap,Td Vaccine(1 - Tdap) due on 03/05/2026 Hepatitis B Vaccine(1 of 3 - 19+ 3-dose series) due on 03/05/2026 Covid-19 Vaccine( season) due on 03/05/2026 Influenza Vaccine(Season Ended) due on 06/21/2025 Lipid Screening due on 02/08/2028 HIV Screening Completed Hepatitis C Screening Discontinued Data reviewed Latest Ref Rng 09/27/2023 05/26/2024 WBC 3.70 - 11.00 k/uL 7.72 RBC 4.20 - 6.00 m/uL 5.51 Hemoglobin 13.0 - 17.0 g/dL 15.6 Hematocrit 39.0 - 51.0 % 46.9 MCV 80.0 - 100.0 fL 85.1 MCH 26.0 - 34.0 pg 28.3 MCHC 30.5 - 36.0 g/dL 33.3 RDW-CV 11.5 - 15.0 % 13.2 Platelet Count 150 - 400 k/uL 266 MPV 9.0 - 12.7 fL 9.6 Neut% % 54.1 Abs Neut (ANC) 1.45 - 7.50 k/uL 4.18 Lymph% % 36.1 Abs Lymph 1.00 - 4.00 k/uL 2.79 Mcdonough% % 7.8 Abs Mcdonough <0.87 k/uL 0.60 Eosin% % 1.3 Abs Eosin <0.46 k/uL 0.10 Baso% % 0.3 Abs Baso <0.11 k/uL <0.03 Immature Gran % % 0.4 IMMATURE GRANS (ABS) <0.10 k/uL 0.03 NRBC /100 WBC 0.0 Absolute nRBC <0.01 k/uL <0.01 DTYPE Auto Protein, Total 6.3 - 8.0 g/dL 7.7 Albumin 3.9 - 4.9 g/dL 4.4 Calcium 8.5 - 10.2 mg/dL 9.6 Bilirubin, Total 0.2 - 1.3 mg/dL 0.7 Alkaline Phosphatase 38 - 113 U/L 74 AST 14 - 40 U/L 33 ALT 10 - 54 U/L 40 Glucose 74 - 99 mg/dL 76 BUN 9 - 24 mg/dL 7 (L) Creatinine 0.73 - 1.22 mg/dL 0.89 Sodium 136 - 144 mmol/L 138 Potassium 3.7 - 5.1 mmol/L 4.3 Chloride 98 - 107 mmol/L 103 CO2 22 - 30 mmol/L 23 Anion Gap 8 - 15 mmol/L 12 eGFR >=60 mL/min/1.73m 111 Vitamin D 25 Hydroxy 31.0 - 80.0 ng/mL 16.2 (L) Lipase 16 - 61 U/L 30 Legend: (L) Low 1. Annual physical exam (Z00.00) - Conducted comprehensive physical examination; no significant abnormalities noted. - Ordered routine blood work including CBC, CMP, lipid panel, and A1c. - Discussed importance of maintaining a healthy diet and regular exercise. - Patient declined COVID-19 booster. 2. Numbness of toes (R20.0) - Mild numbness in the second toe noted; no other areas affected. - Sensation and pulses intact on examination. - Ordered blood work to rule out diabetes. - Advised patient to try wearing shoes with a wider toe box. - Monitor for any changes or worsening symptoms. 3. Gastroesophageal reflux disease without esophagitis (K21.9) - Recurrent symptoms; prescribed omeprazole 20 mg daily. - Sent 90-day prescription to [facility] pharmacy. 4. BLAIR on CPAP (G47.33) - Patient reports effective use of CPAP machine nightly. - Advised to use humidification with CPAP to alleviate nasal dryness. 5. Morbid obesity (HCC) (E66.01) - Discussed risks associated with obesity. - Emphasized importance of a low-carb diet and regular exercise. 6. Seasonal allergies (J30.2) 7. Allergic rhinitis, unspecified seasonality, unspecified trigger (J30.9) - Noted swelling of nasal turbinates on examination. - Recommended [id number] antihistamines such as Claritin, Zyrtec, or Brittney. - Advised use of Flonase nasal spray daily. 8. Vitamin D deficiency (E55.9) - Completed course of 50,000 units of vitamin D. - Ordered serum vitamin D level to assess current status. 9. Allergic reaction to penicillin, subsequent encounter (T36.0X5D) - Previous allergic reaction to amoxicillin with rash development. - Scheduled follow-up with overnight associate for penicillin testing this summer. - No further allergic reactions reported since switching to doxycycline. Manny Bean MD [facility]25 NoteHNO ID: [id number] Author: KARIME JOSUE APRN.[employer] Service: ? Author Type: Nurse Practitioner Type: Progress Notes Filed: 02/07/2025 10:26 Note Text: [facility] Subjective HPI HPI Davy Rao is a 39 year old male who presents today for CC of left ear pain , bloody drainage. This started 1 day ago. Has tried nothing for relief. Symptoms are worsened by touching ear. Risk factors uses qtips. Denies uri. nonsmoker. 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 omeprazole (PRILOSEC) 40 mg capsule Take 1 capsule by mouth once daily. 1/2 hr before meal. docusate sodium (COLACE) 100 mg capsule Take 1 capsule by mouth two times a day as needed for constipation. cholecalciferol, Vitamin D3, (VITAMIN D3) 1,250 mcg (50,000 unit) cap capsule Take 1 capsule by mouth one time a week. tiZANidine (ZANAFLEX) 4 mg tablet Take 1 tablet by mouth every 8 hours as needed. celecoxib (CELEBREX) 200 mg capsule Take 1 capsule by mouth once daily as needed for pain. CPAP Initiate Auto PAP @ 9-18 cm of water with humidification. Mask (per patient preference) optional chin strap (if indicated) , filters, tubing, humidifier and lifetime supplies. ofloxacin (FLOXIN) 0.3 % otic solution Use 10 drops in the right ear once daily for 7 days. FAMILY HISTORY Problem Relation Age of Onset Thyroid Mother No Known Problems Father Hypertension Maternal Grandmother Arthritis Maternal Grandmother Thyroid Maternal Grandfather Diabetes Maternal Grandfather Arthritis Paternal Grandmother Hypertension Paternal Grandmother Social History Tobacco Use Smoking status: Never Smokeless tobacco: Never Vaping Use Vaping status: Never Used Substance Use Topics Alcohol use: Yes Comment: 2 drink every 2-3 weeks Drug use: Never Review of Systems Objective BP 110/76 Pulse 69 Temp 36.3 ?C (97.3 ?F) (Tympanic) Resp 16 Wt 135.7 kg (299 lb 2.6 oz) SpO2 98% BMI 43.55 kg/m? Physical Exam Constitutional: General: He is not in acute distress. Appearance: He is not toxic-appearing or diaphoretic. HENT: Head: Normocephalic and atraumatic. Right Ear: Hearing, tympanic membrane, ear canal and external ear normal. Left Ear: Hearing, tympanic membrane and external ear normal. Swelling and tenderness present. No drainage. Ears: Comments: Dried blood noted at 1 oclock on ear canal. Pulmonary: Effort: Pulmonary effort is normal. No accessory muscle usage or respiratory distress. Neurological: Mental Status: He is alert and oriented to person, place, and time. {ASSESSMENT/PLAN: 1. Acute otitis externa of left ear, unspecified type - ICD9: 380.10, ICD10: H60.502 (primary diagnosis) -education material provided -use medication as prescribed -f/u if no better in 3-5 days -discussed proper ear hygiene -discussed prevention - OFLOXACIN 0.3 % EAR DROPS 2. Abrasion of left ear canal, initial encounter - ICD9: 910.0, ICD10: S00.412A As above. - OFLOXACIN 0.3 % EAR DROPS Karime Josue APRN.CNP History and Record Review External record(s) reviewed: prior outpatient record. Findings from review of outpatient records: atb allergies/multiple recently Disposition The patient was discharged. [facility] of Present illness Narrative* Karime Josue APRN.CNP - 02/07/2025 10:22 AM EDT [facility] Subjective HPI HPI Davy Rao is a 39 year old male who presents today for CC of left ear pain , bloody drainage. This started 1 day ago. Has tried nothing for relief. Symptoms are worsened by touching ear. Riskfactors uses qtips. Denies uri. nonsmoker. 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 omeprazole (PRILOSEC) 40 mg capsule Take 1 capsule by mouth once daily. 1/2 hr before meal. docusate sodium (COLACE) 100 mg capsule Take 1 capsule by mouth two times a day as needed for constipation. cholecalciferol, Vitamin D3, (VITAMIN D3) 1,250 mcg (50,000 unit) cap capsule Take 1 capsule by mouth one time a week. tiZANidine (ZANAFLEX) 4 mg tablet Take 1 tablet by mouth every 8 hours as needed. celecoxib (CELEBREX) 200 mg capsule Take 1 capsule by mouth once daily as needed for pain. CPAP Initiate Auto PAP @ 9-18 cm of water with humidification. Mask (per patient preference) optional chin strap (if indicated) , filters, tubing, humidifier and lifetime supplies. ofloxacin (FLOXIN) 0.3 % otic solution Use 10 drops in the right ear once daily for 7 days. FAMILY HISTORY Problem Relation Age of Onset Thyroid Mother No Known Problems Father Hypertension Maternal Grandmother Arthritis Maternal Grandmother Thyroid Maternal Grandfather Diabetes Maternal Grandfather Arthritis Paternal Grandmother Hypertension Paternal Grandmother Social History Tobacco Use Smoking status: Never Smokeless tobacco: Never Vaping Use Vaping status: Never Used Substance Use Topics Alcohol use: Yes Comment: 2 drink every 2-3 weeks Drug use: Never Review of Systems Objective BP 110/76 Pulse 69 Temp 36.3 C (97.3 F) (Tympanic) Resp 16 Wt 135.7 kg (299 lb 2.6 oz) SpO2 98% BMI 43.55 kg/m Physical Exam Constitutional: General: He is not in acute distress. Appearance: He is not toxic-appearing or diaphoretic. HENT: Head: Normocephalic and atraumatic. Right Ear: Hearing, tympanic membrane, ear canal and external ear normal. Left Ear: Hearing, tympanic membrane and external ear normal. Swelling and tenderness present. No drainage. Ears: Comments: Dried blood noted at 1 oclock on ear canal. Pulmonary: Effort: Pulmonary effort is normal. No accessory muscle usage or respiratory distress. Neurological: Mental Status: He is alert and oriented to person, place, and time. {ASSESSMENT/PLAN: 1. Acute otitis externa of left ear, unspecified type - ICD9: 380.10, ICD10: H60.502 (primary diagnosis) -education material provided -use medication as prescribed -f/u if no better in 3-5 days -discussed proper ear hygiene -discussed prevention - OFLOXACIN 0.3 % EAR DROPS 2. Abrasion of left ear canal, initial encounter - ICD9: 910.0, ICD10: S00.412A As above. - OFLOXACIN 0.3 % EAR DROPS Karime Josue APRN.[employer] History and Record Review External record(s) reviewed: prior outpatient record. Findings from review of outpatient records: atb allergies/multiple recently Disposition The patient was discharged. Procedures documented in this encounterGen[facility] Hospital03-04-2025 NoteHNO ID: [id number] Author: CLEMENTINA RUIZ LPN Service: ? Author Type: LICENSED NURSE Type: Progress Notes Filed: 12/23/2024 22:16 Note Text: Patient had Amoxicillin after dental procedure on 12/08/24. Developed itching, hives, and left eye swollen after 2nd dose. Was switched to Clindamycin, symptoms started to relieve but the after 1 dose patient started reacting quickly again with same symptoms.[facility] History of Present illness Narrative* Clementina Ruiz LPN - 12/22/2024 1:20 PM EST Patient had Amoxicillin after dental procedure on 12/08/24. Developed itching, hives, and left eye swollen after 2nd dose. Was switched to Clindamycin, symptoms started to relieve but the after 1 dose patient started reacting quickly again with same symptoms. * Donna Dale MD - 12/22/2024 1:09 PM EST ASSESSMENT/PLAN: -Acute urticaria and angioedema, resolved, likely caused by amoxicillin or ibuprofen Patient will return as scheduled for the completion of allergy skin tests to penicillin. If skin tests are negative, will proceed with a graded amoxicillin challenge at that visit. Recommend that patient avoid use of Olivarez 1 inhibitors (aspirin/NSAIDs) until further evaluation is complete. He may continue to take acetaminophen as needed. Celebrex, a Olivarez 2 inhibitor is typically well-tolerated. If testing for IgE-mediated allergy to penicillin and amoxicillin is negative,will presume that urticaria and angioedema was caused by ibuprofen and recommend continued avoidance of aspirin/NSAID medications. (A graded in-office challenge to clindamycin may also be considered at a future visit.) - Discussed medication dosage, usage, side effects, and goals of treatment in detail. - Follow-up as scheduled for allergy testing to penicillin- patient will return sooner should new symptoms or problems arise. Donna Dale MD Allergy & Immunology I spent a total of 70 minutes on the date of the service which included preparing to see the patient, [id number] patient care, completing clinical documentation, obtaining and/or reviewing separately obtained history, performing a medically appropriate examination, and counseling and educating the patient/family/caregiver. This is a consultation requested by Manny Bean MD for an allergy and immunology evaluation. My final recommendations will be communicated back to the requesting healthcare provider(s) by way of shared medical record or via U.[place]. mail. Davy Rao is a 39 year old male who presents for further evaluation of possible allergic reaction. On December 07, he had a dental implant placed under local anesthesia. Amoxicillin and Peridex mouthwash were prescribed after the procedure. Patient also took ibuprofen as needed for pain. He took the first dose of amoxicillin as well as a dose of ibuprofen that evening. He was asymptomatic upon awakening the following morning. He took amoxicillin and he believes ibuprofen prior to going to work. 3 to 4 hours later, he noted generalized itching of the upper extremities and trunk as well as swelling of the left medial lower eyelid. At 2 PM, he took another dose of amoxicillin. He then presented to a minute clinic where rash and eye swelling were noted. Prednisone was prescribed. Clindamycin was prescribed to replace amoxicillin. That evening, he took the first dose of clindamycin and believes he also took ibuprofen at that time. About 30 minutes later, he noted worsening/recurrence of hives and itching occurring on his neck trunk and upper extremities as well as tingling of the tongue. He presented to the emergency room but was not seen. He took Benadryl that evening. He was asymptomatic upon awakening the following morning. He began to take prednisone as prescribedthe day prior. When he was evaluated by Dr. Bean, on 12/09, a 7-day course of doxycycline was prescribed which he took without adverse reaction. He also changed from ibuprofen to acetaminophen 1000mg as needed which he also tolerated without adverse reaction. Denies subsequent use of aspirin/NSAIDs. He denies a history of adverse reaction to latex. About 1 month prior to the onset of symptoms, he began adding a new scented freshener to his laundry History of reaction to a sulfa antimicrobial as a child. Details unknown, possible rash. Occasional mild nasal and ocular symptoms On CPAP for obstructive sleep apnea REVIEW OF SYSTEMS: All other review of systems negative except for those listed above. 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 1/2 hr before meal.^Disp: 30 capsule^Rfl: 0 docusate sodium (COLACE) 100 mg capsule^Take 1 capsule by mouth two times a day as needed for constipation.^Disp: 60 capsule^Rfl: 0 cholecalciferol, Vitamin D3, (VITAMIN D3) 1,250 mcg (50,000 unit) cap capsule^Take 1 capsule by mouth one time a week.^Disp: 12 capsule^Rfl: 0 tiZANidine (ZANAFLEX) 4 mg tablet^Take 1 tablet by mouth every 8 hours as needed.^Disp: 30 tablet^Rfl: 0 celecoxib (CELEBREX) 200 mg capsule^Take 1 capsule by mouth once daily as needed for pain.^Disp: 30capsule^Rfl: 0 CPAP^Initiate Auto PAP @ 9-18 cm of water with humidification. Mask (per patient preference) optional chin strap (if indicated) , filters, tubing, humidifier and lifetime supplies.^Disp: 1 Each^Rfl: 0 ALLERGIES: Allergies As of Date: 12/22/2024 Allergen Noted Reaction AMOXICILLIN 12/08/2024 Hives CLINDAMYCIN 12/09/2024 Hives SULFA (SULFONAMIDE ANTIBIOTICS) 01/04/2020 Rash Fully Assessed 12/09/2024 PAST SURGICAL HISTORY Procedure Laterality Date NONE FAMILY HISTORY: Allergic rhinitis:no. Asthma: no. Eczema: no. Cystic fibrosis: no. Immunodeficiency: no. 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 Pets in the home: There are no pets in the home Outdoor animals: There are no outdoor animals Tobacco smoke: No exposure in the home. Physical Exam: GENERAL APPEARANCE:Well appearing, alert, in no acute distress, well-hydrated, well nourished.Obese HEENT: NCAT. EYES: conjunctiva and sclera normal. EARS: External ears normal. Canals clear. TM's normal. NOSE/SINUS: Nares normal. Septum midline. Mucosa normal. No drainage or sinus tenderness. THROAT: no erythema NECK:neck supple, no adenopathy HEART:RRR with normal S1 and S2 ,no murmurs, no gallops, no rubs LUNGS: clear to auscultation bilaterally, no wheezes, rales or rhonchi EXTREMITIES:Extremities normal, No deformities, No skin discoloration, and No edema SKIN: Skin color, texture, turgor normal. No rashes or lesions. [facility]25 NoteHNO ID: [id number] Author: DONNA DALE MD Service: ? Author Type: Physician Type: Progress Notes Filed: 12/23/2024 22:16 Note Text: ASSESSMENT/PLAN: -Acute urticaria and angioedema, resolved, likely caused by amoxicillin or ibuprofen Patient will return as scheduled for the completion of allergy skin tests to penicillin. If skin tests are negative, will proceed with a graded amoxicillin challenge at that visit. Recommend that patient avoid use of Olivarez 1 inhibitors (aspirin/NSAIDs) until further evaluation is complete. He may continue to take acetaminophen as needed. Celebrex, a Olivarez 2 inhibitor is typically well-tolerated. If testing for IgE-mediated allergy to penicillin and amoxicillin is negative,will presume that urticaria and angioedema was caused by ibuprofen and recommend continued avoidance of aspirin/NSAID medications. (A graded in-office challenge to clindamycin may also be considered at a future visit.) - Discussed medication dosage, usage, side effects, and goals of treatment in detail. - Follow-up as scheduled for allergy testing to penicillin- patient will return sooner should new symptoms or problems arise. Donna Dale MD Allergy AND Immunology I spent a total of 70 minutes on the date of the service which included preparing to see the patient, [id number] patient care, completing clinical documentation, obtaining and/or reviewing separately obtained history, performing a medically appropriate examination, and counseling and educating the patient/family/caregiver. This is a consultation requested by Manny Bean MD for an allergy and immunology evaluation. My final recommendations will be communicated back to the requesting healthcare provider(s) by way of shared medical record or via U.S. mail. Davy Rao is a 39 year old male who presents for further evaluation of possible allergic reaction. On December 07, he had a dental implant placed under local anesthesia. Amoxicillin and Peridex mouthwash were prescribed after the procedure. Patient also took ibuprofen as needed for pain. He took the first dose of amoxicillin as well as a dose of ibuprofen that evening. He was asymptomatic upon awakening the following morning. He took amoxicillin and he believes ibuprofen prior to going to work. 3 to 4 hours later, he noted generalized itching of the upper extremities and trunk as well as swelling of the left medial lower eyelid. At 2 PM, he took another dose of amoxicillin. He then presented to a minute clinic where rash and eye swelling were noted. Prednisone was prescribed. Clindamycin was prescribed to replace amoxicillin. That evening, he took the first dose of clindamycin and believes he also took ibuprofen at that time. About 30 minutes later, he noted worsening/recurrence of hives and itching occurring on his neck trunk and upper extremities as well as tingling of the tongue. He presented to the emergency room but was not seen. He took Benadryl that evening. He was asymptomatic upon awakening the following morning. He began to take prednisone as prescribed the day prior. When he was evaluated by Dr. Bean, on 12/09, a 7-day course of doxycycline was prescribed which he took without adverse reaction. He also changed from ibuprofen to acetaminophen 1000 mg as needed which he also tolerated without adverse reaction. Denies subsequent use of aspirin/NSAIDs. He denies a history of adverse reaction to latex. About 1 month prior to the onset of symptoms, he began adding a new scented freshener to his laundry History of reaction to a sulfa antimicrobial as a child. Details unknown, possible rash. Occasional mild nasal and ocular symptoms On CPAP for obstructive sleep apnea REVIEW OF SYSTEMS: All other review of systems negative except for those listed above. 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 1/2 hr before meal.Disp: 30 capsuleRfl: 0 docusate sodium (COLACE) 100 mg capsuleTake 1 capsule by mouth two times a day as needed for constipation.Disp: 60 capsuleRfl: 0 cholecalciferol, Vitamin D3, (VITAMIN D3) 1,250 mcg (50,000 unit) cap capsuleTake 1 capsule by mouth one time a week.Disp: 12 capsuleRfl: 0 tiZANidine (ZANAFLEX) 4 mg tabletTake 1 tablet by mouth every 8 hours as needed.Disp: 30 tabletRfl: 0 celecoxib (CELEBREX) 200 mg capsuleTake 1 capsule by mouth once daily as needed for pain.Disp: 30 capsuleRfl: 0 CPAPInitiate Auto PAP @ 9-18 cm of water with humidification. Mask (per patient pre (more content not included)...[facility]02-19-2025 NoteHNO ID: [id number] Author: AMNNY BEAN MD Service: ? Author Type: Physician Type: Progress Notes Filed: 12/09/2024 08:51 Note Text: Chief Complaint Patient presents with: Follow Up: EC - allergic reaction despite ATB changes continue HPI Davy Rao is a 39 year old male who presents here today for Above Complaints.. Patient had dental implant 2 days ago and they gave him amoxicillin and Peridex for home. Yesterday, after taking amoxicillin he had itching on his abdomen and neck. Developed swelling around his left eye yesterday and was evaluated in EC where he was switched to Clindamycin and given rx for 40 mg prednisone x 5 days. Patient states that he has been on amoxicillin in the past without reaction. He did take the Clindamycin yesterday and about 30 minutes later he had recurrent itching of his abdomen with hives and tingling on his tongue. Did call nurse triage and he was directed to the ER. Took Prednisone and benadryl prior to going to ER. Went to ER, but did not stay for evaluation. Today, he does not have any itching, swelling or rash. Denies tongue/lip swelling, trouble swallowing, trouble breathing, change in voice. He has been taking ibuprofen Tj and yesterday. Admits to using new detergents in his laundry about 1 month ago. Did eat new type of slovenian vanilla/honeycomb ice cream which he ate on Saturday. Denies recent travel. No sick contacts with similar reaction. Past medical history, appointments, medications, allergies reviewed. 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 Vitamin D deficiency Previous Surgical History PAST SURGICAL HISTORY Procedure Laterality Date NONE Family History FAMILY HISTORY Problem Relation Age of Onset Thyroid Mother No Known Problems Father Hypertension Maternal Grandmother Arthritis Maternal Grandmother Thyroid Maternal Grandfather Diabetes Maternal Grandfather Arthritis Paternal Grandmother Hypertension Paternal Grandmother Patient Allergies ALLERGIES Allergen Reactions Amoxicillin Hives Sulfa (Sulfonamide * Rash Current Medications Current Outpatient Medications on File Prior to Visit Medication Sig predniSONE (DELTASONE) 20 mg tablet Take 2 tablets by mouth once daily for 5 days. clindamycin (CLEOCIN) 150 mg capsule Take 3 capsules by mouth three times a day for 5 days. omeprazole (PRILOSEC) 40 mg capsule Take 1 capsule by mouth once daily. 1/2 hr before meal. docusate sodium (COLACE) 100 mg capsule Take 1 capsule by mouth two times a day as needed for constipation. cholecalciferol, Vitamin D3, (VITAMIN D3) 1,250 mcg (50,000 unit) cap capsule Take 1 capsule by mouth one time a week. tiZANidine (ZANAFLEX) 4 mg tablet Take 1 tablet by mouth every 8 hours as needed. celecoxib (CELEBREX) 200 mg capsule Take 1 capsule by mouth once daily as needed for pain. CPAP Initiate Auto PAP @ 9-18 cm of water with humidification. Mask (per patient preference) optional chin strap (if indicated) , filters, tubing, humidifier and lifetime supplies. No current facility-administered medications on file prior to visit. Social History Social History Tobacco Use Smoking status: Never Smokeless tobacco: Never Vaping Use Vaping status: Never Used Substance Use Topics Alcohol use: Yes Comment: 2 drink every 2-3 weeks Drug use: Never Review of Symptoms REVIEW OF SYSTEMS GENERAL: No weight loss, malaise or fevers HEENT: Negative for frequent or significant headaches, No changes in hearing or vision, no nose bleeds or other nasal problems NECK: Negative for lumps, goiter, pain and significant neck swelling RESPIRATORY: Negative for cough, hemoptysis, wheezing, COPD, dyspnea or shortness of breath CARDIOVASCULAR: Negative for chest pain, leg swelling, hypertension, CHF or palpitations SKIN: Negative for lesions, rash, and itching EXAM: BP 118/76 Pulse 75 Resp 16 Wt (!) 136.7 kg (301 lb 6.4 oz) SpO2 99% BMI 43.87 kg/m? General Appearance: Well appearing, alert, in no acute distress, well-hydrated, well nourished.. Skin: Skin color, texture, turgor normal, no suspicious rashes or lesions. Oropharynx: Lips, mucosa, and tongue normal, teeth and gums normal, oropharynx normal. Neck: Supple, no adenopathy; thyroid symmetric, normal size, no bruits. Health Maintenance List Depression Screening Never done Anxiety Screening Never done DTaP,Tdap,Td Vaccine(1 - Tdap) Never done Hepatitis B Vaccine(1 of 3 - 19+ 3-dose series) Never done Influenza Vaccine(1) due on 06/21/2024 Covid-19 Vaccine( season) due on 06/21/2024 Lipid Screening due on 02/08/2028 HIV Screening Completed Hepatitis C Screening Discontinued ASSESSMENT/PLAN: 1. Allergic reaction, subsequ (more content not included)...[facility]02-19-2025 History of Present illness Narrative* Manny Bean MD - 12/09/2024 7:46 AM EST Chief Complaint Patient presents with: Follow Up: EC - allergic reaction despite ATB changes continue HPI Davy Rao is a 39 year old male who presents here today for Above Complaints.. Patient had dental implant 2 days ago and they gave him amoxicillin and Peridex for home. Yesterday, after taking amoxicillin he had itching on his abdomen and neck. Developed swelling around his left eye yesterday and was evaluated in EC where he was switched to Clindamycin and given rx for 40 mg prednisone x 5 days. Patient states that he has been on amoxicillin in the past without reaction. He did take the Clindamycin yesterday and about 30 minutes later he had recurrent itching of his abdomen with hives and tingling on his tongue. Did call nurse triage and he was directed to the ER. Took Prednisone and benadryl prior to going to ER. Went to ER, but did not stay for evaluation. Today, he does not have any itching, swelling or rash. Denies tongue/lip swelling, trouble swallowing, trouble breathing, change in voice. He has been taking ibuprofen Saturday and yesterday. Admits to using new detergents in his laundry about 1 month ago. Did eat new type of slovenian vanilla/honeycomb ice cream which he ate on Saturday. Denies recent travel. No sick contacts with similar reaction. Past medical history, appointments, medications, allergies reviewed. 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 Vitamin D deficiency Previous Surgical History PAST SURGICAL HISTORY Procedure Laterality Date NONE Family History FAMILY HISTORY Problem Relation Age of Onset Thyroid Mother No Known Problems Father Hypertension Maternal Grandmother Arthritis Maternal Grandmother Thyroid Maternal Grandfather Diabetes Maternal Grandfather Arthritis Paternal Grandmother Hypertension Paternal Grandmother Patient Allergies ALLERGIES Allergen Reactions Amoxicillin Hives Sulfa (Sulfonamide * Rash Current Medications Current Outpatient Medications on File Prior to Visit Medication Sig predniSONE (DELTASONE) 20 mg tablet Take 2 tablets by mouth once daily for 5 days. clindamycin (CLEOCIN) 150 mg capsule Take 3 capsules by mouth three times a day for 5 days. omeprazole (PRILOSEC) 40 mg capsule Take 1 capsule by mouth once daily. 1/2 hr before meal. docusate sodium (COLACE) 100 mg capsule Take 1 capsule by mouth two times a day as needed for constipation. cholecalciferol, Vitamin D3, (VITAMIN D3) 1,250 mcg (50,000 unit) cap capsule Take 1 capsule by mouth one time a week. tiZANidine (ZANAFLEX) 4 mg tablet Take 1 tablet by mouth every 8 hours as needed. celecoxib (CELEBREX) 200 mg capsule Take 1 capsule by mouth once daily as needed for pain. CPAP Initiate Auto PAP @ 9-18 cm of water with humidification. Mask (per patient preference) optional chin strap (if indicated) , filters, tubing, humidifier and lifetime supplies. No current facility-administered medications on file prior to visit. Social History Social History Tobacco Use Smoking status: Never Smokeless tobacco: Never Vaping Use Vaping status: Never Used Substance Use Topics Alcohol use: Yes Comment: 2 drink every 2-3 weeks Drug use: Never Review of Symptoms REVIEW OF SYSTEMS GENERAL: No weight loss, malaise or fevers HEENT: Negative for frequent or significant headaches, No changes in hearing or vision, no nose bleeds or other nasal problems NECK: Negative for lumps, goiter, pain and significant neck swelling RESPIRATORY: Negative for cough, hemoptysis, wheezing, COPD, dyspnea or shortness of breath CARDIOVASCULAR: Negative for chest pain, leg swelling, hypertension, CHF or palpitations SKIN: Negative for lesions, rash, and itching EXAM: BP 118/76 Pulse 75 Resp 16 Wt (!) 136.7 kg (301 lb 6.4 oz) SpO2 99% BMI 43.87 kg/m General Appearance: Well appearing, alert, in no acute distress, well-hydrated, well nourished.. Skin: Skin color, texture, turgor normal, no suspicious rashes or lesions. Oropharynx: Lips, mucosa, and tongue normal, teeth and gums normal, oropharynx normal. Neck: Supple, no adenopathy; thyroid symmetric, normal size, no bruits. Health Maintenance List Depression Screening Never done Anxiety Screening Never done DTaP,Tdap,Td Vaccine(1 - Tdap) Never done Hepatitis B Vaccine(1 of 3 - 19+ 3-dose series) Never done Influenza Vaccine(1) due on 06/21/2024 Covid-19 Vaccine(2023- season) due on 06/21/2024 Lipid Screening due on 02/08/2028 HIV Screening Completed Hepatitis C Screening Discontinued ASSESSMENT/PLAN: 1. Allergic reaction, subsequent encounter - ICD9: V58.89, 995.3, ICD10: T78.40XD (primary diagnosis) Unknown cause. Possible reaction to amoxicillin and clindamycin, but patient has tolerated PCN in the past. No issues with Peridex in the past. Advised him to change back to previously tolerated detergent and re-wash clothes. Stop NSAIDs. With start doxycycline for dental procedure and refer to allergy for additional testing. Red flags for re-assessment reviewed with patient in detail. Given Rx for epi pen in case of recurrent face or throat/tongue swelling. - CONSULT TO ALLERGY/IMMUNOLOGY - EPINEPHRINE 0.3 MG/0.3 ML INJECTION, AUTO-INJECTOR 2. Hives - ICD9: 708.9, ICD10: L50.9 Resolved today. - Likely viral or allergic etiology discussed with patient - Treatment with systemic steriods burst- see orders - Follow up if symptoms persist or worsen. - CONSULT TO ALLERGY/IMMUNOLOGY - DOXYCYCLINE HYCLATE 100 MG CAPSULE 3. Facial swelling - ICD9: 784.2, ICD10: R22.0 Resolved. See above. 4. Allergy to penicillin - ICD9: V14.0, ICD10: Z88.0 See above. - CONSULT TO ALLERGY/IMMUNOLOGY - EPINEPHRINE 0.3 MG/0.3 ML INJECTION, AUTO-INJECTOR I spent a total of 30 minutes on the date of the service which included preparing to see the patient, [id number] patient care, completing clinical documentation, obtaining and/or reviewing separately obtained history, performing a medically appropriate examination, counseling and educating the pat ient/family/caregiver, and ordering medications, tests, or procedures. Manny Bean MD documented [facility]Gen[facility]02-18-[facility] Miscellaneous Notes* Telephone Encounter - Fabby Treviño RN - 12/08/2024 9:34 PM EST Reason for Call: rash/hives on face after taking antibiotic. Was seen and treated for this earlier but it is back and his tongue is tingling. Patient also has hives on his cheeks. Outcome: Patient advised to go the Emergency Room now. Patient plans to go to [facility] at this time. Encouraged to slab puller and call 911 if anything worsens or changes in route. Fabby Treviño RN Reason for Disposition [1] Widespread hives AND [2] onset < 2 hours of exposure to 1st dose of drug Protocols used: Rash - Widespread On [id number] documented in this encounterGen[facility] Hospital02-18-2025 Telephone encounter Note * Telephone Encounter - Fabby Treviño RN - 12/08/2024 9:34 PM EST Reason for Call: rash/hives on face after taking antibiotic. Was seen and treated for this earlier but it is back and his tongue is tingling. Patient also has hives on his cheeks. Outcome: Patient advised to go the Emergency Room now. Patient plans to go to [facility] at this time. Encouraged to slab puller and call 911 if anything worsens or changes in route. Fabby Treviño RN Reason for Disposition [1] Widespread hives AND [2] onset < 2 hours of exposure to 1st dose of drug Protocols used: Rash - Widespread On [id number] [facility]02-18-2025 NoteHNO ID: [id number] Author: KARIME JOSUE APRN.[employer] Service: ? Author Type: Nurse Practitioner Type: Progress Notes Filed: 12/08/2024 18:49 Note Text: Subjective HPI HPI Davy Rao is a 39 year old male who presents today for CC of itchy rash on chest, facial swelling. This started today. Has tried nothing for relief. Symptoms are worsened by nothing. Risk factors started on amox 1 day ago for dental implant. Had new icecream last night, and also has new laundry detergent. Denies cp/sob, trouble breathing. 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 1/2 hr before meal. docusate sodium (COLACE) 100 mg capsule Take 1 capsule by mouth two times a day as needed for constipation. cholecalciferol, Vitamin D3, (VITAMIN D3) 1,250 mcg (50,000 unit) cap capsule Take 1 capsule by mouth one time a week. tiZANidine (ZANAFLEX) 4 mg tablet Take 1 tablet by mouth every 8 hours as needed. celecoxib (CELEBREX) 200 mg capsule Take 1 capsule by mouth once daily as needed for pain. CPAP Initiate Auto PAP @ 9-18 cm of water with humidification. Mask (per patient preference) optional chin strap (if indicated) , filters, tubing, humidifier and lifetime supplies. predniSONE (DELTASONE) 20 mg tablet Take 2 tablets by mouth once daily for 5 days. clindamycin (CLEOCIN) 150 mg capsule Take 3 capsules by mouth three times a day for 5 days. FAMILY HISTORY Problem Relation Age of Onset Thyroid Mother No Known Problems Father Hypertension Maternal Grandmother Arthritis Maternal Grandmother Thyroid Maternal Grandfather Diabetes Maternal Grandfather Arthritis Paternal Grandmother Hypertension Paternal Grandmother Social History Tobacco Use Smoking status: Never Smokeless tobacco: Never Vaping Use Vaping status: Never Used Substance Use Topics Alcohol use: Yes Comment: 2 drink every 2-3 weeks Drug use: Never Review of Systems Constitutional: Negative for fever. Respiratory: Negative for cough, shortness of breath and wheezing. Cardiovascular: Negative for chest pain. Skin: Positive for itching and rash. Objective Blood pressure 122/74, pulse 76, temperature 36.8 ?C (98.2 ?F), resp. rate 16, weight (!) 138.3 kg (304 lb 14.3 oz), SpO2 97%. Physical Exam Constitutional: General: He is not in acute distress. Appearance: He is not toxic-appearing or diaphoretic. HENT: Head: Normocephalic and atraumatic. Mouth/Throat: Mouth: Mucous membranes are moist. Comments: No oral swelling noted. Cardiovascular: Rate and Rhythm: Normal rate and regular rhythm. Heart sounds: Normal heart sounds, S1 normal and S2 normal. Pulmonary: Effort: Pulmonary effort is normal. Breath sounds: Normal breath sounds. Skin: Neurological: Mental Status: He is alert and oriented to person, place, and time. Gait: Gait is intact. ASSESSMENT/PLAN: 1. Rash - ICD9: 782.1, ICD10: R21 (primary diagnosis) -use medication as prescribed -follow up if symptoms persist, worsen, change Trouble breathing or swallowing go to ER Notify dentist of medication change. - PREDNISONE 20 MG TABLET 2. Dental infection - ICD9: 522.4, ICD10: K04.7 Stop amox - CLINDAMYCIN HCL 150 MG CAPSULE 3. Facial swelling - ICD9: 784.2, ICD10: R22.0 -use medication as prescribed -follow up if symptoms persist, worsen, change - PREDNISONE 20 MG TABLET Karime Josue APRN.[facility] History of Present illness Narrative* Karime Josue APRN.[employer] - 12/08/2024 6:24 PM EST Images from the original note were not included. Subjective HPI HPI Davy Rao is a 39 year old male who presents today for CC of itchy rash on chest, facial swelling. This started today. Has tried nothing for relief. Symptoms are worsened by nothing. Risk factors started on amox 1 day ago for dental implant. Had new icecream last night, and also has new laundry detergent. Denies cp/sob, trouble breathing. 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 1/2 hr before meal. docusate sodium (COLACE) 100 mg capsule Take 1 capsule by mouth two times a day as needed for constipation. cholecalciferol, Vitamin D3, (VITAMIN D3) 1,250 mcg (50,000 unit) cap capsule Take 1 capsule by mouth one time a week. tiZANidine (ZANAFLEX) 4 mg tablet Take 1 tablet by mouth every 8 hours as needed. celecoxib (CELEBREX) 200 mg capsule Take 1 capsule by mouth once daily as needed for pain. CPAP Initiate Auto PAP @ 9-18 cm of water with humidification. Mask (per patient preference) optional chin strap (if indicated) , filters, tubing, humidifier and lifetime supplies. predniSONE (DELTASONE) 20 mg tablet Take 2 tablets by mouth once daily for 5 days. clindamycin (CLEOCIN) 150 mg capsule Take 3 capsules by mouth three times a day for 5 days. FAMILY HISTORY Problem Relation Age of Onset Thyroid Mother No Known Problems Father Hypertension Maternal Grandmother Arthritis Maternal Grandmother Thyroid Maternal Grandfather Diabetes Maternal Grandfather Arthritis Paternal Grandmother Hypertension Paternal Grandmother Social History Tobacco Use Smoking status: Never Smokeless tobacco: Never Vaping Use Vaping status: Never Used Substance Use Topics Alcohol use: Yes Comment: 2 drink every 2-3 weeks Drug use: Never Review of Systems Constitutional: Negative for fever. Respiratory: Negative for cough, shortness of breath and wheezing. Cardiovascular: Negative for chest pain. Skin: Positive for itching and rash. Objective Blood pressure 122/74, pulse 76, temperature 36.8 C (98.2 F), resp. rate 16, weight (!) 138.3 kg (304 lb 14.3 oz), SpO2 97%. Physical Exam Constitutional: General: He is not in acute distress. Appearance: He is not toxic-appearing or diaphoretic. HENT: Head: Normocephalic and atraumatic. Mouth/Throat: Mouth: Mucous membranes are moist. Comments: No oral swelling noted. Cardiovascular: Rate and Rhythm: Normal rate and regular rhythm. Heart sounds: Normal heart sounds, S1 normal and S2 normal. Pulmonary: Effort: Pulmonary effort is normal. Breath sounds: Normal breath sounds. Skin: Neurological: Mental Status: He is alert and oriented to person, place, and time. Gait: Gait is intact. ASSESSMENT/PLAN: 1. Rash - ICD9: 782.1, ICD10: R21 (primary diagnosis) -use medication as prescribed -follow up if symptoms persist, worsen, change Trouble breathing or swallowing go to ER Notify dentist of medication change. - PREDNISONE 20 MG TABLET 2. Dental infection - ICD9: 522.4, ICD10: K04.7 Stop amox - CLINDAMYCIN HCL 150 MG CAPSULE 3. Facial swelling - ICD9: 784.2, ICD10: R22.0 -use medication as prescribed -follow up if symptoms persist, worsen, change - PREDNISONE 20 MG TABLET Karime Josue APRN.[employer] [facility] Telephone encounter Note * Telephone Encounter - Brandon Mann RN - 05/27/2024 12:31 PM EDT Called and left a detailed voicemail notifying patient of providers message. Clinic phone number was left in case patient has any questions. [facility] Miscellaneous Notes* Telephone Encounter - Brandon Mann RN - 05/27/2024 12:31 PM EDT Called and left a detailed voicemail notifying patient of providers message. Clinic phone number was left in case patient has any questions. * Telephone Encounter - Brandon Mann RN - 05/27/2024 12:20 PM EDT ----- Message from Manny Bean MD sent at 05/27/2024 12:00 PM EDT ----- Normal labs to workup abdominal pain. Awaiting abdominal xray. Continue treatment as discussed in office. documented in this encounterGen[facility]08-[facility]24 Telephone encounter Note * Telephone Encounter - Brandon Mann RN - 05/27/2024 12:20 PM EDT ----- Message from Manny Bean MD sent at 05/27/2024 12:00 PM EDT ----- Normal labs to workup abdominal pain. Awaiting abdominal xray. Continue treatment as discussed in office. [facility] History of Present illness Narrative* Blanco Villafana, RT(R) - 05/26/2024 1:40 PM EDT Radiology Service Progress Note PATIENT NAME: Davy Rao DATE OF SERVICE: May 26, 2024 TIME: 1:45 PM PATIENT IDENTITY VERIFICATION COMPLETED USING TWO (2) IDENTIFIERS: Name and Date of confirmedby patient verbally. FALL SCREENING: Has the patient had 2 falls in the last year or 1 fall with injury or currently using an Ambulatory Assistive Device (Walker, Cane, Wheelchair, Crutches, etc.)? No PATIENT GENDER DATA: Male PATIENT RELEVANT IMPLANT DATA REVIEWED: Yes PATIENT PRESENTS WITH AN IMPLANTABLE OR ATTACHED DENTISTRY TEACHER: No RADIOLOGY DEPARTMENT: General X-ray: Exam(s) Completed: Abdomen X-Ray: Abdomen PERIPHERAL IV DATA: Not applicable SIGNED BY: RT Feliz(Fernando) May 26, 2024 1:45 PM documented in this encounterGenesis Hospital08-06-2024 NoteHNO ID: [id number] Author: BLANCO VILLAFANA RT(R) Service: Radiology Author Type: Technologist Type: Progress Notes Filed: 05/26/2024 13:58 Note Text: Radiology Service Progress Note PATIENT NAME: Davy Rao DATE OF SERVICE: May 26, 2024 TIME: 1:45 PM PATIENT IDENTITY VERIFICATION COMPLETED USING TWO (2) IDENTIFIERS: Name and Date of confirmed by patient verbally. FALL SCREENING: Has the patient had 2 falls in the last year or 1 fall with injury or currently using an Ambulatory Assistive Device (Walker, Cane, Wheelchair, Crutches, etc.)? No PATIENT GENDER DATA: Male PATIENT RELEVANT IMPLANT DATA REVIEWED: Yes PATIENT PRESENTS WITH AN IMPLANTABLE OR ATTACHED DENTISTRY TEACHER: No RADIOLOGY DEPARTMENT: General X-ray: Exam(s) Completed: Abdomen X-Ray: Abdomen PERIPHERAL IV DATA: Not applicable SIGNED BY: RT Feliz(Fernando) May 26, 2024 1:[address] [facility] NoteHNO ID: [id number] Author: MANNY BEAN MD Service: ? Author Type: Physician Type: Progress Notes Filed: 05/26/2024 13:41 Note Text: Chief Complaint Patient presents with: Abdominal Pain: Spasms to left side with 3/10 pain scale - appetite change/ has changed to brown rice. CPAP: One nare not fitting equal tubing HPI Davy Rao is a 39 year old male who presents here today for Above Complaints. Patient complaining of intermittent left upper quadrant pain which started about 3-4 weeks ago. Occurs about 2-3 times every day and lasts for a few seconds. Described as pins and needle sensation and dullness, up to 2/10, without radiation. No identified triggers. Not treating with anything OTC. States that he has noticed change in BM in that he is having BM later in the day on a daily basis. Denies constipation, hematochezia, melena, fever/chills, nausea, vomiting, diarrhea, loss of appetite, weight loss, night sweats, heartburn, regurgitation. Feels like left nostril gets clogged at night and CPAP does not deliver air like it should. Has not tried nasal steroid prior to bed. Concerned about deviated septum. Past medical history, appointments, medications, allergies reviewed. 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, hip Comment: right No date: Vitamin D deficiency Previous Surgical History PAST SURGICAL HISTORY No date: NONE Family History FAMILY HISTORY Problem Relation Age of Onset Thyroid Mother No Known Problems Father Hypertension Maternal Grandmother Arthritis Maternal Grandmother Thyroid Maternal Grandfather Diabetes Maternal Grandfather Arthritis Paternal Grandmother Hypertension Paternal Grandmother Patient Allergies ALLERGIES Allergen Reactions Sulfa (Sulfonamide * Rash Current Medications Current Outpatient Medications on File Prior to Visit Medication Sig cholecalciferol, Vitamin D3, (VITAMIN D3) 1,250 mcg (50,000 unit) cap capsule Take 1 capsule by mouth one time a week. tiZANidine (ZANAFLEX) 4 mg tablet Take 1 tablet by mouth every 8 hours as needed. celecoxib (CELEBREX) 200 mg capsule Take 1 capsule by mouth once daily as needed for pain. CPAP Initiate Auto PAP @ 9-18 cm of water with humidification. Mask (per patient preference) optional chin strap (if indicated) , filters, tubing, humidifier and lifetime supplies. omeprazole (PRILOSEC) 20 mg capsule Take 1 capsule by mouth daily before breakfast. 1/2 hr before meal. (Patient not taking: Reported on 08/07/2023) No current facility-administered medications on file prior to visit. Social History Social History Tobacco Use Smoking status: Never Smokeless tobacco: Never Vaping Use Vaping Use: Never used Substance Use Topics Alcohol use: Yes Comment: 2 drink every 2-3 weeks Drug use: Never Review of Symptoms REVIEW OF SYSTEMS See HPI EXAM: BP 120/82 Pulse 68 Temp 36.6 ?C (97.8 ?F) Resp 16 Wt 135.2 kg (298 lb 1 oz) SpO2 97% BMI 43.38 kg/m? General Appearance: Well appearing, alert, in no acute distress, well-hydrated, well nourished.. Skin: Skin color, texture, turgor normal, no suspicious rashes or lesions. Nose: turbinates normal. No deviated septum. Lungs: Lungs clear to auscultation. No wheezing, rhonchi, rales.. Heart: RRR without murmur, gallop, or rubs. No ectopy. Abdomen: Abdomen soft Bowel sounds normal. No masses, organomegaly, Negative CVA tenderness, Positive findings: tenderness mild LUQ. Health Maintenance List Depression Screening Never done Anxiety Screening Never done DTaP,Tdap,Td Vaccine(1 - Tdap) Never done Hepatitis B Vaccine(1 of 3 - 19+ 3-dose series) Never done Covid-19 Vaccine( - 2022- season) due on 06/21/2023 Influenza Vaccine(1) due on 06/21/2024 Lipid Screening due on 02/08/2028 HIV Screening Completed HPV Vaccine Aged Out Hepatitis C Screening Discontinued ASSESSMENT/PLAN: 1. LUQ pain - ICD9: 789.02, ICD10: R10.12 (primary diagnosis) Obtain labs and imaging for further evaluation. Will start colace for some mild constipation symptoms and discussed pushing PO fliuds, increased fiber, and may use Miralax PRN. Start PPI for possible gastritis. Keep food diary and avoid triggers. Red flags for re-assessment reviewed with patient in detail. - XR ABDOMEN 1V SUPINE - COMPLETE BLOOD COUNT AND DIFFERENTIAL - COMPREHENSIVE METABOLIC PANEL - LIPASE 2. Gastroesophageal reflux disease without esophagitis - ICD9: 530.81, ICD10: K21.9 - Begin treatment with Prilosec 40 mg QD - OMEPRAZOLE 40 MG CAPSULE,DELAYED RELEASE 3. Seasonal allergies - ICD9: 477.9, ICD10: J30.2 Suspect nasal concerns related to allergies. Patient will try flonase OTC and call if persistent. Manny Caraballo (more content not included)...[facility] 05-26-[facility]24 History of Present illness Narrative* Manny Bean MD - 05/26/2024 12:56 PM EDT Chief Complaint Patient presents with: Abdominal Pain: Spasms to left side with 3/10 pain scale - appetite change/ has changed to brown rice. CPAP: One nare not fitting equal tubing HPI Davy Rao is a 39 year old male who presents here today for Above Complaints. Patient complaining of intermittent left upper quadrant pain which started about 3-4 weeks ago. Occurs about 2-3 times every day and lasts for a few seconds. Described as pins and needle sensation and dullness, up to 2/10, without radiation. No identified triggers. Not treating with anything OTC. States that he has noticed change in BM in that he is having BM later in the day on a daily basis. Denies constipation, hematochezia, melena, fever/chills, nausea, vomiting, diarrhea, loss of appetite,weight loss, night sweats, heartburn, regurgitation. Feels like left nostril gets clogged at night and CPAP does not deliver air like it should. Has nottried nasal steroid prior to bed. Concerned about deviated septum. Past medical history, appointments, medications, allergies reviewed. 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, hip Comment: right No date: Vitamin D deficiency Previous Surgical History PAST SURGICAL HISTORY No date: NONE Family History FAMILY HISTORY Problem Relation Age of Onset Thyroid Mother No Known Problems Father Hypertension Maternal Grandmother Arthritis Maternal Grandmother Thyroid Maternal Grandfather Diabetes Maternal Grandfather Arthritis Paternal Grandmother Hypertension Paternal Grandmother Patient Allergies ALLERGIES Allergen Reactions Sulfa (Sulfonamide * Rash Current Medications Current Outpatient Medications on File Prior to Visit Medication Sig cholecalciferol, Vitamin D3, (VITAMIN D3) 1,250 mcg (50,000 unit) cap capsule Take 1 capsule by mouth one time a week. tiZANidine (ZANAFLEX) 4 mg tablet Take 1 tablet by mouth every 8 hours as needed. celecoxib (CELEBREX) 200 mg capsule Take 1 capsule by mouth once daily as needed for pain. CPAP Initiate Auto PAP @ 9-18 cm of water with humidification. Mask (per patient preference) optional chin strap (if indicated) , filters, tubing, humidifier and lifetime supplies. omeprazole (PRILOSEC) 20 mg capsule Take 1 capsule by mouth daily before breakfast. 1/2 hr before meal. (Patient not taking: Reported on 08/07/2023) No current facility-administered medications on file prior to visit. Social History Social History Tobacco Use Smoking status: Never Smokeless tobacco: Never Vaping Use Vaping Use: Never used Substance Use Topics Alcohol use: Yes Comment: 2 drink every 2-3 weeks Drug use: Never Review of Symptoms REVIEW OF SYSTEMS See HPI EXAM: BP 120/82 Pulse 68 Temp 36.6 C (97.8 F) Resp 16 Wt 135.2 kg (298 lb 1 oz) SpO2 97% BMI 43.38 kg/m General Appearance: Well appearing, alert, in no acute distress, well-hydrated, well nourished.. Skin: Skin color, texture, turgor normal, no suspicious rashes or lesions. Nose: turbinates normal. No deviated septum. Lungs: Lungs clear to auscultation. No wheezing, rhonchi, rales.. Heart: RRR without murmur, gallop, or rubs. No ectopy. Abdomen: Abdomen soft Bowel sounds normal. No masses, organomegaly, Negative CVA tenderness, Positive findings: tenderness mild LUQ. Health Maintenance List Depression Screening Never done Anxiety Screening Never done DTaP,Tdap,Td Vaccine(1 - Tdap) Never done Hepatitis B Vaccine(1 of 3 - 19+ 3-dose series) Never done Covid-19 Vaccine( - 2022- season) due on 06/21/2023 Influenza Vaccine(1) due on 06/21/2024 Lipid Screening due on 02/08/2028 HIV Screening Completed HPV Vaccine Aged Out Hepatitis C Screening Discontinued ASSESSMENT/PLAN: 1. LUQ pain - ICD9: 789.02, ICD10: R10.12 (primary diagnosis) Obtain labs and imaging for further evaluation. Will start colace for some mild constipation symptoms and discussed pushing PO fliuds, increased fiber, and may use Miralax PRN. Start PPI for possiblegastritis. Keep food diary and avoid triggers. Red flags for re-assessment reviewed with patient indetail. - XR ABDOMEN 1V SUPINE - COMPLETE BLOOD COUNT AND DIFFERENTIAL - COMPREHENSIVE METABOLIC PANEL - LIPASE 2. Gastroesophageal reflux disease without esophagitis - ICD9: 530.81, ICD10: K21.9 - Begin treatment with Prilosec 40 mg QD - OMEPRAZOLE 40 MG CAPSULE,DELAYED RELEASE 3. Seasonal allergies - ICD9: 477.9, ICD10: J30.2 Suspect nasal concerns related to allergies. Patient will try flonase OTC and call if persistent. Manny Bean MD [facility] encounterGen[facility]10-[facility] History of Present illness Narrative* Podlogar, ADAM Mcallister.[employer] - 08/07/2023 5:47 PM EDT 08/07/2023 Patient presents with: F/U 6 months SUBJECTIVE: This is a 38 year old that is here today for Above Complaints. Since last office visit has been in good health without ER visits or hospitalizations. BLAIR: using CPAP nightly. Does not have daytime drowsiness like before. GERD: takes omperazole as needed but has not taken recently Completed vitamin D. Did not get vitamin D level rechecked Takes Celebrex and Zanaflex PRN for chronic right hip pain. Needs refill today Weight about the same. Trying to watch portions but does not exercise much. Thinks he received influenza vaccine at work recently Frustrated with fertility clinic in [place]. Reports they told she needs to lose 40# . Asking about where to go from here. has referral to [facility] fertility but he is unsure if it would be alright to go there after being seen in [place]. Doesn't feel he is getting answers. 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 Mask (per patient preference) optional chin strap (if indicated) , filters, tubing, humidifier and lifetime supplies. tiZANidine (ZANAFLEX) 4 mg tablet Take 1 tablet by mouth every 8 hours as needed. celecoxib (CELEBREX) 200 mg capsule Take 1 capsule by mouth once daily as needed for pain. omeprazole (PRILOSEC) 20 mg capsule Take 1 capsule by mouth daily before breakfast. 1/2 hr before meal. (Patient taking differently: Take 20 mg by mouth as needed. 1/2 hr before meal.) No current facility-administered medications for this visit. Medications and allergies reviewed by this provider. SOCIAL HISTORY Social History Tobacco Use Smoking status: Never Smokeless tobacco: Never Vaping Use Vaping Use: Never used Substance Use Topics Alcohol use: Yes Comment: 2 drink every 2-3 weeks Drug use: Never REVIEW OF SYSTEMS All other reviewed and negative other than HPI. OBJECTIVE: BP 126/84 Pulse 84 Resp 18 Wt 131.7 kg (290 lb 6.4 oz) SpO2 97% BMI 42.27 kg/m . Vital signs reviewed by this provider. APPEARANCE Well appearing, alert, in no acute distress, well-hydrated, well nourished. EYES conjunctiva and sclera normal. HEART RRR with normal S1 and S2, no murmurs, no gallops, no JVD appreciated LUNG clear to auscultation. No wheezes, rhonchi or rales SKIN Skin color, texture, turgor normal, no suspicious rashes or lesions Component Latest Ref Rng & Units 02/07/2023 WBC 3.70 - 11.00 k/uL 6.02 RBC 4.20 - 6.00 m/uL 5.01 Hemoglobin 13.0 - 17.0 g/dL 14.5 Hematocrit 39.0 - 51.0 % 42.6 MCV 80.0 - 100.0 fL 85.0 MCH 26.0 - 34.0 pg 28.9 MCHC 30.5 - 36.0 g/dL 34.0 RDW-CV 11.5 - 15.0 % 13.0 Platelet Count 150 - 400 k/uL 227 MPV 9.0 - 12.7 fL 8.7 (L) Neut% % 48.7 Abs Neut (ANC) 1.45 - 7.50 k/uL 2.93 Lymph% % 38.0 Abs Lymph 1.00 - 4.00 k/uL 2.29 Mcdonough% % 10.8 Abs Mcdonough <0.87 k/uL 0.65 Eosin% % 1.8 Abs Eosin <0.46 k/uL 0.11 Baso% % 0.5 Abs Baso <0.11 k/uL 0.03 Immature Gran % % 0.2 IMMATURE GRANS (ABS) <0.10 k/uL <0.03 NRBC /100 WBC 0.0 Absolute nRBC <0.01 k/uL <0.01 DTYPE Auto Protein, Total 6.3 - 8.0 g/dL 7.1 Albumin 3.9 - 4.9 g/dL 4.1 Calcium 8.5 - 10.2 mg/dL 8.9 Bilirubin, Total 0.2 - 1.3 mg/dL 0.3 Alkaline Phosphatase 38 - 113 U/L 80 AST 14 - 40 U/L 20 ALT 10 - 54 U/L 30 Glucose 74 - 99 mg/dL 113 (H) BUN 9 - 24 mg/dL 8 (L) Creatinine 0.73 - 1.22 mg/dL 1.00 Sodium 136 - 144 mmol/L 138 Potassium 3.7 - 5.1 mmol/L 4.1 Chloride 97 - 105 mmol/L 103 CO2 22 - 30 mmol/L 27 Anion Gap 9 - 18 mmol/L 8 (L) eGFR >=60 mL/min/1.73m 99 Total Cholesterol, Nonfasting <200 mg/dL 185 Triglycerides, Nonfasting <150 mg/dL 108 HDL Cholesterol, Nonfasting >39 mg/dL 29 (L) LDL Cholesterol, Nonfasting <100 mg/dL 134 (H) Non HDL Cholesterol, Nonfasting <130 mg/dL 156 (H) VLDL Cholesterol, Nonfasting <30 mg/dL 22 Total Chol/HDL Ratio, Nonfasting <5.10 mg/dL 6.38 (H) LDL/HDL Ratio, Nonfasting <2.54 mg/dL 4.62 (H) Hemoglobin A1C 4.3 - 5.6 % 5.2 Estimated Average Glucose mg/dL 103 TSH 0.270 - 4.200 mIU/L 3.710 Vitamin D 25 Hydroxy 31.0 - 80.0 ng/mL 18.5 (L) Depression Assessment Never done Influenza Vaccine(1) due on 06/21/2023 Covid-19 Vaccine( - 2022- season) due on 06/21/2023 DTaP,Tdap,Td Vaccine(1 - Tdap) due on 02/06/2024 Hepatitis B Vaccine(1 of 3 - 3-dose series) due on 02/06/2024 Lipid Screening due on 02/08/2028 HIV Screening Completed HPV Vaccine Aged Out Hepatitis C Screening Discontinued ASSESSMENT/PLAN: 1. Vitamin D deficiency - ICD9: 268.9, ICD10: E55.9 (primary diagnosis) - needs to get rechecked - VITAMIN D 25 HYDROXY 2. Infertility counseling - ICD9: V26.49, ICD10: Z31.69 - discussed with patient he should have call and set up appointment with [facility] provider to discuss if they are unhappy with care in [place] 3. Obesity, Class III, BMI >= 40 - ICD9: 278.01, ICD10: E66.01 Weight decreasing - Behavioral intervention - Lengthy discussion in office today regarding diet and exercise. Discussed use of small plate to eat meals from, drink 1 glass of water 10-15 minutes prior to eating meal, drink 8 glasses of water daily, eat fresh fruit and vegetable during meal first then lean protein such as grilled/baked chicken breast or fish, limit carbohydrate intake (less pasta, breads, rice and snack foods) as well as limiting sugars (desserts etc). Important to count / track your calories and exercise as well. 4. Chronic right hip pain - ICD9: 719.45, 338.29, ICD10: M25.551, G89.29 - TIZANIDINE 4 MG TABLET - CELECOXIB 200 MG CAPSULE 5. BLAIR on CPAP - ICD9: 327.23, ICD10: G47.33 - continue nightly use 6. Gastroesophageal reflux disease without esophagitis - ICD9: 530.81, ICD10: K21.9 - stable Ary Hernandez APRN.VANI Prescription instructions reviewed with patient as applicable. Patient advised if symptoms do not improve or if symptoms worsen sooner, to contact their primary care physician. Potential red flag symptoms discussed with the patient. Reviewed appropriate action plan to take if red flag symptoms occur. Patient agreeable to treatment plan. I spent a total of 25 minutes on the date of the service which included preparing to see the patient, [id number] patient care, completing clinical documentation, obtaining and/or reviewing separately obtained history, performing a medically appropriate examination, counseling and educating the pat ient/family/caregiver, and ordering medications, tests, or procedures. documented in [facility] encounterGen[facility]04[facility] History of Present illness Narrative* Manny Bean MD - 02/05/2023 5:54 PM EDT Chief Complaint Patient presents with: Physical: Asking about knee and back pain (intermittent). C/O CALLAHAN Weight Problem: Best plan that's covered HPI Davy Rao is a 37 year old male who presents here today for annual physical. Has been in good health without hospitalizations or ER visits. Would like help with losing weight. Up 17 lbs in the last 1 1/2 years. Struggling with portion control, but not eat a lot of junk food or drink sugary drinks. Has been using exercising up to 2 times per week on stationary bike for 30 minutes per session. Also walking at work. Looking into the [employer] program, but may be expensive if insurance does not cover it. Not interested in bariatric surgery. BLAIR: doing well on CPAP on a nightly basis. Denies daytime somnolence or snoring. GERD: controlled with prilosec PRN. Chronic right hip pain improved with celebrex and zanaflex PRN with home exercises. Does not need refills today. PHQ-2 / Depression screen He in the past two weeks denies having felt down, depressed, hopeless or with little interest or pleasure in doing things. Thinks his last Tetanus booster was less than 10 years ago. Would like to stick with [employer] for his COVID vaccines and will follow up with pharmacy for this. Past medical history, appointments, medications, allergies reviewed. 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 Vitamin D deficiency Previous Surgical History PAST SURGICAL HISTORY Procedure Laterality Date NONE Family History FAMILY HISTORY Problem Relation Age of Onset Thyroid Mother No Known Problems Father Hypertension Maternal Grandmother Arthritis Maternal Grandmother Thyroid Maternal Grandfather Diabetes Maternal Grandfather Arthritis Paternal Grandmother Hypertension Paternal Grandmother Patient Allergies ALLERGIES Allergen Reactions Sulfa (Sulfonamide * Rash Current Medications Current Outpatient Medications on File Prior to Visit Medication Sig tiZANidine (ZANAFLEX) 4 mg tablet Take 1 tablet by mouth every 8 hours as needed. celecoxib (CELEBREX) 200 mg capsule Take 1 capsule by mouth once daily as needed for pain. omeprazole (PRILOSEC) 20 mg capsule Take 1 capsule by mouth daily before breakfast. 1/2 hr before meal. (Patient taking differently: Take 20 mg by mouth as needed. 1/2 hr before meal.) CPAP Initiate Auto PAP @ 9-18 cm of water with humidification. Mask (per patient preference) optional chin strap (if indicated) , filters, tubing, humidifier and lifetime supplies. cholecalciferol, Vitamin D3, (VITAMIN D3) 1,250 mcg (50,000 unit) cap capsule Take 1 capsule by mouth one time a week. No current facility-administered medications on file prior to visit. Social History Social History Tobacco Use Smoking status: Never Smokeless tobacco: Never Vaping Use Vaping Use: Never used Substance Use Topics Alcohol use: Yes Comment: 2 drink every 2-3 weeks Drug use: Never Review of Symptoms REVIEW OF SYSTEMS GENERAL: No weight loss, malaise or fevers HEENT: Negative for frequent or significant headaches, No changes in hearing or vision, no nose bleeds or other nasal problems NECK: Negative for lumps, goiter, pain and significant neck swelling RESPIRATORY: Negative for cough, hemoptysis, wheezing, COPD, dyspnea or shortness of breath CARDIOVASCULAR: Negative for chest pain, leg swelling, hypertension, CHF or palpitations GI: No nausea, vomiting, or diarrhea : No history of dysuria, frequency or incontinence MUSCULOSKELETAL: Negative for joint pain or swelling, back pain or muscle pain SKIN: Negative for lesions, rash, and itching EXAM: BP 118/84 Pulse 66 Resp 16 Wt 135 kg (297 lb 9.6 oz) SpO2 98% BMI 43.32 kg/m General Appearance: Well appearing, alert, in no acute distress, well-hydrated, well nourished.. Skin: Skin color, texture, turgor normal, no suspicious rashes or lesions. Head: Normocephalic, no masses, lesions, tenderness or abnormalities. Eyes: Anicteric sclera. Pupils are equally round and reactive to light. Extraocular movements are intact. . Ears: External ears normal, canals clear. Oropharynx: Lips, mucosa, and tongue normal, teeth and gums normal, oropharynx normal. Neck: Supple, no adenopathy; thyroid symmetric, normal size, no bruits. Lungs: Lungs clear to auscultation. No wheezing, rhonchi, rales.. Heart: RRR without murmur, gallop, or rubs. No ectopy. Abdomen: Normal abdominal exam, Abdomen soft, non-tender. Bowel sounds normal. No masses, organomegaly. Extremities: No deformities, edema, skin discoloration, clubbing or cyanosis. Good capillary refill. . Health Maintenance List HEPATITIS B(1 of 3 - 3-dose series) Never done DTAP,TDAP,TD(1 - Tdap) Never done COVID-19 VACCINE(4 - Booster) due on 11/30/2021 DEPRESSION ASSESSMENT Never done INFLUENZA(Season Ended) due on 06/21/2023 LIPID SCREEN due on 01/13/2026 HIV SCREENING Completed HEPATITIS C SCREENING Discontinued ASSESSMENT/PLAN: 1. Annual physical exam - ICD9: V70.0, ICD10: Z00.00 (primary diagnosis) - Counseled on healthy diet and regular exercise - Discussed need for and benefit of weight loss. BMI 43.32 kg/(m^2) - Depression screening tool completed and reviewed with patient. Based on score and interview, patient is not at risk for depression and recommended no further intervention at this time. - Follow up for annual exam in one year - CBC + DIFF - COMP METABOLIC PANEL - HGB A1C - LIPID PANEL, NONFASTING - TSH BLD - VITAMIN D 25 HYDROXY 2. Morbid obesity (HCC) - ICD9: 278.01, ICD10: E66.01 Weight increasing - Behavioral intervention 3. BLAIR on CPAP - ICD9: 327.23, V46.8, ICD10: G47.33, Z99.89 Improved on nightly CPAP. 4. Chronic right hip pain - ICD9: 719.45, 338.29, ICD10: M25.551, G89.29 Chronic 2/2 previous TB infection. Continue Celebrex and tizanidine PRN. Red flags for re-assessment reviewed with patient in detail. 5. Gastroesophageal reflux disease without esophagitis - ICD9: 530.81, ICD10: K21.9 - Continue treatment with Prilosec 20 mg PRN 6. Seasonal allergies - ICD9: 477.9, ICD10: J30.2 Controlled with OTC anti histamines. Manny Bean MD documented in this encounterGenesis Hospital04-04-2023 Miscellaneous Notes* Telephone Encounter - Liz Arriola LPN - 01/22/2023 8:32 AM EDT Appointment scheduled for 02/05/2023. Liz Arriola LPN * Telephone Encounter - Manny Bean MD - 01/21/2023 8:13 AM EDT Patient has not been in since 2020. Recommend OV for annual check up and discuss weight loss strategies. documented in this encounterGenesis Hospital03-03-2022 NoteHNO ID: [id number] Author: Nancy Moody Service: ? Author Type: Technologist Type: Progress Notes Filed: 12/21/2021 12:29 PM Note Text: Routine Semen Analysis [facility]roxanne [facility] History of Past illness Narrative* Problem Noted Date Resolved Date Chronic midline low back pain without sciatica 0 02/03/2021 05/19/2021 Chronic pain of both hips 02/03/20212020 Obesity (BMI 30-39.9) 01/10/2021 documented as of this encounter (statuses as of 01/22/2023) [facility] History of Past illness Narrative* Problem Noted Date Resolved Date Chronic midline low back pain without sciatica 0 02/03/2021 05/19/2021 Chronic pain of both hips 02/03/20212020 Obesity (BMI 30-39.9) 01/10/2021 documented as of this encounter (statuses as of 02/07/2023) [facility] History of Past illness Narrative* Problem Noted Date Diagnosed Date Resolved Date Chronic midline low back bee n without sciatica 02/03/2021 05/19/2021 Chronic pain of both hips 02/03/2021 Obesity (BMI 30-39.9) 2020 documented as of this encounter (statuses as of 08/08/2023) [facility] noteNo assessment information availableWCoshoct[facility] Work Phone: Evaluation note* Diagnosis Annual physical exam- Primary Routine general medical examination at a health care facility Morbid obesity (HCC) Morbid obesity BLAIR on CPAP Obstructive sleep apnea (adult) (pediatric) Chronic right hip pain Pain in joint, pelvic region and thigh Gastroesophageal reflux disease without esophagitis Esophageal reflux Seasonal allergies Allergic rhinitis, cause unspecified [facility] Vitamin D deficiency- Primary Unspecified vitamin D deficiency Infertility counseling Other procreative management counseling and advice Obesity, Class III, BMI >= 40 Morbid obesity Chronic right hip pain Pain in joint, pelvic region and thigh BLAIR on CPAP Obstructive sleep apnea (adult) (pediatric) Gastroesophageal reflux disease without esophagitis Esophageal reflux [facility] Diagnosis LUQ pain- Primary Abdominal pain, left upper quadrant Gastroesophageal reflux disease without esophagitis Esophageal reflux Seasonal allergies Allergic rhinitis, cause unspecified [facility] Diagnosis LUQ pain Abdominal pain, left upper quadrant [facility]* Diagnosis Acute pain of right knee [facility]* Diagnosis Rash- Primary Rash and other nonspecific skin eruption Dental infection Acute apical periodontitis of pulpal origin Facial swelling Swelling, mass, or lump in head and neck [facility]* Diagnosis Allergic reaction, subsequent encounter- Primary Hives Urticaria, unspecified Facial swelling Swelling, mass, or lump in head and neck Allergy to penicillin Personal history of allergy to penicillin [facility] Diagnosis Iqd-qrbm-hvwjyqq adverse effect of medication, initial encounter- Primary Allergy to penicillin Personal history of allergy to penicillin Allergic reaction, subsequent encounter Hives Urticaria, unspecified Angioedema, initial encounter [facility]* Diagnosis Acute otitis externa of left ear, unspecified type- Primary Abrasion of left ear canal, initial encounter [facility]* Diagnosis Annual physical exam- Primary Routine general medical examination at a health care facility Numbness of toes Disturbance of skin sensation Gastroesophageal reflux disease without esophagitis Esophageal reflux BLAIR on CPAP Obstructive sleep apnea (adult) (pediatric) Morbid obesity (HCC) Morbid obesity Seasonal allergies Allergic rhinitis, cause unspecified Vitamin D deficiency Unspecified vitamin D deficiency Allergic reaction to penicillin, subsequent encounter Allergic rhinitis, unspecified seasonality, unspecified trigger [facility]* Diagnosis Elevated TSH- Primary Nonspecific abnormal results of thyroid function study [facility]* Diagnosis Ids-chqf-hajgqzl adverse effect of medication, subsequent encounter- Primary Urticaria Urticaria, unspecified [facility] Dis[facility] instructionsAdditional Instructions Follow-up with primary care physician return back to ED if symptoms change or worsenWCoshoct[facility] Work Phone: [employer] for referral (narrative)* Diagnostic Procedure Only (Routine) - Closed Specialty Diagnoses / Procedures Referred By Contac t Referred To Contact XR IMAGING Diagnoses LUQ pain Procedures XR ABDOMEN 1V SUPINE RADIOLOGIC EXAM ABDOMEN 1 VIEW Manny Bean MD [address] [place] [address] [place] [address] Referral ID Status Reason Start Date Expiration Date V isits Requested Visits Authorized [id number] Closed Auto-Generate d Referral 05/26/2024 06/25/2025 1 1 [facility] for referral (narrative)* Diagnostic Procedure Only (Routine) - Closed Specialty Diagnoses / Procedures Referred By Contac t Referred To Contact XR IMAGING Diagnoses LUQ pain Procedures XR ABDOMEN 1V SUPINE RADIOLOGIC EXAM ABDOMEN 1 VIEW Manny Bean MD [address] [place] [address] [place] [address] Referral ID Status Reason Start Date Expiration Date V isits Requested Visits Authorized [id number] Closed Auto-Generate d Referral 05/26/2024 06/25/2025 1 1 [facility] for referral (narrative)* Diagnostic Procedure Only (Routine) - Closed Specialty Diagnoses / Procedures Referred By Contac t Referred To Contact XR IMAGING Diagnoses Acute pain of right knee Procedures XR KNEE GENERAL 4V AP BOTH/PA BOTH/LAT/MERC RIGHT RADIOLOGIC EXAM KNEE COMPLETE 4/MORE VIEWS Franck Velez MD [address] [place] [address] [place] [address] Referral ID Status Reason Start Date Expiration Date V isits Requested Visits Authorized [id number] Closed Auto-Generate d Referral 08/08/2022 09/07/2023 1 1 [facility] for referral (narrative)No reason for referral information availableWCoshocton Regional [facility] Work Phone: Reason for visit Narrative* Diagnostic Procedure Only (Routine) - Closed Specialty Diagnoses / Procedures Referred By Contac t Referred To Contact XR IMAGING Diagnoses LUQ pain Procedures XR ABDOMEN 1V SUPINE RADIOLOGIC EXAM ABDOMEN 1 VIEW Manny Bean MD [address] [place] [address] [place] [address] Referral ID Status Reason Start Date Expiration Date V isits Requested Visits Authorized [id number] Closed Auto-Generate d Referral 05/26/2024 06/25/2025 1 1 [facility] for visit Narrative* Diagnostic Procedure Only (Routine) - Closed Specialty Diagnoses / Procedures Referred By Contac t Referred To Contact XR IMAGING Diagnoses Acute pain of right knee Procedures XR KNEE GENERAL 4V AP BOTH/PA BOTH/LAT/MERC RIGHT RADIOLOGIC EXAM KNEE COMPLETE 4/MORE VIEWS Franck Velez MD [address] [place] [address] [place] [address] Referral ID Status Reason Start Date Expiration Date V isits Requested Visits Authorized [id number] Closed Auto-Generate d Referral 08/08/2022 09/07/2023 1 1 [facility] Summary Purpose Family History No Family History Records FoundNo Family History Records FoundNo Family History Records FoundNo Family History Records Found Advance Directives Advance Directive Response Recorded Date/ Time Do you have a Healthcare Power of Integrity Director? No May 25, 2025 4:16pm Chief Complaint and Reason for Visit Chief Complaint CHRONIC MIDLINE LBP W/ KENDRA SCIATICA/RX HERE Chief Complaint Admit Date FLANK PAIN May 25, 2025 3:5 4pm Additional Source Comments (unrecognized sect ion and content) No Status Records FoundNo Status Records FoundNo Status Records FoundNo Status Records Found INFORMATION SOURCE (unrecogn ized section and content) DATE CREATED AUTHOR 12/26/2018 [facility] DATE CREATED AUTHOR AUTHOR'S ORGANIZ ATION 12/23/2021 [facility] DATE CREATED AUTHOR AUTHOR'S ORGANIZ ATION 12/20/2024 [facility] DATE CREATED AUTHOR AUTHOR'S ORGANIZ ATION 03/26/2025 [facility] Goals (unrecognized section and content) Goals may be documented in a n alternate sectionGoals may be documented in an alternate section Source Comments (unrecognize d section and content) In the event this informatio n is protected by the Federal Confidentiality of Alcohol and Drug Abuse Patient Records regulations: The Federal rules restrict any use of the information to criminally investigate or prosecute any alcohol or drug abuse patient.Gen[facility] HospitalIn the event this information is protected by the Federal Confidentiality of Alcohol and Drug Abuse Patient Records regulations: The Federal rules restrict any use of the information to criminally investigate or prosecute any alcohol or drug abuse patient.Gen[facility] HospitalIn the event this information is protected by the Federal Confidentiality of Alcohol and Drug Abuse Patient Records regulations: The Federal rules restrict any use of the information to criminally investigate or prosecute any alcohol or drug abuse patient.Gen[facility] HospitalIn the event this information is protected by the Federal Confidentiality of Alcohol and Drug Abuse Patient Records regulations: The Federal rules restrict any use of the information to criminally investigate or prosecute any alcohol or drug abuse patient.Gen[facility] HospitalIn the event this information is protected by the Federal Confidentiality of Alcohol and Drug Abuse Patient Records regulations: The Federal rules restrict any use of the information to criminally investigate or prosecute any alcohol or drug abuse patient.Gen[facility] HospitalIn the event this information is protected by the Federal Confidentiality of Alcohol and Drug Abuse Patient Records regulations: The Federal rules restrict any use of the information to criminally investigate or prosecute any alcohol or drug abuse patient.Gen[facility] HospitalIn the event this information is protected by the Federal Confidentiality of Alcohol and Drug Abuse Patient Records regulations: The Federal rules restrict any use of the information to criminally investigate or prosecute any alcohol or drug abuse patient.Gen[facility] HospitalIn the event this information is protected by the Federal Confidentiality of Alcohol and Drug Abuse Patient Records regulations: The Federal rules restrict any use of the information to criminally investigate or prosecute any alcohol or drug abuse patient.Gen[facility] HospitalIn the event this information is protected by the Federal Confidentiality of Alcohol and Drug Abuse Patient Records regulations: The Federal rules restrict any use of the information to criminally investigate or prosecute any alcohol or drug abuse patient.Gen[facility] HospitalIn the event this information is protected by the Federal Confidentiality of Alcohol and Drug Abuse Patient Records regulations: The Federal rules restrict any use of the information to criminally investigate or prosecute any alcohol or drug abuse patient.Gen[facility] HospitalIn the event this information is protected by the Federal Confidentiality of Alcohol and Drug Abuse Patient Records regulations: The Federal rules restrict any use of the information to criminally investigate or prosecute any alcohol or drug abuse patient.Gen[facility] HospitalIn the event this information is protected by the Federal Confidentiality of Alcohol and Drug Abuse Patient Records regulations: The Federal rules restrict any use of the information to criminally investigate or prosecute any alcohol or drug abuse patient.[facility] HospitalIn the event this information is protected by the Federal Confidentiality of Alcohol and Drug Abuse Patient Records regulations: The Federal rules restrict any use of the information to criminally investigate or prosecute any alcohol or drug abuse patient.Gen[facility] HospitalIn the event this information is protected by the Federal Confidentiality of Alcohol and Drug Abuse Patient Records regulations: The Federal rules restrict any use of the information to criminally investigate or prosecute any alcohol or drug abuse patient.Gen[facility] HospitalIn the event this information is protected by the Federal Confidentiality of Alcohol and Drug Abuse Patient Records regulations: The Federal rules restrict any use of the information to criminally investigate or prosecute any alcohol or drug abuse patient.[facility] Care Teams (unrecognized sec tion and content) Direct Marketing Executive Relationship Specialty Start Date End Date Manny Bean MD [address] [place] [address] PCP - General Family Medicine 01/04/20 Direct Marketing Executive Relationship Specialty Start Date End Date Manny Bean MD [address] [place] [address] PCP - General Family Medicine 01/04/20 Direct Marketing Executive Relationship Specialty Start Date End Date Manny Bean MD [address] [place] [address] PCP - General Family Medicine 01/04/20 Direct Marketing Executive Relationship Specialty Start Date End Date Manny Bean MD [address] [place] [address] PCP - General Family Medicine 01/04/20 Direct Marketing Executive Relationship Specialty Start Date End Date Manny Bean MD [address] [place] [address] PCP - General Family Medicine 01/04/20 Direct Marketing Executive Relationship Specialty Start Date End Date Manny Bean MD [address] [place] [address] PCP - General Family Medicine 01/04/20 Direct Marketing Executive Relationship Specialty Start Date End Date Manny Bean MD [address] [place] [address] PCP - General Family Medicine 01/04/20 Direct Marketing Executive Relationship Specialty Start Date End Date Manny Bean MD [address] [place] [address] PCP - General Family Medicine 01/04/20 Podlogar, Ary SALES DEVELOPMENT MANAGER.BOILER FIREMAN [address] [facility] [address] Booster Operator Family Medicine 09/26/24 Direct Marketing Executive Relationship Specialty Start Date End Date Manny Bean MD [address] [place] [address] PCP - General Family Medicine 01/04/20 Podlogar, Ary SALES DEVELOPMENT MANAGER.BOILER FIREMAN [address] [facility] [address] Booster Operator Family Medicine 09/26/24 Direct Marketing Executive Relationship Specialty Start Date End Date Manny Bean MD [address] [place] [address] PCP - General Family Medicine 01/04/20 Podlogar, Ary, SALES DEVELOPMENT MANAGER.BOILER FIREMAN [address] [place] [address] Booster Operator Family [facility] 09/26/24 Direct Marketing Executive Relationship Specialty Start Date End Date Manny Bean MD [address] [facility] [address] PCP - General Family Medicine 01/04/20 Podlogar, Ary, SALES DEVELOPMENT MANAGER.BOILER FIREMAN [address] [facility] [address] Booster Operator Family Medicine 09/26/24 Direct Marketing Executive Relationship Specialty Start Date End Date Manny Bean MD [address] [facility], [place] [address] [phone] PCP - General Family Medicine 01/04/20 Podlogar, ADAM Mcallister.BOILER FIREMAN [address] [place] [address] Booster Operator Family Medicine 09/26/24 Mary Jeff APRN.BOILER FIREMAN [address] [place] [address] [facility] Medicine 01/11/25 Direct Marketing Executive Relationship Specialty Start Date End Date Manny Bean MD [address] [place] [address] PCP - General Family Medicine 01/04/20 Podlogar, OZ McallisterN.BOILER FIREMAN [address] [place] [address] Booster Operator Family Medicine 09/26/24 Mary Jeff SALES DEVELOPMENT MANAGER.BOILER FIREMAN [address] [place] [address] [facility] Family Medicine 01/11/25 Direct Marketing Executive Relationship Specialty Start Date End Date Manny Bean MD [address] [place] [address] PCP - General Family Medicine 01/04/20 Podlogar, Ary, SALES DEVELOPMENT MANAGER.BOILER FIREMAN [address] [place] [address] Booster Operator Family Medicine 09/26/24 Direct Marketing Executive Relationship Specialty Start Date End Date Manny Bean MD [address] [place] [address] PCP - General Family Medicine 01/04/20 PodlogAry buckley APRN.CNP [address] [place], [place] [id number] Booster Operator Family [facility] 09/26/24 Team Status: Active Member Role/Relationship Status Dates Dr. Jose Alejandro Bean MD Primary Care Provider Acti ve Team Status: Inactive Member Role/Relationship Status Dates Dr. Jose Alejandro Bean MD Primary Care Provider Acti ve Start: May 25, 2025 End: May 25, 2025 Dr. Lloyd Gao DO Emergency Provider Activ e Start: May 25, 2025 End: May 25, 2025 Reason for Visit (unrecogniz ed section and content) Reason Comments Physical Asking about knee an d back pain (intermittent). C/O CALL[place] Weight Problem Best plan that's cov ered Reason Comments F/U 6 months Reason Comments Abdominal Pain Spasms to left side with 3/10 pain scale - appetite change/ has changed to brown rice. CPAP One nare not fitting equal tubing Reason Comments Results Reason Comments Rash chest and left eye x 1 day, on amoxicillin x yesterday, itching Reason Comments Rash Reason Comments Follow Up EC - allergic reacti on despite ATB changes continue Reason Comments New Patient Penicillin allergy Specialty Diagnoses / Procedures Referred By Contmelina t Referred To Contact Allergy Diagnoses Allergy to penicillin Allergic reaction, initial encounter Hives Procedures CONSULT TO ALLERGY/IMMUNOLOGY OFFICE/OUTPATIENT NEW HIGH MDM 60 MINUTES Manny Bean MD [address] [place] [address] Phone: tel: fax: Referral ID Status Reason Start Date Expiration Date V isits Requested Visits Authorized [id number] Closed PCP Requested Referral 12/09/2024 12/09/2025 1 1 Reason Comments Ear Pain Left ear pain with s ome bleeding x 1 day Reason Comments Physical Reason Onset Date Comments Results 03/08/2025 Reason Comments Follow Up FOR RECORDS PERTAINING TO PATIENTS WHO ARE OR HAVE BEEN ENROLLED IN A CHEMICAL DEPENDENCY/SUBSTANCEABUSE PROGRAM, SOME INFORMATION MAY BE OMITTED. This clinical summary was aggregated from multiple sources. Caution should be exercised in using it in the provision of clinical care. This summary normalizes information from multiple sources, and as a consequence, information in this document may materially change the coding, format and clinical context of patient data. In addition, data may be omitted in some cases. CLINICAL DECISIONS SHOULD BE BASED ON THE PRIMARY CLINICAL RECORDS. [facility] [employer], [facility]. provides no warranty or guarantee of the accuracy or completeness of information in this document.
== END 2025-05-25 19:25 | disposition home or self-care (01) ==
PROVIDERS: Emergency Provider Surgery; PCP Family Medicine; Visit Provider Surgery
DX: R10.32 Left lower quadrant pain (principal); R11.0 Nausea; K21.9 Gastro-esophageal reflux disease without esophagitis; Z79.899 Other long term (current) drug therapy; D72.829 Elevated white blood cell count, unspecified
CPT/HCPCS: 74177; 80053; 81001; 83690; 85025; 96361; 96374; 96375; 99282; Q9967; A4216; J2405

== ENCOUNTER 2025-09-12 19:50 | Emergency (ER) | payer OTHER, SELFPAY ==
[2025-09-12 19:50] VITALS: BP 176/86; PULSE 67; RESP 18; TEMP 36.6; O2SAT 100; BMI 42.5
--- NOTE | 2025-09-12 20:22 | US_ITS ---
PROCEDURE: TESTICULAR WITH ARTERIAL FLOW 09/12/2025 REASON FOR EXAM: R/O TORSION TECHNIQUE: Procedure Code: USTES Modality: US Procedure: TESTICULAR WITH ARTERIAL FLOW FINDINGS: Right testicle measures 4.4 x 2.6 x 2.6 cm and is homogeneous in echotexture with normal arterial and venous flow. Right epididymal head is within normal limits in size with normal vascularity. Small right hydrocele measuring 3.4 x 2.0 x 0.6 cm. No right varicocele. Left testicle measures 4.2 x 3.0 x 2.7 cm and is homogeneous in echotexture with normal arterial and venous flow. Left epididymal head is within normal limits in size with slightly increased vascularity. Small left hydrocele measuring 3.2 x 1.8 x 1.3 cm. Two left-sided varicoceles measuring 0.6 cm and 0.5 cm in maximal diameter, demonstrated with Valsalva. US/Testicular with Arterial Flow IMPRESSION: Small right hydrocele. Small left hydrocele. Left varicocele. Normal arterial and venous Doppler flow to both testes with no evidence of tors ion. Reading Location: [id number]
--- NOTE | 2025-09-12 20:22 | CT_ITS ---
PROCEDURE: ABDOMEN/PELVIS WITHOUT CONT 09/12/2025 REASON FOR EXAM: KIDNEY STONE TECHNIQUE: Procedure Code: [id number] Modality: CT Procedure: ABDOMEN/PELVIS WITHOUT CONT Noncontrast technique limits evaluation of the abdominal and pelvic viscera. Coronal and Sagittal reconstruction series were provided. One or more dose reduction techniques were used (e.g., Automated exposure control, adjustment of the mA and/or kV according to patient size, use of iterative reconstruction technique). RADIATION DOSE SUMMARY: DLP: 1523 mGycm COMPARISON: 05/25/2025 FINDINGS: Limited sections of the lung bases demonstrate no focal pulmonary mass or consolidations. The liver, spleen, pancreas, and both adrenal glands demonstrate no acute findings. The gallbladder is contracted The stomach is unremarkable. The small bowel loops are not dilated. The appendix is not clearly identified, although there are no secondary signs of appendicitis. No colonic obstruction. There is no free air or significant free fluid. Minimal left hydroureter without ureteral stone. Recent passage of stone is not excluded. The right collecting system is unremarkable. No hydronephrosis. Mildly thickened urinary bladder wall which may reflect cystitis vs nondistention; consider correlation with urinalysis. The pelvic structures are intact. There is no solid pelvic mass. No significant lymphadenopathy. The aorta and IVC demonstrate no acute findings. Visualized osseous structures demonstrate no acute abnormality. CT/Abdomen/Pelvis without Cont IMPRESSION: Minimal left hydroureter without obstructive ureteral stone. No hydronephrosis . Recent passage of stone is not excluded. Mildly thickened urinary bladder wall which may reflect cystitis vs nondistenti on; consider correlation with urinalysis. Reading Location: [id number]
--- OUTSIDE RECORDS SUMMARY | 2025-09-12 20:31 | XMS RPT_ITS | CCD ---
Author Organization [facility] Inform ion [facility] Care Team Providers Care Envelope Sealer Operator Name Role Phone Rubina Love Attending Unavailable Rubina Love Admitting Unavailable [facility] Primary Care Unavailable [facility] Consulting Unavailable Manny Bean MD Primary Care Provider Manny Bean MD Primary Care Provider Podlogar TRACER CLERK.Ary LUDWIG Unavailable Tomer TRACER CLERK.Mary LUDWIG Unavailable Dr. Jose Alejandro Bean MD Primary Care Provider Dr. Lloyd Gao DO Emergency Provider Lloyd Gao Attending UnavailJose Alejandro Retana Primary Care Unavailable Jose Alejandro Bean Primary Care Unavailable Provider, Ed Physician Attending Unavailab MANNY Jean Referring Unavailab MANNY Jean Primary Care Unavailab MANNY Jean Primary Care Unavailab MANNY Jean Attending Unavailab MANNY Jean Primary Care Unavailab KARIME Flores Attending Unavailable MANNY BEAN Primary Care Unavailab DONNA Bonner Attending Unavailable MANNY BEAN Referring Unavailab MANNY Jean Primary Care Unavailab MANNY Jean Attending Unavailab MANNY Jean Primary Care Unavailab MANNY Jean Primary Care Unavailab ANN Ridley Attending Unavailable MANNY BEAN Primary Care Unavailab DONNA Bonner A Attending Unavailable MANNY BEAN Primary Care UnavailMANNY Banks Referring UnavailMANNY Banks Primary Care Unavailab le Allergies Allergy Classification Reported Allergen(s) Allergy Type Date of Onset Reaction(s) Facility (16 sources) Sulfonamides (Antibiotic); Translations: [SULFA (SULFONAMIDE ANTIBIOTICS)] Propensity to adverse reactions to drug 0 Rash [facility] (8 sources) Amoxicillin; Translations: [AMOXICILLIN] Drug Allergy 5 [place] (6 sources) Clindamycin; Translations: [CLINDAMYCIN] Drug Allergy 5 [place] (6 sources) Ibuprofen; Translations: [IBUPROFEN] Drug Allergy 5 [facility] Swelling [facility] (1 source) Sulfonamides (Antibiotic) Allergy to substance 5 [facility] (1 source) Sulfonamides (Antibiotic) Drug allergy (disorder) [address] [place] [address] Repository Medications Current Medications Medication Drug Class(es) Dates [...] Comment on above: Take 1 capsule by [facility] once daily as needed for pain. [...] Comment on above: Take 1 capsule by [facility] one time a week. clindamycin 150 [...] (1 source) Tetracycline-class Drug Start: 025 End: 025 take 1 capsule by mouth twice daily doxycycline hyclate (VIBRAMYCIN) 100 mg capsule Indications: Hives Take 1 capsule by mouth two times a day for 7 days. 14 capsule 12/09/2024 12/16/2024 Active [id number] 0.3 ml EPINEPHrine 1 mg/ml auto-injector (6 [...] capsule (17 sources) Proton Pump Inhibitor Start: End: take 1 capsule by mouth once [...] Comment on above: Take 1 capsule by [facility] daily before breakfast. 1/2 hr before meal. predniSONE 20 mg oral tablet (3 sources) Start: End: 5 take 2 tablets by mouth once daily predniSONE (DELTASONE) 20 mg tablet Indications: Rash , Facial swelling Take 2 tablets by mouth once daily for 5 days. 10 tablet 12/08/2024 12/13/2024 Active tiZANidine 4 mg oral tablet (13 sources) Central alpha-2 Adrenergic Agonist Start: End: take 1 tablet by mouth every eight [...] Problem Date Documented Date Episodic/Chronic Abdominal pain (6 sources) Left upper quadrant pain; Translations: [Left upper quadrant pain] Onset: 05-25-2025 05-26-2024 Episodic Complications of surgical procedures or medical care (2 sources) Non dose-related adverse reaction to medication; Translations: [Unspecified adverse effect of drug or medicament, initial encounter] 12-22-2024 Episodic Contraceptive and procreative management (2 sources) Patient encounter status; Translations: [Encounter for other general counseling and advice on procreation] Onset: 06-19-2025 08-07-2023 Episodic Disorders of teeth and jaw (1 source) Infection of tooth; Translations: [Periapical abscess without sinus] 12-08-2024 Episodic Esophageal disorders (20 sources) Gastroesophageal reflux disease without esophagitis; Translations: [Gastro-esophageal reflux disease without esophagitis] Onset: 01-10-2021 01-10-2021 Chronic Nutritional deficiencies (6 sources) Vitamin D deficiency; Translations: [Vitamin D deficiency, unspecified] Onset: 03-05-2025 08-07-2023 Chronic Other ear and sense organ disorders (1 source) Acute otitis externa of left ear; Translations: [Unspecified acute noninfective otitis externa, left ear] 02-07-2025 Episodic Other injuries and conditions due to external causes (3 sources) Allergic reaction; Translations: [Allergy, unspecified, subsequent encounter] 12-09-2024 Episodic Other injuries and conditions due to external causes (1 source) Angioedema; Translations: [Angioneurotic edema, initial encounter] 12-22-2024 Episodic Other nervous system disorders (1 source) Numbness of toe; Translations: [Anesthesia of skin] 03-05-2025 Episodic Other non-traumatic joint disorders (1 [...] [Morbid obesity (HCC)] Onset: 01-10-2021 Chronic Other skin disorders (1 source) Eruption; Translations: [...] Translations: [BLAIR on CPAP] Onset: 01-10-2021 Chronic Past or Other Problems Problem Classification Problem Date Documented Da te Episodic/Chronic Allergic reactions (9 sources) Allergy to penicillin; Translations: [Urticaria] Onset: 12-22-2024 12-09-2024 Episodic E Codes: Adverse effects of medical drugs (2 sources) Allergic reaction caused by penicillin; Translations: [Adverse effect of penicillins, subsequent encounter] Onset: 03-05-2025 03-05-2025 Episodic Other ear and sense organ disorders (1 source) Unspecified acute noninfective otitis externa, left ear; Translations: [Acute otitis externa of left ear, unspecified type] Onset: 02-07-2025 Episodic Other injuries and conditions due to external causes (1 source) Allergy, unspecified, subsequent encounter; Translations: [Allergic reaction, subsequent encounter] Onset: 12-22-2024 Episodic Other nervous system disorders (1 source) Anesthesia of skin; Translations: [Numbness of toes] Onset: 03-05-2025 Episodic Other non-traumatic joint disorders (20 sources) Hip pain; Translations: [Pain in right hip] Onset: 02-26-2020 Resolved: 05-19-2021 07-18-2020 Episodic Other nutritional; endocrine; and metabolic disorders (12 sources) Body mass index 30+ - obesity; Translations: [Obesity, unspecified] Resolved: 01-10-2021 01-10-2021 Chronic Other screening for suspected conditions (not mental disorders or infectious disease) (2 sources) Raised TSH level; Translations: [Other specified abnormal findings of blood chemistry] Onset: 03-08-2025 03-08-2025 Episodic Residual codes; unclassified (1 source) Procedure and treatment not carried out due to patient leaving prior to being seen by health care provider; Translations: [Procedure and treatment not carried out due to patient leaving prior to being seen by health care provider] Onset: 12-18-2024 Episodic Spondylosis; intervertebral disc disorders; other back problems (12 sources) Chronic low back pain; Translations: [Chronic midline low back pain without sciatica] Onset: 02-03-2021 Resolved: 05-19-2021 05-19-2021 Episodic Superficial injury; contusion (2 sources) Abrasion of ear region; Translations: [Abrasion of left ear, initial encounter] Onset: 02-07-2025 02-07-2025 Episodic Results Test Name Value Interpretation Reference Range Facility CHROMOSOME ANALYSIS, CONSTIT UTIONAL, BLOODon 06-19-2025 CHROMOSOME ANALYSIS, CONSTITUTIONAL, BLOOD Normal [facility] Comment on above: Order Comment: Speci men Type: BLOOD SPECIMENOrdering Facility: [facility] Address: [address] [place] [address] Result Comment: Tena mirza Accession Number: [id number] Doctor: Angi Paige Clinical diagnosis: 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 There was no significant numerical chromosome abnormality and no structural change detected within the limits of resolution. Interpretation performed by Brii Salazar, PhD, FACMG Performed by [facility] ([id number]), Division of Laboratory Medicine [place] Department of Pathology & Laboratory Medicine, Diagnostics [place] [id number] [place] [address] Toll free: Performed By: #### C HRBLD ####CLARITY ILLUMINA LIMSCLIA [id number] [address] STATES OF [facility] Abdomen/Pelvis W IV Cont ONL Yon 05-25-2025 Abdomen/Pelvis W IV Cont ONLY [facility] Imaging Services [address] [place], [place] [id number] Abdomen/Pelvis W IV Cont ONLY MR#: [id number] Acct: [id number] Name: DAVY RAO Rep #: [id number] : 1985 M 40 From: Joleen Cat MD PCP: Dr. Jose Alejandro Bean MD Status: [facility] ER Study: Abdomen/Pelvis W IV Cont ONLY Date of Exam: Exam# [id number] Ordering Dr: Lloyd Gao DO PROCEDURE: ABDOMEN/PELVIS W IV CONT ONLY [...] symmetrically. Hypodense 1.3 mm superior left renal lesion, likely a cyst. No hydronephrosis or hydroureter. STOMACH [...] IN THE ABDOMEN OR PELVIS. Reading Location: [facility] CC: Dr. Lloyd Gao DO; Dr. Jose Alejandro Bean MD Health Inspector Food: Signed Normal [facility] Absolute lymphocyte countOrd ered By: Lloyd Gao on 05-25-2025 Lymphocytes Auto (Unsp spec) [#/Vol] 1.79 10*3/uL 0.83-4.51 [facility] Absolute neutrophil countOrd ered By: Lloyd Gao on 05-25-2025 Neutrophils (Bld) [#/Vol] 9.8 10*3/uL High 2.0-7.7 [facility] Anion gap in Serum or Plasma Ordered By: Lloyd Gao on 05-25-2025 Anion gap [Moles/Vol] 13 mmol/L 5-15 [facility] Automated lymphocyte count a s percentage of total leukocytesOrdered By: Lloyd Gao on 05-25-2025 Lymphocytes/100 WBC Auto (Unsp spec) 14.7 % Low 19-41 [facility] BUN/creatinine ratioOrdered By: Lloyd AlexanderHannahKahlil on 05-25-2025 Urea nitrogen/Creatinine [Mass ratio] 11.6 mg/mg 10-20 [facility] Basophil percentageOrdered B y: Lloyd MorelalKahlil on 05-25-2025 Basophils/100 WBC (Bld) 0.3 % 0-1 [facility] Bilirubin Test strip Ql (U)O rdered By: Lloyd AdrielPilo on 05-25-2025 Bilirubin Ql (U) Negative Negative [facility] Bilirubin, totalOrdered By: [facility] CharlotteHannahKahlil on 05-25-2025 Bilirubin [Mass/Vol] 0.48 mg/dL 0.00-1.30 [facility] CBC W/Diff, Automatedon Absolute Lymph 1.79 X10 3/uL Normal 0.83-4.51 [facility] Comment on above: Performed By: #### L 500.4050, L100.0100, L501.2450 #### [facility] [address] [place], [address] Absolute Neut 9.8 X10 3/uL High 2.0-7.7 [facility] Comment on above: Performed By: #### L 500.4050, L100.0100, L501.2450 #### [facility] [address] [place], [address] Basophils/100 WBC (Bld) 0.3 % Normal 0-1 [facility] Comment on above: Performed By: #### L 500.4050, L100.0100, L501.2450 #### [facility] [address] [place], [address] Eosinophils/100 WBC (Bld) 0.1 % Normal 0-5 [facility] Comment on above: Performed By: #### L 500.4050, L100.0100, L501.2450 #### [facility] [address] [place], [address] Erythrocyte distribution width (RBC) [Ratio] 12.9 % Normal 11.6-14.6 [facility] Comment on above: Performed By: #### L 500.4050, L100.0100, L501.2450 #### [facility] [address] [place], [address] Hematocrit (Bld) [Volume fraction] 45.8 % Normal 40-54 [facility] Comment on above: Performed By: #### L 500.4050, L100.0100, L501.2450 #### [facility] [address] [place], [address] Hemoglobin (Bld) [Mass/Vol] 15.4 g/dL Normal 13.0-16.5 [facility] Comment on above: Performed By: #### L 500.4050, L100.0100, L501.2450 #### [facility] [address] [place], [address] IG% 0.300 Normal 0.0-0.9 [facility] Comment on above: Result Comment: IG% - Immature Granulocytes (promyelocytes, myelocytes and metamyelocytes) > 1% indicates that a LEFT SHIFT is Present. Performed By: #### L 500.4050, L100.0100, L501.2450 #### [facility] [address] [place], [address] Lymphocytes/100 WBC (Bld) 14.7 % Low 19-41 [facility] Comment on above: Performed By: #### L 500.4050, L100.0100, L501.2450 #### [facility] [address] [place], [address] MCH (RBC) [Entitic mass] 28.0 pg Normal 27.0-32.0 [facility] Comment on above: Performed By: #### L 500.4050, L100.0100, L501.2450 #### [facility] [address] [place], [address] MCHC (RBC) [Mass/Vol] 33.6 g/dL Normal 32-36 [facility] Comment on above: Performed By: #### L 500.4050, L100.0100, L501.2450 #### [facility] [address] [place], [address] MCV (RBC) [Entitic vol] 83.3 fL Normal 80-94 [facility] Comment on above: Performed By: #### L 500.4050, L100.0100, L501.2450 #### [facility] [address] [place], [address] Monocytes/100 WBC (Bld) 3.9 % Normal 0-10 [facility] Comment on above: Performed By: #### L 500.4050, L100.0100, L501.2450 #### [facility] [address] [place], [address] Neutrophils/100 WBC (Bld) 80.7 % High 47-70 [facility] Comment on above: Performed By: #### L 500.4050, L100.0100, L501.2450 #### [facility] [address] [place], [address] Nucleated RBC (Bld) [#/Vol] 0 10*3/uL Normal 0-5 [facility] Comment on above: Performed By: #### L 500.4050, L100.0100, L501.2450 #### [facility] [address] [place], [address] Platelet mean volume (Bld) [Entitic vol] 9.6 fL Normal 6.2-12.0 [facility] Comment on above: Performed By: #### L 500.4050, L100.0100, L501.2450 #### [facility] [address] [place], [address] Platelets (Bld) [#/Vol] 280 10*3/uL Normal 150-450 [facility] Comment on above: Performed By: #### L 500.4050, L100.0100, L501.2450 #### [facility] [address] [place], [address] RBC (Bld) [#/Vol] 5.50 10*6/uL Normal 4.6-6.2 [facility] Comment on above: Performed By: #### L 500.4050, L100.0100, L501.2450 #### [facility] [address] [place], [address] RDW SD 38.7 fl Normal 35.1-43.9 [facility] Comment on above: Performed By: #### L 500.4050, L100.0100, L501.2450 #### [facility] [address] [place], [address] WBC (Bld) [#/Vol] 12.2 10*3/uL High 4.4-11.0 [facility] Comment on above: Performed By: #### L 500.4050, L100.0100, L501.2450 #### [facility] [address] [place], [address] CNOVon 05-25-2025 CNOV Office Visit ([facility]) DAVY RAO ([id number]) 1985 M Date Time Provider Department 05/25/25 1:45 PM ANN MCKEON During your visit today, we recorded the following information about you: Ann Mckeon APRN.SAND SLINGER 05/25/2025 1:42 PM Signed Called to triage patient. 40 year old male presents with complaints of abdominal pain and groin pain Acute onset Saturday Has progressively worsened. Discussed limitations of express care and concerns for possible intraabdominal and or testicular torsion Have referred to ED for advanced imaging Allergies As of Date: 05/25/2025 Noted Allergy Reaction IBUPROFEN 12/22/2024 4 - Hives 7 - Swelling Comments: Tolerates acetaminophen SULFA (SULFONAMIDE ANTIBIOTICS) 01/04/2020 2 - Rash Date Reviewed: 03/26/2025 Reviewed by: Donna Dale MD - Fully Assessed Primary Visit Diagnosis:Lower abdominal pain [R10.30] Other Visit Diagnosis:Left inguinal pain [R10.32] Prescriptions as of 05/25/2025 - omeprazole (PRILOSEC) 40 mg capsule Take 1 capsule by mouth once daily. 1/2 hr before meal. - EPINEPHrine (EPIPEN 2-PATTIE) 0.3 mg/0.3 mL auto-injector Inject 0.3 mL intramuscularly as needed. - CPAP Initiate Auto PAP @ 9-18 cm of water with humidification. Mask (per patient preference) optional chin strap (if indicated) , filters, tubing, humidifier and lifetime supplies. Problem List As Of Date 05/25/2025 Noted Resolved Obesity (BMI 30-39.9) [E66.9] 01/10/2021 Chronic right hip pain [M25.551, G89.29] 02/26/2020 BLAIR on CPAP [G47.33] Seasonal allergies [J30.2] Morbid obesity (HCC) [E66.01] Gastroesophageal reflux disease without esophag* Chronic midline low back pain without sciatica *02/03/2021 05/19/2021 Chronic pain of both hips [M25.551, M25.552, G8*02/03/2021 05/19/2021 Obesity, Class III, BMI >= 40 [E66.813] 08/07/2023 Vitamin D deficiency [E55.9] Encounter Status:Closed by ANN MCKEON on 8/5/25 Normal [facility] Carbon dioxide, total [Moles /volume] in Central venous bloodOrdered By: Lloyd Gao on 05-25-2025 CO2 [Moles/Vol] 21.3 mmol/L 21.0-32.0 [facility] Chloride assayOrdered By: Vivek Gao on 05-25-2025 Chloride [Moles/Vol] 102 mmol/L 98-108 [facility] Comprehensive Metabolic Prof ilon 05-25-2025 Albumin [Mass/Vol] 4.3 g/dL Normal 3.5-5.0 [facility] Comment on above: Performed By: #### L 500.4050, L100.0100, L501.2450 #### [facility] [address] [place], [address] Albumin/Globulin [Mass ratio] 1.3 {ratio} Normal 0.9-2.4 [facility] Comment on above: Performed By: #### L 500.4050, L100.0100, L501.2450 #### [facility] [address] [place], [address] ALK PHOS 88 U/L Normal 40-129 [facility] Comment on above: Performed By: #### L 500.4050, L100.0100, L501.2450 #### [facility] [address] [place], [address] ALT [Catalytic activity/Vol] 23 U/L Normal <=46 [facility] Comment on above: Performed By: #### L 500.4050, L100.0100, L501.2450 #### [facility] [address] [place], [address] AST [Catalytic activity/Vol] 26 U/L Normal <=37 [facility] Comment on above: Performed By: #### L 500.4050, L100.0100, L501.2450 #### [facility] [address] [place], [address] Bilirubin [Mass/Vol] 0.48 mg/dL Normal 0.00-1.30 [facility] Comment on above: Performed By: #### L 500.4050, L100.0100, L501.2450 #### [facility] [address] [place], [address] BUN/CRE 11.6 RATIO Normal 10-20 [facility] Comment on above: Performed By: #### L 500.4050, L100.0100, L501.2450 #### [facility] [address] [place], [address] Calcium [Mass/Vol] 9.2 mg/dL Normal 7.6-11.0 [facility] Comment on above: Performed By: #### L 500.4050, L100.0100, L501.2450 #### [facility] [address] [place], [address] Chloride [Moles/Vol] 102 mmol/L Normal 98-108 [facility] Comment on above: Performed By: #### L 500.4050, L100.0100, L501.2450 #### [facility] [address] [place], [address] CO2 [Moles/Vol] 21.3 mmol/L Normal 21.0-32.0 [facility] Comment on above: Performed By: #### L 500.4050, L100.0100, L501.2450 #### [facility] [address] [place], [address] Creatinine [Mass/Vol] 0.85 mg/dL Normal 0.70-1.20 [facility] Comment on above: Performed By: #### L 500.4050, L100.0100, L501.2450 #### [facility] [address] [place], [address] ECRCL 158.79 ml/min Normal 50-250 [facility] Comment on above: Performed By: #### L 500.4050, L100.0100, L501.2450 #### [facility] [address] [place], [address] GAP 13 Normal 5-15 [facility] Comment on above: Performed By: #### L 500.4050, L100.0100, L501.2450 #### [facility] [address] [place], [address] GFR/1.73 sq M.predicted among non-blacks MDRD (S/P/Bld) [Vol rate/Area] 112 mL/min/{1.73_m2} Normal >60 [facility] Comment on above: Result Comment: mL/m in/1.73m2 CKD-EPI Creatinine Equation (2020) Performed By: #### L 500.4050, L100.0100, L501.2450 #### [facility] [address] [place], [address] Globulin (S) [Mass/Vol] 3.4 g/dL Normal 2.2-4.2 [facility] Comment on above: Performed By: #### L 500.4050, L100.0100, L501.2450 #### [facility] [address] [place], [address] Glucose [Mass/Vol] 95 mg/dL Normal 70-99 [facility] Comment on above: Performed By: #### L 500.4050, L100.0100, L501.2450 #### [facility] [address] [place], [address] Potassium [Moles/Vol] 3.9 mmol/L Normal 3.3-5.1 [facility] Comment on above: Performed By: #### L 500.4050, L100.0100, L501.2450 #### [facility] [address] [place], [address] Sodium [Moles/Vol] 137 mmol/L Normal 133-145 [facility] Comment on above: Performed By: #### L 500.4050, L100.0100, L501.2450 #### [facility] [address] [place], [address] T PROT 7.6 g/dL Normal 5.9-8.4 [facility] Comment on above: Performed By: #### L 500.4050, L100.0100, L501.2450 #### [facility] [address] [place], [address] Urea nitrogen [Mass/Vol] 10 mg/dL Normal 4-19 [facility] Comment on above: Performed By: #### L 500.4050, L100.0100, L501.2450 #### [facility] [address] [place], [address] Emergency Department Summary on 05-25-2025 Emergency Department Summary [facility] Medical Records Department [address] [place] [address] Emergency Department Summary 05/25/25 MR#: [id number] Acct: [id number] Name: DAVY RAO Rep #: [id number] : 1985 40 From: Lloyd Gao DO PCP: Dr. Jose Alejandro Bean MD Status:REG ER Location: ED HPI History of Present [...] on the chart. Reviewed. Physical exam: Gen: A O x3, NAD Head: Normocephalic, atraumatic Eyes: No [...] intact Psych: Cooperative, appropriate mood and affect [facility] Medical History (Updated 05/25/25 @ 19:[address] Lloyd Gao, ) GERD (gastroesophageal reflux disease) Home Medications ???Medication ???Instructions ???Recorded ???Last Taken ???Type omeprazole 40 mg capsule,delayed 40 mg PO DAILY 05/25/25 Unknown Hi story release Allergy/AdvReac Type Severity Reaction Status Date [...] pain workup with CT abdomen and pelvis. CBC with mild leukocytosis of 12.2. No anemia. CMP [...] 80.7 H Lymph % (Auto) 14.7 L [place] % (Auto) 3.9 Eos % (Auto) 0.1 [...] 0.48 AST 26 ALT 23 Alkaline Phosphatase (more content not included)... Normal [facility] Eosinophil percentageOrdered By: Lloyd Gao on 05-25-2025 Eosinophils/100 WBC (Bld) 0.1 % 0-5 [facility] Erythrocyte distribution wid th ratioOrdered By: Lloyd Gao on 05-25-2025 Erythrocyte distribution width (RBC) [Ratio] 12.9 % 11.6-14.6 [facility] Erythrocyte distribution wid th standard deviationOrdered By: Lloyd Guillory on 05-25-2025 Erythrocyte distribution width (RBC) [Ratio] 38.7 fl 35.1-43.9 [facility] Glomerular filtration rate ( GFR) estimation/1.73 sq m using serum, plasma, or whole bOrdered By: Lloyd Gao on 05-25-2025 GFR/1.73 sq M.predicted among non-blacks MDRD (S/P/Bld) [Vol rate/Area] 112 mL/min/{1.73_m2} >60 [facility] Comment on above: mL/min/1.73m2 CKD-EP I Creatinine Equation (2020) Hematocrit Auto (Bld) [Volum e fraction]Ordered By: Lloyd Gao on 05-25-2025 Hematocrit (Bld) [Volume fraction] 45.8 % 40-54 [facility] Hemoglobin measurementOrdere d By: Lloyd Gao on 05-25-2025 Hemoglobin (Bld) [Mass/Vol] 15.4 g/dL 13.0-16.5 [facility] Immature granulocytes/100 WB C Auto (Bld)Ordered By: Lloyd Gao on 05-25-2025 Immature granulocytes/100 WBC (Bld) 0.300 % 0.0-0.9 [facility] Comment on above: IG% - Immature Granu locytes (promyelocytes, myelocytes and metamyelocytes) > 1% indicates that a LEFT SHIFT is Present. Ketones Test strip Ql (U)Ord ered By: Lloyd Gao on 05-25-2025 Ketones Ql (U) Negative Negative [facility] - Chemistry and C hemistry - challengeOrdered By: Lloyd Gao on 05-25-2025 AST [Catalytic activity/Vol] 26 U/L <38 [facility] Lipaseon 05-25-2025 Lipase [Catalytic activity/Vol] 32 U/L Normal 13-75 [facility] Comment on above: Result Comment: Ezequiel baum note: LIPASE revised reference range effective 23. New Lipase methodology. Expected to produce lower values than the previous assay method. NEW Reference Range: 13 - 75 U/L Performed By: #### L 500.4050, L100.0100, L501.2450 #### [facility] [address] [place], [address] Lipase measurementOrdered By : Lloyd Gao on 05-25-2025 Lipase [Catalytic activity/Vol] 32 U/L 13-75 [facility] Comment on above: Please note:LIPASE r evised reference range effective 23. New Lipase methodology. Expected to produce lower values than the previous assay method. NEW Reference Range: 13 - 75 U/L MCV (mean corpuscular volume ) determinationOrdered By: Lloyd Gao on 05-25-2025 MCV (RBC) [Entitic vol] 83.3 fL 80-94 [facility] Mean corpuscular hemoglobin (MCH) determinationOrdered By: Lloyd Gao on 05-25-2025 MCH (RBC) [Entitic mass] 28.0 pg 27.0-32.0 [facility] Mean corpuscular hemoglobin concentration (MCHC) determinationOrdered By: Lloyd Gao on 05-25-2025 MCHC (RBC) [Mass/Vol] 33.6 g/dL 32-36 [facility] Mean platelet volume determi nationOrdered By: Lloyd Gao on 05-25-2025 Platelet mean volume (Bld) [Entitic vol] 9.6 fL 6.2-12.0 [facility] Monocyte percentageOrdered B y: Lloyd Gao on 05-25-2025 Monocytes/100 WBC (Bld) 3.9 % 0-10 [facility] Neutrophil percentageOrdered By: Lloyd Gao on 05-25-2025 Neutrophils/100 WBC (Bld) 80.7 % High 47-70 [facility] Nitrite Test strip Ql (U)Ord ered By: Lloyd Gao on 05-25-2025 Nitrite Ql (U) Negative Negative [facility] Nucleated red blood cell per centageOrdered By: Lloyd Gao on 05-25-2025 Nucleated RBC/100 WBC (Bld) [Ratio] 0 % 0-5 [facility] Platelet countOrdered By: Vivek Gao on 05-25-2025 Platelets (Bld) [#/Vol] 280 10*3/uL 150-450 [facility] Potassium measurement (mass/ volume)Ordered By: Lloyd Gao on 05-25-2025 Potassium (Unsp spec) [Mass/Vol] 3.9 mmol/L 3.3-5.1 [facility] Protein Test strip Ql (U)Ord ered By: Lloyd Gao on 05-25-2025 Protein Ql (U) Negative Negative [facility] RBC Auto (Bld) [#/Vol]Ordere d By: Lloyd Gao on 05-25-2025 RBC (Bld) [#/Vol] 5.50 10*6/uL 4.6-6.2 [facility] Serum creatinine measurement (mass/volume)Ordered By: Lloyd Gao on 05-25-2025 Creatinine [Mass/Vol] 0.85 mg/dL 0.70-1.20 [facility] Serum globulin measurementOr dered By: Lloyd Gao on 05-25-2025 Globulin (S) [Mass/Vol] 3.4 g/dL 2.2-4.2 [facility] Serum glucose measurement (m ass/volume)Ordered By: Lloyd Gao on 05-25-2025 Glucose [Mass/Vol] 95 mg/dL 70-99 [facility] Serum or plasma alanine rojas otransferase (ALT) measurementOrdered By: Lloyd Gao on 05-25-2025 ALT [Catalytic activity/Vol] 23 U/L <47 [facility] Serum or plasma albumin pantera urement (mass/volume)Ordered By: Lloyd Guillory on 05-25-2025 Albumin [Mass/Vol] 4.3 g/dL 3.5-5.0 [facility] Serum or plasma albumin/glob ulin mass ratioOrdered By: Lloyd Gao on 05-25-2025 Albumin/Globulin [Mass ratio] 1.3 {ratio} 0.9-2.4 [facility] Serum or plasma alkaline parveen sphatase measurementOrdered By: Lloyd Gao on 05-25-2025 ALP [Catalytic activity/Vol] 88 U/L 40-129 [facility] Serum or plasma calcium pantera urement (mass/volume)Ordered By: Lloyd Guillory on 05-25-2025 Calcium [Mass/Vol] 9.2 mg/dL 7.6-11.0 [facility] Serum or plasma urea nitroge n measurement (mass/volume)Ordered By: Lloyd Gao on 05-25-2025 Urea nitrogen [Mass/Vol] 10 mg/dL 4-19 [facility] Sodium levelOrdered By: Tyler Gao on 05-25-2025 Sodium [Moles/Vol] 137 mmol/L 133-145 [facility] Total proteinOrdered By: Juan Gao on 05-25-2025 Protein [Mass/Vol] 7.6 g/dL 5.9-8.4 [facility] Urinalysis, Completeon 05-25 EPI,SQUAMOUS 0-5 SEEN Normal 0-5 [facility] Comment on above: Order Comment: GRETCHEN CTOR TO SPECIFY Performed By: #### L 400.0001 #### [facility] [address] [facility] [place], [place], [id number] (290) RBC 0-5 SEEN Normal 0-5 [facility] Comment on above: Order Comment: GRETCHEN CTOR TO SPECIFY Performed By: #### L 400.0001 #### [facility] [address] [place], [address] WBC 0-5 SEEN Normal 0-5 [facility] Comment on above: Order Comment: GRETCHEN CTOR TO SPECIFY Performed By: #### L 400.0001 #### [facility] [address] [place], [address] BACTERIA 0 SEEN Normal None Seen [facility] Comment on above: Order Comment: GRETCHEN CTOR TO SPECIFY Performed By: #### L 400.0001 #### [facility] [address] [place], [place], [id number] Mucus Ql (Urine sed) 0 SEEN Normal [facility] Comment on above: Order Comment: GRETCHEN CTOR TO SPECIFY Performed By: #### L 400.0001 #### [facility] [address] [place], [place], [id number] Urine clarityOrdered By: Juan Gao on 05-25-2025 Clarity (U) Clear Clear [facility] Urine color determinationOrd ered By: Lloyd Gao on 05-25-2025 Color (U) Yellow Yellow [facility] Urine glucose detectionOrder ed By: Lloyd Gao on 05-25-2025 Glucose Ql (U) Normal mg/dl Normal [facility] Urine leukocyte esterase det ection by dipstickOrdered By: Lloyd Gao on 05-25-2025 Leukocyte esterase Test strip Ql (U) Negative Negative [facility] Urine pHOrdered By: Lloyd Daigle on 05-25-2025 pH (U) 7.0 [pH] 5.0 - 8.0 [facility] Urine specific gravity measu rementOrdered By: Lloyd Gao on 05-25-2025 Specific gravity (U) [Rel density] 1.005 1.002-1.030 [facility] Urine urobilinogen measureme ntOrdered By: Lloyd Gao on 05-25-2025 Urobilinogen Ql (U) Normal mg/dl Normal [facility] White blood cell (WBC) count Ordered By: Lloyd Gao on 05-25-2025 WBC (Bld) [#/Vol] 12.2 10*3/uL High 4.4-11.0 [facility] ALLERGEN SKIN TEST-PENICILLI Non 03-25-2025 ANTIBIOTIC PERCUTANEOUS AND INTRADERMAL SKIN TESTING/ Mean Wheal & [...] = 8 mm F = 30 mm [facility] CNOVon 03-25-2025 CNOV Office Visit (ALLMED) KIRILLDAVY DANG ([id number]) 1985 M Date Time Provider Department 03/25/25 [...] Please contact the allergy nurses directly at [phone] if you and/or your family doctor would [...] Denies subsequ (more content not included)... Normal [facility] INGESTION CHALLENGE TESTon 0 03-25-2025 Graded Oral Antibiotic Challenge 1508: Administered 25 mg of Amoxicillin . Patient asymptomatic after 30 minutes. 1540: Administered 225 of Amoxicillin. Patient asymptomatic after 31 minutes. 1610: Challenge ended. Patient left office asymptomatic. [facility] No Panel Informationon 03-25 [facility] T3 SerPl-mCncon 03-08-2025 T3 [Mass/Vol] 139 ng/dL Normal 79-165 [facility] Comment on above: Order Comment: Speci men Type: BLOOD SPECIMENOrdering Facility: [facility] Address: [address] [place] [id number] Performed By: #### 3 053-6, 3016-3, 7 ####[facility] [id number] [place] [address] [place] T4 Free SerPl-mCncon 025 Free T4 [Mass/Vol] 1.0 ng/dL Normal 0.9-1.7 [facility] Comment on above: Order Comment: Speci men Type: BLOOD SPECIMENOrdering Facility: [facility] Address: [address] [place] [address] Performed By: #### 3 053-6, 3015-3, 7 ####[facility] [id number] [address] [place] THYROID PEROXIDASE ANTIBODYo n 03-08-2025 Interpretation and review of laboratory results Normal [facility] TPO Ab Qn NINF [facility] Comment on above: Thyroid Peroxidase A ntibody test is used as an aid in diagnosis of autoimmune thyroid disease. Clinical correlation is required. [facility] TPO Ab Qn [IU]/mL Normal <5.6 [facility] Comment on above: Order Comment: Speci men Type: BLOOD SPECIMENOrdering Facility: [facility] Address: [address] [place] [address] Result Comment: Thyr oid Peroxidase Antibody test is used as an aid in diagnosis of autoimmune thyroid disease. Clinical correlation is required. Performed By: #### M ICRO ####[facility] LABIA [id number] [place] [address] [place] TSH SerPl-aCncon 03-08-2025 TSH Qn 3.820 m[IU]/L Normal 0.270-4.200 [facility] Comment on above: Order Comment: Speci men Type: BLOOD SPECIMENOrdering Facility: [facility] Address: [address] [place] [address] Performed By: #### 3 053-6, 6-3, 7 ####[facility]CL[facility] [id number] [place] [address] [place] 25([place])D3 [facility] 25-hydroxyvitamin D3 [Mass/Vol] 27.8 ng/mL Low 31.0-80.0 [facility] Comment on above: Order Comment: Speci men Type: BLOOD SPECIMENOrdering Facility: [facility] Address: [address] [place] [address] Result Comment: Clas sification of 25 [place] Vitamin D status: Deficiency/Insufficiency: < or = 30 ng/ml. Sufficiency/Optimal Levels: 31-80 ng/mL Toxicity: > 100 ng/mL. Test performed by chemiluminescent immunoassay. Performed By: #### 1 989-3 ####[facility] [id number] [place] [address] [place] CBC W Auto Differential pane l (Bld)on 03-05-2025 Basophils (Bld) [#/Vol] 0.03 10*3/uL Normal <0.11 [facility] Comment on above: Order Comment: Speci men Type: BLOOD SPECIMENOrdering Facility: [facility] Address: [address] [place] [address] Performed By: #### 5 7021-8 ####[facility] LABIA [id number] [address] [place] Basophils/100 WBC (Bld) 0.4 % Normal [facility] Comment on above: Order Comment: Speci men Type: BLOOD SPECIMENOrdering Facility: [facility] Address: [address] [place] [address] Performed By: #### 5 7021-8 ####[facility] [id number] [address] [place] Differential cell count method Nom (Bld) Auto Normal [facility] Comment on above: Order Comment: Speci men Type: BLOOD SPECIMENOrdering Facility: [facility] Address: [address] [place] [address] Performed By: #### 5 7021-8 ####[facility]CL[facility] [id number] [address], [place] [address] [place] Eosinophils (Bld) [#/Vol] 0.11 10*3/uL Normal <0.46 [facility] Comment on above: Order Comment: Speci men Type: BLOOD SPECIMENOrdering Facility: [facility] Address: [address] [place] [address] Performed By: #### 5 7021-8 ####[facility]CL[facility] [id number] [facility] [address], [place] [address] [place] Eosinophils/100 WBC (Bld) 1.6 % Normal [facility] Comment on above: Order Comment: Speci men Type: BLOOD SPECIMENOrdering Facility: [facility] Address: [address] [place] [address] Performed By: #### 5 7021-8 ####[facility] [id number] [address], [place] [address] [place] Erythrocyte distribution width (RBC) [Ratio] 13.1 % Normal 11.5-15.0 [facility] Comment on above: Order Comment: Speci men Type: BLOOD SPECIMENOrdering Facility: [facility] Address: [address] [place] [address] Performed By: #### 5 7021-8 ####[facility]CL[facility] [id number] [address], [place] [address] [place] Hematocrit (Bld) [Volume fraction] 45.6 % Normal 39.0-51.0 [facility] Comment on above: Order Comment: Speci men Type: BLOOD SPECIMENOrdering Facility: [facility] Address: [address] [place] [address] Performed By: #### 5 7021-8 ####[facility]CL[facility] [id number] [address], [facility] [place] Hemoglobin (Bld) [Mass/Vol] 15.1 g/dL Normal 13.0-17.0 [facility] Comment on above: Order Comment: Speci men Type: BLOOD SPECIMENOrdering Facility: [facility] Address: [address] [place] [address] Performed By: #### 5 7021-8 ####[facility] LABCLIA [id number] [place] [address] [place] Immature granulocytes (Bld) [#/Vol] 10*3/uL Normal <0.10 [facility] Comment on above: Order Comment: Speci men Type: BLOOD SPECIMENOrdering Facility: [facility] Address: [address] [place] [address] Performed By: #### 5 7021-8 ####[facility]CL[facility] [id number] [place] [address] [place] Immature granulocytes/100 WBC (Bld) 0.3 % Normal [facility] Comment on above: Order Comment: Speci men Type: BLOOD SPECIMENOrdering Facility: [facility] Address: [address] [place] [address] Performed By: #### 5 7021-8 ####[facility]CL[facility] [id number] [place] [address] [place] Lymphocytes (Bld) [#/Vol] 2.81 10*3/uL Normal 1.00-4.00 [facility] Comment on above: Order Comment: Speci men Type: BLOOD SPECIMENOrdering Facility: [facility] Address: [address] [place] [address] Performed By: #### 5 7021-8 ####[facility]CL[facility] [id number] [place] [address] [place] Lymphocytes/100 WBC (Bld) 40.1 % Normal [facility] Comment on above: Order Comment: Speci men Type: BLOOD SPECIMENOrdering Facility: [facility] Address: [address] [place] [address] Performed By: #### 5 7021-8 ####[facility] LABIA [id number] [place] [address] [place] MCH (RBC) [Entitic mass] 28.3 pg Normal 26.0-34.0 [facility] Comment on above: Order Comment: Speci men Type: BLOOD SPECIMENOrdering Facility: [facility] Address: [address] [place] [address] Performed By: #### 5 7021-8 ####[facility] LABIA [id number] [place] [address] [place] MCHC (RBC) [Mass/Vol] 33.1 g/dL Normal 30.5-36.0 [facility] Comment on above: Order Comment: Speci men Type: BLOOD SPECIMENOrdering Facility: [facility] Address: [address] [place] [address] Performed By: #### 5 7021-8 ####[facility] [id number] [place] [address] [place] MCV (RBC) [Entitic vol] 85.4 fL Normal 80.0-100.0 [facility] Comment on above: Order Comment: Speci men Type: BLOOD SPECIMENOrdering Facility: [facility] Address: [address] [place] [address] Performed By: #### 5 7021-8 ####[facility] [id number] [place] [address] [place] Monocytes (Bld) [#/Vol] 0.60 10*3/uL Normal <0.87 [facility] Comment on above: Order Comment: Speci men Type: BLOOD SPECIMENOrdering Facility: [facility] Address: [address] [place] [address] Performed By: #### 5 7021-8 ####[facility] [id number] [place] [address] [place] [address] [place] Monocytes/100 WBC (Bld) 8.6 % Normal [facility] Comment on above: Order Comment: Speci men Type: BLOOD SPECIMENOrdering Facility: [facility] Address: [address] [place] [address] Performed By: #### 5 7021-8 ####[facility]CL[facility] [id number] [place] [address] [place] Neutrophils (Bld) [#/Vol] 3.44 10*3/uL Normal 1.45-7.50 [facility] Comment on above: Order Comment: Speci men Type: BLOOD SPECIMENOrdering Facility: [facility] Address: [address] [place] [address] Performed By: #### 5 7021-8 ####[facility]CL[facility] [id number] [place] [address] [place] Neutrophils/100 WBC (Bld) 49.0 % Normal [facility] Comment on above: Order Comment: Speci men Type: BLOOD SPECIMENOrdering Facility: [facility] Address: [address] [place] [address] Performed By: #### 5 7021-8 ####[facility]CL[facility] [id number] [place] [address] [place] Nucleated RBC (Bld) [#/Vol] 10*3/uL Normal <0.01 [facility] Comment on above: Order Comment: Speci men Type: BLOOD SPECIMENOrdering Facility: [facility] Address: [address] [place] [address] Performed By: #### 5 7021-8 ####[facility]CL[facility] [id number] [place] [address] [place] Nucleated RBC/100 WBC (Bld) [Ratio] 0.0 /100 WBC Normal [facility] Comment on above: Order Comment: Speci men Type: BLOOD SPECIMENOrdering Facility: [facility] Address: [address] [place], [place] [address] Performed By: #### 5 7021-8 ####[facility] LABCL[facility] [id number] [place] [address] [place] Platelet mean volume (Bld) [Entitic vol] 9.5 fL Normal 9.0-12.7 [facility] Comment on above: Order Comment: Speci men Type: BLOOD SPECIMENOrdering Facility: [facility] Address: [address] [place] [address] Performed By: #### 5 7021-8 ####[facility]CL[facility] [id number] [place] [address] [place] Platelets (Bld) [#/Vol] 256 10*3/uL Normal 150-400 [facility] Comment on above: Order Comment: Speci men Type: BLOOD SPECIMENOrdering Facility: [facility] Address: [address] [place] [address] Performed By: #### 5 7021-8 ####[facility]CL[facility] [id number] [place] [address] [place] RBC (Bld) [#/Vol] 5.34 10*6/uL Normal 4.20-6.00 [facility] Comment on above: Order Comment: Speci men Type: BLOOD SPECIMENOrdering Facility: [facility] Address: [address] [place] [address] Performed By: #### 5 7021-8 ####[facility]CL[facility] [id number] [place] [address] [place] WBC (Bld) [#/Vol] 7.01 10*3/uL Normal 3.70-11.00 [facility] Comment on above: Order Comment: Speci men Type: BLOOD SPECIMENOrdering Facility: [facility] Address: [address] [place] [address] Performed By: #### 5 7021-8 ####[facility]CL[facility] [id number] [place] [address] [place] CNOVon 03-05-2025 CNOV Office Visit (FAMPWS) DAVY RAO ([id number]) 1985 M Date Time Provider Department 03/05/25 7:00 AM MANNY BEAN During your visit today, we recorded the following information about you: Pulse Respiration Blood pressure Weight 67/minute 16/minute 118/76 134.2 kg Manny Bean MD 03/05/2025 8:25 AM Signed Chief Complaint Patient presents with: Physical Recording using [employer] software for draft documentation of the visit was discussed with the patient/authorized retail wireless sales representative; all questions welcomed and answered. Patient/authorized retail wireless sales representative agreed to proceed HPI Davy Rao is [...] tubing, humidifier and lifetime supplies. No current facility-administere d medications on file prior to visit. Social [...] disturbance, mood disorder and recent psychosocial stressors HEMATOLOGY/LYMPHOLOG Y: Negative for prolonged bleedi (more content not included)... Normal [facility] Comprehensive metabolic 2000 panelon 03-05-2025 Albumin [Mass/Vol] 4.4 g/dL Normal 3.9-4.9 [facility] Comment on above: Order Comment: Speci men Type: BLOOD SPECIMENOrdering Facility: [facility] Address: [address] [place] [address] Performed By: #### 3 016-3, 99401-2, ####[facility]CL[facility] [id number] [place] [address] [place] ALP [Catalytic activity/Vol] 81 U/L Normal 38-113 [facility] Comment on above: Order Comment: Speci men Type: BLOOD SPECIMENOrdering Facility: [facility] Address: [address] [place] [address] Performed By: #### 3 016-3, 65743-7, ####[facility]CL[facility] [id number] [place] [address] [place] ALT [Catalytic activity/Vol] 31 U/L Normal 10-54 [facility] Comment on above: Order Comment: Speci men Type: BLOOD SPECIMENOrdering Facility: [facility] Address: [address] [place] [address] Performed By: #### 3 016-3, 80370-6, ####[facility]CL[facility] [id number] [place] [address] [place] Anion gap [Moles/Vol] 8 mmol/L Normal 8-15 [facility] Comment on above: Order Comment: Speci men Type: BLOOD SPECIMENOrdering Facility: [facility] Address: [address] [place] [address] Performed By: #### 3 016-3, 76725-1, ####[facility]CL[facility] [id number] [address] [address] [place] AST [Catalytic activity/Vol] 23 U/L Normal 14-40 [facility] Comment on above: Order Comment: Speci men Type: BLOOD SPECIMENOrdering Facility: [facility] Address: [address] [place] [address] Performed By: #### 3 016-3, 92299-7, ####[facility]CL[facility] [id number] [place] [address] [place] Bilirubin [Mass/Vol] 0.5 mg/dL Normal 0.2-1.3 [facility] Comment on above: Order Comment: Speci men Type: BLOOD SPECIMENOrdering Facility: [facility] Address: [address] [place] [address] Performed By: #### 3 016-3, 04632-7, ####[facility]CL[facility] [id number] [address] [address] [place] Calcium [Mass/Vol] 9.3 mg/dL Normal 8.5-10.2 [facility] Comment on above: Order Comment: Speci men Type: BLOOD SPECIMENOrdering Facility: [facility] Address: [address] [place], [place] [address] Performed By: #### 3 016-3, 97371-3, ####[facility]CL[facility] [id number] [address] [address] [place] Chloride [Moles/Vol] 106 mmol/L Normal 98-107 [facility] Comment on above: Order Comment: Speci men Type: BLOOD SPECIMENOrdering Facility: [facility] Address: [address] [place] [address] Performed By: #### 3 016-3, 43790-4, ####[facility] [id number] [place] [address] [place] CO2 [Moles/Vol] 26 mmol/L Normal 22-30 [facility] Comment on above: Order Comment: Speci men Type: BLOOD SPECIMENOrdering Facility: [facility] Address: [address] [place] [address] Performed By: #### 3 016-3, 79192-6, ####[facility] [id number] [place] [address] [place] Creatinine [Mass/Vol] 0.96 mg/dL Normal 0.73-1.22 [facility] Comment on above: Order Comment: Speci men Type: BLOOD SPECIMENOrdering Facility: [facility] Address: [address] [place] [address] Performed By: #### 3 016-3, 37026-7, ####[facility] [id number] [address] [place] Creatinine and Glomerular filtration rate.predicted panel (S/P/Bld) 102 mL/min/1.73m??? Normal >=60 [facility] Comment on above: Order Comment: Speci men Type: BLOOD SPECIMENOrdering Facility: [facility] Address: [address] [place] [address] Result Comment: Michelle mated Glomerular Filtration Rate [...] actual GFR. Performed By: #### 3 016-3, 75096-5, ####[facility] [id number] [address] [address] [place] Glucose [Mass/Vol] 97 mg/dL Normal 74-99 [facility] Comment on above: Order Comment: Speci men Type: BLOOD SPECIMENOrdering Facility: [facility] Address: [address] [place] [address] Result Comment: The [place] [employer] (ADA) provides guidance for cutoff [...] Standards of Medical Care in Diabetes 2016, [place] [employer]. Diabetes Care. 2016.39(Suppl 1). Performed By: #### 3 016-3, 95915-5, ####[facility] LABIA [id number] [place] [id number] [place] Potassium [Moles/Vol] 4.4 mmol/L Normal 3.7-5.1 [facility] Comment on above: Order Comment: Speci men Type: BLOOD SPECIMENOrdering Facility: [facility] Address: [address] [place] [address] Performed By: #### 3 016-3, 81024-7, ####[facility] LABIA [id number] [address] [address] [place] Protein [Mass/Vol] 7.5 g/dL Normal 6.3-8.0 [facility] Comment on above: Order Comment: Speci men Type: BLOOD SPECIMENOrdering Facility: [facility] Address: [address] [place] [address] Performed By: #### 3 016-3, 52556-1, 32339-4 ####[facility] LABCLIA [id number] [address] [address] [place] Sodium [Moles/Vol] 140 mmol/L Normal 136-144 [facility] Comment on above: Order Comment: Speci men Type: BLOOD SPECIMENOrdering Facility: [facility] Address: [address] [place] [address] Performed By: #### 3 016-3, 52819-5, 21900-0 ####[facility] [id number] [address] [address] [place] Urea nitrogen [Mass/Vol] 8 mg/dL Low 9-24 [facility] Comment on above: Order Comment: Speci men Type: BLOOD SPECIMENOrdering Facility: [facility] Address: [address] [place] [address] Performed By: #### 3 016-3, 05067-6, ####[facility] [id number] [address] [address] [place] HbA1c (Bld)on 03-05-2025 Average glucose Estimated from glycated hemoglobin (Bld) [Mass/Vol] 100 mg/dL Normal [facility] Comment on above: Order Comment: Speci men Type: BLOOD SPECIMENOrdering Facility: [facility] Address: [address] [place] [address] Result Comment: eAG: (Estimated average glucose) is a calculated value from HgbA1c and is retail wireless sales representative of the average blood glucose level in the last 2-3 month period. Performed By: #### 5 5454-3 ####[facility] [id number] [place] [address] [place] HbA1c (Bld) [Mass fraction] 5.1 % Normal 4.3-5.6 [facility] Comment on above: Order Comment: Speci men Type: BLOOD SPECIMENOrdering Facility: [facility] Address: [address] [place] [address] Result Comment: Amer ican Diabetes Association guidelines indicate that patients with HgbA1c in the range 5.7-6.4% are at increased risk for development of diabetes, and intervention by lifestyle modification may be beneficial. HgbA1c greater or equal to 6.5% is considered diagnostic of diabetes. Performed By: #### 5 5454-3 ####[facility] LABCLIA [id number] [facility] [place] [address] [place] Lipid 1996 panelon 5 Cholesterol [Mass/Vol] 183 mg/dL Normal <200 [facility] Comment on above: Order Comment: Speci men Type: BLOOD SPECIMENOrdering Facility: [facility] Address: [address] [place] [address] Result Comment: <200 mg/dL, Desirable 200-239 mg/dL, Borderline high >239 mg/dL, High Performed By: #### 3 016-3, 13551-9, 17685-9 ####[facility] LABCLIA [id number] [facility] [address], [facility] [place] Cholesterol in HDL [Mass/Vol] 31 mg/dL Low >39 [facility] Comment on above: Order Comment: Speci men Type: BLOOD SPECIMENOrdering Facility: [facility] Address: [address] [place] [address] Result Comment: 40-5 9 mg/dL, Acceptable >59 mg/dL, High: Negative risk factor for coronary heart disease <40 mg/dL, Low: Positive risk factor for coronary heart disease Performed By: #### 3 016-3, 15834-8, 51407-4 ####[facility] LABCLIA [id number] [place] [address] [place] Cholesterol in LDL [Mass/Vol] 135 mg/dL High <100 [facility] Comment on above: Order Comment: Speci men Type: BLOOD SPECIMENOrdering Facility: [facility] Address: [address] [place] [address] Result Comment: <100 mg/dL, Optimal 100-129 mg/dL, Near optimal/above optimal 130-159 mg/dL, Borderline high 160-189 mg/dL, High >189 mg/dL, Very high Secondary prevention optimal LDL Cholesterol levels are recommended to be <70 mg/dL LDL cholesterol is calculated using the Coello-NIH equation. Performed By: #### 3 016-3, 64097-0, 64828-3 ####[facility] LABCLIA [id number] [place] [address] [place] Cholesterol in LDL/Cholesterol in HDL [Mass ratio] 4.35 {ratio} High <2.54 [facility] Comment on above: Order Comment: Speci men Type: BLOOD SPECIMENOrdering Facility: [facility] Address: [address] [place] [address] Result Comment: Refe rence: 1. National Cholesterol Education Program ATP III Guideline At-A-Glance Quick Desk Reference: National Heart, Lung, and Blood [place]. National Institutes of Health. 2001: NIH Publication No. 01-3305. 2. An International Atherosclerosis Society position paper: global recommendations for the management of dyslipidemia: executive summary, Atherosclerosis. 2014: 232(2):410-413. Performed By: #### 3 016-3, 25179-7, ####[facility]IA [id number] [address] [place] Cholesterol in VLDL [Mass/Vol] 16 mg/dL Normal <30 [facility] Comment on above: Order Comment: Speci men Type: BLOOD SPECIMENOrdering Facility: [facility] Address: [address] [place] [address] Performed By: #### 3 016-3, 95746-2, 69554-8 ####[facility]IA [id number] [address] [address] [place] Cholesterol non HDL [Mass/Vol] 152 mg/dL High <130 [facility] Comment on above: Order Comment: Speci men Type: BLOOD SPECIMENOrdering Facility: [facility] Address: [address] [id number] Result Comment: <130 mg/dL, Optimal 130-159 mg/dL, Near optimal/above optimal 160-189 mg/dL, Borderline high 190-219 mg/dL, High >219 mg/dL, Very high Secondary prevention optimal non HDL Cholesterol levels are recommended to be <100 mg/dL Performed By: #### 3 016-3, 52054-3, 39556-4 ####[facility] LABCLIA [id number] [facility] [place] [address] [place] Cholesterol.total/Choles terol in HDL [Mass ratio] 5.90 {ratio} High <5.10 [facility] Comment on above: Order Comment: Speci men Type: BLOOD SPECIMENOrdering Facility: [facility] Address: [address] [place] [address] Performed By: #### 3 016-3, 67249-4, ####[facility] LABCLIA [id number] [address] OF [place] FASTING TIME 12 hrs Normal [facility] Comment on above: Order Comment: Speci men Type: BLOOD SPECIMENOrdering Facility: [facility] Address: [address] [place] [address] Performed By: #### 3 016-3, 79728-0, ####[facility] LABCLIA [id number] [facility] [address], [place] [address] [place] Triglyceride [Mass/Vol] 89 mg/dL Normal <150 [facility] Comment on above: Order Comment: Speci men Type: BLOOD SPECIMENOrdering Facility: [facility] Address: [address] [place] [address] Result Comment: <150 mg/dL, Normal 150-199 mg/dL, Borderline high 200-499 mg/dL, High >499 mg/dL, Very high Performed By: #### 3 016-3, 92305-0, ####[facility] LABCLIA [id number] [facility] [address] [place] TSH SerPl-aCncon 03-05-2025 TSH Qn 4.390 m[IU]/L High 0.270-4.200 [facility] Comment on above: Order Comment: Speci men Type: BLOOD SPECIMENOrdering Facility: [facility] Address: [address] [place] [address] [place] [address] Performed By: #### 3 016-3, 32783-4, 32397-0 ####[facility] LABCLIA [id number] JOSHUARuth Ann CHARLES [address] OF [facility] CNOVon 02-07-2025 CNOV Office Visit (UCWSTR) MAIRADAVY ([id number]) 1985 M Date Time Provider Department 02/07/25 10:00 AM KARIME JOSUE [facility] During your visit today, we recorded the following information about you: Temperature Pulse Respiration Blood pressure 97.3 degrees 69/minute 16/minute 110/76 Weight 135.7 kg Karime Josue APRN.SAND SLINGER 02/07/2025 10:26 AM Signed [facility] [...] OFLOXACIN 0.3 % EAR DROPS Karime Josue APRN.SAND SLINGER History and Record Review External record(s) reviewed: [...] mg/0.3 m (more content not included)... Normal [facility] CNOVon 12-22-2024 CNOV Office Visit (ALLMED) DAVY RAO ([id number]) 1985 M Date Time Provider Department 12/22/24 1:15 PM DONNA DALE [facility] During your visit today, we recorded the [...] which included preparing to see the patient, [id number] patient care, completing clinical documentation, obtaining and/or reviewing separately obtained history, performing a medically appropriate examination, and counseling and educating the patient/family/careg iver. This is a consultation requested by Manny [...] mouth ev (more content not included)... Normal [facility] CNOVon 12-09-2024 CNOV Office Visit (FAMPWS) DAVY RAO ([id number]) 1985 M Date Time Provider Department 12/09/24 7:20 AM [facility] During [facility] visit today, we recorded the [...] month ago. Did eat new type of greenlandic vanilla/honeycomb ice cream which he ate on [...] tubing, humidifier and lifetime supplies. No current facility-administere d medications on file prior to visit. Social [...] Vaccine(1 of (more content not included)... Normal [facility] CNOVon 12-08-2024 CNOV Office Visit (UCTR) GIFTY RAOPI ([id number]) 1985 M Date Time Provider Department 12/08/24 5:00 PM KARIME JOSUE [facility] During your visit today, we recorded [...] - PREDNISONE 20 MG TABLET Karime Josue APRN.SAND SLINGER Allergies As of Date: 12/08/2024 Noted Allergy [...] clindamycin (CLEOCIN) (more content not included)... Normal [facility] XR Abdomen Supine and Uprigh ton 05-27-2024 IMPRESSION: Nonobstructive bowel gas pattern. Health Inspector Food: CAITLYN Transcribe Date/Time: May 27 2024 2:31P Dictated by : ASIF SORIANO MD This examination was interpreted and the report reviewed and electronically signed by: ASIF SORIANO MD on May 27 2024 2:33PM [facility] DIVISION OF RADIOLOGY * * *Final Report* [...] in the hips. DIVISION OF RADIOLOGY Provider, [facility] [place] - 05/27/2024 * * *Final Report* * [...] hips. IMPRESSION IMPRESSION: Nonobstructive bowel gas pattern. Health Inspector Food: PSCB Transcribe Date/Time: May 27 2024 2:31P Dictated by : ASIF SORIANO MD This examination was interpreted and the report reviewed and electronically signed by: ASIF SORIANO MD on May 27 2024 2:33PM EST [facility] XR Abdomen Supine and Uprigh tOrdered By: Ccf Provider on 05-27-2024 [facility] CBC W Auto Differential pane l (Bld)on 05-26-2024 Basophils (Bld) [#/Vol] NINF C [facility] Basophils/100 WBC (Bld) 0.3 % C [facility] Differential cell count method Nom (Bld) Auto [facility] Eosinophils (Bld) [#/Vol] 0.10 10*3/uL [facility] Eosinophils/100 WBC (Bld) 1.3 % [facility] Erythrocyte distribution width (RBC) [Ratio] 13.2 % 11.5 - 15.0 % [facility] Hematocrit (Bld) [Volume fraction] 46.9 % 39.0 - 51.0 % [facility] Hemoglobin (Bld) [Mass/Vol] 15.6 g/dL 13.0 - 17.0 g/dL [facility] Immature granulocytes (Bld) [#/Vol] 0.03 10*3/uL [facility] Immature granulocytes/100 WBC (Bld) 0.4 % [facility] Lymphocytes (Bld) [#/Vol] 2.79 10*3/uL [facility] Lymphocytes/100 WBC (Bld) 36.1 % [facility] MCH (RBC) [Entitic mass] 28.3 pg 26. 0 - 34.0 pg [facility] MCHC (RBC) [Mass/Vol] 33.3 g/dL 30.5 - 36.0 g/dL [facility] MCV (RBC) [Entitic vol] 85.1 fL 80.0 - 100.0 fL [facility] Monocytes (Bld) [#/Vol] 0.60 10*3/uL [facility] Monocytes/100 WBC (Bld) 7.8 % [facility] Neutrophils (Bld) [#/Vol] 4.18 10*3/uL [facility] Neutrophils/100 WBC (Bld) 54.1 % [facility] Nucleated RBC (Bld) [#/Vol] [facility] Nucleated RBC/100 WBC (Bld) [Ratio] 0.0 % /100 WBC [facility] Platelet mean volume (Bld) [Entitic vol] 9.6 fL 9.0 - 12.7 fL [facility] Platelets (Bld) [#/Vol] 266 10*3/uL [facility] RBC (Bld) [#/Vol] 5.51 10*6/uL 4.20 - 6.0 0 m/uL [facility] WBC (Bld) [#/Vol] 7.72 10*3/uL [facility] XR Abdomen Supine and Uprigh ton 08-06-2024 Radiology Study observation (narrative) [facility] CBC W Auto Differential pane l (Bld)on 02-07-2023 Basophils (Bld) [#/Vol] 0.03 10*3/uL <0.11 k/uL [facility] Basophils/100 WBC (Bld) 0.5 % [facility] Differential cell count method Nom (Bld) Auto [facility] Eosinophils (Bld) [#/Vol] 0.11 10*3/uL <0.46 k/uL [facility] Eosinophils/100 WBC (Bld) 1.8 % [facility] Erythrocyte distribution width (RBC) [Ratio] 13.0 % 11.5 - 15.0 % [facility] Hematocrit (Bld) [Volume fraction] 42.6 % 39.0 - 51.0 % [facility] Hemoglobin (Bld) [Mass/Vol] 14.5 g/dL 13.0 - 17.0 g/dL [facility] Immature granulocytes (Bld) [#/Vol] <0.10 k/uL [facility] Immature granulocytes/100 WBC (Bld) 0.2 % [facility] Lymphocytes (Bld) [#/Vol] 2.29 10*3/uL 1.00 - 4.00 k/uL [facility] Lymphocytes/100 WBC (Bld) 38.0 % [facility] MCH (RBC) [Entitic mass] 28.9 pg 26. 0 - 34.0 pg [facility] MCHC (RBC) [Mass/Vol] 34.0 g/dL 30.5 - 36.0 g/dL [facility] MCV (RBC) [Entitic vol] 85.0 fL 80.0 - 100.0 fL [facility] Monocytes (Bld) [#/Vol] 0.65 10*3/uL <0.87 k/uL [facility] Monocytes/100 WBC (Bld) 10.8 % [facility] Neutrophils (Bld) [#/Vol] 2.93 10*3/uL 1.45 - 7.50 k/uL [facility] Neutrophils/100 WBC (Bld) 48.7 % [facility] Nucleated RBC (Bld) [#/Vol] <0.01 k/uL [facility] Nucleated RBC/100 WBC (Bld) [Ratio] 0.0 /100 WBC [facility] Platelet mean volume (Bld) [Entitic vol] 8.7 fL Low 9.0 - 12.7 fL [facility] Platelets (Bld) [#/Vol] 227 10*3/uL 150 - 400 k/uL [facility] RBC (Bld) [#/Vol] 5.01 10*6/uL 4.20 - 6.0 0 m/uL [facility] WBC (Bld) [#/Vol] 6.02 10*3/uL 3.70 - 11. 00 k/uL [facility] Comprehensive metabolic 2000 panelon 02-07-2023 Albumin [Mass/Vol] 4.1 g/dL 3.9 - 4.9 g/dL [facility] ALP [Catalytic activity/Vol] 80 U/L 38 - 113 U/L [facility] ALT [Catalytic activity/Vol] 30 U/L 10 - 54 U/L [facility] Anion gap [Moles/Vol] 8 mmol/L Low 9 - 18 mmol/L [facility] AST [Catalytic activity/Vol] 20 U/L 14 - 40 U/L [facility] Bilirubin [Mass/Vol] 0.3 mg/dL 0.2 - 1 .3 mg/dL [facility] Calcium [Mass/Vol] 8.9 mg/dL 8.5 - 10. 2 mg/dL [facility] Chloride [Moles/Vol] 103 mmol/L 97 - 10 5 mmol/L [facility] CO2 [Moles/Vol] 27 mmol/L 22 - 30 mmol/L [facility] Creatinine [Mass/Vol] 1.00 mg/dL 0.73 - 1.22 mg/dL [facility] Estimated Glomerular Filtration Rate 99 mL/min/1.73m >=60 mL/min/1.73m [facility] Glucose [Mass/Vol] 113 mg/dL High 74 - 99 mg/dL [facility] Potassium [Moles/Vol] 4.1 mmol/L 3.7 - 5.1 mmol/L [facility] Protein [Mass/Vol] 7.1 g/dL 6.3 - 8.0 g/dL [facility] Sodium [Moles/Vol] 138 mmol/L 136 - 144 mmol/L [facility] Urea nitrogen [Mass/Vol] 8 mg/dL Low 9 - 24 mg/d L [facility] LIPID PANEL, NONFASTINGon Cholesterol [Mass/Vol] 185 mg/dL <200 mg/dL [facility] HDL Cholesterol, Nonfasting 29 mg/dL Low >39 mg/dL [facility] LDL Cholesterol, Nonfasting 134 mg/dL High <100 mg/dL [facility] LDL/HDL Ratio, Nonfasting 4.62 mg/dL High <2.54 mg/dL [facility] Non HDL Cholesterol, Nonfasting 156 mg/dL High <130 mg/dL [facility] Total Chol/HDL Ratio, Nonfasting 6.38 mg/dL High <5.10 mg/dL [facility] Triglycerides, Nonfasting 108 mg/dL <150 mg/dL [facility] VLDL Cholesterol, Nonfasting 22 mg/dL <30 mg/dL [facility] TSH BLDon 02-07-2023 TSH Qn 3.710 m[IU]/L 0.270 - 4.200 mIU/L [facility] VITAMIN D 25 HYDROXYon 02-07 25-hydroxyvitamin D3 [Mass/Vol] 18.5 ng/mL Low 31.0 - 80.0 ng/mL [facility] XR Knee - right 4 Viewson IMPRESSION: Negative 4 views of the right knee. Health Inspector Food: [employer] Transcribe Date/Time: Aug 08 2022 5:02P Dictated by : ASIF SORIANO MD This examination was interpreted and the report reviewed and electronically signed by: ASIF SORIANO MD on Aug 08 2022 5:03PM [facility] DIVISION OF RADIOLOGY * * *Final Report* [...] soft tissue swelling. DIVISION OF RADIOLOGY Provider, [facility] [place] - 08/08/2022 * * *Final Report* * [...] Negative 4 views of the right knee. Health Inspector Food: CAITLYN Transcribe Date/Time: Aug 08 2022 5:02P Dictated by : ASIF SORIANO MD This examination was interpreted and the report reviewed and electronically signed by: ASIF SORIANO MD on Aug 08 2022 5:03PM EST [facility] Radiology Study observation (narrative) [facility] XR Knee - right 4 ViewsOrder ed By: Ccf Provider on 08-08-2022 [facility] BASIC SEMEN ANALYSISon 12-21 Collection time (Aster) [Date/time] 1145 Normal [facility] Comment on above: Order Comment: Speci men Type: SEMINAL FLUID SPECIMEN [facility] Address: [address] [id number] Result Comment: 1145 Performed By: #### B ASA #### [facility] CLIA [id number] [address] [place] [address] Color (Aster) Mcqueen Opalescent Normal [facility] Comment on above: Order Comment: Speci men Type: SEMINAL FLUID SPECIMEN [facility] Address: [address] [id number] Performed By: #### B ASA #### [facility] CLIA [id number] [address] [place] [address] DATE OF ANALYSIS 12/21/21 Normal [facility] Comment on above: Order Comment: Speci men Type: SEMINAL FLUID SPECIMEN [facility] Address: [address] [place] [address] Performed By: #### B ASA #### [facility] CLIA [id number] [address] [place] [address] FORWARD PROGRESSION 2 = Poor to moderate, erratic Normal [facility] Comment on above: Order Comment: Speci men Type: SEMINAL FLUID SPECIMEN [facility] Address: [address] [place] [address] Performed By: #### B ASA #### [facility] CLIA [id number] [address] [place] [id number] PARTNER INFORMATION partner=Kiran Melissai Normal [facility] Comment on above: Order Comment: Speci men Type: SEMINAL FLUID SPECIMEN [facility] Address: [address] [place] [address] Performed By: #### B ASA #### [facility] CLIA [id number] [address] [place] [address] pH (Aster) 6.8 Low >=7.2 [facility] Comment on above: Order Comment: Speci men Type: SEMINAL FLUID SPECIMEN [facility] Address: [address] [place] [address] Performed By: #### B ASA #### [facility] CLIA [id number] [address] [place] [address] Round cells (Aster) [#/Vol] 0.50 M/mL Normal <1.00 [facility] Comment on above: Order Comment: Speci men Type: SEMINAL FLUID SPECIMEN [facility] Address: [address] [place] [address] Performed By: #### B ASA #### [facility] CLIA [id number] [address] [place] [address] SEMEN COMMENT 2 Routine semen analysis Normal [facility] Comment on above: Order Comment: Speci men Type: SEMINAL FLUID SPECIMEN [facility] Address: [address] [place] [address] Performed By: #### B ASA #### [facility] CLIA [id number] [address] [place] [address] Sexual abstinence duration [Time] 2.5 Days Normal [facility] Comment on above: Order Comment: Speci men Type: SEMINAL FLUID SPECIMEN [facility] Address: [address] [place] [address] Performed By: #### B ASA #### [facility] CLIA [id number] [address] [place] [address] Specimen volume (Aster) 2.5 mL Normal >=1.5 [facility] Comment on above: Order Comment: Speci men Type: SEMINAL FLUID SPECIMEN [facility] Facility[facility] Address: [address] [place] [address] Performed By: #### B ASA #### [facility] CLIA [id number] [address] [place] [address] Spermatozoa (Aster) [#/Vol] 78.00 M/mL Normal >=15.00 [facility] Comment on above: Order Comment: Speci men Type: SEMINAL FLUID SPECIMEN [facility] Facility[facility] Address: [address] [place] [address] Result Comment: 195. 00 Performed By: #### B ASA #### [facility] CLIA [id number] [address] [place] [address] Spermatozoa Motile/100 spermatozoa (Aster) 44 % Normal >=40 [facility] Comment on above: Order Comment: Speci men Type: SEMINAL FLUID SPECIMEN [facility] Facility: [facility] Address: [address] [place] [address] Performed By: #### B ASA #### [facility] CLIA [id number] [address] [place] [address] Spermatozoa Normal/100 spermatozoa (Aster) 2 % Low >=4 [facility] Comment on above: Order Comment: Speci men Type: SEMINAL FLUID SPECIMEN Ordering Facility: [facility] Address: [address] [address] Performed By: #### B ASA #### [facility] CLIA [id number] [address] [place] [address] TIME TO ANALYSIS 20 Minutes Normal 0-60 [facility] Comment on above: Order Comment: Speci men Type: SEMINAL FLUID SPECIMEN Ordering Facility: [facility] Address: [address] [address] Performed By: #### B ASA #### [facility] CLIA [id number] [address] [place] [address] TOTAL MOTILE SPERM 85.80 M Normal [facility] Comment on above: Order Comment: Speci men Type: SEMINAL FLUID SPECIMEN Ordering Facility: [facility] Address: [address] [place] [address] Performed By: #### B ASA #### [facility] CLIA [id number] [address] [place] [address] Viscosity Ql (Aster) Normal Normal [facility] Comment on above: Order Comment: Speci men Type: SEMINAL FLUID SPECIMEN Ordering Facility: [facility] Address: [address] [place] [address] Performed By: #### B ASA #### [facility] CLIA [id number] [address] 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 #:[id number] : 1 Prescriptions as of 12/21/2021 - cholecalciferol, [...] Status:Closed by NANCY MOODY on 12/21/21 Normal [facility] Lab Miscellaneouson 12-26-19 19 Status See Ref Lab Report Normal [facility] Comment on above: Performed By: #### 1 [id number] #### [facility] [address] [place] [address] Lab Miscellaneouson 12-23-19 Test Name TB BEL[facility] Comment on above: Performed By: #### 1 [id number] #### [facility] [address] [place] [address] Vital Signs Date Time Vital Sign Value Performing Clinician Faci lity 05-25-2025 19:20-0400 Body temperature 98.6 [degF] Dr. Jose Alejandro Bean MD Work Phone: [phone] [place] [address] 05-25-2025 19:20-0400 Diastolic blood pressure 81 mm[Hg] Dr. Jose Alejandro Bean MD Work Phone: [phone] [address] [place] [id number] 05-25-2025 19:20-0400 Heart rate 71 /min Dr. Jose Alejandro Bean MD Work Phone: [phone](539)[phone] [place] [address] 05-25-2025 19:20-0400 Respiratory rate 80 /min Dr. Jose Alejandro Bean MD Work Phone: [phone])[phone] [place] [address] 05-25-2025 19:20-0400 SaO2% (BldA) [Mass fraction] 100 % Dr. Jose Alejandro Bean MD Work Phone: [phone])[phone] [place] [address] 05-25-2025 19:20-0400 Systolic blood pressure 146 mm[Hg] Dr. Jose Alejandro Bean MD Work Phone: 4([phone])[phone] [place] [address] 05-25-2025 15:56-0400 Body height 180.[address] Jose Alejandro Bean MD Work Phone: [phone] [place] [address] 05-25-2025 15:56-0400 Body mass index (BMI) [Ratio] 40.7 kg/m2 Dr. Jose Alejandro Bean MD Work Phone: 1(940)[phone] [place] [address] 05-25-2025 15:56-0400 Body weight 132.[address] Jose Alejandro Bean MD Work Phone: 5(980)[phone] [place] [address] 03-25-2025 16:15-0400 Diastolic blood pressure 78 mm[Hg] Donna Dale MD Work Phone: [facility] 03-25-2025 16:15-0400 Heart rate 62 /min Donna Dale MD Work Phone: [facility] 03-25-2025 16:15-0400 SaO2% (BldA) [Mass fraction] 99 % Donna Dale MD Work Phone: [facility] 03-25-2025 16:15-0400 Systolic blood pressure 120 mm[Hg] Donna Dale MD Work Phone: [facility] 03-25-2025 14:28-0400 Body mass index (BMI) [Ratio] 43.42 kg/m2 Donna Dale MD Work Phone: [facility] 03-25-2025 14:28-0400 Body weight 135.3 kg Donna Dale MD Work Phone: [facility] 03-05-2025 07:00-0400 Body mass index (BMI) [Ratio] 43.06 kg/m2 Manny Bean MD Work Phone: [facility] 03-05-2025 07:00-0400 Body weight 134.17 kg Manny Bean MD Work Phone: [facility] 03-05-2025 07:00-0400 Diastolic blood pressure 76 mm[Hg] Manny Bean MD Work Phone: [facility] 03-05-2025 07:00-0400 Heart rate 67 /min Manny Bean MD Work Phone: [facility] 03-05-2025 07:00-0400 Respiratory rate 16 /min Manny Bean MD Work Phone: [facility] 03-05-2025 07:00-0400 SaO2% (BldA) [Mass fraction] 98 % Manny Bean MD Work Phone: [facility] 03-05-2025 07:00-0400 Systolic blood pressure 118 mm[Hg] Manny Bean MD Work Phone: [facility] 02-07-2025 10:02-0400 Body mass index (BMI) [Ratio] 43.55 kg/m2 Karime Josue APRN.SAND [employer]INGER Work Phone: [facility] 02-07-2025 10:02-0400 Body temperature 97.3 [degF] Karime Josue TRACER CLERK.[employer] Work Phone: [facility] 02-07-2025 10:02-0400 Body weight 135.7 kg Karime Josue TRACER CLERK.[employer] Work Phone: [facility] 02-07-2025 10:02-0400 Diastolic blood pressure 76 mm[Hg] Karime Josue TRACER CLERK.[employer] Work Phone: [facility] 02-07-2025 10:02-0400 Heart rate 69 /min Karime Josue APRN.[employer]AND [employer]INGER Work Phone: [facility] 02-07-2025 10:02-0400 Respiratory rate 16 /min Karime Josue APRN.SAND [employer]INGER Work Phone: [facility] 02-07-2025 10:02-0400 SaO2% (BldA) [Mass fraction] 98 % Karime Josue APRN.SAND [employer]INGER Work Phone: [facility] 02-07-2025 10:02-0400 Systolic blood pressure 110 mm[Hg] Karime Josue APRN.SAND [employer]INGER Work Phone: [facility] 12-22-2024 13:28-0500 Body mass index (BMI) [Ratio] 42.71 kg/m2 Donna Dale MD Work Phone: [facility] 12-22-2024 13:28-0500 Body weight 133.1 kg Donna Dale MD Work Phone: [facility] 12-22-2024 13:28-0500 Diastolic blood pressure 79 mm[Hg] Donna Dale MD Work Phone: [facility] 12-22-2024 13:28-0500 Heart rate 64 /min Donna Dale MD Work Phone: [facility] 12-22-2024 13:28-0500 SaO2% (BldA) [Mass fraction] 97 % Donna Dale MD Work Phone: [facility] 12-22-2024 13:28-0500 Systolic blood pressure 116 mm[Hg] Donna Dale MD Work Phone: [facility] 12-09-2024 07:35-0500 Body mass index (BMI) [Ratio] 43.87 kg/m2 Manny Bean MD Work Phone: [facility] 12-09-2024 07:35-0500 Body weight 136.71 kg Manny Bean MD Work Phone: [facility] 12-09-2024 07:35-0500 Diastolic blood pressure 76 mm[Hg] Manny Bean MD Work Phone: [facility] 12-09-2024 07:35-0500 Heart rate 75 /min Manny Bean MD Work Phone: [facility] 12-09-2024 07:35-0500 Respiratory rate 16 /min Manny Bean MD Work Phone: [facility] 12-09-2024 07:35-0500 SaO2% (BldA) [Mass fraction] 99 % Manny Bean MD Work Phone: [facility] 12-09-2024 07:35-0500 Systolic blood pressure 118 mm[Hg] Manny Bean MD Work Phone: [facility] 12-08-2024 16:25-0500 Body mass index (BMI) [Ratio] 44.38 kg/m2 Karime Josue APRN.CNP Work Phone: [facility] 12-08-2024 16:25-0500 Body temperature 98.2 [degF] Karime Josue APRN.CNP Work Phone: [facility] 12-08-2024 16:25-0500 Body weight 138.3 kg Karime Joselo TRACER CLERK.[employer]ER Work Phone: [facility] 12-08-2024 16:25-0500 Diastolic blood pressure 74 mm[Hg] Karime Josue TRACER CLERK.[employer]ER Work Phone: [facility] 12-08-2024 16:25-0500 Heart rate 76 /min Karime Josue TRACER CLERK.[employer]ER Work Phone: [facility] 12-08-2024 16:25-0500 Respiratory rate 16 /min Karime Josue TRACER CLERK.[employer]AND [employer]ER Work Phone: [facility] 12-08-2024 16:25-0500 SaO2% (BldA) [Mass fraction] 97 % Karime Josue TRACER CLERK.SAND [employer]INGER Work Phone: [facility] 12-08-2024 16:25-0500 Systolic blood pressure 122 mm[Hg] Karime Josue TRACER CLERK.SAND [employer]INGER Work Phone: [facility] 05-26-2024 12:52-0400 Body mass index (BMI) [Ratio] 43.38 kg/m2 Manny Bean MD Work Phone: [facility] 05-26-2024 12:52-0400 Body temperature 97.81 [degF] Manny Bean MD Work Phone: [facility] 05-26-2024 12:52-0400 Body weight 135.2 kg Manny Bean MD Work Phone: [facility] 05-26-2024 12:52-0400 Diastolic blood pressure 82 mm[Hg] Manny Bean MD Work Phone: [facility] 05-26-2024 12:52-0400 Heart rate 68 /min Manny Bean MD Work Phone: [facility] 05-26-2024 12:52-0400 Respiratory rate 16 /min Manny Bean MD Work Phone: [facility] 05-26-2024 12:52-0400 SaO2% (BldA) [Mass fraction] 97 % Manny Bean MD Work Phone: [facility] 05-26-2024 12:52-0400 Systolic blood pressure 120 mm[Hg] Manny Bean MD Work Phone: [facility] 08-07-2023 17:52-0400 Body weight 131.72 kg Ary Podlogar TRACER CLERK.[employer]AND [employer]INGER Work Phone: [facility] 08-07-2023 17:52-0400 Diastolic blood pressure 84 mm[Hg] Ary Podlogar TRACER CLERK.SAND [employer]INGER Work Phone: [facility] 08-07-2023 17:52-0400 Heart rate 84 /min Ary Podlogar TRACER CLERK.[employer]AND [employer]INGER Work Phone: [facility] 08-07-2023 17:52-0400 Respiratory rate 18 /min Ary Podlogar TRACER CLERK.[employer]INGER Work Phone: [facility] 08-07-2023 17:52-0400 SaO2% (BldA) [Mass fraction] 97 % Ary Podlogar TRACER CLERK.[employer]AND [employer]INGER Work Phone: [facility] 08-07-2023 17:52-0400 Systolic blood pressure 126 mm[Hg] Ary Podlogar TRACER CLERK.SAND [employer]INGER Work Phone: [facility] 02-05-2023 17:52-0400 Body weight 134.99 kg Manny Bean MD Work Phone: [facility] 02-05-2023 17:52-0400 Diastolic blood pressure 84 mm[Hg] Manny Bean MD Work Phone: [facility] 02-05-2023 17:52-0400 Heart rate 66 /min Manny Bean MD Work Phone: [facility] 02-05-2023 17:52-0400 Respiratory rate 16 /min Manny Bean MD Work Phone: [facility] 02-05-2023 17:52-0400 SaO2% (BldA) [Mass fraction] 98 % Manny Bean MD Work Phone: [facility] 02-05-2023 17:52-0400 Systolic blood pressure 118 mm[Hg] Manny Bean MD Work Phone: [facility] Encounters Encounter Date Encounter Type Care Provider Facility Start: 06-19-2025 End: 06-19-2025 ambulatory MANNY BEAN Facility:[facility] Start: 05-25-2025 End: 05-25-2025 Emergency department patient visit Dr. Jose Alejandro Bean MD Work Phone: -Emergency Department Work Phone: Start: 05-25-2025 End: 05-25-2025 ambulatory ANN MCKEON Facility:[facility] Start: 03-25-2025 End: 03-25-2025 ambulatory DONNA DALE Facility:[facility] Start: 03-25-2025 End: 03-25-2025 Patient encounter procedure Donna Dale MD Work Phone: Allergy Comment on above: Ogj-[id number] adv erse effect of medication, subsequent encounter (Primary Dx); Urticaria Start: 03-08-2025 End: 03-08-2025 Follow-up encounter Manny Bean MD Work Phone: [facility] [place] Comment on above: Results Start: 03-08-2025 End: 03-08-2025 ambulatory MANNY BEAN Facility:[facility] Start: 03-05-2025 End: 03-05-2025 ambulatory MANNY BEAN Facility:[facility] Start: 03-05-2025 End: 03-05-2025 Patient encounter procedure Manyn Bean MD Work Phone: [facility] [place] Comment on above: Annual physical exam (Primary Dx); Numbness of toes; Gastroesophageal reflux disease without esophagitis; BLAIR on CPAP; Morbid obesity (HCC); Seasonal allergies; Vitamin D deficiency; Allergic reaction to penicillin, subsequent encounter; Allergic rhinitis, unspecified seasonality, unspecified trigger Start: 03-05-2025 End: 03-05-2025 ambulatory MANNY BEAN Facility:[facility] Start: 02-07-2025 End: 02-07-2025 Patient encounter procedure Karime Josue APRN.SAND [employer]INGER Work Phone: [facility] Comment on above: Acute otitis externa of left ear, unspecified type (Primary Dx); Abrasion of left ear canal, initial encounter Start: 02-07-2025 End: 02-07-2025 ambulatory MANNY BEAN Facility:[facility] Start: 12-22-2024 End: 12-22-2024 [facility] Start: 12-22-2024 End: 12-22-2024 Patient encounter procedure Donna Dale MD Work Phone: Allergy Comment on above: Pva-ysxv-ragcskt adv erse effect of medication, initial encounter (Primary Dx); Allergy to penicillin; Allergic reaction, subsequent encounter; Hives; Angioedema, initial encounter Start: 12-09-2024 End: 12-09-2024 ambulatory MANNY BEAN Facility:[facility] Start: 12-09-2024 End: 12-09-2024 Patient encounter procedure Manny Bean MD Work Phone: [facility] Comment on above: Allergic reaction, s ubsequent encounter (Primary Dx); Hives; Facial swelling; Allergy to penicillin Start: 12-08-2024 End: 12-08-2024 Emergency department patient visit Jose Alejandro Bean Facility:[facility] Start: 12-08-2024 End: 12-08-2024 Patient encounter procedure Karime Josue APRN.SAND [employer]INGER Work Phone: [facility] Comment on above: Rash (Primary Dx); Dental infection; Facial swelling Start: 12-08-2024 End: 12-08-2024 ambulatory Fabby Treviño RN NURSE CLAIM REPRESENTATIVE Comment on above: Rash Start: 05-27-2024 Telephone encounter Jose Alejandro Bean MD Work Phone: [facility] [place] Comment on above: Results Start: 05-26-2024 End: 05-26-2024 Subsequent hospital visit by physician [facility] [place] Work Phone: Radiology Comment on above: LUQ pain [R10.12] Start: 05-26-2024 End: 05-26-2024 Patient encounter procedure Manny Bean MD Work Phone: [facility] Comment on above: LUQ pain (Primary Dx ); Gastroesophageal reflux disease without esophagitis; Seasonal allergies Start: 08-07-2023 End: 08-07-2023 Patient encounter procedure Ary Hernandez APRN.CNP Work Phone: [facility] Comment on above: Vitamin D deficiency (Primary Dx); Infertility counseling; Obesity, Class III, BMI >= 40; Chronic right hip pain; BLAIR on CPAP; Gastroesophageal reflux disease without esophagitis Start: 02-05-2023 End: 02-05-2023 Patient encounter procedure Manny Bean MD Work Phone: [facility] Comment on above: Annual physical exam (Primary Dx); Morbid obesity (HCC); BLAIR on CPAP; Chronic right hip pain; Gastroesophageal reflux disease without esophagitis; Seasonal allergies Start: 01-20-2023 ambulatory Manny Bean MD Work Phone: [facility] Start: 01-20-2023 Patient encounter procedure Manny Bean MD Work Phone: [facility] Comment on above: Nutrition Program Re ferral request Start: 08-08-2022 End: 08-08-2022 Subsequent hospital visit by physician Xr [facility] [place] Work Phone: Radiology Comment on above: Acute pain of right knee [M25.561] Start: 11-13-2021 End: 11-13-2021 Discharged Recurring [facility] Start: 12-22-2018 End: 12-23-2018 Patient encounter procedure Rubina Love Facility:[facility] Procedures Date Procedure Procedure Detail Performing [...] Ingestion challenge test initial 120 minutes Donna Dale MD Work Phone: Start: 03-05-2025 Lipid 1996 panel - S tika or Plasma Manny Bean MD Work Phone: Start: 05-26-2024 Radiologic exam abdo men 1 view Manny Bean MD Work Phone: Start: 02-07-2023 Lipid 1996 panel - S tika or Plasma rAy Hernandez APRN.SAND SLINGER Work Phone: Start: 08-08-2022 Radiologic exam knee complete 4/more views Franck Velez MD Work Phone: Plan of Treatment Date Care Activity Detail Author Start: 03-05-2030 Lipid panel Lipid Screening [facility] Start: 02-08-2028 Lipid 1996 panel - S tika or Plasma Lipid Screening [facility] Start: 02-08-2028 Lipid panel Lipid Screening [facility] Start: 02-08-2028 LIPID SCREEN LIPID SCREEN [facility] Start: 03-05-2026 Covid-19 Vaccine ( season) Covid-19 Vaccine () [facility] Comment on above: Postponed from 06/21 (Declined at this time) Start: 03-05-2026 Hepatitis B Vaccine (1 of 3 - 19+ 3-dose series) Hepatitis B Vaccine (1 of 3 - 19+ 3-dose series) [facility] Comment on above: Postponed from 04/19 (Declined at this time) Start: 03-05-2026 Urine microalbumin profile DTa P,Tdap,Td Vaccine (1 - Tdap) [facility] Comment on above: Postponed from 04/19 (Declined at this time) Start: 01-13-2026 LIPID SCREEN LIPID SCREEN [facility] Start: 09-07-2025 End: 09-07-2025 Patient encounter procedure 09/07/2025 7:20 AM EST Office Visit [facility] [place] [address] [place] [address] Manny Bean MD [address] [place] [address] 6 month follow up [facility] [place] Comment on above: 6 month follow up Start: 06-21-2025 Influenza vaccination Influenz a Vaccine (Season Ended) [facility] Start: 05-25-2025 [facility] Start: 03-25-2025 End: 03-25-2025 Patient encounter procedure 03/25/2025 2:00 PM EDT Office Visit Allergy [address] [phone] Donna Dale MD [address] [place], [place] [phone] PCN testing Allergy Comment on above: PCN testing Start: 03-08-2025 End: 06-07-2025 Thyrotropin [Units/volume] in Serum or Plasma [facility] Work Phone: Comment on above: Expected: 03/08/2025 , Expires: 06/07/2025 Start: 03-08-2025 End: 06-07-2025 Thyroxine (T4) free [Mass/volume] in Serum or Plasma [facility] Comment on above: Expected: 03/08/2025 , Expires: 06/07/2025 Start: 03-08-2025 End: 06-07-2025 Triiodothyronine (T3) [Mass/volume] in Serum or Plasma [facility] Comment on above: Expected: 03/08/2025 , Expires: 06/07/2025 Start: 03-05-2025 End: 06-04-2025 25-hydroxyvitamin D3 [Mass/volume] in Serum or Plasma [facility] Comment on above: Expected: 03/05/2025 , Expires: 06/04/2025 Start: 03-05-2025 End: 06-04-2025 CBC W Auto Differential panel - Blood [facility] Work Phone: Comment on above: Expected: 03/05/2025 , Expires: 06/04/2025 Start: 03-05-2025 End: 06-04-2025 Comprehensive metabolic 2000 panel - Serum or Plasma [facility] Comment on above: Expected: 03/05/2025 , Expires: 06/04/2025 Start: 03-05-2025 End: 06-04-2025 Hemoglobin A1c in Blood [facility] Comment on above: Expected: 03/05/2025 , Expires: 06/04/2025 Start: 03-05-2025 End: 06-04-2025 Lipid 1996 panel - Serum or Plasma [facility] Comment on above: Expected: 03/05/2025 , Expires: 06/04/2025 Start: 03-05-2025 End: 06-04-2025 Thyrotropin [Units/volume] in Serum or Plasma [facility] Comment on above: Expected: 03/05/2025 , Expires: 06/04/2025 Start: 03-05-2025 End: 03-05-2025 Patient encounter procedure 03/05/2025 7:00 AM EDT Office Visit Family [facility] [address] [place] [address] Manny Bean MD [address] [place] [address] annual physical Family [facility] Comment on above: annual physical Start: 12-22-2024 End: 12-22-2024 Patient encounter procedure 12/22/2024 1:15 PM EST Office Visit Allergy [address] [address] Donna Dale MD [address] [place], [place] [phone] Allergy to penicillin [Z88.0] Allergy Comment on above: Allergy to penicilli n [Z88.0] Start: 12-09-2024 End: 12-09-2024 Patient encounter procedure 12/09/2024 7:20 AM EST Office Visit [facility] [place] [address] [place] [address] Manny Bean MD [address] [place], [place] [phone] Express care follow up 12/08/24 [facility] Comment on above: Express care follow up 12/08/24 Start: 06-21-2024 Covid-19 Vaccine () Covid-19 Vaccine () [facility] Start: 06-21-2024 Covid-19 Vaccine () Covid-19 Vaccine () [facility] Start: 06-21-2024 Influenza vaccination Influenz a Vaccine (#1) [facility] Start: 05-26-2024 End: 08-25-2024 Comprehensive metabolic 2000 panel - Serum or Plasma [facility] Comment on above: Expected: 05/26/2024 , Expires: 08/25/2024 Start: 05-26-2024 End: 08-25-2024 Lipase [Enzymatic activity/volume] in Serum or Plasma [facility] Comment on above: Expected: 05/26/2024 , Expires: 08/25/2024 Start: 02-06-2024 COVID-19 VACCINE (4 - Booster) COVID-19 VACCINE (4 - Booster) [facility] Comment on above: Postponed from 11/30 (Declined at this time) Start: 02-06-2024 HEPATITIS B (1 of 3 - 3-dose series) HEPATITIS B (1 of 3 - 3-dose series) [facility] Comment on above: Postponed from 04/19 (Declined at this time) Start: 02-06-2024 Hepatitis B Vaccine (1 of 3 - 3-dose series) Hepatitis B Vaccine (1 of 3 - 3-dose series) [facility] Comment on above: Postponed from 04/19 (Declined at this time) Start: 02-06-2024 Urine microalbumin profile [facility] Comment on above: Postponed from 04/19 (Declined at this time) Start: 08-07-2023 End: 11-06-2023 25-hydroxyvitamin D3 [Mass/volume] in Serum or Plasma VITAMIN D 25 HYDROXY Lab Routine Vitamin D deficiency Expected: 08/07/2023, Expires: 11/06/2023 [facility] Work Phone: Comment on above: Expected: 08/07/2023 , Expires: 11/06/2023 Start: 06-21-2023 Covid-19 Vaccine (2022- season) Covid-19 Vaccine () [facility] Start: 06-21-2023 Influenza vaccination [facility] Start: 02-05-2023 End: 04-07-2023 Hemoglobin A1c in Blood HGB A1C Lab Routine Annual physical exam Expected: 02/05/2023, Expires: 04/07/2023 [facility] Work Phone: Comment on above: Expected: 02/05/2023 , Expires: 04/07/2023 Start: 10-21-2022 DEPRESSION ASSESSMENT DEPRESSION ASS ESSMENT [facility] Start: 11-30-2021 COVID-19 VACCINE (4 - Booster) COVID-19 VACCINE (4 - Booster) [facility] Start: 2003 Hepatitis B Vaccine (1 of 3 - 19+ 3-dose series) Hepatitis B Vaccine (1 of 3 - 19+ 3-dose series) [facility] Start: 2003 Urine microalbumin profile [facility] Start: 2002 Anxiety Screening Anxiety Screening [facility] Start: 2002 Depression Screening Depression Scre ening [facility] Start: 1984 HEPATITIS B (1 of 3 - 3-dose series) HEPATITIS B (1 of 3 - 3-dose series) [facility] Hemoglobin A1c in Blood HGB A1C Lab Routine Annual physical exam 02/07/2023 7:25 AM EDT [facility] Work Phone: Microscopic urinalysis [facility] Organism count, microscopic method [facility] Patient Education Abdominal Pain [facility] Work Phone: Urine microscopy: epithelial cells [facility] Urine microscopy: re d cells [facility] White blood cell count [facility] End: 06-25-2025 XR Abdomen Supine and Upright XR ABDOMEN 1V SUPINE Radiology Routine LUQ pain 1 Occurrences starting 05/26/2024 until 06/25/2025 [facility] Work Phone: Comment on above: 1 Occurrences starti ng 05/26/2024 until 06/25/2025 XR Abdomen Supine an d Upright XR ABDOMEN 1V SUPINE Radiology Routine LUQ pain 05/26/2024 1:57 PM EDT [facility] Immunizations Immunization Date Immunization Notes Care Provider Fa toshia 07-31-2021 influenza, injectabl e, quadrivalent, contains preservative Manny Bean MD Work Phone: [facility] 07-31-2021 influenza virus vaccine, unspecified formulation Ary Hernandez TRACER CLERK.SAND [employer]INGER Work Phone: [facility] 02-15-2021 COVID-19 original vaccine, full dose, monovalent (MODERNA) Manny Bean MD Work Phone: [facility] 01-18-2021 COVID-19 original vaccine, age 12+ yr, monovalent (PFIZER-BIONTECH - PURPLE TOP) Manny Bean MD Work Phone: [facility] 01-18-2021 COVID-19 original vaccine, full dose, monovalent (MODERNA) Manny Bean MD Work Phone: [facility] Work Phone: 07-12-2020 influenza, injectabl e, quadrivalent, contains preservative Manny Bean MD Work Phone: [facility] 01-04-2020 influenza, injectabl e, quadrivalent, contains preservative Manny Bean MD Work Phone: [facility] Payers Date Payer Category Payer Self-pay [id number] 2020 Private Health Insurance [id number] 2020 Private Health Insurance [id number] 2018 Unknown 1984 Unknown [id number] Unknown [id number] Unknown [id number] Social History Date Type Detail Facility Tobacco smoking stat us NHIS Unknown if ever smoked [facility] Work Phone: Start: 1985 Sex Assigned At Male W [facility] Start: 08-08-2022 End: 05-25-2025 Tobacco smoking status NHIS Never smoked tobacco [facility] Start: 08-08-2022 Tobacco use and exposure Smoke less tobacco non-user [facility] Start: 08-08-2022 End: 03-25-2025 Alcohol intake Current drinker of alcohol (finding) [facility] Start: 01-28-2021 History SDOH Alcohol Frequency 3 [facility] Start: 01-28-2021 History SDOH Alcohol Std Drinks 1 [facility] Start: 01-28-2021 History SDOH Social Connections Phone 5 [facility] Start: 01-28-2021 History SDOH Social Connections Get Together 98 [facility] Start: 01-28-2021 End: 08-26-2021 History SDOH Social Connections Membership 2 [facility] Start: 01-28-2021 History SDOH Financial 4 [facility] Start: 01-28-2021 Education 20 [facility] Start: 01-10-2021 Alcohol Comment 2 drink every 2-3 weeks [facility] Start: 1985 Sex Assigned At Not on file [facility] Start: 01-28-2021 End: 08-07-2023 [facility] Start: 01-28-2021 End: 08-07-2023 Social connection and isolation panel [facility] How often do you get together with friends or relatives? Patient refused [facility] Do you belong to any clubs or organizations such as mandaeism groups, unions, fraternal or athletic groups, or school groups? No [facility] Are you now , , , , never or living with a partner? [facility] How often to you hav e a drink containing alcohol? 2-4 times a month [facility] How many standard dr inks containing alcohol do you have on a typical day? 1 or 2 [facility] How often do you hav e 6 or more drinks on 1 occasion? Never [facility] How hard is it for y ou to pay for the very basics like food, housing, medical care, and heating Not very hard [facility] Do you feel stress - tense, restless, nervous, or anxious, or unable to sleep at night because your mind is troubled all the time - these days [OSQ] Only a little [facility] (I/We) worried wheth er (my/our) food would run out before (I/we) got money to buy more. Never true [facility] How often to you hav e a drink containing alcohol? Monthly or less [facility] Do you feel stress - tense, restless, nervous, or anxious, or unable to sleep at night because your mind is troubled all the time - these days [OSQ] To some extent [facility] Functional Status Date Assessment Result Facility 03-05-2025 Total score [AUDIT-C] 1 03/05/20 25 5:23 AM EDT User, Tricia [facility] 03-05-2025 Within the last year , have you been humiliated or emotionally abused in other ways by your partner or ex-partner? No 03/05/2025 5:23 AM EDT User, [facility] 03-05-2025 Within the last year , have you been afraid of your partner or ex-partner? No 03/05/2025 5:23 AM EDT User, [facility] 03-05-2025 Within the last year , have you been raped or forced to have any kind of sexual activity by your partner or ex-partner? No 03/05/2025 5:23 AM EDT [facility], [facility] 03-05-2025 Within the last year , have you been kicked, hit, slapped, or otherwise physically hurt by your partner or ex-partner? No 03/05/2025 5:23 AM EDT [facility] How often to you hav e a drink containing alcohol? Monthly or less 03/05/2025 5:23 AM EDT User, Mychart Monthly or less [facility] 03-05-[address] inks containing alcohol do you have on a typical day? 1 or 2 03/05/2025 5:23 AM EDT User, Mychart 1 or 2 [facility] 03-05-2025 How often do you hav e 6 or more drinks on 1 occasion? Never 03/05/2025 5:23 AM EDT User, Mychart Never [facility] Clinical Notes 02-03-2021 to 05-25-2025 Note Date & Type Note Facility 05-25-2025 Discharge summary [facility] 05-25-2025 Radiology Diagnostic study note [facility] Imaging Services [address] [place] [address] Abdomen/Pelvis W IV Cont ONLY MR#: [id number] Acct: [id number] Name: DAVY RAO Rep #: [id number] : 1985 M 40 From: Marvel Cat MD PCP: Dr. Jose Alejandro Bean MD Status: REG ER Study:Abdomen/Pelvis W IV Cont ONLY Date of E xam: 05/25/25 Exam# [id number] Ordering Dr: Lloyd Pardo DO PROCEDURE: ABDOMEN/PELVIS [...] IN THE ABDOMEN OR PELVIS. Reading Location: [facility] CC: Dr. Lloyd Gao DO; Dr. Jose Alejandro Bean MD ~ Health Inspector Food: Signed [facility] 05-25-2025 Discharge summary Note Date/Time May 25, 2025 7:2 3pm [facility] Medical Records Department [address] [place] [id number] Emergency Department Summary 05/25/25 MR#: [id number] Acct: [id number] Name: DAVY RAO Rep #:[id number] : 1985 40 From: Lloyd gomez DO [...] intact Psych: Cooperative, appropriate mood and affect [facility] Medical History (Updated 05/25/25 @ 19:20 by [...] 80.7 H Lymph % (Auto) 14.7 L [place] % (Auto) 3.9 Eos % (Auto) 0.1 [...] Clarity Clear Urine pH 7.0 Ur Specific [place] 1.005 Urine Protein Negative Urine Glucose (UA) Normal Urine Ketones Negative Urine Occult Blood Negative Urine Nitrite Negative Urine Bilirubin Negative Urine Urobilinogen Normal Ur Leukocyte Esterase Negative Radiography Diagnostic Testing: Clinical Impression(s) from Imaging Studies Abdomen/Pelvis CT 05/25/25 16:38 IMPRESSION: NO ACUTE FINDINGS IN THE ABDOMEN OR PELVIS. Reading Location: [facility] Discharge Plan Triage Chief Complaint: Flank Pain [...] if symptoms change or worsen Print Language: Tajik Disposition Disposition: Home, Self Care What to do if you have Problems For any increased pain, shortness of breath, bleeding, nausea or vomiting, chestpain, or any unexpected problems, contact your Primary Care Provider. Call [facility] ([phone]) or report to the closest Emergency Room. Call 911 if necessary. 05/25/251922 <Electronically signed by Lloyd Gao DO> Cosigner Signature (if applicable): CC: Dr. Jose Alejandro Bean MD ~ Signed [facility] Work Phone: 1(667) 626-152108-05-2025 NoteHNO ID: [id number] Author: ANN MCKEON APRN.[facility] Service: ? Author Type: Nurse Practitioner Type: Progress Notes Filed: 05/25/2025 13:42 Note Text: Called to triage patient. 40 year old male presents with complaints of abdominal pain and groin pain Acute onset Saturday Has progressively worsened. Discussed limitations of express care and concerns for possible intraabdominal and or testicular torsion [facility] NoteHNO ID: [id number] Author: DONNA DALE MD Service: ? 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 * Palak Harrington RN - 03/25/2025 2:06 PM EDT Patient returning for amoxicillin testing. Patient has been off antihistamines for 5 days. documented in this encounterWilson [facility]06-05-2025 Instructions* Patient Instructions* Donna Dale MD - [...] medication which inhibits Olivarez 2, is typically well- tolerated in people whohave sensitivity to Olivarez 1 inhibitors. Please contact the allergy nurses directly at [phone] if you and/or your family doctor would like to schedule an aspirin challenge (do not schedule for the call center) documented in this encounterWilson Health06-05-2025 NoteHNO ID: [id number] Author: PALAK HARRINGTON RN Service: ? Author Type: Registered Nurse Type: Progress Notes Filed: 03/26/2025 15:39 Note Text: Patient returning for amoxicillin testing. Patient has been off antihistamines for 5 days.[facility] Telephone encounter Note* Telephone Encounter - Luciana Rivera MA - 03/08/2025 10:35 AM EDT Pt notified of results via Xfire. Luciana Rivera Ma [facility]05-19-2025 Miscellaneous Notes* Telephone Encounter - Luciana Rivera MA - 03/08/2025 10:35 AM EDT Pt notified of results via Live Mobilet. Luciana Rivera Ma * Telephone Encounter - [...] Total Cholesterol: 183 mg/dL documented in this encounterWilson Health05-19-2025 Telephone encounter Note * Telephone Encounter - [...] Cholesterol: 31 mg/dL Total Cholesterol: 183 mg/dL [facility]05-16-2025 Instructions* Patient Instructions* Manny Bean MD - 03/05/2025 7:46 AM EDT Continue using your CPAP nightly. To help with nasal stuffiness, use the humidifier in your CPAP and consider an znlg-lwt-xdipyyw antihistamine (such as Brittney, Claritin, or Zyrtec) [...] with the results. You have an upcoming verifying machine operator appointment this summer to further evaluate your penicillin allergy. For any recurring wrist discomfort from past injury, use ice and xnkf-ubg-ptltcfo anti-inflammatories as needed. If pain persists, please let us know. documented in this encounterWilson Health05-16-2025 NoteHNO ID: [id number] Author: MANNY BEAN MD Service: ? Author Type: Physician Type: Progress Notes Filed: 03/05/2025 08:25 Note Text: Chief Complaint Patient presents with: Physical Recording using Magzter software for draft documentation of the visit was discussed with the patient/authorized retail wireless sales representative; all questions welcomed and answered. Patient/authorized retail wireless sales representative agreed to proceed HPI Davy Rao is [...] 12.8 oz) SpO2 98 (more content not included)...[facility] History of Present illness Narrative* Manny Bean MD - 03/05/2025 7:15 AM EDT Chief Complaint Patient presents with: Physical Recording using Magzter software for draft documentation of the visit was discussed with the patient/authorized retail wireless sales representative; all questions welcomed and answered. Patient/authorized retail wireless sales representative agreed to proceed HPI Davy Rao is [...] Abs Lymph 1.00 - 4.00 k/uL 2.79 [place]% % 7.8 Abs [place] <0.87 k/uL 0.60 Eosin% % 1.3 Abs [...] mg daily. - Sent 90-day prescription to [facility] pharmacy. 4. BLAIR on CPAP (G47.33) - [...] of nasal turbinates on examination. - Recommended iykv-ika-yuuwhry antihistamines such as Claritin, Zyrtec, or Brittney. - Advised use of Flonase nasal spray daily. 8. Vitamin D deficiency (E55.9) - Completed course of 50,000 units of vitamin D. - Ordered serum vitamin D level to assess current status. 9. Allergic reaction to penicillin, subsequent encounter (T36.0X5D) - Previous allergic reaction to amoxicillin with rash development. - Scheduled follow-up with verifying machine operator for penicillin testing this summer. - No further allergic reactions reported since switching to doxycycline. Manny Bean MD documented in this encounterWilson Health04-20-2025 NoteHNO ID: [id number] Author: KARIME JOSUE APRN.[employer] Service: ? Author Type: Nurse Practitioner Type: [...] allergies/multiple recently Disposition The patient was discharged. [facility] History of Present illness Narrative* Karime [...] OFLOXACIN 0.3 % EAR DROPS Karime Josue APRN.[employer] History and Record Review External record(s) reviewed: prior outpatient record. Findings from review of outpatient records: atb allergies/multiple recently Disposition The patient was discharged. Procedures documented in this encounterWilson Health03-04-2025 NoteHNO ID: [id number] Author: CLEMENTINA RUIZ LPN Service: ? Author Type: LICENSED NURSE Type: Progress Notes Filed: 12/23/2024 22:16 Note Text: Patient had Amoxicillin after dental procedure on 12/08/24. Developed itching, hives, and left eye swollen after 2nd dose. 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 documented in this encounterWilson Health03-04-2025 NoteHNO ID: [id number] Author: DONNA DALE MD Service: ? Author [...] which included preparing to see the patient, byon-mx-zinm patient care, completing clinical documentation, obtaining and/or [...] Mask (per patient pre (more content not included)...[facility]-19-[facility]25 NoteHNO ID: [id number] Author: MANNY BEAN MD Service: ? Author [...] month ago. Did eat new type of greenlandic vanilla/honeycomb ice cream which he ate on [...] 1. Allergic reaction, subsequ (more content not included)...[facility]-19[facility] History of Present illness Narrative* Manny [...] month ago. Did eat new type of greenlandic vanilla/honeycomb ice cream which he ate on [...] which included preparing to see the patient, akbl-ga-kwvl patient care, completing clinical documentation, obtaining and/or reviewing separately obtained history, performing a medically appropriate examination, counseling and educating the pat ient/family/caregiver, and ordering medications, tests, or procedures. Manny Bean MD documented in this encounterWilson Health02-18-2025 Miscellaneous Notes* Telephone Encounter - Fabby Treviño RN - 12/08/2024 9:34 PM EST Reason for Call: rash/hives on face after taking antibiotic. Was seen and treated for this earlier but it is back and his tongue is tingling. Patient also has hives on his cheeks. Outcome: Patient advised to go the Emergency Room now. Patient plans to go to [facility] at this time. Encouraged to breast puller and call 911 if anything worsens or changes in route. Fabby Treviño RN Reason for Disposition [1] Widespread hives AND [2] onset < 2 hours of exposure to 1st dose of drug Protocols used: Rash - Widespread On Rjkiu-RWJIC-PK documented in this encounterWilson Health02-18-2025 Telephone encounter Note * Telephone Encounter - Fabby Treviño RN - 12/08/2024 9:34 PM EST Reason for Call: rash/hives on face after taking antibiotic. Was seen and treated for this earlier but it is back and his tongue is tingling. Patient also has hives on his cheeks. Outcome: Patient advised to go the Emergency Room now. Patient plans to go to [facility] at this time. Encouraged to breast puller and call 911 if anything worsens or changes in route. Fabby Treviño RN Reason for Disposition [1] Widespread hives AND [2] onset < 2 hours of exposure to 1st dose of drug Protocols used: Rash - Widespread On Qrani-CBPVF-OH [facility]02-18-2025 NoteHNO ID: [id number] Author: KARIME JOSUE APRN.[employer] Service: ? Author Type: Nurse Practitioner Type: [...] - PREDNISONE 20 MG TABLET Karime Josue APRN.[facility] History of Present illness Narrative* Karime Josue APRN.VANI - 12/08/2024 6:24 PM EST Images from [...] - PREDNISONE 20 MG TABLET Karime Josue APRN.[employer] documented in this encounterWilson Health08-07-2024 Telephone encounter Note * Telephone Encounter - Veronica Mann RN - 05/27/2024 12:31 PM EDT Called and left a detailed voicemail notifying patient of providers message. Clinic phone number was left in case patient has any questions. [facility]08-07-2024 Miscellaneous Notes* Telephone Encounter - Veronica Mann RN - 05/27/2024 12:31 PM EDT Called and left a detailed voicemail notifying patient of providers message. Clinic phone number was left in case patient has any questions. * Telephone Encounter - Veronica Mann RN - 05/27/2024 12:20 PM EDT ----- Message from Manny Bean MD sent at 05/27/2024 12:00 PM EDT ----- Normal labs to workup abdominal pain. Awaiting abdominal xray. Continue treatment as discussed in office. documented in this encounterWilson Health08-07-2024 Telephone encounter Note * Telephone Encounter - Veronica Mann RN - 05/27/2024 12:20 PM EDT ----- Message from Manny Bean MD sent at 05/27/2024 12:00 PM EDT ----- Normal labs to workup abdominal pain. Awaiting abdominal xray. Continue treatment as discussed in office. [facility]08-06-2024 History of Present illness Narrative* Ema Villafana, RT(R) - 05/26/2024 1:40 PM EDT [...] PATIENT PRESENTS WITH AN IMPLANTABLE OR ATTACHED PRINTING SUPERVISOR: No RADIOLOGY DEPARTMENT: General X-ray: Exam(s) Completed: Abdomen X-Ray: Abdomen PERIPHERAL IV DATA: Not applicable SIGNED BY: RT Feliz(R) May 26, 2024 1:45 PM documented in this encounterWilson Health08-06-2024 History of Present illness Narrative* Manny Bean [...] persistent. Manny Bean MD documented in this encounterWilson Health10-18-2023 History of Present illness Narrative* PodlogarAry APRN.[employer] - 08/07/2023 5:47 PM EDT 08/07/2023 Patient [...] work recently Frustrated with fertility clinic in [place]. Reports they told she needs to lose 40# . Asking about where to go from here. has referral to [facility] but he is unsure if it would be alright to go there after being seen in [place]. Doesn't feel he is getting answers. PAST [...] Abs Lymph 1.00 - 4.00 k/uL 2.29 [place]% % 10.8 Abs [place] <0.87 k/uL 0.65 Eosin% % 1.8 Abs [...] done Influenza Vaccine(1) due on 06/21/2023 Covid-19 Vaccine(2022- season) due on 06/21/2023 DTaP,Tdap,Td Vaccine(1 - [...] if they are unhappy with care in [place] 3. Obesity, Class III, BMI >= 40 [...] ICD9: 530.81, ICD10: K21.9 - stable Ary Podlogar, TRACER CLERK.[employer] Prescription instructions reviewed with patient as applicable. [...] which included preparing to see the patient, zlxy-rb-eyyw patient care, completing clinical documentation, obtaining and/or reviewing separately obtained history, performing a medically appropriate examination, counseling and educating the pat ient/family/caregiver, and ordering medications, tests, or procedures. documented in this encounterWilson Health04-18-2023 History of Present illness Narrative* Manny Bean [...] years ago. Would like to stick with [employer] for his COVID vaccines and will follow [...] histamines. Manny Bean MD documented in this encounterWilson Health04-04-2023 Miscellaneous Notes* Telephone Encounter - Liz Arriola LPN - 01/22/2023 8:32 AM EDT Appointment scheduled for 02/05/2023. Liz Arriola LPN * Telephone Encounter - Manny Bean MD - 01/21/2023 8:13 AM EDT Patient has not been in since 2020. Recommend OV for annual check up and discuss weight loss strategies. documented in this encounterWilson Health03-03-2022 NoteHNO ID: [id number] Author: Nancy Moody Service: ? Author Type: Technologist Type: Progress Notes Filed: 12/21/2021 12:29 PM Note Text: Routine Semen Analysis [facility] History of Past illness Narrative* Problem Noted Date Resolved Date Chronic midline low back pain without sciatica 0 02/03/2021 05/19/2021 Chronic pain of both hips 02/03/20212020 Obesity (BMI 30-39.9) 01/10/2021 documented as of this encounter (statuses as of 01/22/2023) [facility]04-16-2021 History of Past illness Narrative* Problem Noted Date Resolved Date Chronic midline low back pain without sciatica 0 02/03/2021 05/19/2021 Chronic pain of both hips 02/03/20212020 Obesity (BMI 30-39.9) 01/10/2021 documented as of this encounter (statuses as of 02/07/2023) [facility]04-16-2021 History of Past illness Narrative* Problem Noted Date Diagnosed Date Resolved Date Chronic midline low back bee n without sciatica 02/03/2021 05/19/2021 Chronic pain of both hips 02/03/2021 Obesity (BMI 30-39.9) 2020 documented as of this encounter (statuses as of 08/08/2023) [facility] noteNo assessment information availableWSelect [facility] Work Phone: Evaluation note* Diagnosis Annual physical exam- Primary Routine general medical examination at a health care facility Morbid obesity (HCC) Morbid obesity BLAIR on CPAP Obstructive sleep apnea (adult) (pediatric) Chronic right hip pain Pain in joint, pelvic region and thigh Gastroesophageal reflux disease without esophagitis Esophageal reflux Seasonal allergies Allergic rhinitis, cause unspecified documented in this encounter [facility]* Diagnosis Vitamin D deficiency- Primary Unspecified vitamin D deficiency Infertility counseling Other procreative management counseling and advice Obesity, Class III, BMI >= 40 Morbid obesity Chronic right hip pain Pain in joint, pelvic region and thigh BLAIR on CPAP Obstructive sleep apnea (adult) (pediatric) Gastroesophageal reflux disease without esophagitis Esophageal reflux documented in this encounter [facility]* Diagnosis LUQ pain- Primary Abdominal pain, left upper quadrant Gastroesophageal reflux disease without esophagitis Esophageal reflux Seasonal allergies Allergic rhinitis, cause unspecified documented in this encounter [facility]* Diagnosis LUQ pain Abdominal pain, left upper quadrant documented in this encounter [facility]* Diagnosis Acute pain of right knee documented in this encounter [facility]* Diagnosis Rash- Primary Rash and other nonspecific skin eruption Dental infection Acute apical periodontitis of pulpal origin Facial swelling Swelling, mass, or lump in head and neck documented in this encounter [facility]* Diagnosis Allergic reaction, subsequent encounter- Primary Hives Urticaria, unspecified Facial swelling Swelling, mass, or lump in head and neck Allergy to penicillin Personal history of allergy to penicillin documented in this encounter [facility]* Diagnosis Drr-iixw-hzzdfhy adverse effect of medication, initial encounter- Primary Allergy to penicillin Personal history of allergy to penicillin Allergic reaction, subsequent encounter Hives Urticaria, unspecified Angioedema, initial encounter documented in this encounter [facility]* Diagnosis Acute otitis externa of left ear, unspecified type- Primary Abrasion of left ear canal, initial encounter documented in this encounter [facility]* Diagnosis Annual physical exam- Primary Routine [...] seasonality, unspecified trigger documented in this encounter [facility]* Diagnosis Elevated TSH- Primary Nonspecific abnormal results of thyroid function study documented in this encounter [facility]* Diagnosis Yhl-lvtm-xatdlfx adverse effect of medication, subsequent encounter- Primary Urticaria Urticaria, unspecified documented in this encounter [facility] Discharge instructionsAdditional Instructions Follow-up with primary care physician return back to ED if symptoms change or worsenWSelect [facility] Work Phone: [facility] (narrative)* Diagnostic Procedure Only (Routine) - Closed Specialty Diagnoses / Procedures Referred By Contac t Referred To Contact XR IMAGING Diagnoses LUQ pain Procedures XR ABDOMEN 1V SUPINE RADIOLOGIC EXAM ABDOMEN 1 VIEW Manny Bean MD [address] [place] [address] [place] [address] Referral ID Status Reason Start Date Expiration Date V isits Requested Visits Authorized [id number] Closed Auto-Generate d Referral 05/26/2024 06/25/2025 1 1 [facility] for referral (narrative)* Diagnostic Procedure Only (Routine) - Closed Specialty Diagnoses / Procedures Referred By Contac t Referred To Contact XR IMAGING Diagnoses LUQ pain Procedures XR ABDOMEN 1V SUPINE RADIOLOGIC EXAM ABDOMEN 1 VIEW Manny Bean MD [address] [place] [address] [place] [address] Referral ID Status Reason Start Date Expiration Date V isits Requested Visits Authorized [id number] Closed Auto-Generate d Referral 05/26/2024 06/25/2025 1 1 [facility] for referral (narrative)* Diagnostic Procedure Only (Routine) - Closed Specialty Diagnoses / Procedures Referred By Contac t Referred To Contact XR IMAGING Diagnoses Acute pain of right knee Procedures XR KNEE GENERAL 4V AP BOTH/PA BOTH/LAT/MERC RIGHT RADIOLOGIC EXAM KNEE COMPLETE 4/MORE VIEWS Franck Velez MD [address] [place] [address] [place] [address] Referral ID Status Reason Start Date Expiration Date V isits Requested Visits Authorized [id number] Closed Auto-Generate d Referral 08/08/2022 09/07/2023 1 1 [facility] for referral (narrative)No reason for referral information availableWSelect [facility] Work Phone: [facility] Narrative* Diagnostic Procedure Only (Routine) - Closed Specialty Diagnoses / Procedures Referred By Contac t Referred To Contact XR IMAGING Diagnoses LUQ pain Procedures XR ABDOMEN 1V SUPINE RADIOLOGIC EXAM ABDOMEN 1 VIEW Manny Bean MD [address] [place] [address] [place] [address] Referral ID Status Reason Start Date Expiration Date V isits Requested Visits Authorized [id number] Closed Auto-Generate d Referral 05/26/2024 06/25/2025 1 1 [facility] for visit Narrative* Diagnostic Procedure Only (Routine) - Closed Specialty Diagnoses / Procedures Referred By Contac t Referred To Contact XR IMAGING Diagnoses Acute pain of right knee Procedures XR KNEE GENERAL 4V AP BOTH/PA BOTH/LAT/MERC RIGHT RADIOLOGIC EXAM KNEE COMPLETE 4/MORE VIEWS Franck Velez MD [address] [place] [address] [place] [address] Referral ID Status Reason Start Date Expiration Date V isits Requested Visits Authorized [id number] Closed Auto-Generate d Referral 08/08/2022 09/07/2023 1 1 [facility] Summary Purpose Family History No Family History Records FoundNo Family History Records FoundNo Family History Records FoundNo Family History Records Found Advance Directives No Advanced Directives Records Found Advance Directive Response Recorded Date/ Time Do you have a Healthcare Power of Neonatal Social Worker? No May 25, 2025 4:16pm Chief Complaint and Reason for Visit Chief Complaint CHRONIC MIDLINE LBP W/ KENDRA SCIATICA/RX HERE Chief Complaint Admit Date FLANK PAIN May 25, 2025 3:5 4pm Additional Source Comments (unrecognized sect ion and content) No Status Records FoundNo Status Records FoundNo Status Records FoundNo Status Records Found INFORMATION SOURCE (unrecogn ized section and content) DATE CREATED AUTHOR 12/26/2018 [facility] DATE CREATED AUTHOR AUTHOR'S ORGANIZ ATION 12/23/2021 [facility] DATE CREATED AUTHOR AUTHOR'S ORGANIZ ATION 06/01/2025 [facility] DATE CREATED AUTHOR AUTHOR'S ORGANIZ ATION 07/04/2025 [facility] Goals (unrecognized section and content) Goals [...] or prosecute any alcohol or drug abuse patient.Wilson HealthIn the event this information is protected by the Federal Confidentiality of Alcohol and Drug Abuse Patient Records regulations: The Federal rules restrict any use of the information to criminally investigate or prosecute any alcohol or drug abuse patient.[facility] HealthIn the event this information is protected by the Federal Confidentiality of Alcohol and Drug Abuse Patient Records regulations: The Federal rules restrict any use of the information to criminally investigate or prosecute any alcohol or drug abuse patient.[facility] HealthIn the event this information is protected by the Federal Confidentiality of Alcohol and Drug Abuse Patient Records regulations: The Federal rules restrict any use of the information to criminally investigate or prosecute any alcohol or drug abuse patient.[facility] HealthIn the event this information is protected by the Federal Confidentiality of Alcohol and Drug Abuse Patient Records regulations: The Federal rules restrict any use of the information to criminally investigate or prosecute any alcohol or drug abuse patient.[facility] HealthIn the event this information is protected by the Federal Confidentiality of Alcohol and Drug Abuse Patient Records regulations: The Federal rules restrict any use of the information to criminally investigate or prosecute any alcohol or drug abuse patient.[facility] HealthIn the event this information is protected by the Federal Confidentiality of Alcohol and Drug Abuse Patient Records regulations: The Federal rules restrict any use of the information to criminally investigate or prosecute any alcohol or drug abuse patient.[facility] HealthIn the event this information is protected by the Federal Confidentiality of Alcohol and Drug Abuse Patient Records regulations: The Federal rules restrict any use of the information to criminally investigate or prosecute any alcohol or drug abuse patient.[facility] HealthIn the event this information is protected by the Federal Confidentiality of Alcohol and Drug Abuse Patient Records regulations: The Federal rules restrict any use of the information to criminally investigate or prosecute any alcohol or drug abuse patient.Wilson HealthIn the event this information is protected by the Federal Confidentiality of Alcohol and Drug Abuse Patient Records regulations: The Federal rules restrict any use of the information to criminally investigate or prosecute any alcohol or drug abuse patient.Wilson HealthIn the event this information is protected by the Federal Confidentiality of Alcohol and Drug Abuse Patient Records regulations: The Federal rules restrict any use of the information to criminally investigate or prosecute any alcohol or drug abuse patient.Wilson HealthIn the event this information is protected by the Federal Confidentiality of Alcohol and Drug Abuse Patient Records regulations: The Federal rules restrict any use of the information to criminally investigate or prosecute any alcohol or drug abuse patient.Wilson HealthIn the event this information is protected by the Federal Confidentiality of Alcohol and Drug Abuse Patient Records regulations: The Federal rules restrict any use of the information to criminally investigate or prosecute any alcohol or drug abuse patient.Wilson HealthIn the event this information is protected by the Federal Confidentiality of Alcohol and Drug Abuse Patient Records regulations: The Federal rules restrict any use of the information to criminally investigate or prosecute any alcohol or drug abuse patient.Wilson HealthIn the event this information is protected by the Federal Confidentiality of Alcohol and Drug Abuse Patient Records regulations: The Federal rules restrict any use of the information to criminally investigate or prosecute any alcohol or drug abuse patient.[facility] Teams (unrecognized sec tion and content) Envelope Sealer Operator Relationship Specialty Start Date End Date Manny Bean MD [address] [place] [address] PCP - General Family Medicine 01/04/20 Envelope Sealer Operator Relationship Specialty Start Date End Date Manny Bean MD [address] [place], [place] [address] PCP - General Family Medicine 01/04/20 Envelope Sealer Operator Relationship Specialty Start Date End Date Manny Bean MD [address] [place] [address] PCP - General Family Medicine 01/04/20 Envelope Sealer Operator Relationship Specialty Start Date End Date Manny Bean MD [address] [place] [address] PCP - General Family Medicine 01/04/20 Envelope Sealer Operator Relationship Specialty Start Date End Date Manny Bean MD [address] [place] [address] PCP - General Family Medicine 01/04/20 Envelope Sealer Operator Relationship Specialty Start Date End Date Manny Bean MD [address] [facility] [place] [address] PCP - General Family Medicine 01/04/20 Envelope Sealer Operator Relationship Specialty Start Date End Date Manny Bean MD [address] [facility] [place] [address] PCP - General Family Medicine 01/04/20 Envelope Sealer Operator Relationship Specialty Start Date End Date Manny Bean MD [address] [place] [address] PCP - General Family Medicine 01/04/20 Podlogar, Ary, TRACER CLERK.SAND SLINGER [address] [place] [address] Logistics And Planning Manager Family Medicine 09/26/24 Envelope Sealer Operator Relationship Specialty Start Date End Date Manny Bean MD [address] [place] [address] PCP - General Family Medicine 01/04/20 Podlogar, Ary, TRACER CLERK.SAND SLINGER [address] [facility] [place] [address] Logistics And Planning Manager Family Medicine 09/26/24 Envelope Sealer Operator Relationship Specialty Start Date End Date Manny Bean MD [address] [facility] [place] [address] PCP - General Family Medicine 01/04/20 Podlogar, Ary, TRACER CLERK.SAND SLINGER [address] [place] [address] Logistics And Planning Manager Family [facility] 09/26/24 Envelope Sealer Operator Relationship Specialty Start Date End Date Manny Bean MD [address] [place] [address] PCP - General Family Medicine 01/04/20 Podlogar, ADAM Mcallister.SAND SLINGER [address] [place] [address] [facility]istics [facility] 09/26/24 Envelope Sealer Operator Relationship Specialty Start Date End Date Manny Bean MD [address] [place] [address] PCP - General Family Medicine 01/04/20 PodlogarAry, ADAM.SAND SLINGER [address] [place] [address] Logistics And Planning Manager Family Medicine 09/26/24 Mary Jeff APRN.SAND SLINGER [address] [place] [address] [facility] 01/11/25 Envelope Sealer Operator Relationship Specialty Start Date End Date Manny Bean MD [address] [place] [address] PCP - General Family Medicine 01/04/20 Podlogar, Ary TRACER CLERK.SAND SLINGER [address] [place] [address] Logistics And Planning Manager Family Medicine 09/26/24 Mary Jeff APRN.SAND SLINGER [address] [place] [address] [facility] 01/11/25 Envelope Sealer Operator Relationship Specialty Start Date End Date Manny Bean MD [address] [place], [place] [address] PCP - General Family Medicine 01/04/20 PodlogarAry APRN.SAND SLINGER [address] [place], [place] [address] [facility] 09/26/24 Envelope Sealer Operator Relationship Specialty Start Date End Date Manny Bean MD [address] [place], [place] [id number] PCP - General Family Medicine 01/04/20 PodlogarAry APRN.SAND SLINGER [address] [place], [place] [address] [facility] 09/26/24 Team Status: Active Member Role/Relationship Status Dates Dr. Jose Alejandro Bean MD Primary Care Provider Acti ve Team Status: Inactive Member Role/Relationship Status Dates Dr. Jose Alejandro Bean MD Primary Care Provider Acti ve Start: May 25, 2025 End: May 25, 2025 Dr. Lloyd Gao , DO Emergency Provider Activ e Start: May [...] allergy Specialty Diagnoses / Procedures Referred By Contac t Referred To Contact Allergy Diagnoses Allergy to penicillin Allergic reaction, initial encounter Hives Procedures CONSULT TO ALLERGY/IMMUNOLOGY OFFICE/OUTPATIENT [facility] 60 MINUTES Manny Bean MD [address] [place] [address] Phone: tel: fax: Referral ID Status Reason Start Date Expiration Date V isits Requested Visits Authorized [id number] Closed PCP Requested Referral 12/09/2024 12/09/2025 1 [...] BE BASED ON THE PRIMARY CLINICAL RECORDS. [facility]. provides no warranty or guarantee of the accuracy or completeness of information in this document.
--- NOTE | 2025-09-12 20:39 | ED.RN ---
this rn goes into room to do iv and draw blood. pt asks unless it is absolutly neccasarry i dont want the iv this rn went and talked with dr. hoang. dr. hoang states the pt is sound to make own decisions. the rn goes back into room to talk to pt and pt states he would like to wait for the iv unless someething wrong comes back on the ultrasound.
[2025-09-12 20:54] VITALS: BP 135/79; PULSE 67; RESP 18; TEMP 36.6; O2SAT 97
[2025-09-12] MEDS: 0.9% Normal Saline (1000mL) 1,000 ML 250 ML IV (20:56)
[2025-09-12] MEDS: Ketorolac 30 MG/ML Syringe IV (20:57)
[2025-09-12 21:04] LABS: Mucous, Urine 0 SEEN /hpf (<or=2+); Squamous Epithelial Cells - UA 0 SEEN /hpf (0-5)
[2025-09-12 21:05] LABS: Hematocrit 44.2 % (40-54); Hemoglobin 14.7 g/dL (13.0-16.5); Immature Granulocytes Count 0.040 X10^3/uL (0.0-0.0); Mean Corp Hgb Conc 33.3 g/dL (32-36); Mean Corpuscular Volume 83.4 fL (80-94); Mean Platelet Vol. 9.2 fl (6.2-12.0); NRBC Flagged by Analyzer 0 % (0-5); Platelet Count 254 K/mm3 (150-450); RBC Distribution Width CV 12.6 % (11.6-14.6); RBC Distribution Width SD 38.1 fl (35.1-43.9); Red Blood Count 5.30 M/mm3 (4.6-6.2); White Blood Count 9.9 K/mm3 (4.4-11.0)
[2025-09-12 21:13] LABS: Color, Urine Yellow (Yellow); Glucose, Dipstick Normal (Normal); Ketone-Dipstick Negative (Negative); Leukocyte Esterase-Dipstick Negative /ul (Negative); Nitrite-Dipstick Negative (Negative); Occult Blood-Urine 25 /ul (Negative); Protein-Dipstick 15 mg/dl (Negative); Specific Gravity, Urine 1.020 (1.002-1.030); Urine Bilirubin Dipstick Negative (Negative)
[2025-09-12 21:23] LABS: Red Blood Cells-Urine 0-5 SEEN /hpf (0-5)
[2025-09-12 21:26] LABS: Anion Gap 12 (5-15); BUN 16 mg/dL (4-19); BUN/Creat Ratio 14.9 RATIO (10-20); Calcium,Total 9.2 mg/dL (7.6-11.0); Carbon Dioxide 26.7 mmol/L (21.0-32.0); Chloride 103 mmol/L (98-108); Estimated Creatinine Clearance 126.80 ml/min (50-250); Glucose 96 mg/dL (70-99); Potassium 3.8 mmol/L (3.3-5.1)
[2025-09-12 23:00] VITALS: BP 147/62; PULSE 84; RESP 18; O2SAT 96
--- NOTE | 2025-09-12 23:19 | EDS_ITS ---
HPI History of Present Illness Chief Complaint: Male Pain/Injury Informant: patient and spouse/S.O. Narrative Narrative: 40-year-old male presenting to the emergency room with left flank abdominal and left testicular pain. Patient states that the left testicle posteriorly and along the cord is tender to palpation. Symptoms seem to wax and wane. They began a couple hours before arriving in the emergency department. Had a similar episode several months ago and was seen in the emergency department follow-up with primary care and supposed to have an ultrasound performed tomorrow. He states in the emergency department for they did not see an obvious kidney stone. Did not see an obvious cause for his pain. No reported fevers or URI symptoms. PFSH PFS Medical History GERD (gastroesophageal reflux disease) Home Medications ?Medication ?Instructions ?Recorded ?Last Taken ?Type NK 09/12/25 Unknown History Allergy/AdvReac Type Severity Reaction Status Date / Time Sulfa (Sulfonamide Allergy Mild Hives Verified 09/12/25 19:55 Antibiotics) Social History Smoking Status: Never smoker ROS ROS ED Constitutional Constitutional ED: Denies chills or weight loss Eyes Eyes: Denies change in vision or diplopia ENT ENT ED: Denies ear pain, rhinorrhea or sore throat Cardiovascular Cardiovascular: Denies chest pain, orthopnea, palpitations or racing heartbeat Respiratory/Chest Respiratory/Chest: Denies cough, dyspnea or orthopnea Gastrointestinal Gastrointestinal: Reports abdominal pain; Denies diarrhea, nausea or vomiting Genitourinary Genitourinary ED: Reports other Details: Left testicular pain ; Denies dysuria, hematuria or urinary frequency Musculoskeletal Musculoskeletal: Reports back pain; Denies arthralgias or myalgias Integumentary Denies abscess or rash Neurologic Neurologic: Denies headache(s) or weakness Psychiatric Psychiatric: Denies anxiety, depression, suicidal ideation or suicidal thoughts Endocrine Endocrinology: Denies polydipsia, polyphagia or polyuria Allergic/Immunologic Allergic/Immunologic ED: Denies mouth swelling, tongue swelling or urticaria EXAM Physical Exam Const Vital Signs: 09/12/25 19:50 09/12/25 20:54 09/12/25 23:00 Temperature 97.9 F 97.9 F Temperature Source Temporal Oral Pulse Rate 67 67 84 Respiratory Rate 18 18 18 Blood Pressure 176/86 H 135/79 H 147/62 H Blood Pressure Mean 116 97 90 Pulse Ox 100 97 96 Oxygen Delivery Method Room Air Room Air Room Air Positive well nourished and well developed General Appearance ED: well developed and NAD HEENT Reports normocephalic, head/scalp atraumatic and moist mucous membranes Eyes PERRL and EOMs intact bilaterally Neck no lymphadenopathy, supple and no JVD Resp normal respiratory effort and clear to auscultation bilaterally Cardio regular rate, regular rhythm and no murmurs GI normal to inspection, nondistended, normoactive bowel sounds and non-tender Palpation: soft no CVA tenderness Narrative: Left testicle seems mildly enlarged compared to the right. Normal lie. Bilateral cremasteric reflex. He is tender more in the epididymal and lower spermatic cord. Not appreciate any rashes lesions ulcers or significant lymphadenopathy. Back/Spine no CVA tenderness and normal ROM Extremity normal to inspection General Extremety ED: Negative for edema General Extremity: Negative for edema Neuro oriented x3 and CN's II-XII intact bilaterally Sensorium / Orientation: alert Motor Exam: strength 5/5 throughout Psych mental status grossly normal Mood & Affect: Negative for depressed or tearful Skin no rashes or lesions noted and no wounds MDM MDM MDM Narrative Medical decision making narrative: Differential diagnosis includes but not limited to testicular torsion epididymitis orchitis hydrocele varicocele kidney stone UTI Patient did not initially want blood work. Eventually blood work was obtained shows white count 9.9 71.7 neutrophils 19.7 lymphocytes. Creatinine normal at 1.09 urinalysis negative. Testicular ultrasound was obtained which demonstrates no evidence of torsion per the radiology read. There are small bilateral hydroceles. There is a left varicocele. CT of the abdomen pelvis was also obtained read by radiology reviewed by myself. There appears to be some hydroureter on the left but no obvious obstruction. This could be due to recently passed stone or perhaps uric acid stone that is not visible on the CT. Patient is resting more comfortably. I believe the patient should follow-up with urology. Local urology is not available. He is a [facility] patient I can refer him to [facility] urology. Patient is is comfortable with this. History & Record Review Discussion w/independent historian: Patient and Significant other Additional record(s) reviewed:: Prior ED visit and Prior labs Lab Data Attestation: I reviewed the patient's lab results. Labs: Laboratory Results - last 24 hr 09/12/25 21:00 WBC 9.9 RBC 5.30 Hgb 14.7 Hct 44.2 MCV 83.4 MCH 27.7 MCHC 33.3 RDW Std Deviation 38.1 RDW Coeff of Ajay 12.6 Plt Count 254 MPV 9.2 Immature Gran % (Auto) 0.400 Neut % (Auto) 71.7 H Lymph % (Auto) 19.7 Rose[place] % (Auto) 7.3 Eos % (Auto) 0.5 Baso % (Auto) 0.4 Absolute Neuts (auto) 7.1 Absolute Lymphs (auto) 1.95 Nucleated RBC % 0 Sodium 141 Potassium 3.8 Chloride 103 Carbon Dioxide 26.7 Anion Gap 12 BUN 16 Creatinine 1.09 Estim Creat Clear Calc 126.80 Est GFR (MDRD) Non-Af 87 BUN/Creatinine Ratio 14.9 Glucose 96 Calcium 9.2 Urine Color Yellow Urine Clarity Clear Urine pH 6.5 Ur Specific [place] 1.020 Urine Protein 15 H Urine Glucose (UA) Normal Urine Ketones Negative Urine Occult Blood 25 H Urine Nitrite Negative Urine Bilirubin Negative Urine Urobilinogen Normal Ur Leukocyte Esterase Negative Urine RBC 0-5 SEEN Urine WBC 0 SEEN Ur Squamous Epith Cells 0 SEEN Urine Bacteria 0 SEEN Urine Mucus 0 SEEN Radiography Diagnostic Testing: Clinical Impression(s) from Imaging Studies Abdomen/Pelvis CT 09/12/25 20:22 IMPRESSION: Minimal left hydroureter without obstructive ureteral stone. No hydronephrosis. Recent passage of stone is not excluded. Mildly thickened urinary bladder wall which may reflect cystitis vs nondistention; consider correlation with urinalysis. Reading Location: [facility] Testicular Ultrasound 09/12/25 20:22 IMPRESSION: Small right hydrocele. Small left hydrocele. Left varicocele. Normal arterial and venous Doppler flow to both testes with no evidence of torsion. Reading Location: [address] Discharge Plan Triage Chief Complaint: Male Pain/Injury ED Provider: Daren Burgos Dx/Rx/DC Orders Clinical Impression: Left varicocele, Hydroureter, Pain in left testicle Instructions: ED Varicocele Prescriptions: No Action NK Primary Care Provider: Jose Alejandro Bean Referrals: Jose Alejandro Bean MD [Primary Care Provider, Family Practice] Referral Note: call in am to discuss your ED visit and results Print Language: Belarusian Disposition Disposition: Home, Self Care
[2025-09-13 00:12] VITALS: BP 140/80; PULSE 85; RESP 22; TEMP 36.4; O2SAT 100
== END 2025-09-13 00:13 | disposition home or self-care (01) ==
PROVIDERS: Emergency Provider Emergency Medicine; PCP Family Medicine; Visit Provider Emergency Medicine
DX: I86.1 Scrotal varices (principal); N13.4 Hydroureter; N50.812 Left testicular pain; K21.9 Gastro-esophageal reflux disease without esophagitis
CPT/HCPCS: 74176; 76870; 80048; 81001; 85025; 93976; 96361; 96374; 96375; 99282; J2405